=== PATIENT | female | born 1945 | race Caucasian/White ===

== ENCOUNTER 2018-04-20 10:00 | Outpatient (CLI) | payer MEDICARE, SELFPAY ==
[2018-04-20 10:43] LABS: INR 2.3 (1.0-3.5); Prothrombin Time 21.8 sec (9.3-10.8)
[2018-04-20 11:38] LABS: BUN 28 mg/dL (7-18); CREATININE 1.01 mg/dL (0.55-1.02); Calcium 8.4 mg/dL (8.5-10.1); Chloride 105 mmol/L (98-107); Cholesterol 164 mg/dL (50-200); Estimated GFR 54.03 (mL/min/1.73m2); Glucose 150 mg/dL (70-100); HDL Cholesterol 28 mg/dL (40-60); LDL CHOLESTEROL 112 mg/dL (<100); Potassium 4.1 mmol/L (3.5-5.1); Sodium 140 mmol/L (136-145); Triglyceride 155 mg/dL (30-150)
== END 2018-04-20 10:20 ==
PROVIDERS: PCP Family Medicine; Visit Provider Family Medicine
DX: I50.22 Chronic systolic (congestive) heart failure (principal); I48.91 Unspecified atrial fibrillation; Z79.01 Long term (current) use of anticoagulants
CPT/HCPCS: 36415; 80048; 80061; 83721; 85610

== ENCOUNTER → 2018-09-20 10:17 | Outpatient (BNVA) | payer MEDICARE, SELFPAY | PROVIDERS: PCP Family Medicine; Visit Provider Internal Medicine Cardiovascular Disease | DX: Z45.02 Encounter for adjustment and management of automatic implantable cardiac defibrillator (principal); I42.8 Other cardiomyopathies; I48.1 Persistent atrial fibrillation; Z79.01 Long term (current) use of anticoagulants | CPT/HCPCS: 93283; 99214 ==

== ENCOUNTER → 2019-03-14 08:56 | Outpatient (CLI) | payer MEDICARE, SELFPAY | PROVIDERS: PCP Family Medicine; Visit Provider Internal Medicine Cardiovascular Disease | DX: I42.8 Other cardiomyopathies (principal); Z45.02 Encounter for adjustment and management of automatic implantable cardiac defibrillator; I50.22 Chronic systolic (congestive) heart failure; Z98.890 Other specified postprocedural states; I48.2 Chronic atrial fibrillation | CPT/HCPCS: 93283; 99214 ==

== ENCOUNTER → 2019-03-15 12:44 | Outpatient (BNVA) | payer MEDICARE, SELFPAY | PROVIDERS: PCP Family Medicine; Referring Provider Family Medicine; Visit Provider Physical Therapy Assistant | DX: K62.5 Hemorrhage of anus and rectum (principal); Z80.0 Family history of malignant neoplasm of digestive organs; Z79.01 Long term (current) use of anticoagulants; I10 Essential (primary) hypertension | CPT/HCPCS: 99213 ==

== ENCOUNTER 2019-03-22 09:44 | Outpatient (CLI) | payer MEDICARE, SELFPAY ==
[2019-03-22 17:05] LABS: HCT 42.3 % (36.0-46.0); HGB 14.7 g/dL (12.0-15.5); Mean Corp. HGB Concentration 34.8 g/dL (32.0-36.0); Mean Corpuscular Volume 92.2 fL (80-95); Mean Platelet Volume 9.4 fL (8.0-11.0); Platelet Count 241 x1000/uL (130-400); RBC 4.59 m/cumm (4.00-5.20); RBC Distribution Width 13.1 % (11.7-14.6); White Blood Cell Count 8.65 k/cumm (4.4-10.8)
[2019-03-22 18:09] LABS: Anion Gap 9.1 mmol/L (3-11); BUN 32 mg/dL (7-18); CO2 27.9 mmol/L (21.0-32.0); CREATININE 1.39 mg/dL (0.55-1.02); Calcium 8.7 mg/dL (8.5-10.1); Calculated LDL 105 mg/dL; Chloride 104 mmol/L (98-107); Cholesterol 172 mg/dL (50-200); Estimated GFR 37.27 (mL/min/1.73m2); Glucose 93 mg/dL (70-100); HDL Cholesterol 29 mg/dL (40-60); Potassium 4.7 mmol/L (3.5-5.1); Sodium 141 mmol/L (136-145); Triglyceride 193 mg/dL (30-150)
== END 2019-03-22 10:04 ==
PROVIDERS: PCP Family Medicine; Visit Provider Family Medicine
DX: I42.8 Other cardiomyopathies (principal); I50.22 Chronic systolic (congestive) heart failure; K62.5 Hemorrhage of anus and rectum
CPT/HCPCS: 36415; 80048; 80061; 85027

== ENCOUNTER 2020-12-24 03:57 | Outpatient (CLI) | payer MEDICARE, SELFPAY ==
[2020-12-24 09:45] LABS: Abs Immature Grans 0.04 10^3/uL (0.0-0.06); Absolute Basophil Count 0.04 10^3/uL (0.0-0.2); Absolute Eosinophil Count 0.39 10^3/uL (0.0-0.7); Absolute Lymphocyte Count 2.23 10^3/uL (1.2-3.4); Absolute Monocyte Count 0.81 10^3/uL (0.1-0.8); Absolute Neutrophil Count 6.69 10^3/uL (1.2-6.7); Basophils % 0.4; Eosinophils % 3.8; HCT 43.4 % (36.0-46.0); HGB 15.3 g/dL (11.2-15.7); Immature Grans % 0.4; Lymphocytes % 21.9; MCH 31.9 pg (27.0-33.0); MCHC 35.3 % (32.0-36.0); MCV 90.4 fL (80-95); MPV 9.9 fL (8.0-11.0); Monocytes % 7.9; Neutrophils % 65.6; Nucleated RBC 0 %; Platelet Count 300 10^3/uL (130-400); RDW 13.4 % (11.7-14.6); RDW-SD 42.5 fL
[2020-12-24 09:47] LABS: Hemoglobin A1C 6.1 % (<5.7)
[2020-12-24 09:52] LABS: Anion Gap 6.1 mmol/L (3-11); BUN 18 mg/dL (7-18); CO2 30.9 mmol/L (21.0-32.0); Calcium 8.8 mg/dL (8.5-10.1); Chloride 103 mmol/L (98-107); Estimated GFR 54.35 (mL/min/1.73m2); Glucose 122 mg/dL (74-106); Potassium 4.4 mmol/L (3.5-5.1); Sodium 140 mmol/L (136-145)
[2020-12-24 09:57] LABS: Calculated LDL 107 mg/dL (<100); Cholesterol 164 mg/dL (<200); Digoxin 0.99 ng/mL (0.90-2.00); HDL Cholesterol 30 mg/dL (40-60); Triglyceride 138 mg/dL (<150)
== END 2020-12-24 03:58 | disposition home or self-care (01) ==
LOC: LBO 03:57
PROVIDERS: Internal Medicine Cardiovascular Disease; PCP Nurse Practitioner; Visit Provider Nurse Practitioner
DX: E66.9 Obesity, unspecified (principal); I50.22 Chronic systolic (congestive) heart failure; I48.91 Unspecified atrial fibrillation; R73.03 Prediabetes; I10 Essential (primary) hypertension
CPT/HCPCS: 36415; 80048; 80061; 80162; 82565; 83036; 84132; 85025

== ENCOUNTER 2021-07-08 02:29 | Outpatient (CLI) | payer MEDICARE, SELFPAY ==
--- NOTE | 2021-07-08 08:15 | DI.MAMMO_ITS ---
Exam(s) MAMMO SCREENING EXAM: MAMMO SCREENING CLINICAL HISTORY: screening,Z12.39 TECHNIQUE: Bilateral full field digital CC and MLO mammographic images were obtained with 3D tomosyn thesis and utilizing computer aided detection (CAD). COMPARISON: Available for comparison. FINDINGS: Masses/Architectural Distortion: There is an ovoid density in the medial right breast seen on the aircraft shipping checker niocaudad view. Microcalcifications: No suspicious pleomorphic-type are seen. Skin Thickening/Nipple Retraction: None. IMPRESSION: 1. Ovoid density in the medial right breast on the craniocaudad view 3 cm from the nipple. 2. This area should be further evaluated with spot compression view. Ultrasound may be indicated at that time. BI-RADS Category 0 - Assessment Incomplete: Need additional imaging evaluation Breast Density - Category B - Scattered areas of fibroglandular density Breast density category C or D implies that the patient has dense breast tissue. Dense breast tissue is very common and is not abnormal but dense breast tissue can make it harder to find cancer on a ma mmogram. Also, dense breast tissue may increase their breast cancer risk. This information about the result of the mammogram report was provided to the patient to raise their awareness. Use this report when you speak with the patient about their risks for breast cancer, which includes their family hist ory. At that time, you may recommend for more screening tests (Ultrasound or MRI) as they might be us eful based on their risk. A negative radiographic report should not delay biopsy if a dominant or clinically suspicious mass is present. Up to ten percent of cancers are not identified on mammography. A negative report may reinforce clinical impression. Adenosis and dense breasts may obscure an underlying neoplasm. False positive reports average 6 to 10%. Patient will receive a letter notifying them of these results.
== END 2021-07-08 02:49 ==
PROVIDERS: PCP Nurse Practitioner; Visit Provider Nurse Practitioner
DX: Z12.31 Encounter for screening mammogram for malignant neoplasm of breast (principal); R92.8 Other abnormal and inconclusive findings on diagnostic imaging of breast
CPT/HCPCS: 77063; 77067

== ENCOUNTER 2021-07-23 00:45 | Outpatient (CLI) | payer MEDICARE, SELFPAY ==
--- NOTE | 2021-07-23 | DI.US_ITS ---
Exam(s) MG MAMMO SCREEN CALL BACK UNI US BREAST RT LIMITED EXAM: MG MAMMO SCREEN CALL BACK UNI CLINICAL HISTORY: OVOID DENSITY IN MEDIAL RT BREAST 3 CM FROM NIPPLE. TECHNIQUE: Craniocaudal spot compression digital Mammography views of the right breast with Computer Aided Diagnosis followed by Tomosynthesis and right breast ultrasound. COMPARISON: US RIGHT BREAST ULTRASOUND from 06/24/2013 MG DIAGNOSTIC BILATERAL SPOTS DIGITAL from 06/24/2013 MG MG MAMMO SCREENING from 07/08/2021 US US BREAST RT LIMITED from 07/23/2021 FINDINGS: Mammography/Tomosynthesis: A spot compression view of the medial aspect of the right breast showed shows no persistent abnormali ty. Spot compression view of the of subareolar region shows a circumscribed nodule measuring 6 x 8 millim eters. Architectural Distortion: None seen. Microcalcifictions: No suspicious pleomorphic-type are seen. Skin Thickening/Nipple Retraction: None. Right breast US: Echotexture: Normal appearance of the glandular tissue. Shadowing: No suspicious foci. Cyst: There is a cystic area in the subareolar region measuring 9 by 5 x 10 millimeters which contain s a solid component containing vascularity. Findings may represent an intraductal papilloma. Ductal dilation: Dilated ducts are noted in the subareolar region. IMPRESSION: 1. Complex cystic lesion in the subareolar region containing solid component. Biopsy is recommended for further evaluation. This is amenable to ultrasound-guided biopsy. 2. The findings were called to Cristal robison and discussed with the patient after completion of the examination. BI-RADS Category 4 - Suspicious Abnormality: Biopsy should be considered Breast Density - Category B - Scattered areas of fibroglandular density A negative radiographic report should not delay biopsy if a dominant or clinically suspicious mass is present. Up to ten percent of cancers are not identified on mammography. A negative report may reinforce clinical impression. Adenosis and dense breasts may obscure an underlying neoplasm. False positive reports average 6 to 10%. Patient will receive a letter notifying them of these results.
--- NOTE | 2021-07-23 | DI.US_ITS ---
Exam(s) US BREAST LT LIMITED EXAM: US BREAST LT LIMITED CLINICAL HISTORY: PER RADIOLOGIST; PT C/O STRAW COLORED DISCHARGE TECHNIQUE: Ultrasound left breast performed using standard protocol. COMPARISON: [facility] MAMMO SCREENING from 07/08/2021 FINDINGS: Dilated ducts are noted in the sub subareolar region. The maximal dilatation is 2.6 millimeters. A single duct shows some debris but no evidence of a focal mass. IMPRESSION: Ductal dilatation with focal area of debris. No visible solid mass. BI-RADS Category 3 - 6 month - Probably Benign Finding: Recommend follow-up ultrasound in 6 months DATA REPOSITORY:
== END 2021-07-23 01:05 ==
PROVIDERS: PCP Nurse Practitioner; Visit Provider Nurse Practitioner
DX: Z12.31 Encounter for screening mammogram for malignant neoplasm of breast (principal); R92.8 Other abnormal and inconclusive findings on diagnostic imaging of breast; N60.01 Solitary cyst of right breast; N60.42 Mammary duct ectasia of left breast
CPT/HCPCS: 76642; 77063; 77067

== ENCOUNTER 2022-04-12 14:23 | Outpatient (CLI) | payer MEDICARE, SELFPAY ==
--- OUTSIDE RECORDS SUMMARY | 2022-04-12 14:38 | XMS_ITS | Encounter Summary ---
:1945 Author Organization [facility] Address [address] [place] [address] Care Team Providers Name Role Phone Anna Staples DISCHARGE RN Primary Care Provider Eun Nolen MD Unavailable [phone] Reason for Visit Reason Onset Date Comments Appointment Related 10/21/2021 Dr. Almanza visit Encounter Details Date Type Department Care Team Description 10/21/2021 Telephone [facility] Jens Almanza MD Appointment Related Surgical Oncology - [address] [place] [address] (Dr. 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 Not asked How many drinks containing alcohol do you have on a typical Not asked day when you are drinking? How often do you have six or more drinks on one occasion? No t asked Comment: RARE 09/24/2014 Sex Assigned at Date Recorded Not on file documented as of this encounter Functional Status Functional Status Response Date of Assessment Are you deaf or do you have serious difficulty hearing? No 11/12/2015 Are you blind or do you have serious difficulty seeing, No 11/12/2015 even when wearing glasses? Do you have serious difficulty walking or climbing No 11/12/2015 stairs? (5 years old or older) Do you have difficulty dressing or bathing? (5 years old No 11/12/2015 or older) Because of a physical, mental, or emotional condition, No 03/16/2020 does this person have difficulty doing errands alone such as visiting a doctor's office or shopping? Cognitive Status Response Date of Assessment Because of a physical, mental, or emotional condition, No 03/16/2020 does this person have serious difficulty concentrating, remembering, or making decisions? documented as of this encounter Miscellaneous Notes Telephone Encounter - Neida Nielsen - 10/21/2021 1550 EDT Called patient back and she is now rescheduled to 11/08 at 2:30. Patient is all set. documented in this encounter Plan of Treatment Upcoming Encounters Date Type Specialty Care Team Description 04/21/2022 Ancillary Procedure Cardiology 04/21/2022 Office Visit Cardiology Eun Nolen MD [address] [place], [place] [address]A [facility] [address] [phone] (Birdie rk) 07/15/2022 Office Visit Surgical Oncology Jens Almanza MD [address] [place] [address] 2 [place] [address] (Wo rk) documented as of this encounter Visit Diagnoses Not on filedocumented in this encounter Care Teams Correctional Therapy Director Relationship Specialty Start Date End Date Anna Staples NP PCP - General 08/26/21 [address] [place] [address] Eun Nolen MD Cardiovascular Disease 09/26/21 [address] [facility] [address] [place] [address] documented as of this encounter
--- OUTSIDE RECORDS SUMMARY | 2022-04-12 14:38 | XMS_ITS | Encounter Summary ---
:1945 Author Organization [facility] Address [address] [place] [address] Care Team Providers Name Role Phone Anna Staples TRAY SERVER Primary Care Provider Eun Nolen MD Unavailable Encounter Details Date Type Department Care Team Description 01/17/2022 Telephone [facility] Surgical Michaela Holt , oil spot washer - [facility] [address], [place] [id number] Social History Tobacco Use Types Packs/Day Years [...] Assigned at Date Recorded Not on file COVID-19 Exposure Response Date Recorded In the last 10 days, have you been in contact with No / Unsu re 01/06/2022 15:24 EDT someone who was confirmed or suspected to have Coronavirus/COVID-19? documented as of this encounter Functional Status [...] making decisions? documented as of this encounter Ordered Prescriptions Prescription Sig Dispensed Refills Start Date End Date tamoxifen (NOLVADEX) 20 mg Take 1 Tablet by 90 Tablet 3 04/17/2022 tablet mouth daily for 90 days. documented in this encounter Plan of Treatment Upcoming Encounters Date Type Specialty Care Team Description 04/21/2022 Ancillary Procedure Cardiology 04/21/2022 Office Visit Cardiology Eun Nolen MD [address] [place] [phone] (Wo rk) 07/15/2022 Office Visit Surgical Oncology Jens Almanza MD [address] [place] [address] 2 [place] [address] (Wo rk) documented as of this encounter Visit Diagnoses Not on filedocumented in this encounter Care Teams Supervisor Multifocal Lens Relationship Specialty Start Date End Date Anna Staples NP PCP - General 08/26/[address] [place] [phone] Eun Nolen MD Cardiovascular Disease 09/26/[address] [place] [phone] documented as of this encounter
--- OUTSIDE RECORDS SUMMARY | 2022-04-12 14:38 | XMS_ITS | Encounter Summary ---
:1945 Author Organization [facility] [place] [address] Care Team Providers Name Role Phone Silvino Charles MD Primary Care Provider Reason for Visit Reason Comments Skin Lesion Consultation (Routine) - Closed Specialty Diagnoses / Procedures Referred By Contact Refer red To Contact Dermatology Diagnoses skin tag Silvino Charles MD [facility] Dermatology [address] [place], [place] [address] [address] [place] [address] Fax: Referral ID Status Reason Start Date Expiration Date Visits V isits Requested Authorized [id number] Closed Consult, 08/17/2016 08/17/2017 1 [facility] Encounter Details Date Type Department Care Team Description 09/05/2016 Office Visit Dermatology at [facility] Viviane Stevenson i, MD Skin exam, screening for cancer; [facility] History of basal cell carcin santos; [address] Seborrheic keratosis, inflamed; [place] [phone] [facility] [address] (seborrheic keratosis); [phone] RD-DERMATOLOGY [place] angioma; [place], [place] [address] Sebaceous hyperplasia; [phone] Viral warts, un specified type; (Work) [employer] Social History Tobacco Use Types Packs/Day Years Used Date Former Smoker Sex Assigned at Date Recorded Not on file documented as of this encounter Patient Instructions Patient InstructionsRosalind Mott - 09/05/2016 2:15 PM EST Plan for Tania: Destruction of seborrheic keratoses: [phone] Financial Services: [phone] - Recommend daily face lotion spf 15-30 (Cerave AM, Marcell, Cotz) Caring for Your Skin Sun Protection Exposure to ultraviolet (UV) light--from the sun or tanning beds--is the most common modifiable riskfactor for skin cancer. In fact, most skin cancers are found in locations where sun exposure is highest (e.g., face, ears, and hands). Furthermore, UV exposure is associated with skin aging, including wrinkles, brown spots, and leathery skin. Recommendations ?? Generously apply a broad-spectrum water-resistant sunscreen with a Sun Protection Factor (SPF) of30 or more to all exposed skin. ?? Reapply sunscreen every 2 hours, even on cloudy days, and after swimming or sweating. ?? Preferred sunscreens: Sunscreens work by either forming a physical or a chemical barrier to ultraviolet light. Zinc oxide or Titanium dioxide are physical barriers to the sun. We recommend sunscreens that contain at least one physical barrier. Look for these brands: Neutrogena, Blue Lizard, Elizabeth Baby, Delaney Simpson MD, Viridiana evans spf 45 very emollient sport (blue bottle) ?? Wear protective clothing. Long-sleeved shirts, pants, a wide-brimmed hat and sunglasses are all excellent choices. Some companies produce great, breathable SPF clothing (Coolibar, LL Rosa, Monday Afternoons) ?? Seek shade. The sun's rays are strongest between 10a.m. And 4 p.m. ?? Recommend daily face lotion spf 15-30 (Cerave AM, Avnicolleo, Cotz) Skin Cancer screening The incidence of skin cancer has increased dramatically in the past 20 years. The most common skin cancer types include basal cell carcinoma and squamous cell carcinoma. These often look like new moles, and they might be tender, scaly, or prone to bleeding. The most deadly form of skin cancer is melanoma, and it can affect people of all ages and skin types. Recommendations ?? We recommend performing a skin self-examination monthly to become familiar with your moles. This will help you to detect new or changing moles earlier. ?? Remember the ABCDE's of melanoma: ?? Asymmetry - Melanoma tends to grow in an asymmetric (uneven) fashion ?? Border - The border in melanoma tends to be uneven or jagged ?? Color - Melanomas often have different colors (e.g., dark brown, black, red) ?? Diameter - Look for moles that are larger than 0.6 cm (the size of a pencil eraser) ?? Evolution - This is perhaps the most important feature. Any mole that is rapidly growing or changing should be evaluated. If you have any questions, please call [phone]. documented in this encounter Progress Notes Loulou Stevenson MD - 09/05/2016 2:15 PM EST DERMATOLOGY - CONSULT PATIENT NOTE Date of service: 09/05/2016 Tania Stahl : 1945 CC: Skin exam HPI: Tania Stahl is a 71 y.o. female seen in consultation at the request of Silvino Charles MD for evaluation of skin check - Patient is here for a full skin check - has a spot of concern on the left cheek x 1-2 months, asymptomatic - has never bled or hurt, changing in shape - skin tags/seborrheic keratoses - increasing in number, present on face. Says some do itch and whenshe scratches them they bleed. - history of condyloma and wonders if there is a relationship between that and seborrheic keratoses Last FSE: 15 years ago Sun protection: no Relevant Medical History: Preferred name: Radha Skin type: 2 Yes/No If yes (date, subtype, location, treatment) Melanoma no Dysplastic nevi no SCC no BCC yes Right cheek [phone]? [place] no Eczema/Psoriasis no Immunosuppression or Malignancy no History of blistering sunburn yes As a child/ teenager Other Procedure Screening Questions: Yes/No If Yes, details Defibrillator/Pacemaker yes both Artificial Joints no Heart Valves no Blood Thinners yes coumadin Prophylactic Antibiotics no Best way to reach with results Cell Ok to leave a detailed message Relevant FamilyHistory: Yes/No If yes, who (mom/dad/sibling/child) Melanoma no SCC no BCC yes mother Psoriasis or Eczema no Other Social History: Occupation: Retired Marital status: Medications: LORazepam, clotrimazole-betamethasone, digoxin, diphenhydrAMINE, furosemide, lisinopril, meTOPROLOL tartrate, spironolactone, trimethobenzamide, and warfarin No Known Allergies Review of Systems: - General: Feels well. - Skin: No other skin concerns. Examination: - Constitutional: Patient was alert, well-appearing and in no noticeable distress. - Skin exam: The patient was asked to disrobe to the level of their comfort. Full skin examination of the scalp, hair, head, face, neck, back, chest, abdomen, right and left upper extremities, right and left lower extremities and buttocks was normal with the exception of the findings listed below. Skin Type: 2 Notable findings/Assessment/Plan: 1. Seborrheic keratoses - stuck on brown/hearn waxy papules on the face, trunk and extremities. - Reassured of the benign nature of these lesions. No treatment needed. - Discussed fee of $150 for removal of areas that are cosmetically bothersome 2. Sebaceous hyperplasia - yellowish pink papule with telangiectasias and central umbilication located on the face - Benign, reassured. 3. 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 - Reassured of the benign nature of these lesions. No treatment needed. 4. Intertrigo - erythematous plaques with slight maceration in the inframammary fold - Keep area dry. Can use blow-dryer on low setting or dinkey operator slag front of fan/AC after bathing - Continue powder 5. Verruca - flesh colored rough papules with capillary dots located on the right heel - Reviewed diagnosis with patient and treatment options. Not bothersome, no treatment 7. Inflamed seborrheic keratosis - stuck on rough papules located on the trunk - Reassured of the benign nature of these lesions, given irritation/itching/bleeding discussed treatment with LN2 - Patient will call insurance to make sure that spots that are itchy/bleeding is covered and review copay/deductible 8. History of BCC - well healed scar on the right cheek. - NER - recommend photoprotection, handout provided RTC: 1-2 years FSE or PRN if symptoms worsen or persist. Note initiated by Madeleine Bell CMA. Rosalind Tiera has performed the documentation for this encounter in the presence of and acting as a scribe for Dr. Stevenson. I performed the above scribed service and agree with the accuracy of the documentation in this encounter. Reviewed and signed by: Loulou Stevenson MD Dermatology [facility] documented in this encounter Plan of Treatment Not on filedocumented as of this encounter Visit Diagnoses Diagnosis Skin exam, screening for cancer Screening for malignant neoplasm of the skin History of basal cell carcinoma Personal history of other malignant neop lasm of skin Seborrheic keratosis, inflamed Inflamed seborrheic keratosis SK (seborrheic keratosis) Other seborrheic keratosis [place]anca angioma Nevus, non-neoplastic Sebaceous hyperplasia Other specified disease of sebaceous gla nds Viral warts, unspecified type Intertrigo Other specified erythematous condition documented in this encounter Care Teams Repairer Resistance Welding Machines Relationship Specialty Start Date End Date Silvino Charles MD PCP - General Family Medicine 08/17/[address] [place] [address] documented as of this encounter
--- OUTSIDE RECORDS SUMMARY | 2022-04-12 14:38 | XMS_ITS | Encounter Summary ---
:1945 Author Organization [facility] Address [address] [place] [address] Care Team Providers Name Role Phone Nabeeloralia Anna L TRAILHEAD CONSTRUCTION WORKER Primary Care Provider Eun Nolen MD Unavailable [phone] Reason for Referral Consult (See Order Priority) - Specialty Report Received Specialty Diagnoses / Procedures Referred By Contact Refer red To Contact Multidisciplinary Diagnoses Chronic atrial fibrillation (HCC) Eun Nolen [facility] sinan Smith MD [address] [facility], [address] [place], [place] [address] [facility] [address] [phone] Referral ID Status Reason Start Expiration Visits Visits Date Date Requested Authorized [id number] Specialty Specialty 01/10/2022 1 1 Report Services Received Required Question Answer Are you a tobacco user? No Reason for Request: Patient cannot afford medica tions, Xarelto cost 300.00 a month. Patient has 6 pills l eft Reason for Visit Reason Onset Date Comments Medication Management 01/10/2022 Encounter Details Date Type Department Care Team Description 01/10/2022 Telephone [facility] - Eun Nolen [facility] ication Management [facility] Cardiology Clin ic MD Luis [address] [facility] [address] [place] [address] [address] [place] [address] (Wo rk) Social History Tobacco Use Types [...] this encounter Miscellaneous Notes Telephone Encounter - Alyson Bui RN - 01/13/2022 1009 EDT Spoke with [facility], they have reached out to patient. elephone Encounter - Alyson Bui RN - 01/12/2022 1358 EDT Spoke with patient, she is unsure who called her yesterday. She is upset as she would like to speak with someone from [facility]. She asks that I call the [facility] team and see if I would ask them to reach back out to patient. Call placed to [facility]-left msg asking them to call the office regarding patient. elephone Encounter - Magalys Ivan MA - 01/12/2022 1318 EDT Patient called today and left a lengthy message regarding trying to get assistance with her Xarelto medication. She said she was driving yesterday and missed a call from what she thought was the [facility] to help her with her prescription. When she called back today it ended up being the pharmacy at [facility] who told her to call us back as they couldn't help her. She is hoping we can look into this and help her with her Xarelto. elephone Encounter - Alyson Bui RN - 01/10/2022 1523 EDT Spoke with patient regarding her Xarelto. She states it is going to cost her 300.00 a month now and she can not afford this. She states she has 6 pills left. I told her about the [facility], she feels she will qualify. Referral sent for medication assistance. elephone Encounter - Magalys Ivan MA - 01/10/2022 1447 EDT Patient called in and left a msg stating her Xarelto prescription is now costing her too much and she can't afford it. She is wondering what she can do to get it at a lower cost again. She is also wondering about taking her Xarelto with Tamoxifen. documented in this encounter Plan of Treatment Upcoming Encounters Date Type Specialty Care Team Description 04/21/2022 Ancillary Procedure Cardiology 04/21/2022 Office Visit Cardiology Eun Nolen MD [address] [facility] [address] [place] [address] (Wo rk) 07/15/2022 Office Visit Surgical Oncology Jens Almanza MD [address] [place] [address], [facility] [address] [place] [address] (Wo rk) Scheduled Referrals Name Type Priority Associated Diagnoses Order S chedule AMB CONS/FOLLOW UP Outpatient Referral Urgent Chronic atrial Expected: HEALTH ASSISTANCE fibrillation (HCC) 12/31 PROGRAM (Approximate), Expires: 01/10/2023 documented as of this encounter Visit Diagnoses Diagnosis Chronic atrial fibrillation (HCC) - Prim jessica Atrial fibrillation documented in this encounter Care Teams Pulmonologist Relationship Specialty Start Date End Date Anna Staples NP PCP - General 08/26/[address] [place] [address] Eun Nolen MD Cardiovascular Disease 09/26/21 [address] [facility] [address] [place] [address] documented as of this encounter
--- OUTSIDE RECORDS SUMMARY | 2022-04-12 14:38 | XMS_ITS | Encounter Summary ---
:1945 Author Organization [facility] Address [address] [place] [address] Care Team Providers Name Role Phone Anna Staples SECURITY INTELLIGENCE ANALYST Primary Care Provider Eun Nolen MD Unavailable [phone] Encounter Details Date Type Department Care Team Description 11/08/2021 Ancillary Procedure [facility] Surgical Oncology - Main [facility] [address] [place], [place] [id number] Social History Tobacco Use Types Packs/Day Years [...] in contact with No / Unsu re 11/08/2021 13:58 EDT someone who was confirmed or suspected [...] making decisions? documented as of this encounter Plan of Treatment Upcoming Encounters Date Type Specialty Care Team Description 04/21/2022 Ancillary Procedure Cardiology 04/21/2022 Office Visit Cardiology Eun Nolen MD [address] [place], [place] [address]A [facility] [address] [phone] (Wo rk) 07/15/2022 Office Visit Surgical Oncology Jens Almanza MD [address] [place] [address], [facility] [address] [place] [address] (Wo rk) documented as of this encounter Procedures Procedure Name Priority Date/Time Associated Diagnosis Comme nts [facility] BREAST - Routine 11/08/2021 15:06 Results for this [facility] EDT procedure are in ONLY the results section. documented in this encounter Results [facility] BRE[facility] - BREAST CARE CENTER ONLY (11/08/2021 15:06 EDT) Specimen Narrative [facility] POINT OF CARE - 11/08/2021 15:06 E DT This is a non-reportable exam. Performing Organization Address City/State/ZIP Code Phon e Number [facility] POINT OF CARE documented in this encounter Visit Diagnoses Not on filedocumented in this encounter Care Teams Heavy Equipment Engine Mechanic Relationship Specialty Start Date End Date Anna Staples NP PCP - General 08/26/[address] [place] [phone] Eun Nolen MD Cardiovascular Disease 09/26/21 [address] [facility] [address] [place] [phone] documented as of this encounter
--- OUTSIDE RECORDS SUMMARY | 2022-04-12 14:38 | XMS_ITS | Encounter Summary ---
:1945 Author Organization [facility] Address [address] [place] [address] Care Team Providers Name Role Phone Anna Staples MAKE UP GIRL Primary Care Provider Eun Nolen MD Unavailable [phone] Reason for Visit Reason Onset Date Comments Returning Call 01/17/2022 Encounter Details Date Type Department Care Team Description 01/17/2022 Telephone [facility] Viv Nolen, Returning Call Cardiology Clinic [address] [place] [address] [address] [place] [address] (Wo rk) Social History Tobacco Use Types [...] this encounter Miscellaneous Notes Telephone Encounter - Charli Trujillo - 01/18/2022 1628 EDT Pt called, states that she is returning Dr. Nolen's call elephone Encounter - Talya Robb - 01/17/2022 1334 EDT Patient was returning your call, requested a call back when you have a moment. documented in this encounter Plan of Treatment Upcoming Encounters Date Type Specialty Care Team Description 04/21/2022 Ancillary Procedure Cardiology 04/21/2022 Office Visit Cardiology Eun Nolen MD [address] [place] [address] [address] [place], [place] [phone] (Wo rk) 07/15/2022 Office Visit Surgical Oncology Jens Almanza MD [address] [place] [address], [facility], [facility] 2 [place] [address] (Wo rk) documented as of this encounter Visit Diagnoses Not on filedocumented in this encounter Care Teams Motor Vehicle Licence Examiner Relationship Specialty Start Date End Date Anna Staples, MAKE UP GIRL PCP - General 08/26/[address] [place] [address] Eun Nolen MD Cardiovascular Disease 09/26/21 130 [facility] [address] [place] [address] documented as of this encounter
--- OUTSIDE RECORDS SUMMARY | 2022-04-12 14:38 | XMS_ITS | Encounter Summary ---
:1945 Author Organization [facility] Address [address] [place] [address] Care Team Providers Name Role Phone Anna Staples PEGA DEVELOPER Primary Care Provider Eun Nolen MD Unavailable [phone] Reason for Visit (Routine) - Authorization Not Required Specialty Diagnoses / Procedures Referred By Contact Refer red To Contact Diagnoses Encounter for adjustment or management of cardiac device Eun Nolen MD Procedures CARDIAC IMPLANT CHECK - IN CLINIC [address] [place] [address]- [address] [place] [address] Referral ID Status Reason Start Expiration Visits Visits Date Date Requested Authorized [id number] Authorization Not 02/06/2020 1 1 Required Encounter Details Date Type Department Care Team Description 09/27/2021 Ancillary Procedure [facility] - Encounter for [facility] Cardiology Clin ic adjustment or [address] [place] [address] device [phone] Social History Tobacco Use Types Packs/Day Years [...] Exposure Response Date Recorded In the last month, have you been in contact with No / Unsure 09/01/2021 13:39 EST someone who was confirmed or suspected to have Coronavirus / COVID-19? documented as of this encounter Functional Status [...] making decisions? documented as of this encounter Progress Notes Eun Nolen MD - 09/27/2021 1430 EDT See report in same-day clinic note. Detailed device printout in Scans. JM documented in this encounter Plan of Treatment Upcoming Encounters Date Type Specialty Care Team Description 04/21/2022 Ancillary Procedure Cardiology 04/21/2022 Office Visit Cardiology Eun Nolen MD [address] [facility] [address] [place] [address] (Birdie walls) 07/15/2022 Office Visit Surgical Oncology Jens Almanza MD [address] [place] [address], [facility] 2 [place] [address] (Birdie walls) documented as of this encounter Visit Diagnoses Diagnosis Encounter for adjustment or management o f cardiac device documented in this encounter Orders Implantable Cardiac Device Count Last Ordered Date Fir st Ordered Date CARDIAC IMPLANT CHECK - IN CLINIC 1 09/27/2021 documented in this encounter Care Teams Soldering Machine Operator Helper Relationship Specialty Start Date End Date Anna Staples, FILEMON PCP - General 08/26/[address] [facility] [facility] [address] [place] [phone] Eun Nolen MD Cardiovascular Disease 09/26/21 130 [facility] [address] [place] [address] documented as of this encounter
--- OUTSIDE RECORDS SUMMARY | 2022-04-12 14:38 | XMS_ITS | Encounter Summary ---
:1945 Author Organization [facility] Address [address] [place] [address] Care Team Providers Name Role Phone Anna Staples BRIGHT CUTTER Primary Care Provider Eun Nolen MD Unavailable [phone] Encounter Details Date Type Department Care Team Description 01/06/2022 Travel Social History Tobacco Use Types Packs/Day Years [...] Office Visit Cardiology Eun Nolen MD 130 [facility] 21 [place] [address] (Wo rk) 07/15/2022 Office Visit Surgical Oncology Jens Almanza MD [address] [place] [address], [facility] 2 [place] [address] (Wo rk) documented as of this encounter Visit Diagnoses Not on filedocumented in this encounter Care Teams Debarker Operator Relationship Specialty Start Date End Date Anna Staples, FILEMON PCP - General 08/26/[address] [place] [address] [address] [place] [phone] Eun Nolen MD Cardiovascular Disease 09/26/21 130 [facility] [address] [place] [address] documented as of this encounter
--- OUTSIDE RECORDS SUMMARY | 2022-04-12 14:38 | XMS_ITS | Encounter Summary ---
:1945 Author Organization [facility] Address [address] [place] [address] Care Team Providers Name Role Phone Anna Staples AIRPORT OPERATIONS CREW MEMBER Primary Care Provider Eun Nolen MD Unavailable [phone] Reason for Visit Reason Onset Date Comments Medications Refill 10/11/2021 Encounter Details Date Type Department Care Team Description 10/11/2021 Refill [facility] - CV Judy Hutchins R N Medications Refill Cardiology Clinic [address] [place] [address] Social History Tobacco Use Types Packs/Day Years [...] Sig Dispensed Refills Start Date End Date rivaroxaban (XARELTO) 20 mg Take 1 Tablet by 90 Tablet 3 01/13/2022 tablet tabletIndications: mouth daily with prevent thromboembolism in dinner. chronic atrial fibrillation documented in this encounter Miscellaneous Notes Telephone Encounter - Judy Hutchins RN - 10/11/2021 1633 EDT Refill request received. Has a follow up in the office. Rx sent to pharmacy per request. documented in this encounter Plan of Treatment Upcoming Encounters Date Type Specialty Care Team Description 04/21/2022 Ancillary Procedure Cardiology 04/21/2022 Office Visit Cardiology Eun Nolen MD [address] [place] [phone] (Birdie walls) 07/15/2022 Office Visit Surgical Oncology Jens Almanza MD 111 [facility] 2 [place] [address] (Birdie walls) documented as of this encounter Visit Diagnoses Not on filedocumented in this encounter Discontinued Medications Medication Sig Discontinue Reason Start Date End Date rivaroxaban (XARELTO) 20 mg Take 1 Tab by Reorder 09/10/2020 10/11/2021 tablet tabletIndications: mouth daily with prevent thromboembolism in dinner. chronic atrial fibrillation documented as of this encounter Care Teams Networks Computer Consultant Relationship Specialty Start Date End Date Anna Staples NP PCP - General 08/26/[address] [place] [address] [address] [place] [phone] Eun Nolen MD Cardiovascular Disease 09/26/[address] [place] [address] [address] documented as of this encounter
--- OUTSIDE RECORDS SUMMARY | 2022-04-12 14:38 | XMS_ITS | Encounter Summary ---
:1945 Author Organization [facility] Address [address] [place] [address] Care Team Providers Name Role Phone Anna Staples INTERNATIONAL TRAVEL CONSULTANT Primary Care Provider Eun Nolen MD Unavailable [phone] Reason for Visit Reason Onset Date Comments Medication Management 01/13/2022 Encounter Details Date Type Department Care Team Description 01/13/2022 Telephone [facility] Jens Almanza MD Medication Management Surgical Oncology - [address] [facility], [address] [place], [place] [address] [place] [address] [phone] (Wo rk) Social History Tobacco Use [...] this encounter Miscellaneous Notes Telephone Encounter - Michaela Holt RN - 01/18/2022 1400 EDT Provided patient education on tamoxifen which she will start in the near future. Patient to take 20 mg PO daily. Will schedule lab work in approximately 6 weeks from starting to assess LFTs. Patient asking that this be done at [facility]. Patient also aware we recommend avoiding grapefruit and having annualeye exams. Patient did have a total hysterectomy. Patient did receive clearance from cardiology and is aware of the risk for blood clots. She is currently on xarelto. reviwed sx of DVT and PEs to call with. Patient has verbalized understanding. Human Services Care Specialist to check back in in a few weeks. Patient provided direct number to call should she need anything in the meantime. elephone Encounter - Michaela Hlot RN - 01/17/2022 1321 EDT Patient has received clearance from her bliss press operator that is is ok to start tamoxifen. Prescription has been sent to [facility] pharmacy per Dr. Almanza. Call placed to patient to provide education, no answer,mailbox is full. Will try to call back. Telephone Encounter - Michaela Holt RN - 01/14/2022 1543 EDT Return call placed to patient. States she is still waiting to hear back from bliss press operator but is open to taking tamoxifen as discussed with Dr. Almanza. Patient to talk to her bliss press operator and touch base with selling underwriter next week. Direct line provided. Patient education on tamoxifen has been mailed to home address. Human Services Care Specialist to review verbally once prescription has been sent. elephone Encounter - Carmen Castro - 01/13/2022 1054 EDT Patient asking to have her tamoxifen, which she discussed taking with Dr. Almanza, to be sent to the [facility] Mailorder pharmacy documented in this encounter Plan of Treatment Upcoming Encounters Date Type Specialty Care Team Description 04/21/2022 Ancillary Procedure Cardiology 04/21/2022 Office Visit [facility]iology [facility] MD [address] [facility] [address] [place] [address] (Birdie walls) 07/15/2022 Office Visit Surgical Oncology Jens Almanza MD [address] [place] [address], [facility] 2 [place] [address] (Birdie walls) documented as of this encounter Visit Diagnoses Not on filedocumented in this encounter Care Teams Pension Adviser Relationship Specialty Start Date End Date Anna Staples NP PCP - General 08/26/[address] [facility] [place] [address] Eun Nolen MD Cardiovascular Disease 09/26/21 [address] [facility] [address] [place] [address] documented as of this encounter
--- OUTSIDE RECORDS SUMMARY | 2022-04-12 14:38 | XMS_ITS | Encounter Summary ---
:1945 Author Organization [facility] Address [address] [place] [address] Care Team Providers Name Role Phone Anna Staples HEALTH AND WELLNESS COORDINATOR Primary Care Provider Eun Nolen MD Unavailable [phone] Reason for Visit Reason Onset Date Comments Follow-up 11/19/2021 Encounter Details Date Type Department Care Team Description 11/19/2021 Telephone [facility] Surgical Michaela Holt RN Follow-up Oncology - Main [facility] [address] [place], [place] [phone] Social History Tobacco Use Types Packs/Day Years [...] Telephone Encounter - Michaela Holt RN - 11/19/2021 1232 EDT Post-operative follow up phone call was made to the patient. Date of Surgery: 11/18/21 Surgery: excisional biopsy right breast Surgeon: Dr. Almanza Pain: 09/09. Patient taking tylenol with relief. Encouraged patient to ice site as well. Patient is aware that pathology results take 7-10 days and will be called with these results once available. They will call with additional questions or concerns that might arise. Clinic number has been provided. documented in this encounter Plan of Treatment Upcoming Encounters Date Type Specialty Care Team Description 04/21/2022 Ancillary Procedure Cardiology 04/21/2022 Office Visit Cardiology Eun Nolen MD [address] [place] [address] [address] [place] [address] (Birdie walls) 07/15/2022 Office Visit Surgical Oncology Jens Almanza MD [address] [place] [address], [facility] 2 [place] [address] (Birdie walls) documented as of this encounter Visit Diagnoses Not on filedocumented in this encounter Care Teams Mathematical Statistician Relationship Specialty Start Date End Date Anna Staples NP PCP - General 08/26/[address] [place] [address] Eun Nolen MD Cardiovascular Disease 09/26/[address] [facility] [address] [place] [address] documented as of this encounter
--- OUTSIDE RECORDS SUMMARY | 2022-04-12 14:38 | XMS_ITS | Encounter Summary ---
:1945 Author Organization [facility] Address [address] [place] [address] Care Team Providers Name Role Phone Anna Staples [employer]ACHINE Primary Care Provider Eun Nolen MD Unavailable Reason for Visit Reason Comments Pacemaker/Device Check medtronic Encounter Details Date Type Department Care Team Description 12/29/2021 Office Visit [facility] - Eun Nolen Car diomyopathy, dilated, nonischemic (HCC-CMS) (HCC) (Primary Dx); [facility] Cardiology MD Luis Chronic systolic congestive heart failur e, NYHA class 3 (HCC-CMS) (HCC); Clinic [address] [facility] Chronic atrial fibrillation ([facility]); [address] [place] [address] [address]-A [address] Biventricular ICD (implantable cardiover ter-defibrillator) in place; [place] [address] [place] LBBB (left bundle branch blo ck) [phone] Social History Tobacco Use Types Packs/Day Years [...] on file documented as of this encounter Last Filed Vital Signs Vital Sign Reading Time Taken Comments Blood Pressure 108/74 12/29/2021 1532 EDT Pulse 86 12/29/2021 1532 EDT Temperature - - Respiratory Rate - - Oxygen Saturation 98% 12/29/2021 1532 EDT Inhaled Oxygen Concentration - - Weight 95.2 kg (209 lb 14.4 oz) 12/29/2021 1532 EDT Height 171 cm (5' 7.32) 12/29/2021 1532 EDT Body Mass Index 32.56 12/29/2021 1532 EDT documented in this encounter Functional Status Functional Status Response [...] Sig Dispensed Refills Start Date End Date metoprolol SUCCinate Take 1 Tablet by 90 Tablet 3 2 01/13/2022 (TOPROL-XL) 200 mg tablet mouth daily. documented in this encounter Progress Notes Eun Nolen MD - 12/29/2021 1600 EDT [facility] Cardiology Clinic Visit Subjective: Chief Complaint(s): Pacemaker/Device Check (medtronic) HPI: 76-year-old woman with permanent atrial fibrillation, nonischemic cardiomyopathy with chronic systolic heart failure and left bundle branch block. Had CLINICAL CARE LEADER-D implant 12/2014, AVN ablation 12/2015. Followed in our [facility] cardiology/cardiac device clinic until 2019. Echo 2016 showed significantly improved LVfunction. Returns to the office for follow up. Reports doing well overall well from a cardiac standpoint. Stable exercise capacity, still feels she could get more active. She reports two episodes with brief dizzy spells lasting about 10 sec, once sitting down with friends, once while standing. No other symptoms. Denies exertional chest pain, shortness of breath, palpitations, syncope, orthopnea, PND, fevers, chills, bleeding. Had two Moderna-Covid vaccination in August 2020, with usual, mild local reaction. Data review: Echocardiogram 12/2016: Normal LV size, moderate LVH, low normal LV function, LVEF 50-55%, no regional wall motion abnormality. Normal RV size, mildly reduced RV function. Moderately dilated LA, mildly dilated IVC, normal respirophasic changes. Recent labs, [facility], 12/24/2020: Lipids: Cholesterol 164, triglycerides 138, HDL 30, LDL 107. Hemoglobin A1c 6.1. Calcium 8.8, glucose 122, BUN 18, creatinine 1.0, estimated GFR 54.4, sodium 140, potassium 4.4, chloride 103, CO2 30.9,anion gap 6.1, WBC 10.2, hemoglobin 15.3, MCV 90.4, platelets 300. 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 Family history: Both parents with atrial fibrillation at age, maternal grandfather with CVA. Current Outpatient Medications on File Prior to Visit Medication Sig Dispense Refill ??? clotrimazole-betamethasone (LOTRISONE) cream Apply topically. As needed ??? digoxin (LANOXIN) 125 mcg tablet Take 187.5 mcg by mouth daily. ??? diphenhydrAMINE (BENADRYL) 50 mg capsule Take 1 Cap by mouth at bedtime. ??? furosemide (LASIX) 40 mg tablet Take 80 mg by mouth daily. ??? lisinopriL (PRINIVIL) 5 mg tablet 1 Tab daily. ??? LORazepam (ATIVAN) 1 mg tablet 1 tab(s) orally once a day ??? methocarbamoL (ROBAXIN) 500 mg tablet Take 500 mg by mouth 4 times daily. ??? rivaroxaban (XARELTO) 20 mg tablet tablet Take 1 Tablet by mouth daily with dinner. 90 Tablet 3 ??? spironolactone (ALDACTONE) 25 mg tablet Take 12.5 mg by mouth daily ??? trimethobenzamide (TIGAN) 300 mg capsule Take 300 mg by mouth daily as needed. No current facility-administered medications on file prior to visit. Past Medical History Chronic systolic heart failure Permanent Atrial Fibrillation, dx 2000, unsuccessful rhythm & rate control, AVN ablation 12/2015,[facility] Non-ischemic cardiomyopathy R pectoral ICD with biventricular pacing/CLINICAL CARE LEADER-D implant, UV, 12/2014 (Medtronic Viva Quad XT, no A lead, RV 6947M, LV 4598) GERD Depression Insomnia S/p hysterectomy S/p cholecystectomy Family History Both parents with atrial fibrillation at age, maternal grandfather with CVA. Social History General: Tobacco use: yes, quit. Alcohol: yes, rare. Suspicion of abuse Suspicion of abuse No, Date Assessed 05/13/2016. Domestic violence screen Do you feel safe at home? Yes, Date: 01/02/2017. Learning Barriers Assessed On: 05/13/2016, Does the patient have barriers to learning? No. 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 Allergies NKDA I have reviewed current problem list and current medications. ROS: A 10-system ROS was performed, pertinent items as mentioned in HPI, otherwise negative. ROS Objective: Examination: Vitals: BP 108/74 (BP Cuff Location: Right arm, BP Patient Position: Sitting, BP Cuff Sizes: Adult, regular) Pulse 86 Ht 171 cm (67.32) Wt 95.2 kg (209 lb 14.4 oz) SpO2 98% BMI 32.56 kg/m?? Body mass index is 32.56 kg/m??. Physical Exam General Exam: GENERAL APPEARANCE: no acute distress, pleasant, cooperative. HEENT EYES: conjunctiva clear, sclerae anicteric. NECK: supple, no JVD, no carotid bruit. CHEST: normal shape and expansion, R pectoral area ICD in situ, well healed incision.. HEART: RRR, normal S1S2, no murmurs, rub or gallop. LUNGS: clear to auscultation & percussion, good air entry bilaterally. ABDOMEN: soft, NT/ND, BS present. EXTREMITIES: no clubbing, no cyanosis, B trace edema. PERIPHERAL PULSES: carotid, radial, PT: 2+ bilaterally. SKIN: warm & dry. NEUROLOGIC EXAM: alert & oriented x3, left-handed, normal speech. Device Check: PACER INFORMATION: Medtronic Viva Quad XT CLINICAL CARE LEADER-D; CM; AF; implanted 12/18/2014 Dr. Nolen. Spontaneous Rhythm: BiV pace, 60/min. Programmed Mode: VVIR 60 - 120 bpm; non-adaptive CLINICAL CARE LEADER. Underlying Rhythm: Permanent AF with iatrogenic complete AV block without escape rhythm, PACER DEPENDENT. Paced: Vpace 99%. Ventricular: RV 0.875V @ 0.4ms, LV 0.875V @ 0.6ms.. Ventricular output: RV 2V @ 0.4ms, LV 2V @ 0.6ms., . Ventricular Impedence (Ohms): RV pacing impedance 399 ms, RV coil 48 ohms, SVC coil 67 ohms, LV pacing impedance 1121 ohms.. R-Wave (MV): 17.1mV (pvc). Longevity: 14 months. Conclusion: Normal device function, battery okay, stable pacing sensing and impedance thresholds, notachyarrhythmia detected or treated since 04/02/2021. Permanent AF with iatrogenic AV block and 100% biventricular pacing. Pacer dependent. Patient activity stable at low level. OptiVol fluid index at [facility]. Iterative adjustment of programmed parameters to test device function and optimize pacing. Assessment & Plan: 1. Cardiomyopathy, dilated, nonischemic (HCC-CMS) ([facility]) 2. Chronic systolic congestive heart failure, NYHA class 3 (HCC-CMS) ([facility]) 3. Chronic atrial fibrillation ([facility]) 4. Biventricular ICD (implantable cardioverter-defibrillator) in place 5. LBBB (left bundle branch block) 76-year-old woman with permanent atrial fibrillation, nonischemic cardiomyopathy with chronic systolic heart failure, left bundle branch block and obesity. Was clinically NYHA III, had LVEF 30% despiteoptimal medical therapy. CLINICAL CARE LEADER-D Implant 12/2014, AVN ablation 12/2015.Now continues doing well with biventricular pacing, echocardiogram 2017 with significant improvement of LVEF to the low normal range correlating with her improvement in exercise capacity. Continues doing well overall, successful weightloss, stable exercise capacity. Two brief lightheaded spells again without an arrhythmia correlate on her device memory, possibly vagally mediated or dehydration. Asked her to have this investigated immediately in case it happens again. Device check WNL, fluid index remains low. Recommended to continue current medications. Will change Metoprolol from tartrate to succinate. I spent a total of 30 minutes on the date of this encounter meeting with the patient and reviewing documentation/coordinating care as described in the above note. This was separate from any procedures performed at the time of the visit. Eun Nolen MD documented in this encounter Plan of Treatment Upcoming Encounters Date Type Specialty Care Team Description 04/21/2022 Ancillary Procedure Cardiology 04/21/2022 Office Visit Cardiology Eun Nolen MD [address] [facility] [address] [place] [address] [phone] (Wo rk) 07/15/2022 Office Visit Surgical Oncology Jens Almanza MD [address] [place] [address] [address] [place] [address] (Wo rk) documented as of this encounter Visit Diagnoses Diagnosis Cardiomyopathy, dilated, nonischemic (HC C-CMS) (HCC) - Primary Other primary cardiomyopathies Chronic systolic congestive heart failur e, NYHA class 3 (HCC-CMS) (HCC) Chronic systolic heart failure Chronic atrial fibrillation (HCC) Atrial fibrillation Biventricular ICD (implantable cardiover ter-defibrillator) in place Automatic implantable cardiac defibrilla tor in situ LBBB (left bundle branch block) Other left bundle branch block documented in this encounter Discontinued Medications Medication Sig Discontinue Reason Start Date End Date polyethylene glycol Take 4 L by mouth once Duplicate Therapy 202112/29/2021 (GOLYTELY) for 1 dose. Follow [id number] -5.86 instructions on gram suspension colonoscopy prep sheet. OK to substitute with any PEG-3350 product: CoLyte, Gavilyte, Nulytely, Trilyte, or generic PEG-3350 metoprolol TARtrate TAKE ONE TABLET BY Alternate therapy 04/12/2021 12/29/2021 (LOPRESSOR) 100 mg MOUTH TWICE A DAY tablet (NOTE: TABLET STRENGTH CHANGE) documented as of this encounter Care Teams Document Photographer Relationship Specialty Start Date End Date Anna Staples, FILEMON PCP - General 08/26/[address] [place] [address] [address] [place] [phone] Eun Nolen MD Cardiovascular Disease 09/26/[address] [place] [address] [address] [place] [phone] documented as of this encounter
--- OUTSIDE RECORDS SUMMARY | 2022-04-12 14:38 | XMS_ITS | Encounter Summary ---
:[address] [facility] Address [address] [place] [address] Care Team Providers Name Role Phone Anna Staples BAND SAW FILER Primary Care Provider Eun Nolen MD Unavailable [phone] Reason for Visit Reason Comments Procedure Encounter Details Date Type Department Care Team Description 11/18/2021 Procedure visit [facility] Jens Almanza MD Neoplasm of right breast, primary tumor staging category T4a: extension to chest wall, not including only adherence and/or invasion to pectoralis muscle (HCC-CMS) (HCC) (Primary Dx); Surgical Oncology - [address] [place] [address] al ductal hyperplasia of breast [facility] [address] [place], [place] [facility], [id number] [place] [phone] (Wo rk) Social History Tobacco Use Types [...] have Coronavirus/COVID-19? documented as of this encounter Last Filed Vital Signs Vital Sign Reading Time Taken Comments Blood Pressure 121/61 11/18/2021 1411 EDT Pulse 87 11/18/2021 1411 EDT Temperature 36.3 ??C (97.3 ??F) 11/18/2021 1257 EDT Respiratory Rate 12 11/18/2021 1257 EDT Oxygen Saturation - - Inhaled Oxygen Concentration - - Weight - - Height - - Body Mass Index - - documented in this encounter Functional Status Functional [...] making decisions? documented as of this encounter Patient Instructions Patient InstructionsKia Madrid RN - 11/18/2021 13:00 EDT Surgical Procedures BREAST SURGERY 11/18/2021 ACTIVITY: Light activity for the first 5 - 7 days after surgery. Then gradually increase your activity. We encourage you to wear a supportive bra day and night for the first 48 hours as the support to your incision will enhance your comfort. You may shower on Monday. WOUND CARE: Apply an ice pack to your incision for the first 2-3 days as needed. You can ice the area for about 10-15 minutes every hour as needed for pain relief and comfort. Your incision is closed with sutures that are absorbable. Dermabond, a surgical glue, is applied over the incision. Steristrips, surgical tape, is applied over the glue. Leave in place until they begin to peel away, usually 7-10 days. You can expect some breast discoloration after your procedure. The bruising may actually occur down away from your incision due to gravity flow. You may also have some drops of serous drainage through the nipple. PAIN OR DISCOMFORT: Generally Tylenol, Tylenol Extra Strength or Advil is adequate for pain relief after your breast biopsy. If you are taking a narcotic pain medicine, it is important that you do NOT DRIVE OR CONSUME ALCOHOL while taking this drug. Although you may feel reasonably alert, your reaction time and coordination may be impaired. Any narcotic is best tolerated taken with food. NOTIFY YOUR DOCTOR IF YOU HAVE ANY QUESTIONS OR PROBLEMS WITH: Pain unrelieved by your medication. Fever greater than 101F (38C). Your breast becomes very firm and discolored. Incision becomes red, hot, swollen. Persistent or increased bleeding/drainage. 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 Surgeon: Elias Almanza MS3 Anesthesia: Local Indications for procedure: The patient is a 76-year-old woman who had a recent abnormal finding on imaging of her right breast. There was a duct with abnormal material within it in the subareolar area in the right breast. Biopsy showed some atypical ductal hyperplasia. Patient presents for excision ofthat area. 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 Given the superficial nature of this lesion we decided to excise it without the use of electrocautery. The patient also remained on her anticoagulation. Findings on operation: We are able to identify the site of the biopsy with the ultrasound that area was marked on the skin and reconfirmed its location. We planned an incision and area of tissue to be excised which was marked out as well. Excision was performed removing the abnormality which was able to be visualized once incision was made. Operative procedure: The patient was brought to the [facility] outpatient surgical suite. Prior to startingthe procedure we confirmed the patient's name and date of and procedure to be performed. The patient was placed on the OR table in the supine position and appropriately located. We used the 15 to6 MHz linear ultrasound probe to identify the lesion in the right breast this area was marked in theskin as noted above. We prepped and draped the area in sterile fashion. We began by injecting 1% lidocaine with bicarb followed by 0.25% Marcaine with epinephrine for local anesthetic. A periareolar incision was made in the 12:00 location of the right breast. Using sharp dissection we then dissected under the skin of the nipple areolar area once this was done we are able to identify the duct that hadbloody type material within it were excised this all the way up to the level of the nipple. We then were able to excise the glandular tissue underneath this area in the region where the abnormality hadbeen seen. The entire area was able to be completely removed. A stitch was placed on the specimen tomark for pathology. The specimen was sent to pathology for permanent evaluation. At this point we carefully inspected the wound. A running 3-0 Vicryl suture was used to oversew the cut edges of the glandular tissue to obtain hemostasis. Small vessels were also clipped with hemoclips. We irrigated with saline solution. A small skin saqib in the nipple area was closed with a interrupted 3-0 Vicryl suture from the posterior direction. Once we had good hemostasis we closed the deep dermal layers with interrupted 3-0 Vicryl suture. The skin was closed with a 4-0 Monocryl in a subcuticular fashion. Dermabond was placed over the incision site and when that dried in place half-inch Steri- Strips lengthwise over the incision site. Patient was discharged home in stable condition. Sponge and instrument countswere correct. Blood loss was about 15 cc. Kia Parish RN - 11/18/2021 1300 EDT [facility] Operative Note PreProcedure Assessment Available: Yes Emla cream applied by patient prior to procedure: No Nursing History Reviewed: Yes Operative Permit Signed: Yes Prep: Betadine Solution 10% Local Anesthetic: 1% Lidocaine 20cc mixed with Sodium Bicarbonate 8.4% 3cc and Bupivacaine 0.25% with Epinephrine 1:200,000 30cc Irrigation: Normal Saline Operative Note/Findings: Correct site and laterality noted prior to surgical start time: Yes. GoldenMoment observed per [facility] policy. Preop: ADH Right Breast Postop: same Procedure: US guided Right Breast subareolar excision Surgeon: MD Archie Anesthesia: Local Nursing Diagnosis: Potential for Anxiety Related to Knowledge Deficit. Expected Outcome: Patient demonstrates decreased anxiety. Provide a quiet relaxed atmosphere, [place] to the environment/explain routines, Encourage patient toverbalize concerns and ask questions, Encourage patient and/or family to participate in decisions affecting care Nursing Diagnosis: Potential for Injury. Expected Outcome: Patient is free of signs and symptoms of perioperative injury. Skin integrity assessment verified, Patient never unattended, Lock stretcher and or table prior to patient transfer, Place electrosurgical dispersive pad on non- compromised skin surface, Prevent pooling of prep solutions, Check skin integrity when drapes/dispersive pad are removed, Maintain sponge, instrument, sharps, miscellaneous counts per policy Transferred to OR by RN via: ambulatory Safety Strap Applied: No Position for Surgery: Supine Positioning Equipment/Accessories: Pillows under head and knees Armboard: No Electrosurgical Unit: # [id number] Not used Electrosurgical Settings: Coag, . Cut, . Duration of Case: 65 minutes Estimated Blood Loss: minimal Nursing Diagnosis: Potential for infection. Expected Outcome: Patient will remain free of signs/symptoms of infection. All instruments and supplies used on sterile field meet sterility checks, Doors closed for proper air exchange, Room traffic kept at a minimum, No identified breaks in aseptic technique identified during intraoperative care Evaluation: Aseptic Technique Maintained Complications: None Disposition: Home in care of self. Drains/Packs/Foreign Materials Retained: None Specimen: Yes Condition: Stable The patient tolerated this procedure. Patient was given an ice bag. Wound is dry and intact and dressed with Dermabond and Steri-strips. Follow-up will be pathology dependent. Education Flow Sheet: Topics/Methods: Verbal and written instructions were given to the patient on incision and dressing care, activity, pain control, use of ice pack and reasons to call MD. Barriers: No barriers were identified. Who Was Instructed: Patient Outcomes: The patient verbalized understanding. documented in this encounter Plan of Treatment Upcoming Encounters Date Type Specialty Care Team Description 04/21/2022 Ancillary Procedure Cardiology 04/21/2022 Office Visit Cardiology Eun Nolen [facility] [address] [facility] [address] [place] [address] (Wo rk) 07/15/2022 Office Visit Surgical Oncology Jens Almanza MD [address] [facility], [facility], [address] [place] [address] (Wo rk) documented as of this encounter Procedures Procedure Name Priority Date/Time Associated Diagnosis Comme nts SURGICAL PATHOLOGY Routine 11/18/2021 13:43 Neoplasm of right Results for this EDT breast, primary procedure ar e in tumor staging the results category T4a: section. extension to chest wall, not including only adherence and/or invasion to pectoralis muscle (HCC-CMS) (HCC) documented in this encounter Results SURGICAL PATHOLOGY (11/18/2021 13:43 EDT) Note to Patient A healthcare provider [facility] POSLavu will be contacting you CENTER to answer any LABORATORY questions you may have SERVICES about these results, and discuss management options, if applicable. Before this can occur, your pathology results need to be compared with your breast imaging and clinical findings, a process that can take 1-3 business days. Final Diagnosis A. BREAST, RIGHT, SUBAREOLAR, EXCISIONAL BIOPSY: [facility] MEDICAL - Breast tissue with foci of atypical ductal hy perplasia. See comment. CENTER - Additional fibrocystic changes present including: LABORATORY - columnar cell hyperplasia. SERVICES - usual ductal hyperplasia. - intraductal papilloma. - columnar cell change. - apocrine metaplasia. Diagnosis Comment The excisional biopsy specim en consists of a dilated lactiferous sinuses and ducts with a range of proliferative fibrocystic changes including foci of atypical ductal hyperplasia (ADH) and compact colum [facility] MEDICAL anne cell hyperplasia. The fo ci of ADH do not meet strict criteria for a diagnosis of ductal carcinoma in situ. ADH is present close to the edge of the excision specimen. Radiologic/clinical correlation CENTER is needed to ensure excision of the radiographically detected lesion. Dr. Vernon Cerrato has also reviewed this case in consultation and agrees with the diagnosis of ADH. LABORATORY SERVICES Immunoperoxidase stains were performed on this case to further characterize the lesion and differentiate usual ductal hyperplasia from atypical ductal hyperplasia. ANTIBODY(CLONE)(BLOCK):RESULT CK 5/6 (D5/16B4, Rentz) (b lock A1): patchy positive staining in UDH, absent staining in columnar lesion and ADH Estrogen Receptor (SP1, Ther alike Scientific) (block A1): patchy staining in UDH, more diffuse staining in columnar lesion and ADH CK 5/6 (D5/16B4, Rentz) (block A2): patchy staining in UDH Estrogen Receptor (SP1, Thermo Scientific) (bloc k A2): patchy staining in UDH CK 5/6 (D5/16B4, Rentz) (block A3): absent staining in ADH Estrogen Receptor (SP1, Thermo Scientifi c) (block A3): diffuse staining in ADH NOTE: One or more of the re agents used in immunoperoxidase testing in this case may not have been cleared or approved by the U.S. Food and Drug Administration (FDA). The FDA has determined that such cl earance or approval is not n ecessary. These tests are used for clinical purposes. They should not be regarded as investigational or for research. These reagents' performance characteristics have been de termined by [facility] and/or by the referring laboratory. The positive and negative controls worked appropriately. If immunoperoxidase staining has been performed on alcoh ol fixed cytology specimens, which has not been fully validated, the assays should be interpreted with caution and correlated with clinical data. This laboratory is certified under the Clinical Laborato ry Improvement Amendments of 1988 (CLIA-88) as qualified to perform high complexity clinical laboratory testing. Attestation By the signature [facility] HEIDI kapoor below, the attending CENTER signed by physician Thierry certifies Germain Lora on that they have 1) SERVICES 11/25/2021 at [facility] personally conducted a gross and/or microscopic examination of the described specimen(s), and/or personally interpreted the results of laboratory testing of the described specimen(s), and 2) personally rendered or confirmed the above diagnosis. Clinical History ADH right breast; [facility] MEDICAL clinical diagnosis CENTER code: C50.911, C79.89 LABORATORY SERVICES Gross Description A. [facility] Received in normal saline la belled with proper patient identification (initials J, B) and right breast is a portion of fibrofatty tissue, with a suture on one aspect designating distal portion of duct CENTER s (3.1 g, 3.0 x 2.5 cm, and 1.3 cm proximal to distal). The specimen is sectioned from distal (level 1) to proximal (level 3). The cut surfaces lobulated and pale yellow. The specimen is entirely submitted as follows: LABORATORY SERVICES INK PAGAN Blue-entire outer surface BLOCK PAGAN A1- distal duct, en face A2- 1 central section A3- proximal duct, en face Time removed from patient: 13:43 hours 11/18/2021 Time in formalin: 13:51 hours 11/18/2021 Time out of formalin: 19:00 hours 11/19/2021 YAZAN LEE(ASCP) 11/19/2021 10:07 Performing Lab [facility] Scanned Images [facility] Specimen Tissue - Entire breast (body structure) Performing Organization Address City/State/ZIP Code Phon e Number [facility] [address] [place] [address] SERVICES documented in this encounter Visit Diagnoses Diagnosis Neoplasm of right breast, primary tumor staging category T4a: extension to chest wall, not including only adherence and/o r invasion to pectoralis muscle (HCC) - Primary Atypical ductal hyperplasia of breast Other specified benign mammary dysplasia s documented in this encounter Care Teams Insurance Policy Issue Clerk Relationship Specialty Start Date End Date Anna Staples NP PCP - General 08/26/[address] [place] [address] Eun Nolen MD Cardiovascular Disease 09/26/21 [address] [facility] [address] [place] [address] documented as of this encounter
--- OUTSIDE RECORDS SUMMARY | 2022-04-12 14:38 | XMS_ITS | Encounter Summary ---
:1945 Author Organization [facility] Address [address] [place] [address] Care Team Providers Name Role Phone Anna Staples HELPER ELECTRICAL Primary Care Provider Reason for Visit Reason Onset Date Comments Follow-up 09/02/2021 Encounter Details Date Type Department Care Team Description 09/02/2021 Telephone [facility] Romy Stevens Follow-up Mammography - Main [facility] [address] [place], [place] [id number] Social History Tobacco Use Types Packs/Day Years [...] this encounter Miscellaneous Notes Telephone Encounter - Tamica Stevens - 09/02/2021 1018 EST I tried to call pt day after bx to see how she was and could't because her mailbox is full-no way Mojostreete message. documented in this encounter Plan of Treatment Upcoming Encounters Date Type Specialty Care Team Description 04/21/2022 Ancillary Procedure Cardiology 04/21/2022 Office Visit Cardiology Eun Nolen MD [address] [place] [address] [address] [place] [address] (Wo rk) 07/15/2022 Office Visit Surgical Oncology Jens Almanza MD [address] [facility], [facility] [address] [place] [address] (Wo rk) documented as of this encounter Visit Diagnoses Not on filedocumented in this encounter Care Teams Spiral Winder Relationship Specialty Start Date End Date Anna Staples NP PCP - General 08/26/[address] [place] [address] documented as of this encounter
--- OUTSIDE RECORDS SUMMARY | 2022-04-12 14:38 | XMS_ITS | Encounter Summary ---
:1945 Author Organization [facility] Address [address] [place] [address] Care Team Providers Name Role Phone Anna Staples CLINICAL MENTAL HEALTH COUNSELOR Primary Care Provider Eun Nolen MD Unavailable [phone] Reason for Visit Reason Onset Date Comments Appointment Related 12/13/2021 Encounter Details Date Type Department Care Team Description 12/13/2021 Telephone [facility] Jens Almanza MD Appointment Related Surgical Oncology - [address] [facility], [address], [address] [place], [place] [address] [place] [address] [phone] (Wo rk) Social History Tobacco Use [...] this encounter Miscellaneous Notes Telephone Encounter - Liliam Retana - 12/13/2021 1448 EDT Provider out of clinic on 12/14/2021 due to in family. Need to reschedule appt. Rescheduled to01/06/2022 @ 15:[address] Almanza. Patient is aware. Mailed out appt reminder. Liliam Retana 12/13/2021 14:49 documented in this encounter Plan of Treatment Upcoming Encounters Date Type Specialty Care Team Description 04/21/2022 Ancillary Procedure Cardiology 04/21/2022 Office Visit Cardiology Eun Nolen MD [address] [place] [address] [address] [place] [address] (Birdie walls) 07/15/2022 Office Visit Surgical Oncology Jens Almanza MD [address] [place] [address], [facility], [facility] [address] [place] [address] (Birdie walls) documented as of this encounter Visit Diagnoses Not on filedocumented in this encounter Care Teams Water Sander Relationship Specialty Start Date End Date Anna Staples NP PCP - General 08/26/21 [address] [facility] [place] [address] Eun Nolen MD Cardiovascular Disease 09/26/[address] [address] documented as of this encounter
--- OUTSIDE RECORDS SUMMARY | 2022-04-12 14:38 | XMS_ITS | Encounter Summary ---
:1945 Author Organization [facility] Address [address] [place] [address] Care Team Providers Name Role Phone Anna Staples SEED EXPERT Primary Care Provider Eun Nolen MD Unavailable [phone] Encounter Details Date Type Department Care Team Description 11/08/2021 Travel Social History Tobacco Use Types Packs/Day [...] Office Visit Cardiology Eun Nolen MD 130 [facility] [address] [place] [address] (Wo rk) 07/15/2022 Office Visit Surgical Oncology Jens Almanza MD [address] [place] [address], [facility] 2 [place] [address] (Wo rk) documented as of this encounter Visit Diagnoses Not on filedocumented in this encounter Care Teams Middle [employer] Music Teacher Relationship Specialty Start Date End Date Anna Staples, FILEMON PCP - General 08/26/[address] [place] [address] [address] [place] [phone] Eun Nolen MD Cardiovascular Disease 09/26/21 [address] [facility] [address] [place] [address] documented as of this encounter
--- OUTSIDE RECORDS SUMMARY | 2022-04-12 14:38 | XMS_ITS | Encounter Summary ---
:1945 Author Organization [facility] Address [address] [place] [address] Care Team Providers Name Role Phone Anna Staples COMMUNITY OUTREACH WORKER Primary Care Provider Eun Nolen MD Unavailable [phone] Reason for Visit Reason Onset Date Comments Follow-up 11/30/2021 Encounter Details Date Type Department Care Team Description 11/30/2021 Telephone [facility] Surgical Michaela Holt RN Follow-up Oncology - Main [facility] [address] [place], [place] [id number] Social History Tobacco Use Types Packs/Day Years [...] Telephone Encounter - Michaela Holt RN - 11/30/2021 0956 EDT Call placed to patient after reviewing recent pathology with Dr. Almanza. Patient is awrae no furthersurgery is needed but Dr. Almanza would like to see her back within the next month to discuss next steps - chemoprevention. Patient is awrae and agreeable. Information on the medication commonly used has been sent via email as requested. Patient states she is healing ok. Had some exudate that has sinceresolved. Denies any redness, swelling at site. Denies fevers and drainage. States site is tender totouch and occasionally sore. Recommended she ice area and take tylenol or ibuprofen as needed. Patient to call bid writer with any worsening symptoms or concerns in the meantime. documented in this encounter Plan of Treatment Upcoming Encounters Date Type Specialty Care Team Description 04/21/2022 Ancillary Procedure Cardiology 04/21/2022 Office Visit Cardiology Eun Nolen MD [address] [facility] [address] [place] [address] (Birdie walls) 07/15/2022 Office Visit Surgical Oncology Jens Almanza MD [address] [facility], [facility], [facility] 2 [place] [address] (Wo rk) documented as of this encounter Visit Diagnoses Not on filedocumented in this encounter Care Teams Printing Machine Operator Tape Rules Relationship Specialty Start Date End Date Anna Staples, FILEMON PCP - General 08/26/21 [address] [facility] [address] [facility] [address] [facility] [address] [place] [address] Eun Nolen MD Cardiovascular Disease 09/26/[address] [place] [address] [address] [place] [address] documented as of this encounter
--- OUTSIDE RECORDS SUMMARY | 2022-04-12 14:38 | XMS_ITS | Encounter Summary ---
:1945 Author Organization [facility] Address [address] [place] [address] Care Team Providers Name Role Phone Anna Staples CARGO HANDLER Primary Care Provider Eun Nolen MD Unavailable [phone] Reason for Visit Reason Onset Date Comments Other 02/23/2022 Encounter Details Date Type Department Care Team Description 02/23/[address] [facility] Viv Nolen, Other Cardiology Clinic [address] [place] [address] [address] [place] [address] (Wo rk) Social History [...] this encounter Miscellaneous Notes Telephone Encounter - Talya Robb - 02/23/2022 0949 EDT Patient reached out requesting to talk with you about scheduling when you have a moment. documented in this encounter Plan of Treatment Upcoming Encounters Date Type Specialty Care Team Description 04/21/2022 Ancillary Procedure Cardiology 04/21/2022 Office Visit Cardiology Eun Nolen MD [address] [place] [address] (Birdie walls) 07/15/2022 Office Visit Surgical Oncology Jens Almanza MD [address] [place] [address], [facility] [address] [place] [address] (Birdie walls) documented as of this encounter Visit Diagnoses Not on filedocumented in this encounter Care Teams Polisher Apprentice Relationship Specialty Start Date End Date Anna Staples NP PCP - General 08/26/[address] [place] [address] Eun Nolen MD Cardiovascular Disease 09/26/21 [facility] [address] [place] [address] documented as of this encounter
--- OUTSIDE RECORDS SUMMARY | 2022-04-12 14:38 | XMS_ITS | Clinical Summary ---
:1945 Author Organization [facility] Address [address] [place] [address] Care Team Providers Name Role Phone Silvino Charles MD Primary Care Provider Allergies No known active allergies Medications Medication Sig Dispensed Refills Start Date End Date Status digoxin (LANOXIN) 125 Take 125 mcg by 0 Active mcg Tablet mouth. diphenhydrAMINE Take 50 mg by 0 Active (BENADRYL) 50 mg Capsule mouth Daily. furosemide (LASIX) 40 mg Take 80 mg by 0 Active Tablet mouth. lisinopril Take 5 mg by 0 Active (PRINIVIL;ZESTRIL) 5 mg mouth. Tablet LORazepam (ATIVAN) 1 mg Take 1 mg by 0 Active Tablet mouth Every 4 hours. meTOPROLOL tartrate Take 75 mg by 0 12/19/2014 Active (LOPRESSOR) 50 mg Tablet mouth. spironolactone Take 12.5 mg by 0 Active (ALDACTONE) 25 mg Tablet mouth. trimethobenzamide Take 300 mg by 0 Active (TIGAN) 300 mg Capsule mouth every 24 hours. warfarin (COUMADIN) 2.5 Take as directed 0 5 Active mg Tablet in the evening: Per Dr Yunior Charles office on 12/18/14 Coumadin Regimen: Coumadin 7.5 mg Gvy-Szodh-Aow and Coumadin 5 mg on Obu-Dkxo-Dtb-Mon clotrimazole-betamethaso Apply topically 0 Active ne (LOTRISONE) 1-0.05 % 2 times daily. Cream rivaroxaban (XARELTO) 10 Take by mouth. 0 Active mg Tablet Social History Tobacco Use Types Packs/Day Years Used Date Former Smoker Smokeless Tobacco: Never Used Sex Assigned at Date Recorded Not on file Plan of Treatment Health Maintenance Due Date Last Done Comments Covid-19 Vaccine (#1) 02/27/1950 Hepatitis C Screening 1965 Tdap adult 1966 Tetanus vaccine 1966 Colonoscopy 02/27/1992 Zoster vaccine (1 of 2) 1997 Advance Directive 2002 Bone Density Scan 02/27/2012 Pneumoccocal Vaccine: 65+ (1 - PCV) 02/27/2012 Influenza (Flu) vaccine (1 of 1 - Influenza standard 03/03/2022 series) Insurance Payer Benefit Plan / Subscriber ID Effective Dates Phone Addre ss Type Group MEDICARE MEDICARE PART A [id number] 2012-[employer] [phone] [id number] [place] [address] Care Teams County Adviser Relationship Specialty Start Date End Date Silvino Charles MD PCP - General Family Medicine 08/17/[address] [place] [address]
--- OUTSIDE RECORDS SUMMARY | 2022-04-12 14:38 | XMS_ITS | Encounter Summary ---
:1945 Author Organization [facility] Address [address] [place] [address] Care Team Providers Name Role Phone Anna Staples STATE PATROL OFFICER Primary Care Provider Eun Nolen MD Unavailable [phone] Reason for Visit Reason Onset Date Comments Appointment Related 10/14/2021 Encounter Details Date Type Department Care Team Description 10/14/2021 Telephone [facility] Jens Almanza MD Appointment Related Surgical Oncology - [address] [facility] [address], [address] [place], [place] [address] [place] [address] [phone] [address] (Wo rk) Social History Tobacco Use [...] this encounter Miscellaneous Notes Telephone Encounter - Sherri Mendosa - 10/14/2021 0744 EDT Patient cancelled their 10/15/21 visit at 1:30 with [facility] via Televox reminder call. Please call patient to reschedule their appointment. documented in this encounter Plan of Treatment Upcoming Encounters Date Type Specialty Care Team Description 04/21/2022 Ancillary Procedure Cardiology 04/21/2022 Office Visit Cardiology Eun Nolen MD [address] [place], [place] [address]A [facility] [address] [address] (Birdie walls) 07/15/2022 Office Visit Surgical Oncology Jens Almanza MD [address] [place] [address], [facility] 2 [place] [address] (Wo rk) documented as of this encounter Visit Diagnoses Not on filedocumented in this encounter Care Teams Potter Or Ceramic Artist Relationship Specialty Start Date End Date Anna Staples, FILEMON PCP - General 08/26/21 [address] [place] [address] Eun Nolen MD Cardiovascular Disease 09/26/[address] [place] [address] [address] [place] [address] documented as of this encounter
--- OUTSIDE RECORDS SUMMARY | 2022-04-12 14:38 | XMS_ITS | Encounter Summary ---
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, not including only adherence and/or invasion to pectoralis muscle (HCC) Jens Almanza MD Procedures COMPREHENSIVE METABOLIC PANEL (CMP) [address] [facility], [facility], Level [address] [place] [address] Referral ID Status Reason Start Date Expiration Date Visits V isits Requested Authorized [id number] New Request 01/19/2022 1 1 Encounter Details Date Type Department Care Team Description 01/19/2022 Orders Only [facility] Michaela Holt Neoplas m of right Surgical Oncology - RN breast, primary tumor [facility] staging category T4a: [address] [facility] [place] [address] wall, not including [phone] only adherence and/or invasion to pec toralis muscle (HCC-CMS ) (HCC) (Primary Dx) Social History Tobacco Use Types Packs/Day Years [...] documented as of this encounter Progress Notes Michaela Holt RN - 01/19/2022 1402 EDT CMP lab order has been sent to [facility]. Patient to have drawn approximately 6 weeks after starting tamoxifen. documented in this encounter Plan of Treatment Upcoming Encounters Date Type Specialty Care Team Description 04/21/2022 Ancillary Procedure Cardiology 04/21/2022 Office Visit Cardiology Eun Nolen MD [address] [place] [address] [address] [place] [address] (Wo rk) 07/15/2022 Office Visit Surgical Oncology Jens Almanza MD 111 [facility], [facility], [address] [place] [address] (Wo rk) Scheduled Orders Name Type Priority Associated Diagnoses Order S chedule COMPREHENSIVE METABOLIC Lab Routine Neoplasm of right Expected: 03/03/2022 PANEL (CMP) breast, primary tumor (Appro ximate), staging category T4a: s: 01/19/2023 extension to chest wall, not including only adherence and/or invasion to pectoralis muscle (HCC-CMS) (HCC) documented as of this encounter Visit Diagnoses Diagnosis Neoplasm of right breast, primary tumor staging category T4a: extension to chest wall, not including only adherence and/o r invasion to pectoralis muscle (HCC) - Primary documented in this encounter Care Teams Paleology Teacher Relationship Specialty Start Date End Date Anna Staples NP PCP - General 08/26/[address] [place] [address] Eun Nolen MD Cardiovascular Disease 09/26/[address] [place] [address] [address] [place] [address] documented as of this encounter
--- OUTSIDE RECORDS SUMMARY | 2022-04-12 14:38 | XMS_ITS | Encounter Summary ---
:1945 Author Organization [facility] Address [address] [place] [address] Care Team Providers Name Role Phone Anna Staples TEMPLATE FITTER Primary Care Provider Eun Nolen MD Unavailable [phone] Encounter Details Date Type Department Care Team Description 01/13/2022 [facility] Hap, Health Team Community Health Assistance Prog cordell Improvement - [address] [place], [place] [address] [place] [address] [address] [place] [address] Social History Tobacco Use Types Packs/Day Years [...] documented as of this encounter Progress Notes Caroline Quiñonez - 01/13/2022 0955 EDT HAP steam service inspector reached out and completed intake with ptSanjiv RAMIREZ to assistance with cost of Xarelto andmetroprolo. documented in this encounter Plan of Treatment Upcoming Encounters Date Type Specialty Care Team Description 04/21/2022 Ancillary Procedure Cardiology 04/21/2022 Office Visit Cardiology Eun Nolen MD [address] [place] [address] [address] (Birdie walls) 07/15/2022 Office Visit Surgical Oncology Jens Almanza MD [address] [place] [address], [facility], [facility] 2 [place] [address] (Wo rk) documented as of this encounter Visit Diagnoses Not on filedocumented in this encounter Care Teams Temple Marker Relationship Specialty Start Date End Date Anna Staples NP PCP - General 08/26/[address] [place] [address] Eun Nolen MD Cardiovascular Disease 09/26/21 130 [facility] [address] [place] [address] documented as of this encounter
--- OUTSIDE RECORDS SUMMARY | 2022-04-12 14:38 | XMS_ITS | Encounter Summary ---
:1945 Author Organization [facility] Address [address] [place] [address] Care Team Providers Name Role Phone Anna Staples SALES SUPPORT ASSISTANT Primary Care Provider Encounter Details Date Type Department Care Team Description 09/01/2021 Travel Social History Tobacco Use Types Packs/Day [...] Office Visit Cardiology Eun Nolen MD [address] [facility] [address] [place] [address] (Wo rk) 07/15/2022 Office Visit Surgical Oncology Jens Almanza MD [address] [place] [address], [facility], [facility] 2 [place] [address] (Wo rk) documented as of this encounter Visit Diagnoses Not on filedocumented in this encounter Care Teams Director Of Cath Lab Relationship Specialty Start Date End Date Anna Staples, FILEMON PCP - General 08/26/21 [address] [place] [address] documented as of this encounter
--- OUTSIDE RECORDS SUMMARY | 2022-04-12 14:38 | XMS_ITS | Encounter Summary ---
:1945 Author Organization [facility] Address [address] [place] [address] Care Team Providers Name Role Phone Anna Staples TONGUE STITCHER Primary Care Provider Eun Nolen MD Unavailable [phone] Reason for Visit Reason Onset Date Comments Appointment Related 11/30/2021 Encounter Details Date Type Department Care Team Description 11/30/2021 Telephone [facility] Jens Almnaza MD Appointment Related Surgical Oncology - 111 [facility], [address], [address] [place], [place] [address] [place] [address] [phone] [address] (Wo rk) Social History Tobacco Use [...] this encounter Miscellaneous Notes Telephone Encounter - Susan Abdalla - 11/30/2021 1043 EDT Gave pt a call per request from Michaela Holt RN: to schedule this patient for a visit with Dr. Almanza to review the results of her pathology. While on the phone with the patient we scheduled this appt for: 12/14/2021 @ 3:30pm - pt is aware Susan Abdalla 11/30/2021 10:45 documented in this encounter Plan of Treatment Upcoming Encounters Date Type Specialty Care Team Description 04/21/2022 Ancillary Procedure Cardiology 04/21/2022 Office Visit Cardiology Eun Nolen MD [address] [place] [address] [address] [place] [address] (Birdie walls) 07/15/2022 Office Visit Surgical Oncology Jens Almanza MD [address] [place] [address], [facility], [facility] 2 [place] [address] (Birdie walls) documented as of this encounter Visit Diagnoses Not on filedocumented in this encounter Care Teams Confidential Investigator Relationship Specialty Start Date End Date Anna Staples, TONGUE STITCHER PCP - General 08/26/21 [address] [place] [address] Eun Nolen MD Cardiovascular Disease 09/26/21 130 [facility] [address] [place] [address] documented as of this encounter
--- OUTSIDE RECORDS SUMMARY | 2022-04-12 14:38 | XMS_ITS | Clinical Summary ---
:1945 Author Organization [facility] Address [address] [place] [address] Care Team Providers Name Role Phone Anna Staples PERFORMANCE IMPROVEMENT ANALYST Primary Care Provider Eun Nolen MD Unavailable [phone] Allergies Active Allergy Reactions Severity Noted Date Comments Adhesive Tape-Silicones 11/18/2021 Surg ical tape redness Medications Medication Sig Dispensed Refills Start Date End Date Status spironolactone Take 12.5 mg 0 Ac tive (ALDACTONE) 25 mg tablet by mouth daily digoxin (LANOXIN) 125 mcg Take 187.5 0 Active tablet mcg by mouth daily. furosemide (LASIX) 40 mg Take 80 mg by 0 12/10/2012 Active tablet mouth daily. trimethobenzamide (TIGAN) Take 300 mg 0 Active 300 mg by mouth capsuleIndications: PRN daily as needed. LORazepam (ATIVAN) 1 mg 1 tab(s) 0 Active tablet orally once a day clotrimazole-betamethason Apply 0 Active e (LOTRISONE) cream topically. As needed diphenhydrAMINE Take 1 Cap by 0 10/14/2019 Active (BENADRYL) 50 mg capsule mouth at bedtime. lisinopriL (PRINIVIL) 5 1 Tab daily. 0 03/16/2020 Active mg tablet methocarbamoL (ROBAXIN) Take 500 mg 0 09/17/2021 Active 500 mg tablet by mouth 4 times daily. metoprolol SUCCinate Take 1 Tablet 90 Tablet 3 01/13/2022 Active (TOPROL-XL) 200 mg tablet by mouth daily. rivaroxaban (XARELTO) 20 Take 1 Tablet 90 Tablet 3 01/13/2022 Active mg tablet by mouth tabletIndications: daily with prevent thromboembolism dinner. in chronic atrial fibrillation tamoxifen (NOLVADEX) 20 Take 1 Tablet 90 Tablet 3 01/17/2022 1 Active mg tablet by mouth daily for 90 days. Active Problems Patient Care Coordination Note Formatting of this note might be differe nt from the original. 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 11/12/2015 Cardiomyopathy, dilated, nonischemic (HCC-CMS) 015 Overview: EF 25% LBBB (left bundle branch block) 12/18/2014 Overview: QRS 150ms CHF (congestive heart failure), NYHA class III (HCC-CM S) 12/18/2014 Cardiomyopathy 12/18/2014 Encounters Date Type Specialty Care Team Description 04/12/2022 Telephone Surgical Oncology Jens Almanza MD 02/23/2022 Telephone Cardiology Eun Nolen MD 01/19/2022 Orders Only Surgical Oncology Michaela Holt, RN Neopl asm of right breast, primary tumor staging category T4a: extension to ch est wall, not inclu ding only adherence and/or invasion to pectoralis musc le (HCC-CMS) (HCC) (Primary Dx) 01/17/2022 Telephone Cardiology Eun Nolen Returning C all MD Luis 01/17/2022 Telephone Surgical Oncology Michaela Holt, RN 01/14/2022 Telephone Cardiology Eun Nolen MD Management 01/13/2022 Telephone Cardiology Eun Nolen Medications Refill MD Luis 01/13/2022 Telephone Surgical Oncology Jens Almanza MD [facility] cation Management 01/13/2022 [facility] Multidisciplinary [facility], Health Team Assistance Program 01/10/2022 Telephone Cardiology Eun Nolen MD Management from Last 3 Months Surgical History Surgery Date Site/Laterality Comments HYSTERECTOMY CHOLECYSTECTOMY SKIN CANCER EXCISION approximate ly 7 years ago Medical History Medical History Date Comments CHF (congestive heart failure) (HCC-CMS) (HCC) Hypertension HLD (hyperlipidemia) Obese SOB (shortness of breath) NICM (nonischemic cardiomyopathy) (HCC-CMS) (HCC) GERD (gastroesophageal reflux disease) AF (atrial fibrillation) (HCC-CMS) (HCC) on coumadin Cancer (HCC-CMS) (HCC) skin cancer, faci al Social History Tobacco Use Types Packs/Day Years [...] Assigned at Date Recorded Not on file Last Filed Vital Signs Vital Sign Reading Time Taken Comments Blood Pressure 108/74 12/29/2021 1532 EDT Pulse 86 12/29/2021 1532 EDT Temperature 36.3 ??C (97.3 ??F) 11/18/2021 1257 EDT Respiratory Rate 12 11/18/2021 1257 EDT Oxygen Saturation 98% 12/29/2021 1532 EDT Inhaled Oxygen Concentration - - Weight 95.2 kg (209 lb 14.4 oz) 12/29/2021 1532 EDT Height 171 cm (5' 7.32) 12/29/2021 1532 EDT Body Mass Index 32.56 12/29/2021 1532 EDT Plan of Treatment Upcoming Encounters Date Type Specialty Care Team Description 04/21/2022 Ancillary Procedure Cardiology 04/21/2022 Office Visit Cardiology Eun Nolen MD 130 [facility] [address] [place] [address] (Wo rk) 07/15/2022 Office Visit Surgical Oncology Jens Almanza MD 111 [facility], [facility], [address] [place] [address] (Wo rk) Health Maintenance Due Date Last Done Comments Hepatitis C Screen 1945 COVID-19 Vaccine (#1) 1945 Fall Risk Screening 11/18/2022 11/18/2021, 03/16/2020 Implants Implanted Type Area Senior Operations Analyst Device Shelf Model / Identifier Expiration Serial / Date Lot Hydromark Breast Biopsy Site Marker Titanium Shape 4 - [id number] Clip Right: [employer] 05/24/2024 [id number] / Implanted: Qty: 1 on 09/01/2021 at [facility] Breast [employer] / [id number] Procedures Procedure Name Priority Date/Time Associated Diagnosis Comme nts ORDERS - SCANNED 01/11/2022 9:46 EDT from Last 3 Months Results ORDERS - SCANNED (01/11/2022 9:46 EDT) Specimen Narrative This result has an attachment that is no t available. from Last 3 Months Insurance Payer Benefit Plan / Subscriber ID Effective Dates Phone Addre ss Type Group MEDICARE MEDICARE A/B [id number] 2012-Present [id number] [place] [id number] Tania Stahl Personal/Family Self 1945 [address] [facility] [address] (Home) [address] [place] [address] Tania Stahl Personal/Family Self 1945 [address] [facility] [facility] [address] [address] ([address]) [address] [place] [address] Tania Stahl Personal/Family Self 1945 [address] [facility] [address] (Home) [address] [place] [address] Tania Stahl Personal/Family Self 1945 [address] [facility] [address] (Home) [address] [place] [address] Advance Directives For more information, please contact: [phone] Latest Code Status on File Code Status Date Activated Date Inactivated Comments Full Code 11/12/2015 15:20 11/13/2015 12:53 Reason for decision includes: Full code consistent with over all plan of care Who participated in the discussion? Not Discussed Full Code 11/12/2015 10:10 11/12/2015 15:20 Reason for decision includes: Full code consistent with over all plan of care Who participated in the discussion? Not Discussed Full Code 12/18/2014 16:44 12/19/2014 16:03 Reason for decision includes: Full code consistent with over all plan of care Who participated in the discussion? Not Discussed Full Code 12/18/2014 10:12 12/18/2014 16:44 Reason for decision includes: Full code consistent with over all plan of care Who participated in the discussion? Not Discussed Full Code 12/18/2014 10:04 12/18/2014 10:12 Reason for decision includes: Full code consistent with over all plan of care Who participated in the discussion? Not Discussed Care Teams Mixed Animal Veterinarian Relationship Specialty Start Date End Date Anna Staples NP PCP - General 08/26/[address] [place] [phone] Eun Nolen MD Cardiovascular Disease 09/26/[address] [place] [address] [address] [place] [address]
--- OUTSIDE RECORDS SUMMARY | 2022-04-12 14:38 | XMS_ITS | Encounter Summary ---
:1945 Author Organization [facility] Address [address] [place] [address] Care Team Providers Name Role Phone Anna Staples EXTRUSION DIE CORRECTOR Primary Care Provider Eun Nolen MD Unavailable [phone] Reason for Visit Reason Comments Follow-up Pacemaker/Device Check Encounter Details Date Type Department Care Team Description 09/27/2021 Office Visit [facility] - Eun Nolen Car diomyopathy, dilated, nonischemic (HCC-CMS) (HCC) (Primary Dx); [facility] Card[place] MD Luis Chronic systolic congestive heart failur e, NYHA class 3 (HCC-CMS) (HCC); Clinic [address] [facility] Chronic atrial fibrillation (HCC); [address] Biventricular ICD (implantable cardiover ter-defibrillator) in place; [place] [address] [place] LBBB (left bundle branch blo ck); [phone] History of cardiac radiofrequency ablati on (RFA) Social History Tobacco Use Types Packs/Day Years [...] / COVID-19? documented as of this encounter Last Filed Vital Signs Vital Sign Reading Time Taken Comments Blood Pressure 120/78 09/27/2021 1417 EDT Pulse 88 09/27/2021 1417 EDT Temperature - - Respiratory Rate - - Oxygen Saturation 96% 09/27/2021 1417 EDT Inhaled Oxygen Concentration - - Weight 93.4 kg (206 lb) 09/27/2021 1417 EDT Height 174 cm (5' 8.5) 09/27/2021 1417 EDT Body Mass Index 30.87 09/27/2021 1417 EDT documented in this encounter Functional Status [...] Eun Nolen MD - 09/27/2021 1430 EDT [facility] Cardiology Clinic Visit Subjective: Chief Complaint(s): Follow-up and Pacemaker/Device Check HPI: 76-year-old woman with permanent atrial fibrillation, nonischemic cardiomyopathy with chronic systolic heart failure and left bundle branch block. Had ACUTE CARE NURSE PRACTITIONER-D implant 12/2014, AVN ablation 12/2015. Followed in our [facility] cardiology/cardiac device clinic until 2019. Echo 2017 showed significantly improved LVfunction. Returns to the office for follow up. She continues doing well overall well from a cardiac standpoint. Stable exercise capacity, still feels she could get more active. She reports an episode that occurred on April 25 at 9:20 PM while sitting at her desk looking at her computer. She suddenly felt dizzy with a decreased level of consciousness and generalized weaknessand brief shortness of breath. This lasted for a few seconds before symptoms resolved with some residual mild nausea. No recurrence since then. She is also currently concerned about the finding of a breast nodule on a recent mammography. Needlebiopsy showed atypical ductal proliferation and she is waiting to hear about the next diagnostic/therapeutic steps. She also was started on Robaxin for muscle spasms last month. Denies exertional chest pain, shortness of breath, [...] dilated IVC, normal respirophasic changes. Recent labs, [facility], 12/24/2020: Lipids: Cholesterol 164, triglycerides 138, HDL 30, LDL 107. Hemoglobin A1c 6.1. Calcium 8.8, glucose 122, BUN 18, creatinine 1.0, estimated GFR 54.4, sodium 140, potassium 4.4, chloride 103, CO2 30.9,anion gap 6.1, WBC 10.2, hemoglobin 15.3, MCV 90.4, platelets 300. 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 ??? metoprolol TARtrate (LOPRESSOR) 100 mg tablet TAKE ONE TABLET BY MOUTH TWICE A DAY (NOTE: TABLETSTRENGTH CHANGE) 180 Tablet 3 ??? polyethylene glycol (GOLYTELY) 236-22.74-6.74 -5.86 gram suspension Take 4 L by mouth once for 1dose. Follow instructions on colonoscopy prep sheet. OK to substitute with any PEG-3350 product: CoLyte, Gavilyte, Nulytely, Trilyte, or generic PEG-3350 1 Each 0 ??? rivaroxaban (XARELTO) 20 mg tablet tablet Take 1 Tab by mouth daily with dinner. 90 Tab 3 ??? spironolactone (ALDACTONE) 25 mg tablet Take 12.5 mg by mouth daily ??? trimethobenzamide (TIGAN) 300 mg capsule Take 300 mg by mouth daily as needed. No current facility-administered medications on file prior to visit. 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 Allergies NKDA I have reviewed current problem list and current medications. ROS: A 10-system ROS was performed, pertinent items as mentioned in HPI, otherwise negative. ROS Objective: Examination: Vitals: BP 120/78 (BP Cuff Location: Left arm, BP Patient Position: Sitting, BP Cuff Sizes: Adult, regular) Pulse 88 Ht 174 cm (68.5) Wt 93.4 kg (206 lb) SpO2 96% BMI 30.87 kg/m?? Body mass index is30.87 kg/m??. Physical Exam General Exam: GENERAL APPEARANCE: [...] left-handed, normal speech. Device Check: PACER INFORMATION: Etu6.comtronic Viva Quad XT ACUTE CARE NURSE PRACTITIONER-D; CM; AF; implanted 12/18/2014 Dr. Nolen. Spontaneous Rhythm: BiV pace, 66/min. Programmed Mode: VVIR 60 - 120 bpm; non-adaptive ACUTE CARE NURSE PRACTITIONER. Underlying Rhythm: Permanent AF with iatrogenic complete AV block without escape rhythm, PACER DEPENDENT. Paced: Vpace 99.4%. Ventricular: RV 1V @ 0.4ms, LV 1.25V 0.6ms.. Ventricular output: RV 2V @ 0.4ms, LV 2->2.25V @ 0.6ms., . Ventricular Impedence (Ohms): RV pacing impedance 437 ms, RV coil 57 ohms, SVC coil 79 ohms, LV pacing impedance 1216 ohms.. R-Wave (MV): 17.1mV (pvc). Longevity: 17 months. Conclusion: Normal device function, battery okay, stable pacing sensing and impedance thresholds, notachyarrhythmia detected or treated since 04/02/2021. Permanent AF with iatrogenic AV block and 100% biventricular pacing. Pacer dependent. Patient activity stable low level. OptiVol fluid index at baseline. Iterative adjustment of programmed parameters to test device function and optimize pacing. Retested all possible LV lead pacing configurations in 2020. Only configurations with LV1 cathode yieldedmeaningful results, LV1 to LV3 was optimal. Assessment & Plan: 1. Cardiomyopathy, dilated, nonischemic (HCC-CMS) ([facility]) 2. Chronic systolic congestive heart failure, NYHA class 3 (HCC-CMS) ([facility]) 3. Chronic atrial fibrillation ([facility]) 4. Biventricular ICD (implantable cardioverter-defibrillator) in place 5. LBBB (left bundle branch block) 76-year-old woman with permanent atrial fibrillation, nonischemic cardiomyopathy with chronic systolic heart failure, left bundle branch block and obesity. Was clinically NYHA III, had LVEF 30% despiteoptimal medical therapy. ACUTE CARE NURSE PRACTITIONER-D Implant 12/2014, AVN ablation 12/2015.Now continues doing well with biventricular pacing, echocardiogram 2016 with significant improvement of LVEF to the low normal range correlating with her improvement in exercise capacity. Currently under diagnostic investigation for a R breast nodule. Continues doing well overall, successful weight loss, stable exercise capacity. A brief lightheaded spell experienced last April does not have an arrhythmia correlate on her device mem ory, possibly vagally mediated. Asked her to have this investigated immediately in case it happens again. Device check WNL, fluid index remains low. Recommended to continue current medications. I spent a total of 30 minutes [...] Office Visit Cardiology Eun Nolen MD [address] [facility] [address] [place] [address] (Wo rk) 07/15/2022 Office Visit Surgical Oncology Jens Almanza MD [address] [place] [address], [facility] [address] [place] [phone] (Wo rk) documented as of this encounter [...] branch block) Other left bundle branch block History of cardiac radiofrequency ablati on (RFA) documented in this encounter Historical Medications This list may reflect changes made after this encounter. Medication Sig Dispensed Refills Start Date End Date methocarbamoL (ROBAXIN) 500 Take 500 mg by 0 08/31 mg tablet mouth 4 times daily. added in this encounter Care Teams Shift Supervisor Rn Relationship Specialty Start Date End Date Anna Staples NP PCP - General 08/26/[address] [place] [address] [address] [place] [address] Eun Nolen MD Cardiovascular Disease 09/26/21 [address] [facility] [place] [address] documented as of this encounter
--- OUTSIDE RECORDS SUMMARY | 2022-04-12 14:38 | XMS_ITS | Encounter Summary ---
:1945 Author Organization [facility] Address [address] [place] [address] Care Team Providers Name Role Phone Anna Staples CONSULTING GROUP ANALYST Primary Care Provider Eun Nolen MD Unavailable [phone] Encounter Details Date Type Department Care Team Description 04/12/2022 Telephone [facility] Jens Almanza MD Surgical Oncology - Main [address] [facility] [address] [facility], [address] [place], [place] [id number] [place] [phone] (Wo rk) Social History Tobacco Use [...] 04/21/2022 Office Visit Cardiology Eun Nolen MD [address] [place] [address] [address] (Wo rk) 07/15/2022 Office Visit Surgical Oncology Jens Almanza MD [address] [place] [address] 2 [place] [address] (Wo rk) documented as of this encounter Visit Diagnoses Not on filedocumented in this encounter Care Teams Gas Meter Installer Relationship Specialty Start Date End Date Anna Staples NP PCP - General 08/26/21 [address] [facility] [facility] [address] [place] [phone] Eun Nolen MD Cardiovascular Disease 09/26/[address] [place] [address] [address] [place] [address] documented as of this encounter
--- OUTSIDE RECORDS SUMMARY | 2022-04-12 14:38 | XMS_ITS | Encounter Summary ---
:1945 Author Organization [facility] [place] [address] Care Team Providers Name Role Phone Silvino Charles MD Primary Care Provider Reason for Visit Reason Comments Follow-up Encounter Details Date Type Department Care Team Description 12/31/2018 [facility] Actinic ker[facility]; [facility] Seborrheic keratoses; [address] Seborrheic keratoses, inflamed; [place] [address] [facility] [phone] [address]-DERMATOLOGY [place] [id number] Social History Tobacco Use Types Packs/Day Years Used Date Former Smoker Smokeless Tobacco: Never Used Sex Assigned at Date Recorded Not on file documented as of this encounter Patient Instructions Patient InstructionsAnn Valerio - 12/31/2018 3:30 PM EDT Plan for Tania: You were treated today with Liquid Nitrogen. Liquid nitrogen is extremely cold, and freezes the surface of the skin, causing the lesion to flake off. Treatment with liquid nitrogen can be uncomfortable, but discomfort should subside after a couple of hours. The area treated will look red and irritated, and it may blister up or turn dark, then fall off. This is normal! If you have any questions, please call [phone]. documented in this encounter Progress Notes Loulou Stevenson MD - 12/31/2018 3:30 PM EDT DERMATOLOGY - ESTABLISHED PATIENT NOTE Date of service: 12/31/2018 Tania Stahl : 1945 CC: SK removal HPI: Tania Stahl is a 73 y.o. established patient. Last seen in [facility] Dermatology: 09/05/2016 Here today with the following concerns: - Lesions on the face that are irritated by her glasses. Few by the scalp that are irritated when brushing hair. - White lesion on the nose - Rough lesions on the inframammary Last FSE: 09/05/2016 Sun protection: no ?? Relevant Medical History: Preferred name: Radha Skin type: 2 ?? Yes/No If yes (date, subtype, location, treatment) Melanoma No ?? Dysplastic nevi No ?? SCC No ?? BCC Yes Right cheek [id number]? [place] No ?? Eczema/Psoriasis No ?? Immunosuppression or Malignancy No ?? History of blistering sunburn Yes As a child/ teenager Other ? Procedure Screening Questions: ?? Yes/No If Yes, details Defibrillator/Pacemaker Yes both Artificial Joints No ?? Heart Valves No ?? Blood Thinners Yes Xarelto Prophylactic Antibiotics No ?? Best way to reach with results Cell Ok to leave a detailed message ?? Relevant FamilyHistory: ?? Yes/No If yes, who (mom/dad/sibling/child) Melanoma No ?? SCC No ?? BCC Yes mother Psoriasis or Eczema No ?? Other ? Social History: Occupation: Retired Marital status: Medications: LORazepam, clotrimazole-betamethasone, digoxin, diphenhydrAMINE, furosemide, lisinopril, metoprolol tartrate, spironolactone, trimethobenzamide, and warfarin No Known Allergies Review of Systems: - General: Feels well. - Skin: No other skin concerns. Examination: - Constitutional: Patient was alert, well-appearing and in no noticeable distress. - Skin exam: Focused skin examination of the face and inframammary was normal with the exception of the findings listed below. Notable findings/Assessment/Plan: Actinic keratoses - ill defined gritty papules superior to the right eyebrow x 2 and on the right nasal bridge x 1 - Reviewed diagnosis with patient and treatment options. - Patient opted to proceed with liquid nitrogen with two freeze thaw cycles Number of lesions - 3 The patient's consent for liquid nitrogen was obtained. Risks and benefits were explained. The possible need for additional liquid nitrogen was reviewed. Risks of increased pigmentation, decreased pigmentation, blister formation, infection, pain, and recurrence were all discussed. The patient tolerated the procedure well. Wound care was reviewed. Inflamed seborrheic keratoses - stuck on rough papule with erythema located superior to left eyebrow, R jehovah's witness, L jehovah's witness, and on the left infraorbital - Reassured of the benign nature of these lesions, given irritation plan on treatment with LN2 today. Patient understands that she may develop some bruising due to anticoagulant use - Destruction with Liquid Nitrogen - two freeze thaw cycles Number of lesions - 10 (superior to left eyebrow) The patient's verbal consent for liquid nitrogen was obtained. Risks and benefits were explained. The possible need for additional liquid nitrogen was reviewed. Risks of increased pigmentation, decreased pigmentation, blister formation, scar, infection, pain, and recurrence were all discussed. The patient tolerated the procedure well. Wound care was reviewed. - Skin removal using scissors. Site: Left infraorbital x 1 Discussed procedure and expectations including risks and benefits. Verbal consent obtained. Sterile skin prep performed.. The lesion was removed by scissors technique. Hemostasis obtained with electrocautery. There were no complications; the patient tolerated the procedure well. The wound was dressed. Post-procedure expectations (including discomfort management), wound care were reviewed. Seborrheic keratoses - stuck on brown/hearn waxy papules on the inframammary area - Reassured of the benign nature of these lesions. No treatment needed unless irritated - Patient has been quoted $100 for removal of 1-10 if cosmetic only Milium- 1-2 mm white round papules located on the nose - Reassured of the benign nature of these lesions. No treatment needed, but reviewed removal options. Patient understands that treatment is considered cosmetic and will be [id number]. Patient has been quoted $100 for removal. Pt opted for no treatment at this time. RTC: April 2019 for FSE or PRN if symptoms worsen or persist. Note initiated by JUANITO Man. Ann Valerio has performed the documentation for this encounter in the presence of and acting as ascribe for Dr. Stevenson. I performed the above scribed service and agree with the accuracy of the documentation in this encounter. Reviewed and signed by: Loulou Stevenson MD Dermatology [facility] documented in this encounter Plan of Treatment Not on filedocumented as of this encounter Visit Diagnoses Diagnosis Actinic keratoses Actinic keratosis Seborrheic keratoses Seborrheic keratoses, inflamed Milium Sebaceous cyst documented in this encounter Care Teams Plater Printed Circuit Board Panels Relationship Specialty Start Date End Date Silvino Charles MD PCP - General Family Medicine 08/17/[address] [place] [address] documented as of this encounter
--- OUTSIDE RECORDS SUMMARY | 2022-04-12 14:38 | XMS_ITS | Encounter Summary ---
:1945 Author Organization [facility] Address [address] [place] [address] Care Team Providers Name Role Phone Anna Staples COOK ROOM SUPERVISOR Primary Care Provider Eun Nolen MD Unavailable [phone] Reason for Visit Reason Comments Follow-up Encounter Details Date Type Department Care Team Description 01/06/2022 Office Visit [facility] Jens Almanza MD Atypical ductal Surgical Oncology - [address] [place] [address] (Primary Dx) [address] [place] [address] [address], [place] [address] (Wo rk) Social History Tobacco Use [...] documented as of this encounter Progress Notes Jens Almanza MD - 01/06/2022 1545 EDT Tania Stahl is a 76-year-old woman seen in follow-up. Patient had a nodular density in her right breast biopsied in August 2021 showing some atypical ductal hyperplasia. Patient underwent surgicalexcision of that by myself on 11/18/2021. Patient was on anticoagulation for a number of cardiac issues. Patient has a pacemaker has a history of some atrial fibrillation chronic congestive heart failure. Patient did well from the surgery and is seen here in follow-up. On exam the patient's incisions well-healed no palpable collections are noted at the surgical site. Ultrasound demonstrates no residual fluid. Final pathology demonstrated some residual atypical ductalhyperplasia and nothing that reached the criteria of in situ carcinoma. I discussed with the patient that at this point there is no evidence of any malignancy. The finding of ADH however does imply an increased risk for developing malignancy compared to patients without that finding. That risk is roughly twice the normal risk. That could occur in either breast as well. Based on these findings the patient requires no further surgical interventions. Radiation is not indicated. We had a discussion over hormonal treatments for risk reduction. This would include tamoxifen carmina aromatase inhibitor. Patient has had a previous hysterectomy and is on anticoagulation therefore the most serious side effects of tamoxifen would be minimized by that. The aromatase inhibitors have a high incidence of joint and bone pain and can cause osteoporosis. Use of either of these will reduce but not eliminate the risk for developing breast cancer by roughly half. Overall survival however would not be any different for patients who take the medication versus those that are simply observed in close follow-up. Based on this information the patient is wanting to try 1 of these medications. Ithink with her overall medical state the tamoxifen would likely be the best choice here. Patient will check with her marker delivery in this regard as well. When she makes a final decision she will let usknow and when if it is decided to start then we can begin at that point. We will otherwise plan a follow-up check with myself in 6 months. documented in this encounter Plan of Treatment Upcoming Encounters Date Type Specialty Care Team Description 04/21/2022 Ancillary Procedure Cardiology 04/21/2022 Office Visit Cardiology Eun Nolen MD [address] [place], [place] [address]A [facility] [address] [address] (Wo rk) 07/15/2022 Office Visit Surgical Oncology Jens Almanza MD [address] [place] [address] [address] [place] [address] (Wo rk) documented as of this encounter Procedures Procedure Name Priority Date/Time Associated Diagnosis Comme nts ORDERS - SCANNED 01/11/2022 9:46 EDT documented in this encounter Visit Diagnoses Diagnosis Atypical ductal hyperplasia of breast - Primary Other specified benign mammary dysplasia s documented in this encounter Orders Admission Count Last Ordered Date First Ordered Date ORDERS - SCANNED 1 01/11/2022 documented in this encounter Care Teams Animal Pathologist Relationship Specialty Start Date End Date Anna Staples NP PCP - General 08/26/[address] [place] [phone] Eun Nolen MD Cardiovascular Disease 09/26/[address] [place], [place] [address] [address] [place] [address] documented as of this encounter
--- OUTSIDE RECORDS SUMMARY | 2022-04-12 14:38 | XMS_ITS | Encounter Summary ---
:1945 Author Organization [facility] Address [address] [place] [address] Care Team Providers Name Role Phone Anna Staples PARCEL CARRIER Primary Care Provider Eun Nolen MD Unavailable [phone] Reason for Visit Reason Onset Date Comments Medication Management 01/14/2022 Encounter Details Date Type Department Care Team Description 01/14/2022 Telephone [facility] - Eun Nolen [facility] ication Management [facility] Card[place] Clin ic MD Luis [address] [place] [address] [address] [place] [address] (Wo rk) Social History Tobacco Use Types [...] Telephone Encounter - Alyson Bui RN - 01/14/2022 1715 EDT Notified patient OK to take medications together elephone Encounter - Alyson Bui RN - 01/14/2022 1637 EDT Per no drug interactions. Attempted to call patient back, no answer and VM full Telephone Encounter - Magalys Ivan MA - 01/14/2022 1601 EDT Patient called in and left a msg needing to find out from Dr. Nolen if she can take her Xarelto and Tamoxifen together. Please call her back at [phone] documented in this encounter Plan of Treatment Upcoming Encounters Date Type Specialty Care Team Description 04/21/2022 Ancillary Procedure Cardiology 04/21/2022 Office Visit Cardiology Eun Nolen MD [address] [place] [address] [address] [place] [address] (Wo rk) 07/15/2022 Office Visit Surgical Oncology Jens Almanza MD [address] [place] [address], [address] [place] [address] (Wo rk) documented as of this encounter Visit Diagnoses Not on filedocumented in this encounter Care Teams Blade Changer Relationship Specialty Start Date End Date Anna Staples NP PCP - General 08/26/[address] [place] [address] Eun Nolen MD Cardiovascular Disease 09/26/21 [address] [facility] [address] [place] [address] documented as of this encounter
--- OUTSIDE RECORDS SUMMARY | 2022-04-12 14:38 | XMS_ITS | Encounter Summary ---
:[address] [facility] Address [address] [place] [address] Care Team Providers Name Role Phone Anna Staples PERSONAL DEVELOPMENT MENTOR Primary Care Provider Eun Nolen MD Unavailable [phone] Reason for Visit (Routine) - Authorization Not Required Specialty Diagnoses / Procedures Referred By Contact Refer red To Contact Diagnoses Encounter for adjustment or management of cardiac device Eun Nolen MD Procedures CARDIAC IMPLANT CHECK - IN CLINIC [address] [place] [address]- [address] [place] [address] Referral ID Status Reason Start Expiration Visits Visits Date Date Requested Authorized [id number] Authorization Not 02/06/2020 1 1 Required Encounter Details Date Type Department Care Team Description 12/29/2021 Ancillary Procedure [facility] - Encounter for [facility] Cardiology Clin ic adjustment or [address] [place] [address] device [phone] Social History Tobacco Use Types Packs/Day Years [...] Office Visit Cardiology Eun Nolen MD [address] [place] [address] [address] (Wo rk) 07/15/2022 Office Visit Surgical Oncology Jens Almanza MD [address] [place] [address] 2 [place] [address] (Wo rk) documented as of this encounter Visit Diagnoses Diagnosis Encounter for adjustment or management o f cardiac device documented in this encounter Orders Implantable Cardiac Device Count Last Ordered Date Fir st Ordered Date CARDIAC IMPLANT CHECK - IN CLINIC 1 12/29/2021 documented in this encounter Care Teams Medical Case Worker Relationship Specialty Start Date End Date Anna Staples NP PCP - General 08/26/[address] [place] [address] [address] [place] [address] Eun Nolen MD Cardiovascular Disease 09/26/21 [address] [facility] [address] [address] documented as of this encounter
--- OUTSIDE RECORDS SUMMARY | 2022-04-12 14:38 | XMS_ITS | Encounter Summary ---
:1945 Author Organization Address [address] [place] [address] Care Team Providers Name Role Phone Anna Staples NARROW FABR[employer] WEAVER Primary Care Provider Eun Nolen MD Unavailable [phone] Reason for Visit Reason Comments New Patient Visit Consult (Routine) - Authorization Not Required Specialty Diagnoses / Procedures Referred By Contact Refer red To Contact Surgical Oncology Diagnoses Breast lump Anna Staples, NARROW FABR[employer] WEAVER [facility] S[facility]-Oncology [address] [facility] [address] [place], [place] [id number] [place] [address] Phone: [phone] Referral ID Status Reason Start Expiration Visits Visits Date Date Requested Authorized [id number] Authorization Not 1 1 Required Encounter Details Date Type Department Care Team Description 11/08/2021 Office Visit [facility] Jens Almanza MD Atypical ductal Surgical Oncology - [address] [facility] breast [facility] [address] (Primary Dx) [address] [place] [address] [address]ilion, [place] [phone] (Wo rk) Social History Tobacco Use Types [...] Sign Reading Time Taken Comments Blood Pressure - - Pulse - - Temperature - - Respiratory Rate - - Oxygen Saturation - - Inhaled Oxygen Concentration - - Weight 94.3 kg (208 lb) 11/08/2021 1406 EDT Height 171 cm (5' 7.32) 11/08/2021 1406 EDT Body Mass Index 32.27 11/08/2021 1406 EDT documented in this encounter Functional Status [...] encounter Progress Notes Jens Almanza MD - 11/08/2021 1430 EDT Tania Stahl is a 76-year-old woman seen for recently 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 Patient had been having some discharge occasionally on her left breast she had imaging recently which showed a nodular density in the opposite side on the right. An abnormality was seen on ultrasound which was subsequently biopsied showing a proliferative lesion consistent with ADH. Patient denies any palpable lumps there denies pain discomfort or discharge from that breast. Patient's had no history of other breast problems in the past. Past medical history: Patient has history of atrial fibrillation with AV block, she has a biventricular pacemaker with defibrillator on the right side. She has had that for 6 years. She has a history of heart failure related to that, this is been better since she has had the pacemaker but she still gets coarse considerable shortness of breath. 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 She has had a ventral hernia repair. She has a history of some anxiety, depression. Medications: Xarelto 20 mg a day, spironolactone 25 mg a day, lorazepam, lisinopril 5 mg a day, digoxin 0.125 mg a day, Lasix 40 mg a day, Patient has no known drug allergies. Patient denies fevers chills night sweats. She has some fatigue. Patient gets shortness of breath with minimal activities. She is unable to climb up a flight of stairs without having to stop due to shortness of breath. She denies any chest pain or chest pressure. She has no GI issues issues thyroiddiabetes blood clotting or bleeding problems. Family history: Father had colon cancer Brother had pancreatic cancer, maternal aunt had breast cancer, another maternal aunt with breast cancer and a maternal cousin with breast cancer. On exam the patient is in no acute distress she has no scleral icterus, palpation of the neck reveals no palpable cervical or supraclavicular lymph nodes. There is no nodules in the thyroid gland, no carotid bruits or JVD were noted. Lungs are clear to auscultation, heart has a regular rate and rhythm without S3-S4 murmurs. The pacemaker defibrillator is in the right chest. No other skin changes are noted on either side. Palpation of the right breast reveals no discrete palpable abnormalities, thereis no nipple discharge, there is no palpable lymph nodes in the axilla. The left breast has no discrete palpable abnormalities, there is no nipple discharge, there is no palpable lymph nodes in the axilla. There is no abdominal masses, no hepatosplenomegaly was noted. Ultrasound of the right breast demonstrates a small nodular lesion just underneath the nipple areolar area at about the 11-12 o'clock location. Biopsy clip is seen adjacent to that. Patient has some slightly dilated ducts elsewhere in the subareolar area which are without abnormalities. No other architectural changes or solid abnormality seen elsewhere in the breast there was no abnormal lymph nodes in the internal mammary or axillary region. The left breast has some ducts which are dilated in the subareolar area without intraluminal abnormalities. There is no abnormal finding seen elsewhere in thebreast. There is no abnormal lymph nodes in the axilla or internal mammary on the left. Impression: This 76-year-old woman with multiple comorbidities cardiac related. 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 This area measures about 9 mm in maximum size on ultrasound. Is recommended to the patient that an excision of this area should be performed. Given the patient's comorbidities I think thebest way to do this would be under local anesthetic. The lesion is quite superficial and should be amenable to excision with minimal risk of bleeding. We will therefore not take the patient off of Xarelto given the risk of thromboembolic issues if she were to stop come off of that. Also because the patient has a pacemaker defibrillator which she is dependent on we will not use electrocautery during the procedure either. I think we can have a good outcome in the long run however there is a little bitof an increased risk of getting a hematoma at the site of the surgery because of these issues. Patient understands these and consents to proceed. We will look at setting up a date for this in the not too distant future. documented in this encounter Plan of Treatment Upcoming Encounters Date Type Specialty Care Team Description 04/21/2022 Ancillary Procedure Cardiology 04/21/2022 Office Visit Cardiology Eun Nolen MD 130 [facility] [address] [place] [address] (Wo rk) 07/15/2022 Office Visit Surgical Oncology Jens Almanza MD [address] [place] [address] 2 [place] [address] (Wo rk) documented as of this encounter Visit Diagnoses Diagnosis Atypical ductal hyperplasia of breast - Primary Other specified benign mammary dysplasia s documented in this encounter Care Teams Hockey Player Relationship Specialty Start Date End Date Anna Staples, FILEMON PCP - General 08/26/[address] [place] [address] Eun Nolen MD Cardiovascular Disease 09/26/[address] [place], [place] [address] [address] [place] [address] documented as of this encounter
--- OUTSIDE RECORDS SUMMARY | 2022-04-12 14:39 | XMS_ITS | Encounter Summary ---
:1945 Author Organization [facility] Address [address] [place] [address] Care Team Providers Name Role Phone Silvino Charles MD Primary Care Provider Unavailable Encounter Details Date Type Department Care Team Description 08/05/2021 Orders Only [facility] Meir Cano, Gastroenterology - [address] [address] [address], [place] [phone] (Wo rk) Social History Tobacco Use Types [...] Sig Dispensed Refills Start Date End Date polyethylene glycol Take 4 L by mouth once 1 Each 0 08/202112/29/2021 (GOLYTELY) for 1 dose. Follow 236-22.74-6.74 -5.86 instructions on gram suspension colonoscopy prep sheet. OK to substitute with any PEG-3350 product: CoLyte, Gavilyte, Nulytely, Trilyte, or generic PEG-3350 documented in this encounter Progress Notes Sherry Pack RN - 08/05/2021 1122 EST Golytely sent to preferred pharmacy for upcoming colonoscopy. documented in this encounter Plan of Treatment Upcoming Encounters Date Type Specialty Care Team Description 04/21/2022 Ancillary Procedure Cardiology 04/21/2022 Office Visit Cardiology Eun Nolen MD [address] [place] [address] [address] [place] [address] (Birdie walls) 07/15/2022 Office Visit Surgical Oncology Jens Almanza MD [address] [facility] 2 [place] [address] (Wo titi) documented as of this encounter Visit Diagnoses Not on filedocumented in this encounter Care Teams 7Th Grade Social Studies Teacher Relationship Specialty Start Date End Date Silvino Charles MD PCP - General 08/05/11 08/25/21 documented as of this encounter
--- OUTSIDE RECORDS SUMMARY | 2022-04-12 14:39 | XMS_ITS | Encounter Summary ---
:1945 Author Organization [facility] Address [address] [place] [address] Care Team Providers Name Role Phone Silvino Charles MD Primary Care Provider Unavailable Reason for Visit Reason Comments Pacemaker/Device Check Medtronic Encounter Details Date Type Department Care Team Description 04/02/2021 Office Visit [facility] - Eun Nolen diomyopathy, dilated, nonischemic (HCC-CMS) ([facility]) (Primary Dx); [facility] Cardiology MD Luis Chronic systolic congestive heart failur e, NYHA class 3 (HCC-CMS) (HCC); Clinic [address] [facility] Chronic atrial fibrillation (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 Social History Tobacco Use Types Packs/Day Years [...] Sign Reading Time Taken Comments Blood Pressure 120/62 04/02/2021 1617 EDT Pulse 84 04/02/2021 1617 EDT Temperature - - Respiratory Rate - - Oxygen Saturation 98% 04/02/2021 1617 EDT Inhaled Oxygen Concentration - - Weight 93.9 kg (207 lb) 04/02/2021 1617 EDT Height 174 cm (5' 8.5) 04/02/2021 1617 EDT Body Mass Index 31.02 04/02/2021 1617 EDT documented in this encounter Functional Status [...] encounter Progress Notes Eun Nolen MD - 04/02/2021 1615 EDT [facility] Cardiology Clinic Visit Subjective: Chief Complaint(s): Pacemaker/Device Check (Medtronic) HPI: 76-year-old woman with permanent atrial fibrillation, nonischemic cardiomyopathy with chronic systolic heart failure, left bundle branch block and obesity. Had MINE GEOLOGIST-D implant 12/2014, AVN ablation 12/2015. Followed in our [facility] cardiology/cardiac device clinic until 2019. Echo 2016 showed significantly imp roved LV function. Returns to the office for follow up. She continues doing well, nothing new. Reports stable exercise capacity, still feels she could get more active. Denies exertional chest pain, shortness of breath, [...] dilated IVC, normal respirophasic changes. Recent labs, [facility], 12/24/2020: Lipids: Cholesterol 164, triglycerides 138, HDL 30, LDL 107. Hemoglobin A1c 6.1. Calcium 8.8, glucose 122, BUN 18, creatinine 1.0, estimated GFR 54.4, sodium 140, potassium 4.4, chloride 103, CO2 30.9,anion gap 6.1, WBC 10.2, hemoglobin 15.3, MCV 90.4, platelets 300. 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 metoprolol TARtrate (LOPRESSOR) 100 mg tablet Take 1 Tab by mouth 2 times daily. 180 Tab 3 ??? 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 Allergies NKDA I have reviewed current problem list and current medications. ROS: A 10-system ROS was performed, pertinent items as mentioned in HPI, otherwise negative. ROS Objective: Examination: Vitals: BP 120/62 (BP Cuff Location: Left arm, BP Patient Position: Sitting, BP Cuff Sizes: Adult, large) Pulse 84 Ht 174 cm (68.5) Wt 93.9 kg (207 lb) SpO2 98% BMI 31.02 kg/m?? Body mass index is 31.02 kg/m??. Physical Exam General Exam: GENERAL APPEARANCE: [...] Check: PACER INFORMATION: Medtronic Viva Quad XT MINE GEOLOGIST-D; CM; AF; implanted 12/18/2014 Dr. Nolen. Spontaneous Rhythm: BiV pace, 66/min. Programmed Mode: VVIR 60 - 120 bpm; non-adaptive MINE GEOLOGIST. Underlying Rhythm: Permanent AF with iatrogenic complete AV block without escape rhythm, PACER DEPENDENT. Paced: Vpace 99.1%. Ventricular: RV 1V @ 0.4ms, LV 1.25V 0.6ms.. Ventricular output: RV 2V @ 0.4ms, LV 2.25V @ 0.6ms., . Ventricular Impedence (Ohms): RV pacing impedance 399 ms, RV coil 51 ohms, SVC coil 69 ohms, LV pacing impedance 1178ohms.. R-Wave (MV): 17.1mV (pvc). Longevity: 20 months. Conclusion: Normal device function, battery okay, stable pacing sensing and impedance thresholds, notachyarrhythmia detected or treated. Permanent AF with iatrogenic AV block and 100% biventricular pacing. Pacer dependent. Patient activity stable low level. OptiVol fluid index at baseline. Iterative adjustment of programmed parameters to test device function and optimize pacing. Retested all possible LV lead pacing configurations last time. Only configurations with LV1 cathode yielded meaningful results, LV1 to LV3 was optimal. Assessment & Plan: 1. Cardiomyopathy, dilated, nonischemic (HCC-CMS) ([facility]) 2. Chronic systolic congestive heart failure, NYHA class 3 (HCC-CMS) ([facility]) 3. Chronic atrial fibrillation ([facility]) 4. Biventricular ICD (implantable cardioverter-defibrillator) in place 5. LBBB (left bundle branch block) 6. 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 Was clinically NYHA III, had LVEF 30% despiteoptimal medical therapy. MINE GEOLOGIST-D Implant 12/2014, AVN ablation 12/2015.Now continues doing well with biventricular pacing, echocardiogram 2017 with significant improvement of LVEF to the low normal range correlating with her improvement in exercise capacity. Continues doing well, successful weight loss, stable exercise capacity. Recommended to continue current medications. Device check WNL, fluid index remains low. Rediscussed importance of more physical activity and further weight loss. Treatment 1. Chronic atrial fibrillation Continue Xarelto tablet, 20 mg, 1 tab(s), orally, once a day (in the evening), 90 days, 90, Refills 3 2. Cardiomyopathy Continue lisinopril tablet, 5 mg, 1 tab(s), orally, once a day Continue spironolactone tablet, 25 mg, 1/2 tablet, orally, once a day Continue furosemide tablet, 40 mg, 1 and 1 half tabs (1 1/2), orally, once a day Continue digoxin tablet, 125 mcg (0.125 mg), 1 1/2 tablets, orally, once a day 3. Chronic systolic congestive heart failure, NYHA class 3 (HCC-CMS) Continue Metoprolol Tartrate tablet, 50 mg, 2 tab(s), orally, 2 times a day I spent a total of 30 minutes [...] 04/21/2022 Office Visit Cardiology Eun Nolen MD [address] [place] [address] [address] [place], [place] [phone] (Wo rk) 07/15/2022 Office Visit Surgical Oncology Jens Almanza MD [address] [place] [address], [facility] 2 [place] [address] (Wo rk) documented as of [...] branch block) Other left bundle branch block Current use of skilled nursing anticoagulation Long-term (current) use of anticoagulant s documented in this encounter Care Teams Cutting Torch Operator Relationship Specialty Start Date End Date Silvino Charles MD PCP - General 08/05/11 08/25/21 documented as of this encounter
--- OUTSIDE RECORDS SUMMARY | 2022-04-12 14:39 | XMS_ITS | Encounter Summary ---
:1945 Author Organization [facility] Address [address] [place] [address] Care Team Providers Name Role Phone Lindy Charles MD Primary Care Provider Unavailable Reason for Referral (Routine) - Closed Specialty Diagnoses / Procedures Referred By Contact Richard michelle To Contact Indira Hylton NP [address] [phone] Referral ID Status Reason Start Date Expiration Date Visits V isits Requested Authorized [id number] Closed Specialty 12/19/2014 1 1 Services Required Comments Your incision/wound site should be check ed in two weeks by your primary physician. Appointment on Tuesday December 30, 2014 at [address] Lindy Charles for an incision site evaluation (Routine) - Closed Specialty Diagnoses / Procedures Referred By Contact Refer miguel angel To Contact Indira Hylton NP [address] [place] [phone] Referral ID Status Reason Start Date Expiration Date Visits V isits Requested Authorized [id number] Closed Specialty 12/19/2014 1 1 Services Required Comments Your first pacemaker check will be sched uled in three months after implant at your closest chosen clinic location. You will be reminded of this date by mail. - Subsequent pacemaker clinics will be d one either once a year or twice a year depending on your device and those appoi ntments will be scheduled at your first appointment. -The [facility] Cardiology is located at [address] [facility] in [place] - Clinics are also held in [facility]. If you live in those areas, we will make arrangements for fol low-up appointments in one of those clinics (Routine) - Closed Specialty Diagnoses / Procedures Referred By Contact Refer red To Contact Indira Hylton NP [address] [phone] Referral ID Status Reason Start Date Expiration Date Visits V isits Requested Authorized [id number] Closed Specialty 12/19/2014 1 1 Services Required Comments Depending on where you live and the kind of pacemaker you have, you may be enrolled for a remote monitor. The monitor will b e mailed to you and will allow you to have your pacemaker checked over the phone fo r some scheduled checks instead of having to come into the clinic. The monitor will a lso allow you to send information about your pacemaker over the phone in the event yo u do not feel well. If you receive a remote monitor, please bring it to your next cl inic visit so you can learn how to use it. (Routine) - Closed Specialty Diagnoses / Procedures Referred By Contact Refer red To Contact Indira Hylton NP [address] [phone] Referral ID Status Reason Start Date Expiration Date Visits V isits Requested Authorized [id number] Closed Specialty 12/19/2014 1 1 Services Required Comments - If we have not contacted you or you villasenor ve missed your scheduled appointment, you must contact us. If you have any nursing questions please don? t hesitate to call the cardiac arrhythmi a service at [phone] or [phone] extension [phone] - For scheduling of appointments and rel ated questions, please call [phone] or extension [phone] (Routine) - Closed Specialty Diagnoses / Procedures Referred By Contact Refer red To Contact Indira Hylton NP 111 [facility] , [address] [place] [address] Referral ID Status Reason Start Date Expiration Date Visits V isits Requested Authorized [id number] Closed Specialty 12/19/2014 1 1 Services Required Comments - Further information will be sent to melissa hale regarding your scheduled follow-up appointment in 3 months. - After the initial check, your device w ill be checked in clinic every 13 weeks (4 times/year). The [facility] Cardiology is located at [address] [facility] in [place]. These appointments will take approximately 20 minutes and you will be reminded of this date by mail. - Clinics are also held in [place], [place] If you live in those areas, we will make arrangements for fol low-up appointments in one of those clinics. Encounter Details Date Type Department Care Team Description 12/18/2014 - [facility] Nolen, Cardiomyo shabana ([facility] (Primary Dx); 12/19/2014 Encounter Cardiac/Telemetry Eun Smith LBBB (le ft bundle branch block); Unit Cardiomyopathy, dilated, nonischemic ( [facility]); [address] [facility] [address] [facility] Systolic heart failure ([facility], [place] [address] CHF (congestive heart failure), NYHA cla ss III ([facility]) [address] [place], [place] [phone] Social History Tobacco Use Types Packs/Day Years Used Date Former Smoker 0.1 2 Smokeless Tobacco: Never Used Comments: 2 YRS [...] Sign Reading Time Taken Comments Blood Pressure 109/66 12/19/2014 0831 EDT Pulse - - Temperature 36.7 ??C (98.1 ??F) 12/19/2014 0831 EDT Respiratory Rate 16 12/19/2014 0831 EDT Oxygen Saturation 97% 12/19/2014 0831 EDT Inhaled Oxygen Concentration - - Weight 95.3 kg (210 lb) 12/18/2014 1716 EDT Height 174 cm (5' 8.5) 12/18/2014 1716 EDT Body Mass Index 31.47 12/18/2014 1716 EDT documented in this encounter Functional Status Functional Status Response Date of Assessment Are you deaf or do you have serious difficulty hearing? No 12/18/2014 Are you blind or do you have serious difficulty seeing, No 12/18/2014 even when wearing glasses? Do you have serious difficulty walking or climbing No 12/18/2014 stairs? (5 years old or older) Do you have difficulty dressing or bathing? (5 years old No 12/18/2014 or older) Because of a physical, mental, or emotional condition, do No 12/18/2014 you have difficulty doing errands alone such as visiting a doctor's office or shopping? (15 years old or older) Cognitive Status Response Date of Assessment Because of a physical, mental, or emotional condition, do No 12/18/2014 you have serious difficulty concentrating, remembering, or making decisions? (5 years old or older) documented as of this encounter Discharge Summaries Murali Armnedariz MD - 12/18/2014 1755 EDT Discharge Summary Admission Date: 12-18-2014 Discharge Date: 12-19-2014 Chief Complaint/Reason for Admission: dyspnea with minimal exertion Principal/Final Diagnosis: Nonischemic cardiomyopathy, chronic systolic heart failure, LBBB Principal Procedure: WASH TUB MACHINE OPERATOR-D ( Bi-V ICD) - no atrial lead Date: 12/18/2014 Secondary Procedures: Not applicable Condition at Discharge: Good Assessment at Discharge: Vital signs: Patient Vitals for the past 12 hrs: BP Heart Rate Resp Temp SpO2 O2 Device 12/19/14 0831 109/66 mmHg 82 BPM 16 36.7 ??C (98.1 ??F) 97 % Room air 12/19/14 0627 - 72 BPM - - - - 12/19/14 0546 - 74 BPM - - - - 12/19/14 0402 - 71 BPM - - - - 12/19/14 0340 - 71 BPM - - - - 12/19/14 0203 - 72 BPM - - - - 12/19/14 0142 - 76 BPM - - - - Telemetry : atrial fib with approx 50% v- pacing Cor: irreg rate rhythm, S1 S2 , no murmur appreciated Lungs: bilaterally clear to auscultation Right upper chest incision site: minimal edema, no bleed or hematoma, skin edges well approximated and topical skin adhesive intact Extr: warm , no peripheral edema or cyanosis Neuro: grossly normal Mental status: awake, alert & oriented to person, place and time Hospital Course: Tania Stahl is a 69 yo women with non-ischemic cardiomyopathy - lVEF 25% ( echo 08/2014), chronic systolic heart failure, atrial fib since 2000 - failed antiarrythmic medication and has had persistent a-fib since 2005, Lbbb. Evaluated for WASH TUB MACHINE OPERATOR-D in 2012 for which she declined at that time. Since Jul 2014, she has had progressive dyspnea with minimal exertion despite maximizing heart failure medications and improved rate control. She was seen by Dr Yunior Nolen and after discussion of tretment options she was in agreement with proceeding with implant of WASH TUB MACHINE OPERATOR-D. Her [id number] score is 3 for lvef 25%, age, female and she is in persistent atrial fib and on long term anticoagulation therapy with warfarin. 12-18-2014 She had a WASH TUB MACHINE OPERATOR-D ( Bi-V ICD) placed on right side (left handed) - rate set at 70 without complication. Her metoprolol was increased to 75 mg twice a day to try to achieve predominately bi-ventricular pacing ( goal of 90% bi-v pacing). Telemetry overnight atrial fib with approx 50% ventricularpacing. PA and Lat chest xray showed appriopriate lead placement. WASH TUB MACHINE OPERATOR-D interrogation demonstrated Normal bi-v icd function with program mode VVI rate 70, rhythm a- fib and bi-v paced ; v-pacing 52% - no reprogramming. Right WASH TUB MACHINE OPERATOR-D incision site - minimal edema , no bleed or hematoma - stable. Ambulating- notes usual dyspnea with exertion and denies lightheadedness, dizziness, chest pain Only medication change was to increase metoprolol to 75 mg twice a day- continued other home medications. She had held coumadin 2 days prior to admission - adm INR 1.6 and her coumadin was resumed 12-18 on same home coumadin regimen with next INR 12-24- - incision site evaluation by pcp Dr Yunior Charles on December 30, 2014 at 11 am - anticoagulation therapy with warfarin will continue to be managed by Dr Yunior Charles - next INR 12/24/14 - Cardiology follow up with Dr Yunior Nolen in the [facility] cardiology clinic in 4-5 weeks - Device follow up in 3 months at [facility] cardiology clinic There is no immunization history on file for this patient. Diagnostic Studies: CHEST PA AND LATERAL 12/19/2014 9:42 AM Signs and Symptoms/Comments: s/p BiV ICD Comparison: 12/18/2014 Findings: There is no evidence of pneumothorax. The defibrillator lead overlies the RV apex and a pacemaker lead is present in the posterior lateral left cardiac vein. The ground lead of defibrillator is in the SVC. The cardiac silhouette is borderline enlarged, but the pulmonary vascularity is normal. The lungs are clear and there is no evidence of pleural fluid. Impression: No evidence of complication Relevant Studies at Discharge: none Last Lab Results at Discharge: BUN: Lab Results Component Value Date BUN 21 12/18/2014 Creatinine: Lab Results Component Value Date CREATININE 0.84 12/18/2014 CBC: Lab Results Component Value Date WBC 13.55* 12/18/2014 RBC 5.01 12/18/2014 HGB 15.6* 12/18/2014 HCT 44.7* 12/18/2014 MCV 89 12/18/2014 MCH 31.1 12/18/2014 MCHC 34.8 12/18/2014 PLT 317 12/18/2014 Electrolytes: Lab Results Component Value Date NA 141 12/18/2014 K 4.1 12/18/2014 CL 102 12/18/2014 CO2 28 12/18/2014 INR: Lab Results Component Value Date INR 1.6* 12/18/2014 PROTIME 18.1* 12/18/2014 No results found for: HGBA1C Meds at Discharge: Medication List CHANGE how you take these medications metoprolol 50 mg tablet Commonly known as: LOPRESSOR Take 1.5 Tabs by mouth 2 times daily Which is 75 mg mg twice a day What changed: - how much to take - additional instructions warfarin 2.5 mg tablet Commonly known as: COUMADIN Take as directed in the evening: Per Dr Yunior Charles office on 12/18/14 Coumadin Regimen: Coumadin 7.5 mg Qfr-Ywmyx-Tbk and Coumadin 5 mg on Qmy-Sxkv-Axk-Sun What changed: - how much to take - how to take this - additional instructions CONTINUE taking these medications digoxin 125 mcg tablet Commonly known as: LANOXIN Take 125 mcg by mouth daily diphenhydrAMINE 50 mg capsule Commonly known as: BENADRYL Take 50 mg by mouth at bedtime as needed furosemide 40 mg tablet Commonly known as: LASIX Take 80 mg by mouth daily lisinopril 5 mg tablet Commonly known as: PRINIVIL, ZESTRIL Take 5 mg by mouth daily LORazepam 1 mg tablet Commonly known as: ATIVAN Take 1 mg by mouth every 4 hours as needed for Anxiety * NYSTATIN TOP Apply topically * MYCOSTATIN TOP Apply topically spironolactone 25 mg tablet Commonly known as: ALDACTONE Take 12.5 mg by mouth daily trimethobenzamide 300 mg capsule Commonly known as: TIGAN - Take 300 mg by mouth daily as needed * Notice: This list has 2 medication(s) that are the same as other medications prescribed for you. Read the directions carefully, and ask your doctor or other care provider to review them with you. Medication Instructions: Warfarin ( Coumadin) Instructions per Dr Charles on 12-18-2014- take in evening - you have 2.5 mg tablets Coumadin 7.5 mg on Mon- - Mon Coumadin 5 mg on Awm-Ngiz-IbyMon Next INR on MonDecember 24, 2014 in the morning with results to Dr Yunior Charles who will contact you with further coumadin instructions and will continue to manage your coumadin therapy Discharge Summary Completed: Yes Rufina Hylton NP 12/19/2014 Attestation statement: Supervising Physician. I saw and examined Dr. Stahl on morning rounds with the cardiac EP service on December 19, 2014. I agree with the discharge summary as outlined above. Dr. Stahl will follow-up with Dr. Nolen. documented in this encounter Discharge Instructions MedicationsRufina Hylton NP - 12/19/2014 12:36 EDT Warfarin ( Coumadin) Instructions per Dr Charles on 12-18-2014- take in evening - you have 2.5 mg tablets Coumadin 7.5 mg on Mon- - Sat Coumadin 5 mg on Ona-Sxql-Vyf- Mon Next INR on MonDecember 24, 2014 in the morning with results to Dr Yunior Charles who will contact you with further coumadin instructions and will continue to manage your coumadin therapy AppointmentsRufina Hylton NP - 12/19/2014 12:32 EDT Blood test- INR on MonDecember 24, 2014 in the morning with results to Dr Lindy Charles who will contact you with further coumadin instructions and continue to manage your coumadin therapy Appointment on Tuesday December 30, 2014 at [address] Lindy Charles for an incision site evaluation Appointment in 4-[address] Eun Nolen at the cardiology clinic in [facility] - Dr Nolen office will contact you with appointment date and time. Device check in 3 months at the cardiology clinic in [facility] - you will be contacted with appointment date and time Discharge Instr - Rufina Scott NP - 12/19/2014 12:32 EDT Blood test- INR on MonDecember 24, 2014 in the morning with results to Dr Lindy Charles who will contact you with further coumadin instructions and continue to manage your coumadin therapy documented in this encounter Medications at Time of Discharge Medication Sig Dispensed Refills Start Date End Date digoxin (LANOXIN) 125 mcg Take 187.5 mcg by 0 tablet mouth daily. furosemide (LASIX) 40 mg Take 80 mg by 0 12/11/19 13 tablet mouth daily. spironolactone (ALDACTONE) Take 12.5 mg by 0 25 mg tablet mouth daily diphenhydrAMINE (BENADRYL) Take 50 mg by 0 10/14/2019 50 mg capsule mouth at bedtime as needed furosemide (LASIX) 40 mg Take 80 mg by 0 05/28/2019 tablet mouth daily lisinopril (PRINIVIL, Take 5 mg by mouth 0 05/28/2019 ZESTRIL) 5 mg tablet daily LORazepam (ATIVAN) 1 mg Take 1 mg by mouth 0 05/28/2019 tablet every 4 hours as needed for Anxiety metoprolol (LOPRESSOR) 50 Take 1.5 Tabs by 50 Tab 2 12/0105/28/2019 mg tablet mouth 2 times daily Which is 75 mg mg twice a day NYSTATIN (MYCOSTATIN TOP) Apply topically 0 05/28/2019 NYSTATIN TOP Apply topically 0 016 trimethobenzamide (TIGAN) Take 300 mg by mouth daily as needed 0 05/28/2019 300 mg capsule warfarin (COUMADIN) 2.5 mg Take as directed 1 Tab 0 05/28/2019 tabletIndications: atrial in the evening: fibrillation Per Dr Yunior Charles office on 12/18/14 Coumadin Regimen: Coumadin 7.5 mg Too-Hxzag-Ssy and Coumadin 5 mg on Dpg-Eaqj-Cda-Mon documented as of this encounter Ordered Prescriptions Prescription Sig Dispensed Refills Start Date End Date warfarin (COUMADIN) 2.5 Take as directed in 1 Tab 0 05/28/2019 mg tabletIndications: the evening: Per atrial henrietta Charles office on 12/18/14 Coumadin Regimen: Coumadin 7.5 mg Nho-Rdhuk-Djh and Coumadin 5 mg on Qwy-Ktpj-Sjk-Mon warfarin (COUMADIN) 2.5 Take as directed in 1 Tab 0 12/19/2014 mg tabletIndications: the evening: Per pcp atrial fibrillation office as of 12/18/14 Coumadin Regimen Coumadin 7.5 mg Tir-Mbpyx-Cco and Coumadin 5 mg on Fga-Zaoq-Lnz-Mon metoprolol (LOPRESSOR) 50 Take 1.5 Tabs by 50 Tab 2 12/0105/28/2019 mg tablet mouth 2 times daily Which is 75 mg mg twice a day documented in this encounter Discharge Disposition Disposition Code Departure Means Destination Home or Self Care documented in this encounter Progress Notes Evonne Quijano RN - 12/19/2014 1533 EDT CM DC NOTE: Pt has been dcd to home today without any note services. Aliyah Quijano RN, [facility] # [id number] obinEvonne RN - 12/19/2014 1111 EDT Initial Case Management/Social Work Assessment and Discharge Plan /Readmission Risk Assessment Physician working diagnosis: 66 yr old female, s/p BIV ICD IMPLANT on 12/18/14. Patient (or designee) understanding of admission: Pt voices understanding of reason for hospital stay. Patient Contact Information: Daughter: Luh Stahl [phone] MEDICAL AND COMMUNITY SERVICES: Primary Care Provider: Lindy Charles Specialists seen on a consistent basis: Dr. [place] is Case Therapist at [facility]. Skilled home care services: None noted. DME Provider: None noted. Pharmacy: CM did not address with patient today. LIVING ARRANGEMENTS AND ACCESSIBILITY ISSUES: House Are there any home access issues? Yes, One Flight of stairs to Bedroom and Bathroom. What in home social supports are available to the patient? None noted. There is a neighbor who she states is very kind to her. Support is limitted. ADVANCED DIRECTIVES, POA &/or COLST IN PLACE: No CULTURAL, METHODIST and/or LANGUAGE factors affecting health care/discharge planning:: N/A FUNCTIONAL & PSYCHOSOCIAL INFORMATION: Pt is A+O x 3. She states she is independent with ADLs but is SOB. She uses a shower stool. 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 Her house is under forclosure and she is struggling financially. Pt also reported that her car and she is without a car. MEDICAL INSURANCE IN PLACE: Yes Medicare Type: A, B DISCHARGE RISK ASSESSMENT: Lives at home with limited or no community support Total # selected above: Score of 1 - 2: This patient is at LOW RISK for re-hospitalization INITIAL TRANSITION PLAN: Transportation from hospital in place? Yes, An aquaintance of this patient named Martha Callaway will be driving her home later this afternoon. Post hospitalization Plan: Return to independent living New DME Requirements: No Initial plan discussed with: Covering CM has met with pt at bedside today, explained role of CM. Pt has no RX Coverage and CM has notified team of this. Pt is interested in applying for [place] Medicaid as a supplement to her Medicare. CM has placed a referral to Patient Financial Counselor to assist with this. CM anticipates pt to DC later today without any noted services. Evonne Quijano RN, [facility] # [id number] 12/19/2014 11:11 ELIATEAlexandria ryder RN - 12/19/2014 0928 EDT Pacemaker/ICD Interrogation Note History S/P Day one - Biv ICD Right Sided Patient seen in - Programmed mode - WI Rate - 70 Rhythm - Afib/ Biv paced No Atrial lead V pacing - % Right Ventricle Sensing -6.6 mV Capture Threshold -1.00V @ 0.4 ms Impedance - 437 Ohms HV-42 Left Ventricle Capture Threshold - 1.00 V @ 0.4 ms Impedance - 399 Ohms Evaluation Normal ICD function No reprogramming required Discharge instructions reviewed Dressing/wound - Skin glue intact, no hematoma noted ALEXANDRIA AGRAWAL RN 12/19/2014 9:54 Beeper - #[phone] Office - #[phone] documented in this encounter H&P Notes Eun Nolen MD - 12/18/2014 0941 EDT Cardiology/EP H&P Admit Date: 12/18/2014 Date of Service: 12/18/2014 PCP: Lindy Charles Code Status: Full Chief Complaint: Dyspnea on minimal exertion HPI: 69-year-old woman with non-ischemic cardiomypathy, persistently low EF 25%, AF since 2000, permanent AF since 2005, failed antiarrhythmic Rx, chronic systolic failure, wide QRS LBBB. Was evaluated for WASH TUB MACHINE OPERATOR-D in 2012, declined implant then. Now with progressive dyspnea on minimal exertion since July 2014, despite improved rate control and maximal GDMT for heart failure. She is currently unable to climb one flight of stairs without stopping. Occ. Chest pressure and milddizzy spells. Denies syncope, PND, fevers, chills, bleeding digestive issues. Sleeps on 1-2 pillows. Prior Cardiac History: Echo 08/2014: EF 25%, diffuse HK, septal dyssynchrony Cardiac cath 10/2014: Ectatic coronaries with MLI. PMH PSH Past Medical History Diagnosis Date ??? CHF (congestive heart failure) ??? Hypertension ??? HLD (hyperlipidemia) ??? Obese ??? SOB (shortness of breath) ??? NICM (nonischemic cardiomyopathy) ??? GERD (gastroesophageal reflux disease) ??? AF (atrial fibrillation) on coumadin Past Surgical History Procedure Laterality Date ??? Hysterectomy ??? Cholecystectomy Social History Family History History Substance Use Topics ??? Smoking status: Former Smoker ??? 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 Alcohol Use: Yes Comment: RARE Both parents with AF in younger age. Medications Prescriptions prior to admission Medication Sig Dispense Refill Last Dose ??? digoxin (LANOXIN) 125 mcg tablet Take 125 mcg by mouth daily 12/18/2014 0630 ??? diphenhydrAMINE (BENADRYL) 50 mg capsule Take 50 mg by mouth at bedtime as needed 12/17/2014 0100 ??? furosemide (LASIX) 40 mg tablet Take 80 mg by mouth daily 12/18/2014 0630 ??? lisinopril (PRINIVIL, ZESTRIL) 5 mg tablet Take 5 mg by mouth daily 12/18/2014 0630 ??? LORazepam (ATIVAN) 1 mg tablet Take 1 mg by mouth every 4 hours as needed for Anxiety 12/18/2014 0100 ??? metoprolol (LOPRESSOR) 50 mg tablet Take 50 mg by mouth 2 times daily 12/18/2014 0630 ??? NYSTATIN (MYCOSTATIN TOP) Apply topically Past Week ??? NYSTATIN TOP Apply topically Past Week ??? spironolactone (ALDACTONE) 25 mg tablet Take 12.5 mg by mouth daily 12/18/2014 0630 ??? trimethobenzamide (TIGAN) 300 mg capsule Take 300 mg by mouth as needed 12/18/2014?0630 ??? warfarin (COUMADIN) 1 mg tablet Take by mouth daily As directed 12/15/2014 Allergies No Known Allergies Review of Systems: A ten point review of systems was performed. Pertinent positives are listed above in HPI, all othersare negative. Objective/Physical Exam: VS: Patient Vitals for the past 8 hrs: BP Resp Temp SpO2 O2 Device 12/18/14 1013 103/58 mmHg 16 37.4 ??C (99.3 ??F) 98 % Room air Pain: Patient Vitals for the past 8 hrs: Numeric Pain Level (Scale 1-10) 12/18/14 1049 0 Weight: There is no weight on file to calculate BMI. Glucose Readings (last 8 hours): No results for input(s): GLUCOSEFINGE in the last 72 hours. Exam: General appearance: alert, cooperative, no distress Skin: Skin color, temperature, turgor normal. No rashes or lesions Head: Normocephalic, without obvious abnormality, atraumatic Eyes: conjunctivae/corneas clear Neck: supple, symmetrical, trachea midline, no carotid bruit and no JVD Lungs: clear to auscultation bilaterally Heart: IR/IR, S1, S2 normal, no murmur, click, rub or gallop Abdomen: soft, non-tender; bowel sounds normal; Neurologic: Grossly normal Mental Status: awake and alert; oriented to person, place, and time Extremities: extremities warm, atraumatic, no cyanosis or edema Pressure Ulcer Present on admission? No Data Review: Labs: I have personally reviewed CBC: Lab Results Component Value Date WBC 13.55* 12/18/2014 RBC 5.01 12/18/2014 HGB 15.6* 12/18/2014 HCT 44.7* 12/18/2014 MCV 89 12/18/2014 MCH 31.1 12/18/2014 MCHC 34.8 12/18/2014 PLT 317 12/18/2014 BMP: Lab Results Component Value Date NA 141 12/18/2014 K 4.1 12/18/2014 CL 102 12/18/2014 CO2 28 12/18/2014 BUN 21 12/18/2014 CREATININE 0.84 12/18/2014 Coagulation: Lab Results Component Value Date PROTIME 18.1* 12/18/2014 INR 1.6* 12/18/2014 Other Studies: EKG today: AF, LBBB, QRS 166ms. eGFR calculation: GFR, CALCULATED Date Value Ref Range Status 12/18/2014 >60 >60 ml/min/1.73m2 Final Assessment: 69-year-old woman with non-ischemic cardiomyopathy, persistently low EF 25%, AF since 2000, permanent AF since 2005, failed antiarrhythmic Rx, chronic systolic failure, wide QRS LBBB. Clincally NYHA III. Qualifies for WASH TUB MACHINE OPERATOR-D. Will implant RV & LV lead today, then attempt stricter pharmacological rate control for more BiV pacing. Most likely she will need AV node ablation to maximize BiV pacing and the chance of clinical improvement. Plan : (update problem list daily as appropriate) WASH TUB MACHINE OPERATOR-D implant today VTE Prophylaxis: on coumadin Discharge Plan: Home tomorrow. Eun Nolen MD 12/18/2014 11:41 documented in this encounter Procedure Notes Eun Nolen MD - 12/18/2014 1642 EDTProcedure(s): BIV ICD IMPLANTPre- Procedure Diagnose(s): Cardiomyopathy, nonischemic (HCC-CMS) (HCC); LBBB (left bundle branch block); CHF (congestive heart failure), NYHA class III (HCC-CMS) (HCC)Post-Procedure Diagnose(s): Cardiomyopathy, nonischemic (HCC-CMS) (HCC); LBBB (left bundle branch block); CHF (congestive heart failure), NYHA class III (HCC-CMS) (HCC) Electrophysiology Laboratory Preliminary Report -- Invasive Electrophysiology Procedure Date of Service/Procedure: 12/18/2014 Attending Physician: Eun Nolen MD Pre-Procedure Diagnosis/Indication: Tania Stahl is a 69 y.o. year old female Presents to [facility]iology [facility] in [place] 7 for a Biventricular ICD which is indicated for Non-ischemic dilated cardiomyopathy (NIDCM) greater than 9 months, NYHA Class II and III heart failure, and measured LVEF lesser than 35%;(Primary Prevention). Unless otherwise notedthere were no contraindications for implantation of an Implantable Cardioverter Defibrillator including; ?? Irreversible Brain Damage ?? Cardiogenic shock or symptomatic hypotension while in a stable baseline rhythm; ?? Clinical symptoms or findings that would make this patient a candidate for coronary revascularization; ?? 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 Anesthesia: A moderate level of anesthesia/conscious sedation was used., Local anesthesia was used.. Access: Right axillary vein 2 x 9.0 fr Post-Procedure Condition: The condition of the patient was Good. Complications: None. Estimated Blood Loss: Minimal. Unless otherwise noted, there wereno specimens removed, cultures obtained, or drains retained. Clinical Trial: The patient is not enrolled in a clinical trial. Summary of Procedure: 1. Successful right-sided Implantation of an ICD with biV pacing. 2. No atrial lead due to permanent AF. 3. RV lead 6947M, dual coil. 4. Quad pole CS/LV lead. (details see implant protocol) Post-ProcedureDiagnosis: cardiomyopathy, congestive heart failure and LBBB Plan: see post-procedure orders. At the completion of the procedure, the attending physician has explained the findings, therapies, any complications and treatment plan to the patient. With the patients consent, patient support persons who were present at the conclusion of the procedure have been notified of these results and treatment plans as well. Post Procedure Follow Up: Patient to follow up with me in 2 weeks Post Procedural Disposition:Bedded outpatient status is indicated. Reference: Hospitalization Criteria for Pacemaker and ICD Placement andEP/Ablation; Heart Rhythm Society; Revised December, Final report will appear on imaging tab when complete. Eun Nolen MD 12/18/2014 16:47 documented in this encounter Miscellaneous Notes Plan of Care - Rachel Alcocer RN - 12/19/2014 1113 EDT Problem: Daily Care Plan Goals Goal: Care Plan Documentation Outcome: Met This Shift 12/19/14 0831 Care Plan Focus Area of Focus Discharge Plan Goal This Shift discharge Data: Patient s/p bi-v pacer/icd placement yesterday. Right chest site is CDI, closed with dermabond. VSS, v-paced/afib with BBB on telemetry. Action: Pacer check complete, CXR complete. Telemetry discontinued. Pt to be discharged this afternoon. Response: Discharge complete, IV access removed. Reviewed discharge instructions, medications, with patient. Patient left in wheelchair with PSS. RACHEL ALCOCER RN 12/19/2014 11:11 lan of Care - Quoc Goodrich RN - 12/18/2014 2226 EDT Problem: Daily Care Plan Goals Goal: Care Plan Documentation Outcome: Met This Shift 12/18/142025 Care Plan Focus Area of Focus GI//Elimination Goal This Shift Patients nausea decreases/ resolves .BP 103/71 Heart rate 72 TTemp(Src) 35.8 ??C (96.4 ??F) (Tympanic) Resp 20 Ht 174 cm (68.5) Wt 95.255 kg (210 lb) BMI 31.46 kg/m2 SpO2 94% D: Assumed care of patient @ 1900. Patient is A&Ox 3. S/P Bi V Pacer/ ICD via right chest wall. [place] mott w/ pressure dressing in place and is CDI. Patient had c/o nausea and 2/10 incisional pain,fresh ice pack provided. A: Zofran 4 mg PRN administered. See MAR for all medications administered. Assessment documented as per flow sheet. Patients nausea and pain resolved. No complaints at this time. R: Patient sleeping thus far. Call guidry within reach and frequent rounds being made. Continue to monitor and document accordingly. Quoc Goodrich RN 12/18/2014 22:26 lan of Care - Rachel Alcocer RN - 12/18/2014 4274 EDT Problem: Daily Care Plan Goals Goal: Care Plan Documentation 12/18/14 4317 Care Plan Focus Area of Focus Circulatory Status Goal This Shift stable post-pacer Data: Patient s/p Bi-V pacer ICD placement today. Right chest incision closed with dermabond and arrived on floor with pressure dressing in place. Pt reported 3/10 discomfort at site this afternoon. Underlying AF with known wide BBB and occasional v-paced rhythm, VSS. Action: Admission completed, patient oriented to room, unit, and care plan. Patient medicated with 1Percocet, ice applied to site. HR trending up to 90- 100's, medicated with 75mg metoprolol early per MATERIAL PROCESSOR [place]. Ortho VS completed at 1800, patient passed. Response: While in bathroom, pt's HR tachy to 130's. Pt asked to return to bed, HR decreased. RACHEL ALCOCER RN 12/18/2014 18:46 documented in this encounter Plan of Treatment Upcoming Encounters Date Type Specialty Care Team Description 04/21/2022 Ancillary Procedure Cardiology 04/21/2022 Office Visit Cardiology Eun Nolen MD [address] [place] [address] [address] [place] [phone] (Birdie walls) 07/15/2022 Office Visit Surgical Oncology Jens Almanza MD [address] [place] [address] [address] [place] [phone] (Wo titi) Scheduled Referrals Name Type Priority Associated Order Schedule Diagnoses PROVIDER FOLLOW-UP Outpatient Referral Routine Or dered: INSTRUCTIONS 12/19/2014 PROVIDER FOLLOW-UP Outpatient Referral Routine Or dered: INSTRUCTIONS 12/19/2014 PROVIDER FOLLOW-UP Outpatient Referral Routine Or dered: INSTRUCTIONS 12/19/2014 PROVIDER FOLLOW-UP Outpatient Referral Routine Or dered: INSTRUCTIONS 12/19/2014 PROVIDER FOLLOW-UP Outpatient Referral Routine Or dered: INSTRUCTIONS 12/19/2014 documented as of this encounter Procedures Procedure Name Priority Date/Time Associated Comments Diagnosis INVASIVE CARDIOLOGY 07/15/2015 10:35 REPORT-SCANNED EST INVASIVE CARDIOLOGY 12/23/2014 14:22 REPORT-SCANNED EDT IMPLANT RECORD - 12/23/2014 14:22 SCANNED EDT ECG REPORT - SCANNED 12/23/2014 14:22 EDT ECG REPORT - SCANNED 12/22/2014 22:44 EDT CHEST PA AND LATERAL Routine 12/19/2014 9:42 Resu lts for this EDT procedure are i n the results section. PORTABLE CHEST 1 VIEW Routine 12/18/2014 17:10 Re sults for this EDT procedure are i n the results section. EKG 12-LEAD Routine 12/18/2014 10:06 Results for this EDT procedure are i n the results section. PROTIME STAT 12/18/2014 9:50 Results for this EDT procedure are i n the results section. COMPLETE BLOOD COUNT STAT 12/18/2014 9:50 Resu lts for this EDT procedure are i n the results section. BUN STAT 12/18/2014 9:50 Results for this EDT procedure are i n the results section. CREATININE STAT 12/18/2014 9:50 Results for this EDT procedure are i n the results section. ELECTROLYTES STAT 12/18/2014 9:50 Results for this EDT procedure are i n the results section. documented in this encounter Results CHEST PA AND LATERAL (12/19/2014 9:42 EDT) Anatomical Region Laterality Modality Other Specimen Narrative [facility] - 12/19/2014 10:04 EDT CHEST PA AND LATERAL ??12/19/2014 9:42 AM Signs and Symptoms/Comments: ?? s/p BiV ICD Comparison: 12/18/2014 Dual-energy technique with reconstructio ns in normal, soft tissue and bone windows was used. Findings: There is no evidence of pneumo thorax. The defibrillator lead overlies the RV apex and a pacemake r lead is present in the posterior lateral left cardiac vein. The ground lead of defibrillator is in the SVC. The cardiac silhouette is borderline enlarged, but the pulmonary vascularity is normal. The tuyet gs are clear and there is no evidence of pleural fluid. Impression: No evidence of complication Procedure Note Ochoa Scott MD - 12/19/2014 CHEST PA AND LATERAL 12/19/2014 9:42 AM Signs and Symptoms/Comments: s/p BiV ICD Comparison: 12/18/2014 Dual-energy technique with reconstructio ns in normal, soft tissue and bone windows was used. Findings: There is no evidence of pneumo thorax. The defibrillator lead overlies the RV apex and a pacemake r lead is present in the posterior lateral left cardiac vein. The ground lead of defibrillator is in the SVC. The cardiac silhouette is borderline enlarged, but the pulmonary vascularity is normal. The tuyet gs are clear and there is no evidence of pleural fluid. Impression: No evidence of complication Performing Organization Address City/State/ZIP Code Phon e Number [facility] PORTABLE CHEST 1 VIEW (12/18/2014 17:10 EDT) Anatomical Region Laterality Modality Other Specimen Narrative [facility] - 12/18/2014 17:19 EDT PORTABLE CHEST 1 VIEW ??12/18/2014 5:10 PM Signs and Symptoms/Comments: s/p BiV ICD Comparison: None. Findings: ??AP portable 60 degrees uprig ht view of the chest was obtained. A dual-lead implantable cardia c defibrillator is present in the right axillary region with one lead projecting in the right ventricle and the other in the coronary sinus. The cardiomediastinal silhouette is not enlarged. There is leatha e cephalad redistribution of pulmonary vascular flow. There is no laura dence of pneumothorax on this non-upright view. Portions of this document may have been prepared with speech recognition software or keyboard data en try techniques. Minor irregularities or keyboarding misprints may be present. Procedure Note Polly Govea MD - 12/18/2014 PORTABLE CHEST 1 VIEW 12/18/2014 5:10 PM Signs and Symptoms/Comments: s/p BiV ICD Comparison: None. Findings: AP portable 60 degrees upright view of the chest was obtained. A dual-lead implantable cardia c defibrillator is present in the right axillary region with one lead projecting in the right ventricle and the other in the coronary sinus. The cardiomediastinal silhouette is not enlarged. There is leatha e cephalad redistribution of pulmonary vascular flow. There is no laura dence of pneumothorax on this non-upright view. Portions of this document may have been prepared with speech recognition software or keyboard data en try techniques. Minor irregularities or keyboarding misprints may be present. Performing Organization Address City/State/ZIP Code Phon e Number [facility] EKG 12-LEAD (12/18/2014 10:06 EDT) Specimen Narrative [facility] - 12/18/2014 22:4 8 EDT ? [facility] ? Test Date: ?2014-12-18 Pat Name: ? TANIA FAVIO ? Department: ?? Per[facility] ? Room: ? [id number] Gender: ? 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 [id number] : ?1945 ? Requested By: KERWIN Sales Order Number: [id number] ? Reading : ?? LINDY PLEITEZ MD ? Measurements Intervals ?[place] ? Rate: ? 75 ? P: ? [place]: ? 0 ?QRS: ?-28 QRSD: ? 166 ?T: ?108 QT: ? 439 ? QTc: ?491 ? Interpretive Statements ATRIAL FIBRILLATION LEFT BUNDLE BRANCH BLOCK Compared to ECG 09/24/2014 09:15:34 No significant changes I reviewed the tracing and have either a greed or edited the findings in this report. Electronically Signed On 22:48:55 EDT by LINDY PLEITEZ MD. 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 Electronically Signed On 22:48:55 EDT by LINDY PLEITEZ MD. Performing Organization Address [facility] Phon e Number [facility] EKG (ABNORMAL) PROTIME (12/18/2014 9:50 EDT) Pro Time 18.1 (H) 10.1 - 13.0 [facility] Comment: secs LABORATORY SERVICES New prothrombin time range effective 12/09/14 Moderate hemolysis I.N.R. 1.6 (H) 0.9 - 1.1 [facility] Comment: Ratio LABORATORY SERVICES Moderate Intensity Coumadin INR = 2.0-3.0 Adjustments in anticoagulant therapy dose should be based upon the INR and NOT the Pro Time. Moderate hemolysis Specimen Blood specimen (specimen) - Blood Performing Organization Address [facility] Phon e Number [facility]OR[facility] [address] [place] [address] SERVICES (ABNORMAL) HEMAGRAM (12/18/2014 9:50 EDT) WBC 13.55 (H) 4.0 - 12.4 [facility] K/cm LABORATORY SERVICES RBC 5.01Comment: 37 C 3.86 - 5.04 [facility] results,possible Cold [facility] LABORATORY SERVICES agglutinins Hemoglobin 15.6 (H) 11.6 - 15.2 [facility] gm/dl LABORATORY SERVICES HCT 44.7 (H) 34.9 - 44.4 % [facility] LABORATORY SERVICES MCV 89Comment: 37 C 81 - 98 fl [facility] results,possible Cold LABORATORY SERVICES agglutinins MCH 31.1 26.7 - 33.3 pg [facility] LABORATORY SERVICES MCHC 34.8Comment: 37 C 32.1 - 35.9 [facility] results,possible Cold gm/dl LABORATORY SERVICES agglutinins RDW-CV 14.1 11.7 - 14.6 % [facility] LABORATORY SERVICES RDW-SD 42.9 37.6 - 50.3 fl [facility] LABORATORY SERVICES PLT 317 141 - 320 [facility] K/cmm LABORATORY SERVICES MPV 8.6 7.5 - 11.2 fl [facility] LABORAT[facility] SERVICES Specimen Blood specimen (specimen) - Blood Performing Organization Address [facility]/ZIP Code Phon e Number [facility] [address] [place] [address] SERVICES ELECTROLYTES (12/18/2014 9:50 EDT) Pathologist Sig nature Sodium 141 136 - 145 mEq/L [facility] LAB[facility] SERVICES Potassium 4.1 3.5 - 5.0 mEq/L [facility] LAB[facility] SERVICES Chloride 102 96 - 110 mEq/L [facility] LAB[facility]AT ORY SERVICES CO2 28 24 - 32 mEq/L [facility] LABORATO RY SERVICES Specimen Blood specimen (specimen) - Blood Performing Organization Address City/State/[facility] Code [facility] e Number [facility] [address] [place] [address] SERVICES CREATININE (12/18/2014 9:50 EDT) Pathologist Sig nature Creatinine 0.84 0.52 - 1.04 mg/dl [facility] LABOR[facility] SERVICES GFR, Calculated >60 >60 ml/min/1.73m2 [facility] LAB[facility] SERVICES Specimen Blood specimen (specimen) - Blood Performing Organization Address City/[facility]/ZIP Code [facility] e Number [facility] [address] [place] [address] SERVICES BUN (12/18/2014 9:50 EDT) Pathologist Sig nature BUN 21 10 - 26 mg/dl [facility] LABORATO RY SERVICES Specimen Blood specimen (specimen) - Blood Performing Organization Address City/[facility] LABORATORY [address] [place] [address] SERVICES documented in this encounter Visit Diagnoses Diagnosis Cardiomyopathy, dilated, nonischemic (HC C-CMS) ([facility]) - Primary Other primary cardiomyopathies Cardiomyopathy (HCC) Other primary cardiomyopathies LBBB (left bundle branch block) Other left bundle branch block Systolic heart failure (HCC-CMS) ([facility]) Unspecified systolic heart failure CHF (congestive heart failure), NYHA cla ss III ([facility]-CMS) ([facility]) Congestive heart failure, unspecified documented in this encounter Administered Medications Inactive Administered Medications - up to 3 most recent administrations Medication Order MAR Action Action Date Dose Rate Site acetaminophen (TYLENOL) tablet 650 mg Given 12/19/2014 8:39 EDT 650 mg 650 mg, oral, EVERY 4 HOURS PRN, Starting on Jackeline 12/18/14 at 1644, Until Mon12/19/14 at 1603, Pain, Routine, Postprocedure ceFAZolin (ANCEF) 2 g in sodium chloride 0.9% 50 mL Given 12/19/2014 8:39 EDT 2 g IVPB 2 g, intravenous, Administer over 30 Minutes, EVERY 8 HOURS, 3 doses, First dose on Mon12/18/14 at 1700, Last dose on Mon12/19/14 at 0800, Routine, Postprocedure Given 12/18/2014 23:39 EDT 2 g Given 12/18/2014 17:29 EDT 2 g chlorhexidine gluconate 2 % cloth 1 Each Given 12/18/2014 10:12 EDT 1 Each 1 Each, topical, PRE-OP MULTIPLE, 1 dose, Starting on Mon12/18/14 at 1004, Until Mon12/18/14 at 1012, Other, Pre-Procedure, Routine, Preprocedure digoxin (LANOXIN) tablet 125 mcg Given 12/19/2014 8:40 EDT 125 mcg 125 mcg, oral, DAILY, First dose on Mon12/19/14 at 0900, Until Discontinued, Routine furosemide (LASIX) tablet 80 mg Given 12/19/2014 8:40 EDT 80 mg 80 mg, oral, DAILY, First dose on Mon12/19/14 at 0900, Until Discontinued, Routine lisinopril (PRINIVIL, ZESTRIL) tablet 5 mg Given 12/19/2014 8:39 EDT 5 mg 5 mg, oral, DAILY, First dose on Mon12/19/14 at 0900, Until Discontinued, Routine metoprolol (LOPRESSOR) tablet 75 mg Given 12/19/2014 8:39 EDT 75 mg 75 mg, oral, 2 TIMES DAILY, First dose on Mon12/18/14 at 2100, Until Discontinued, Routine Given 12/18/2014 17:44 EDT 75 mg ondansetron (PF) (ZOFRAN) injection 4 mg Given 12/18/2014 19:35 EDT 4 mg 4 mg, intravenous, EVERY 8 HOURS PRN, 4 doses, Starting on Mon12/18/14 at 1908, Until Mon12/19/14 at 1603, Nausea, Routine oxyCODONE-acetaminophen (PERCOCET) 5-325 mg Given 12/18/2014 17:29 EDT 1 Tablet per tablet 1 Tab 1 Tablet, oral, EVERY 6 HOURS PRN, Starting on Jackeline 12/18/14 at 1644, Until Mon12/19/14 at 1603, Pain, Routine, Postprocedure sodium chloride 0.9 % (NS) infusion New Bag 12/18/2014 10:47 EDT 30 mL/hr 30 mL/hr at 30 mL/hr, 30 mL/hr, intravenous, CONTINUOUS, Starting on Jackeline 12/18/14 at 1030, Until Jackeline 12/18/14 at 1647, Routine, Preprocedure sodium chloride 0.9 % flush 3 mL Given 12/19/2014 8:40 EDT 3 mL 3 mL, intravenous, EVERY 8 HOURS, First dose on Jackeline 12/18/14 at 1715, Until Discontinued, Routine Given 12/18/2014 23:39 EDT 3 mL Given 12/18/2014 17:13 EDT 3 mL spironolactone (ALDACTONE) tablet 12.5 m g Given 12/19/2014 8:39 EDT 12.5 mg 12.5 mg, oral, DAILY, First dose on Mon12/19/14 at 0900, Until Discontinued, Routine warfarin (COUMADIN) tablet 7.5 mg Given 12/18/2014 20:38 EDT 7.5 mg 7.5 mg, oral, USER SPECIFIED (Once per day on Mon), First dose on Mon12/18/14 at 2100, Until Discontinued, Indications: atrial fibrillation, Is this a new start or continuation of therapy? Continuation, Routine documented in this encounter Discontinued Medications Medication Sig Discontinue Reason Start Date End Date warfarin (COUMADIN) 1 mg Take by mouth daily Duplicate Therapy 12/19/2014 tablet As directed metoprolol (LOPRESSOR) Take 50 mg by mouth 12/19/2014 50 mg tablet 2 times daily warfarin (COUMADIN) 2.5 Take 2.5 mg by mouth Per pcp office as of 12/15/14 coumadin regimen 7.5 mg Oci-Ocpht-Yev and 5 mg on Moe-Rbtx-Nuo-Mon12/19/2014 mg tabletIndications: atrial fibrillation warfarin (COUMADIN) 2.5 Take as directed in 12/19/2014 12/19/2014 mg tabletIndications: the evening: Per pcp atrial fibrillation office as of 12/18/14 Coumadin Regimen Coumadin 7.5 mg Gsh-Ssqkn-Omh and Coumadin 5 mg on documented as of this encounter Historical Medications This list may reflect changes made after this encounter. Medication Sig Dispensed Refills Start Date End Date warfarin (COUMADIN) 2.5 Take 2.5 mg by mouth Per pcp office as of 12/15/14 coumadin regimen 7.5 mg Xmb-Erisb-Fih and 5 mg on Mjr-Zldi-Vxd-Sun 0 12/19/2014 mg tabletIndications: atrial fibrillation added in this encounter Active and Recently Administered Medications Times are shown in EDT. Scheduled Medication Order 12/17/2014 12/18/2014 12/19/2014 ceFAZolin (ANCEF) 2 g in sodium chloride 0.9% 50 mL IVPB (CO MPLETED) 1724 (Given - Provider: Rachel Alcocer RN)2339 (Given - Provider: Emma Perry RN) 0839 (Given - Provider: Rachel Alcocer RN) 2 g, intravenous, for 30 Minutes, EVERY 8 HOURS, 3 doses, First dose on Mon12/18/14 at 1700, Last dose on Mon12/19/14 at 0800, Routine digoxin (LANOXIN) tablet 125 mcg (CANCELED) 0840 (Given - Provider: Rachel Alcocer RN) 125 mcg, oral, DAILY, First dose on Mon12/19/14 at 0900, Until Discontinued, Routine furosemide (LASIX) tablet 80 mg (CANCELED) 0840 (Given - Provider: Rachel Alcocer RN) 80 mg, oral, DAILY, First dose on Mon at 0900, Until Discontinued, Routine lisinopril (PRINIVIL, ZESTRIL) tablet 5 mg (CANCELED) 0839 (Given - Provider: Rachel Alcocer RN) 5 mg, oral, DAILY, First dose on 12/01 at 0900, Until Discontinued, Routine metoprolol (LOPRESSOR) tablet 75 mg (CANCELED) 1744 (Given - Provider: Rachel Alcocer RN - Comment: give now per S [place] MATERIAL PROCESSOR)2100 (Canceled Entry - Provider: Rachel Alcocer RN) 0839 (Given - Provider: Rachel Alcocer RN ) 75 mg, oral, 2 TIMES DAILY, First dose o n Jackeline 12/18/14 at 2100, Until Discontinued, Routine sodium chloride 0.9 % flush 3 mL (CANCELED) 1713 (Given - Provider: Rachel Alcocer RN)2339 (Given - Provider: Emma Perry RN) 0840 (Given - Provider: Rachel Alcocer RN) 3 mL, intravenous, EVERY 8 HOURS, First dose on Jackeline 12/18/14 at 1715, Until Discontinued, Routine spironolactone (ALDACTONE) tablet 12.5 mg (CANCELED) 0839 (Given - Provider: Rachel Alcocer, MARTHA) 12.5 mg, oral, DAILY, First dose on Mon12/19/14 at 0900, Until Discontinued, Routine warfarin (COUMADIN) tablet 7.5 mg (CANCELED) 2037 (Given - Provider: Quoc Goodrich, MARTHA) 7.5 mg, oral, USER SPECIFIED (Once per d ay on Mon Sat), First dose on Mon12/18/14 at 2100, Until Discontinued, Routine Continuous Medication Order 12/17/2014 12/18/2014 12/19/2014 sodium chloride 0.9 % (NS) infusion (CANCELED) 1047 (New Bag - Provider: Anju Caal, MARTHA) at 30 mL/hr, 30 mL/hr, intravenous, CONT INUOUS, Starting Jackeline 12/18/14 at 1030, Until Jackeline 12/18/14 at 1647, Routine PRN Medication Order 12/17/2014 12/18/2014 12/19/2014 acetaminophen (TYLENOL) tablet 650 mg (CANCELED) 0839 (Given - Provider: Rachel Alcocer RN) 650 mg, oral, EVERY 4 HOURS PRN, Startin g Jackeline 12/18/14 at 1644, Until Mon12/19/14 at 1603, Pain, Routine chlorhexidine gluconate 2 % cloth 1 Each (COMPLETED) 1012 (Given - Provider: Anju Caal RN) 1 Each, topical, PRE-OP MULTIPLE, 1 dose , Starting Jackeline 12/18/14 at 1004, Until Discontinued, Other, Pre-Procedure, Routine ondansetron (PF) (ZOFRAN) injection 4 mg (CANCELED) 1934 (Given - Provider: Quoc Goodrich RN) 4 mg, intravenous, EVERY 8 HOURS PRN, 4 doses, Starting Jackeline 12/18/14 at 1908, Until 12/19/14 at 1603, Nausea, Routine oxyCODONE-acetaminophen (PERCOCET) 5-325 mg per tablet 1 Tab (CANCELED) 1729 (Given - Provider: Rachel Alcocer RN) 1 Tab, oral, EVERY 6 HOURS PRN, Starting Jackeline 12/18/14 at 1644, Until Mon12/19/14 at 1603, Pain, Routine documented in this encounter Orders Medications Ordered That Might Not Have Count Last Ord ered Date First Ordered Date Been Administered diphenhydrAMINE (BENADRYL) capsule 50 mg 1 015 LORazepam (ATIVAN) tablet 1 mg 1 12/18/2014 sodium chloride 0.9 % flush 3 mL 1 12/18/2014 warfarin (COUMADIN) tablet 5 mg 1 12/18/2014 warfarin education book 1 Each 1 12/18/2014 EKG Orders Without Results Count Last Ordered Date Fir st Ordered Date EKG 12-LEAD 1 12/18/2014 Procedures Count Last Ordered Date First Ordered Date INVASIVE CARDIOLOGY REPORT-SCANNED 2 07/15/2015 12/23/2014 ECG REPORT - SCANNED 2 12/23/2014 12/22/2014 IMPLANT RECORD - SCANNED 1 12/23/2014 Diet Count Last Ordered Date First Ordered Date DISCHARGE DIET 2 12/19/2014 Nursing Count Last Ordered Date First Ordered Date ACTIVITY INSTRUCTIONS 2 12/19/2014 DRIVING INSTRUCTIONS 1 12/19/2014 WOUND CARE INSTRUCTIONS 2 12/19/2014 BEDREST 1 12/18/2014 CHANGE IV TO SALINE LOCK 2 12/18/2014 INSERT PERIPHERAL IV 1 12/18/2014 INSERT SALINE LOCK 1 12/18/2014 NURSING COMMUNICATION 1 12/18/2014 TREATMENT/INTERVENTION - MISCELLANEOUS 1 5 VTE PHARMACOLOGIC PROPHYLAXIS CURRENTLY 12/19/19 15 ORDERED OR ON ALTERNATIVE THER Admission Count Last Ordered Date First Ordered Date STATUS: OUTPATIENT MEDICAL OP BED/SERVICES 2 12/18 Transfer Count Last Ordered Date First Ordered Date NOTIFY PPS OF DISCHARGE COMPLETE 1 12/19/2014 PPS NOTIFICATION OF PATIENT ARRIVAL ON 5 UNIT Discharge Count Last Ordered Date First Ordered Date DISCHARGE PATIENT 1 12/19/2014 Legal Count Last Ordered Date First Ordered Date MISCELLANEOUS DISCHARGE INSTRUCTIONS 4 12/19/2014 documented in this encounter Care Teams Conveyor Tender Concrete Mixing Plant Relationship Specialty Start Date End Date Lindy Charles MD PCP - General 08/05/11 08/25/21 documented as of this encounter
--- OUTSIDE RECORDS SUMMARY | 2022-04-12 14:39 | XMS_ITS | Encounter Summary ---
:1945 Author Organization [facility] Address [address] [place] [address] Care Team Providers Name Role Phone Silvino Charles MD Primary Care Provider Unavailable Anna Staples NP Primary Care Provider Eun Nolen MD Unavailable [phone] Reason for Visit Reason Comments Other Encounter Details Date Type Department Care Team Description 04/10/2021 [facility] [place] MD Other Cardiology Clinic [address] [facility] 130 [facility] [address] [place] [address] [place] [address] (Wo rk) Social History Tobacco [...] Dispensed Refills Start Date End Date metoprolol TARtrate TAKE ONE TABLET BY 180 Tablet 3 04/12/20 21 12/29/2021 (LOPRESSOR) 100 mg MOUTH TWICE A DAY tablet (NOTE: TABLET STRENGTH CHANGE) documented in this encounter Plan of Treatment Upcoming Encounters Date Type Specialty Care Team Description 04/21/2022 Ancillary Procedure Cardiology 04/21/2022 Office Visit Cardiology Eun Nolen MD [address] [place] [phone] (Wo rk) 07/15/2022 Office Visit Surgical Oncology Jens Almanza MD [address] [place] [address], [facility] 2 [place] [address] (Wo rk) documented as of this encounter Visit Diagnoses Not on filedocumented in this encounter Discontinued Medications Medication Sig Discontinue Reason Start Date End Date metoprolol TARtrate Take 1 Tab by mouth 04/02/2020 1 (LOPRESSOR) 100 mg tablet 2 times daily. documented as of this encounter Care Teams Supervisory Geographer Relationship Specialty Start Date End Date Silvino Charles MD PCP - General 08/05/11 08/25/21 Anna Staples NP PCP - General 08/26/[address] [place] [address] [address] [place] [phone] Eun Nolen MD Cardiovascular Disease 09/26/21 [address] [facility] [address] [place] [address] documented as of this encounter
--- OUTSIDE RECORDS SUMMARY | 2022-04-12 14:39 | XMS_ITS | Encounter Summary ---
:1945 Author Organization [facility] Address [address] [place] [address] Care Team Providers Name Role Phone Silvino Charles MD Primary Care Provider Unavailable Encounter Details Date Type Department Care Team Description 12/26/2019 Orders Only [facility] - Eun Nolen Non ischemic [facility] Cardiology MD Luis cardiomyopathy ([facility]) Clinic 130 [facility] (Primary Dx) 130 [facility] [address] [place] [address] [place] [phone] Social History Tobacco Use Types Packs/Day [...] physical, mental, or emotional condition, do No 11/12/2015 you have difficulty doing errands alone such as visiting a doctor's office or shopping? (15 years old or older) Cognitive Status Response Date of Assessment Because of a physical, mental, or emotional condition, do No 11/12/2015 you have serious difficulty concentrating, remembering, or making decisions? (5 years old or older) documented as of this encounter Plan of Treatment Upcoming Encounters Date Type Specialty Care Team Description 04/21/2022 Ancillary Procedure Cardiology 04/21/2022 Office Visit Cardiology Eun Nolen MD [address] [place] [address] [address] [place] [address] (Wo rk) 07/15/2022 Office Visit Surgical Oncology Jens Almanza MD [address] [place] [address], [facility], [address] [place] [address] (Wo rk) documented as of this encounter Visit Diagnoses Diagnosis Nonischemic cardiomyopathy (HCC-CMS) (HC C) - Primary Other primary cardiomyopathies documented in this encounter Care Teams Cotton Dispatcher Relationship Specialty Start Date End Date Silvino Charles MD PCP - General 08/05/11 08/25/21 documented as of this encounter
--- OUTSIDE RECORDS SUMMARY | 2022-04-12 14:39 | XMS_ITS | Encounter Summary ---
:1945 Author Organization [facility] Address [address] [place] [address] Care Team Providers Name Role Phone Silvino Charles MD Primary Care Provider Unavailable Anna Staples NP Primary Care Provider Reason for Visit Reason Onset Date Comments New Patient Visit 07/21/2021 Encounter Details Date Type Department Care Team Description 07/21/2021 Telephone [facility] Smith Ne w Patient Visit Neurology - S Jenniffer ceballos MD [address] [place], [place] [id number] Social History Tobacco Use Types Packs/Day Years [...] this encounter Miscellaneous Notes Telephone Encounter - Sherry Vazquez - 07/21/2021 1416 EST Spoke to keila Marin NPV onsite with Dr. Smith on 10/04/21 at 3 PM Sent letter and assigned referral documented in this encounter Plan of Treatment Upcoming Encounters Date Type Specialty Care Team Description 04/21/2022 Ancillary Procedure Cardiology 04/21/2022 Office Visit Cardiology Eun Nolen MD [address] [place] [address] [phone] (Wo rk) 07/15/2022 Office Visit Surgical Oncology Jens Almanza MD [address] [place] [address], [facility] 2 [place] [address] (Wo rk) documented as of this encounter Visit Diagnoses Not on filedocumented in this encounter Care Teams Bricklayer Helper Relationship Specialty Start Date End Date Silvino Charles MD PCP - General 08/05/11 08/25/21 Anna Staples NP PCP - General 08/26/[address] [place] [address] documented as of this encounter
--- OUTSIDE RECORDS SUMMARY | 2022-04-12 14:39 | XMS_ITS | Encounter Summary ---
:1945 Author Organization [facility] Address [address] [place] [address] Care Team Providers Name Role Phone Anna Staples NP Primary Care Provider Reason for Referral Radiology Services (Routine/Next Available) - Authorization Not Required Specialty Diagnoses / Procedures Referred By Contact Refer red To Contact Diagnoses Breast mass Anna Staples NP [facility] Procedures US BREAST BIOPSY RIGHT [address] [place], [place] [phone] Referral ID Status Reason Start Expiration Visits Visits Date Date Requested Authorized [id number] Authorization Not 08/26/2021 1 1 Required Reason for Visit Radiology Services (Routine/Next Available) - Authorization Not Required Specialty Diagnoses / Procedures Referred By Contact Refer red To Contact Diagnoses Breast mass Anna Staples NP [facility] Procedures US BREAST BIOPSY RIGHT [address] [place], [place] [phone] Referral ID Status Reason Start Expiration Visits Visits Date Date Requested Authorized [id number] Authorization Not 08/26/2021 1 1 Required Encounter Details Date Type Department Care Team Description 09/01/2021 Hospital Encounter Medical Center Breast Breast mass; Imaging Ultrasound - Breast lump on right side at 12 o'clock position [facility] [address] [place] [address] Social History Tobacco Use Types Packs/Day Years [...] making decisions? documented as of this encounter Medications at Time of Discharge Medication Sig Dispensed Refills Start Date End Date clotrimazole-betamethason Apply topically. As 0 e (LOTRISONE) cream needed digoxin (LANOXIN) 125 mcg Take 187.5 mcg by 0 tablet mouth daily. diphenhydrAMINE Take 1 Cap by mouth 0 10/14/2019 (BENADRYL) 50 mg capsule at bedtime. furosemide (LASIX) 40 mg Take 80 mg by mouth 0 tablet daily. lisinopriL (PRINIVIL) 5 1 Tab daily. 0 03/16/2020 mg tablet LORazepam (ATIVAN) 1 mg 1 tab(s) orally 0 tablet once a day spironolactone Take 12.5 mg by 0 (ALDACTONE) 25 mg tablet mouth daily trimethobenzamide (TIGAN) Take 300 mg by 0 300 mg mouth daily as capsuleIndications: PRN needed. metoprolol TARtrate TAKE ONE TABLET BY 180 Tablet 3 04/12/20 21 12/29/2021 (LOPRESSOR) 100 mg tablet MOUTH TWICE A DAY (NOTE: TABLET STRENGTH CHANGE) polyethylene glycol Take 4 L by mouth 1 Each 0 2 12/29/2021 (GOLYTELY) 236-22.74-6.74 once for 1 dose. -5.86 gram suspension Follow instructions on colonoscopy prep sheet. OK to substitute with any PEG-3350 product: CoLyte, Gavilyte, Nulytely, Trilyte, or generic PEG-3350 rivaroxaban (XARELTO) 20 Take 1 Tab by mouth 90 Tab 3 10/11/2021 mg tablet daily with dinner. tabletIndications: prevent thromboembolism in chronic atrial fibrillation documented as of this encounter Discharge Disposition Disposition Code Departure Means Destination Home or Self Care documented in this encounter Miscellaneous Notes Result QuickNote - Tamica Stevens - 09/01/2021 1340 EST I told pt results of right breast bx done on 09-01-21 (high risk). She has already been referred to the [facility] through film review. I very luckily just reached her at: [phone], as this phone has not been working recently. I let the pt know that someone from the [facility] would be contacting her about an appointment. Sydnie [id number] signed by Tamica Stevens at 09/07/2021 10:56 EST documented in this encounter Plan of Treatment Upcoming Encounters Date Type Specialty Care Team Description 04/21/2022 Ancillary Procedure Cardiology 04/21/2022 Office Visit Cardiology Eun Nolen MD 130 [facility] [address] [place] [address] (Wo rk) 07/15/2022 Office Visit Surgical Oncology Jens Almanza MD 111 [facility], [facility], [address] [place] [phone] (Wo rk) documented as of this encounter Procedures Procedure Name Priority Date/Time Associated Diagnosis Comme nts SURGICAL PATHOLOGY Routine 09/01/2021 14:58 Breast mass Resul ts for this EST procedure are i n the results section. US BREAST BIOPSY Routine 09/01/2021 14:56 Breast mass Results for this RIGHT EST procedure are i n the results section. documented in this encounter Results SURGICAL PATHOLOGY (09/01/2021 14:58 EST) Note to Patient A healthcare provider [facility] will be contacting you CENTER to answer any questions LABORATORY you may have about SERVICES these results, and discuss management options, if applicable. Before this can occur, your pathology results need to be compared with your breast imaging and clinical findings, a process that can take 1-3 business days. Final Diagnosis A. BREAST, RIGHT, 12 O'CLOCK , 1 CM FROM NIPPLE, ULTRASOUND GUIDED CORE BIOPSY: [facility] - At least atypical ductal hyperplasia in a background of extensive proliferative fibrocystic changes. See comment. [facility] LABORATORY SERVICES Diagnosis Comment The core biopsy shows a rang e of proliferative fibrocystic changes including columnar cell hyperplasia and usual ductal hyperplasia embedded in dense sclerotic stroma. In areas the intraductal prolifera [facility] tion shows architectural aty maribell and low grade cytologic monomorphism consistent with at least atypical ductal hyperplasia. The atypical proliferation does not meet volumetric criteria for DCIS in the co CENTER re biopsy material. The pres ence or absence of ductal carcinoma in situ (DCIS) is deferred to the excision specimen when the full extent of the lesion can be fully assessed. No Experience slides from LABORATORY his case were reviewed at breast intradepartment al consultation conference. SERVICES Immunoperoxidase stains were performed on this case to differentiate the atypical intraductal proliferation from background fibrocystic changes. ANTIBODY(CLONE)(BLOCK):RESULT CK 5/6 (D5/16B4, [place]) (block A1): absent in area o f interest. Estrogen Receptor (SP1, Ther zPerfectGift) (block A1): diffuse positive staining in area of interest NOTE: One or more of the re [...] characteristics have been de termined by [facility] and/or by the referring laboratory. [...] clinical laboratory testing. Attestation By the signature below, [facility] tronically the attending physician CENTER sign ed by Thierry, certifies that they LABORATORY Germain Cid on have 1) personally SERVICES 09/06/2021 at 1647 conducted a gross and/or microscopic examination of the described specimen(s), and/or personally interpreted the results of laboratory testing of the described specimen(s), and 2) personally rendered or confirmed the above diagnosis. Clinical History Breast mass; clinical [facility] diagnosis code: N63.0 [facility] Gross Description A. [facility] Received in formalin juan antonio d with proper patient identification (initials J, B) and right breast mass 12 o'clock 1 CMFN 9 x 5 x 1 mm in formalin 1439 are 4 yellow and white fibrofatty tissue cores ( CENTER 0.6 cm to 1.5 cm in length, and each 0.1-0.2 cm in diameter). Entirely submitted in A1-A2. LABORATORY SERVICES Time removed from patient: 09/01/2021 14:39 hours Time placed in formalin: Insert today 14:39 hours Time out of formalin: 09/01/2021 24:00 hours YAZAN RO(ASCP) 09/01/2021 19:15 Performing Lab [facility] Scanned Images [facility] Specimen Tissue - Entire right breast (body struc ture) Performing Organization Address City/State/ZIP Code Phon e Number [facility] [address] [place] [address] SERVICES US BREAST BIOPSY RIGHT (09/01/2021 14:56 EST) Anatomical Region Laterality Modality Breast Right Ultrasound Specimen Addenda Addendum by Federica Hill MD on 2021 10:33 EST Addendum: The images and pathology of th e area biopsied in the right breast at 12:00 1 cm from the nipple wer e reviewed on 09/07/[address] Hill and Dr. Vitale. The biopsy was performed by Dr. Rajendra davis. The pathology shows :At least atypical d uctal hyperplasia and a background of extensive proliferative fibrocystic c hanges. The comment states that the atypical proliferation does not meet volumetric criteria for DCIS in the core biopsy material. The presence o r absence of DCIS is deferred to the excision specimen 1 the full extent of the lesion could be fully assessed.. This is felt to be high risk and concord ant. Surgical consultation for discussion of excision is recommended. The patient will be notified of the resu lts via My chart on line. Impressions [facility] - 09/01/2021 15:14 EST Successful ultrasound-guided core biopsy with documentation of mammographic sonographic correlation. Narrative [facility] - 09/01/2021 15:14 EST US BREAST BIOPSY RIGHT, MA BREAST POST BIOPSY CLIP KALYAN RIGHT ??09/01/2021 2:00 PM Signs and Symptoms/Comments: complex solid+cystic subareolar mass Comparison: Outside mammography and sonography in [facility] 2021. History: The patient was referred from an outside hospital for biopsy of the new subareolar mass seen on mammography which correlated to a complex cystic and solid mass on sonography, located at 12:00, 1 cm from the nipple measuring 0.9 x 0.5 x 1.0 cm. Procedure: Written and verbal consents were obtaine d from the patient for ultrasound guided core biopsy of a mass in the right breast at o'clock, 1 cm from the nipple. ??The risks, benefits and alternatives to this procedure were discussed with the patient. Once the patient's full name, date of bi rt, and side of biopsy were confirmed, the area of concern was rescanned, the lesion in question was targeted and the patient's skin was marked. Site verificatio n and skin marking was performed accordi ng to established site marking procedure. A safety timeout was performed. The skin of the right breast was prepped and draped in the usual sterile fashion. Using ultrasound guidance, 8.0 cc of buffered 1% lidocaine was used for local anesthesia. The skin was incised with a #1 1 blade. Five ??core biopsies were obtai stacy using a coaxial system with a 14- gauge Achieve biopsy needle inserted through a 13-gauge introducer. A HydroMark type IV coil-shaped clip was deployed in the area biopsied. Postprocedure digital mammography was pe rformed in the CC and MLO 3- D/synthesized 2-D projections; demonstrating the clip to correspond well . The patient tolerated procedure well, without immediate pos tprocedural complications. The patient w as told that our biopsy foster care worker will notify her of the results via phone in 3-5 business days. Performing Organization Address City/State/ZIP Code Phon e Number [facility] documented in this encounter Visit Diagnoses Diagnosis Breast mass Lump or mass in breast Breast lump on right side at 12 o'clock position Lump or mass in breast documented in this encounter Administered Medications Inactive Administered Medications - up to 3 most recent administrations Medication Order MAR Action Action Date Dose Rate Site lidocaine 1 % 20 mL, sodium Given 09/01/2021 14:57 EST 8 mL bicarbonate 8.4 % 2 mL 22 mL, local infiltration, Administer over 1 Hours, Once in imaging, 1 dose, Starting on Mon09/01/21 at 1356, Until Mon09/01/21 at 1557, Routine povidone-iodine (BETADINE) 10 % external Given 09/01/2021 14:57 EST 30 mL solution 30 mL 30 mL, topical, Once in imaging, 1 dose, Starting on Mon09/01/21 at 1356, Until Mon09/01/21 at 1457 documented in this encounter Care Teams Vehicle Body Sander Relationship Specialty Start Date End Date Anna Staples NP PCP - General 08/26/[address] [place] [phone] documented as of this encounter
--- OUTSIDE RECORDS SUMMARY | 2022-04-12 14:39 | XMS_ITS | Encounter Summary ---
:1945 Author Organization [facility] Address [address] [place] [address] Care Team Providers Name Role Phone Silvino Charles MD Primary Care Provider Unavailable Reason for Visit (Routine/Next Available) - Receiving Office to Obtain Authorization Specialty Diagnoses / Procedures Referred By Contact Refer red To Contact Procedures Unknown, Provider, MD [facility] BREAST OUTSIDE IMAGES Phone: Referral ID Status Reason Start Expiration Visits Visits Date Date Requested Authorized [id number] Receiving Office 08/03/2021 1 1 to Obtain Authorization Encounter Details Date Type Department Care Team Description 07/23/2021 Hospital Encounter [facility] Secondary Reads [place] Social History Tobacco Use Types Packs/Day Years [...] Sig Dispensed Refills Start Date End Date clotrimazole-betamethasone Apply topically. 0 (LOTRISONE) cream As needed digoxin (LANOXIN) 125 mcg Take 187.5 mcg by 0 tablet mouth daily. diphenhydrAMINE (BENADRYL) Take 1 Cap by 0 2019 50 mg capsule mouth at bedtime. furosemide (LASIX) 40 mg Take 80 mg by 0 12/11/19 13 tablet mouth daily. lisinopriL (PRINIVIL) 5 mg 1 Tab daily. 0 020 tablet LORazepam (ATIVAN) 1 mg 1 tab(s) orally 0 tablet once a day spironolactone (ALDACTONE) Take 12.5 mg by 0 25 mg tablet mouth daily trimethobenzamide (TIGAN) Take 300 mg by 0 300 mg capsuleIndications: mouth daily as PRN needed. metoprolol TARtrate TAKE ONE TABLET 180 Tablet 3 04/12/2021 12/29/2021 (LOPRESSOR) 100 mg tablet BY MOUTH TWICE A DAY (NOTE: TABLET STRENGTH CHANGE) rivaroxaban (XARELTO) 20 mg Take 1 Tab by 90 Tab 3 09/1010/11/2021 tablet tabletIndications: mouth daily with prevent thromboembolism in dinner. chronic atrial fibrillation documented as of this encounter Discharge Disposition Disposition Code Departure Means Destination Home or Self Care documented in this encounter Plan of Treatment Upcoming Encounters Date Type Specialty Care Team Description 04/21/2022 Ancillary Procedure Cardiology 04/21/2022 Office Visit Cardiology Eun Nolen MD [address] [place] [phone] (Wo rk) 07/15/2022 Office Visit Surgical Oncology Jens Almanza MD [address] [facility], [facility], [address] [place] [phone] (Wo rk) documented as of this encounter Procedures Procedure Name Priority Date/Time Associated Diagnosis Comme nts MA BREAST OUTSIDE Routine 08/03/2021 18:34 Result s for this IMAGES EST procedure are i n the results section. documented in this encounter Results MA BREAST OUTSIDE IMAGES (08/03/2021 18:34 EST) Specimen Narrative 08/03/2021 18:34 EST This is a non-reportable exam. documented in this encounter Visit Diagnoses Not on filedocumented in this encounter Care Teams Carpet Installation Specialist Relationship Specialty Start Date End Date Silvino Charles MD PCP - General 08/05/11 08/25/21 documented as of this encounter
--- OUTSIDE RECORDS SUMMARY | 2022-04-12 14:39 | XMS_ITS | Encounter Summary ---
:1945 Author Organization [facility] Address [address] [place] [address] Care Team Providers Name Role Phone Silvino Charles MD Primary Care Provider Unavailable Reason for Visit (Routine) - Authorization Not Required Specialty Diagnoses / Procedures Referred By Contact Refer red To Contact Diagnoses Encounter for adjustment or management of cardiac device Eun Nolen MD Procedures CARDIAC IMPLANT CHECK - IN CLINIC [address] [facility] [address] [place] [address] Referral ID Status Reason Start Expiration Visits Visits Date Date Requested Authorized [id number] Authorization Not 02/06/2020 1 1 Required Encounter Details Date Type Department Care Team Description 04/02/2021 Ancillary Procedure [facility] - En[facility] for [facility] ic adjustment or [address] [facility] [place] [address] device [phone] Social History Tobacco Use Types Packs/Day Years [...] Eun Nolen MD - 04/02/2021 1615 EDT See report in same-day clinic note. Detailed device printout in Scans. JM documented in this encounter Plan of Treatment Upcoming Encounters Date Type Specialty Care Team Description 04/21/2022 Ancillary Procedure Cardiology 04/21/2022 Office Visit Cardiology Eun Nolen MD [address] [place] [address] [address] [place] [address] (Birdie walls) 07/15/2022 Office Visit Surgical Oncology Jens Almanza MD [address] [place] [address], [address] [place] [address] (Wo titi) documented as of this encounter Visit Diagnoses Diagnosis Encounter for adjustment or management o f cardiac device documented in this encounter Orders Implantable Cardiac Device Count Last Ordered Date Fir st Ordered Date CARDIAC IMPLANT CHECK - IN CLINIC 1 04/02/2021 documented in this encounter Care Teams Forensic Computer Examiner Relationship Specialty Start Date End Date Silvino Charles MD PCP - General 08/05/11 08/25/21 documented as of this encounter
--- OUTSIDE RECORDS SUMMARY | 2022-04-12 14:39 | XMS_ITS | Encounter Summary ---
:1945 Author Organization Address [address] [place] [address] Care Team Providers Name Role Phone Anna Staples MEDICAL PRACTICE ADMINISTRATOR Primary Care Provider Reason for Visit Radiology Services (Routine/Next Available) - New Request Specialty Diagnoses / Procedures Referred By Contact Refer red To Contact Diagnoses Breast mass Anna Staples, MEDICAL PRACTICE ADMINISTRATOR [facility] Procedures MA BREAST POST BIOPSY CLIP KALYAN RIGHT MA BREAST POST BIOPSY CLIP RIGHT [address] [place], [place] [phone] Referral ID Status Reason Start Date Expiration Date Visits V isits Requested Authorized [id number] New Request 08/26/2021 1 1 Encounter Details Date Type Department Care Team Description 09/01/2021 Hospital Encounter [facility] Breast Imaging Breast mass Mammography - Main [facility] [address] [place] [address] Social History Tobacco Use Types Packs/Day Years [...] Office Visit Cardiology Eun Nolen MD [address] [facility] [address] [place] [address] (Wo rk) 07/15/2022 Office Visit Surgical Oncology Jens Almanza MD [address] [place] [address], [facility] [address] [place] [address] (Wo rk) documented as of this encounter Procedures Procedure Name Priority Date/Time Associated Diagnosis Comme nts MA BREAST POST Routine 09/01/2021 15:00 Breast mass Results f or this BIOPSY CLIP KALYAN EST procedure a re in RIGHT the results section. documented in this encounter Results MA BREAST POST BIOPSY CLIP KALYAN RIGHT (09/01/2021 15:00 EST) Anatomical Region Laterality Modality Breast Right Mammography Specimen Addenda Addendum by Federica Hill MD [...] lts via My chart on line. Impressions [facility] RADIOLOGY [facility] - 09/01/2021 15:14 EST Successful ultrasound-guided core biopsy with documentation of mammographic sonographic correlation. Narrative [facility] RAD[facility] - 09/01/2021 15:14 EST US BREAST BIOPSY RIGHT, MA BREAST POST BIOPSY CLIP KALYAN RIGHT ??09/01/2021 2:00 PM Signs and Symptoms/Comments: complex solid+cystic subareolar mass Comparison: Outside mammography and sonography in [facility] 2021. History: The patient was referred from [...] the patient's full name, date of bi rth, and side of biopsy were confirmed, the [...] patient w as told that our biopsy post acute care nurse will notify her of the results via phone in 3-5 business days. Performing Organization Address City/State/ZIP Code Phon e Number [facility] documented in this encounter Visit Diagnoses Diagnosis Breast mass Lump or mass in breast documented in this encounter Care Teams Paleologist Relationship Specialty Start Date End Date Anna Staples, FILEMON PCP - General 08/26/[address] [place] [phone] documented as of this encounter
--- OUTSIDE RECORDS SUMMARY | 2022-04-12 14:39 | XMS_ITS | Encounter Summary ---
:1945 Author Organization [facility] Address [address] [place] [address] Care Team Providers Name Role Phone Silvino Charles MD Primary Care Provider Unavailable Reason for Visit Reason Onset Date Comments Medications Refill 09/10/2020 Encounter Details Date Type Department Care Team Description 09/10/2020 Refill [facility] Randy Saavedra RN Medications Refill Cardiology Clinic [address] [place] [address] Social History Tobacco Use Types Packs/Day Years [...] this encounter Miscellaneous Notes Telephone Encounter - Randy Saavedra RN - 09/10/2020 1608 EST UTD for office visit. Rx refill sent in for patient. documented in this encounter Plan of Treatment Upcoming Encounters Date Type Specialty Care Team Description 04/21/2022 Ancillary Procedure Cardiology 04/21/2022 Office Visit Cardiology Eun Nolen MD [address] [place] [address] [phone] (Wo rk) 07/15/2022 Office Visit Surgical Oncology Jens Almanza MD [address] [place] [address], [facility] [address] [place] [address] (Wo rk) documented as of this encounter Visit Diagnoses Not on filedocumented in this encounter Discontinued Medications Medication Sig Discontinue Reason Start Date End Date rivaroxaban (XARELTO) 20 mg Take 1 Tab by 06/28/2019 09/26/2019 tablet tabletIndications: mouth daily with Permanent atrial dinner for 90 fibrillation (HCC-CMS) days. ([facility]) rivaroxaban (XARELTO) 20 mg Take 20 mg by Reorder 09/10/2020 tablet tabletIndications: mouth daily with prevent thromboembolism in dinner. chronic atrial fibrillation documented as of this encounter Care Teams Pm Head Cook Relationship Specialty Start Date End Date Silvino Charles MD PCP - General 08/05/11 08/25/21 documented as of this encounter
--- OUTSIDE RECORDS SUMMARY | 2022-04-12 14:39 | XMS_ITS | Encounter Summary ---
:1945 Author Organization [facility] Address [address] [place] [address] Care Team Providers Name Role Phone Silvino Charles MD Primary Care Provider Unavailable Reason for Referral (Routine) - Authorization Not Required Specialty Diagnoses / Procedures Referred By Contact Refer red To Contact Diagnoses Encounter for adjustment or management of cardiac device Eun Nolen MD Procedures CARDIAC IMPLANT CHECK - REMOTE MONITOR [address] [facility] [address] [place] [address] Referral ID Status Reason Start Expiration Visits Visits Date Date Requested Authorized [id number] Authorization Not 02/06/2020 1 1 Required (Routine) - Authorization Not Required Specialty Diagnoses / Procedures Referred By Contact Refer red To Contact Diagnoses Encounter for adjustment or management of cardiac device Eun Nolen MD Procedures CARDIAC IMPLANT CHECK - IN CLINIC [address] [facility] [address] [place] [phone] Referral ID Status Reason Start Expiration Visits Visits Date Date Requested Authorized [id number] Authorization Not 02/06/2020 1 1 Required Encounter Details Date Type Department Care Team Description 02/06/2020 Orders Only [facility] - Randy Saavedra Enco unter for [facility] Cardiology Clin ic RN adjustment or [address] [place] [address] device (Primary Dx) [phone] Social History Tobacco Use Types Packs/Day Years [...] Office Visit Cardiology Eun Nolen MD [address] [facility] [address] [place] [address] (Wo rk) 07/15/2022 Office Visit Surgical Oncology Jens Almanza MD [address] [place] [address], [facility], [address] [place] [phone] (Wo rk) Pending Results Name Type Priority Associated Diagnoses Date/Ti me CARDIAC IMPLANT Implantable Cardiac Routine Encounter for 03/04 19:31 CHECK - IN CLINIC Device adjustment or EDT management of cardiac device documented as of this encounter Visit Diagnoses Diagnosis Encounter for adjustment or management o f cardiac device - Primary documented in this encounter Orders Implantable Cardiac Device Count Last Ordered Date Fir st Ordered Date CARDIAC IMPLANT CHECK - IN CLINIC 5 12/29/2021 02/06/2020 CARDIAC IMPLANT CHECK - REMOTE MONITOR 1 0 documented in this encounter Care Teams Ticker Wirer Relationship Specialty Start Date End Date Silvino Charles MD PCP - General 08/05/11 08/25/21 documented as of this encounter
--- OUTSIDE RECORDS SUMMARY | 2022-04-12 14:39 | XMS_ITS | Encounter Summary ---
:1945 Author Organization [facility] Address [address] [place] [address] Care Team Providers Name Role Phone Silvino Charles MD Primary Care Provider Unavailable Reason for Visit Reason Comments Follow-up 3 months Pacemaker/Device Check (Routine) - Authorization Not Required Specialty Diagnoses / Procedures Referred By Contact Refer red To Contact Diagnoses Encounter for adjustment or management of cardiac device Eun Nolen MD Procedures CARDIAC IMPLANT CHECK - IN CLINIC [address] [place] [address] [address] [place] [address] Referral ID Status Reason Start Expiration Visits Visits Date Date Requested Authorized [id number] Authorization Not 02/06/2020 1 1 Required Encounter Details Date Type Department Care Team Description 03/16/2020 Ancillary Procedure [facility] [address] [place] [address] Social History Tobacco Use Types Packs/Day [...] Concentration - - Weight - - Height 174 cm (5' 8.5) 03/16/2020 1524 EDT Body Mass Index - - documented in [...] Office Visit Cardiology Eun Nolen MD [address] [place] [address] [address] [place] [phone] (Wo titi) 07/15/2022 Office Visit Surgical Oncology Jens Almanza MD [address] [facility], [facility], [facility] [address] [place] [phone] (Wo titi) Pending Results Name Type Priority Associated Diagnoses Date/Ti me CARDIAC IMPLANT Implantable Cardiac Routine Encounter for 03/04 19:31 CHECK - IN CLINIC Device adjustment or EDT management of cardiac device documented as of this encounter Visit Diagnoses Not on filedocumented in this encounter Care Teams Manager Of Creative Services Relationship Specialty Start Date End Date Silvino Charles MD PCP - General 08/05/11 08/25/21 documented as of this encounter
--- OUTSIDE RECORDS SUMMARY | 2022-04-12 14:39 | XMS_ITS | Encounter Summary ---
:1945 Author Organization Address [address] [place] [address] Care Team Providers Name Role Phone Silvino Charles MD Primary Care Provider Unavailable Reason for Visit (Routine) - Authorization Not Required Specialty Diagnoses / Procedures Referred By Contact Refer red To Contact Diagnoses Encounter for adjustment or management of cardiac device Eun Nolen MD Procedures CARDIAC IMPLANT CHECK - IN CLINIC [address] [facility] [address] [place] [address] Referral ID Status Reason Start Expiration Visits Visits Date Date Requested Authorized [id number] Authorization Not 02/06/2020 1 1 Required Encounter Details Date Type Department Care Team Description 12/25/2020 Ancillary Procedure [facility] - Encounter for [facility] Cardiology Clin ic adjustment or [address] [facility] [place] [address] device [phone] Social History Tobacco Use Types Packs/Day Years [...] Office Visit Cardiology Eun Nolen MD [address] [facility] [address] [place] [address] (Wo rk) 07/15/2022 Office Visit Surgical Oncology Jens Almanza MD [address] [facility], [facility], [address] [place] [address] (Wo rk) documented as of this encounter Visit Diagnoses Diagnosis Encounter for adjustment or management o f cardiac device documented in this encounter Orders Implantable Cardiac Device Count Last Ordered Date Fir st Ordered Date CARDIAC IMPLANT CHECK - IN CLINIC 1 12/25/2020 documented in this encounter Care Teams Siding Installer Relationship Specialty Start Date End Date Silvino Charles MD PCP - General 08/05/11 08/25/21 documented as of this encounter
--- OUTSIDE RECORDS SUMMARY | 2022-04-12 14:39 | XMS_ITS | Encounter Summary ---
:1945 Author Organization [facility] Address [address] [place] [address] Care Team Providers Name Role Phone Silvino Charles MD Primary Care Provider Unavailable Encounter Details Date Type Department Care Team Description 11/12/2015 - [facility], Chronic a trial fibrillation ([facility]) (Primary Dx); 11/13/2015 Encounter Cardiac/Telemetry Eun Smith, Cardiomy opathy ([facility]); Unit LBBB (left bundle branch block); [address] Biventricular ICD (implantable cardiover ter-defibrillator) in place; [place], [place] [address] Cardiomyopathy, dilated, nonischemic ( S-HCC) [address] [place], [place] [phone] Social History Tobacco Use Types Packs/Day [...] Sign Reading Time Taken Comments Blood Pressure 120/65 11/13/2015 0842 EDT Pulse 80 11/13/2015 0848 EDT Temperature 36.2 ??C (97.2 ??F) 11/13/2015 0842 EDT Respiratory Rate 16 11/13/2015 0842 EDT Oxygen Saturation 92% 11/13/2015 0842 EDT Inhaled Oxygen Concentration - - Weight 106.1 kg (234 lb) 11/12/2015 1015 EDT Height 174 cm (5' 8.5) 11/12/2015 1015 EDT Body Mass Index 35.06 11/12/2015 1015 EDT documented in this encounter Functional Status [...] documented as of this encounter Discharge Summaries Pamela Dumont NP - 11/12/2015 1436 EDT Cardiology Discharge Summary Primary Care Provider: Silvino Charles Attending Physician: Eun Nolen MD Admit Date: 11/12/2015 Discharge Date: 11/13/15 Disposition: Home or self care Problems and Procedures Admitting Diagnosis: CARDIAC ABLATION (NOT COMPOSITE EXAM) Final Hospital Diagnosis: NICM Additional Problems Managed in the Hospital Active Hospital Problems Diagnosis Date Noted ??? Chronic atrial fibrillation 11/12/2015 ??? Biventricular ICD (implantable cardioverter-defibrillator) in place 11/12/2015 ??? LBBB (left bundle branch block) 12/18/2014 QRS 150ms ??? Cardiomyopathy 12/18/2014 Resolved Hospital Problems Diagnosis Date Noted Date Resolved No resolved problems to display. Principal Procedure: AV node ablation Date: 11/12/2015 Secondary Procedures: Not applicable Hospital Course Ms. Stahl is a 70 y/o female with PMH of HTN, HLD, NICM with EF 25%, s/p BIV/ICD in December of 2014 (no A lead) Chronic Afib since 2005. Her [id number] score is 4 and she is on life long Coumadin. She July of this year she has noticed a worsening of her NYHA symptoms and is now class III. She notes worsening LEARY with chest pressure and dizzy spells despite improved rate control. She has failed anti arrythymic therapy in the past. Interrogation of the device shows she is pacing only 50-70% of the time. Two weeks ago she had an inappropriate shock from the device for Afib with RVR. The plan now isfor AV node ablation to maximize the BIV pacing and see if that improves her symptoms. On 11/12/15 she underwent AV node ablation. She tolerated the procedure well with no complications. The patient wasanxious and concerned she may bleed after the procedure and where she lives alone she was kept overnight for monitoring.The following morning she felt well. The right groin puncture site is CDI, no blee ding, no swelling. She is oob and ambulating without pain or difficulty. Overnight telemetry shows 100% BIV pacing at 90. She denies chest pain or discomfort. Of note she drove her self to the hospitalyeer and insists that she will drive her self home today. This was discussed with Dr. Nolen ye and since she will be 24 hours out from any sedating medication. he has cleared her to [facility]. Today she states she feels fine with no lingering sedating effects. She will continue her medications as she has been taking them and will follow up with Beverley Jean Baptiste in two weeks for a check of her groin puncture and with Dr. Nolen in 6-8 weeks. She has been instructedto resume her normal coumadin dosing and to have her INR checked next week with Dr. Charles. Allergies and Immunizations No Known Allergies There is no immunization history on file for this patient. Transition of Care Plans Condition at Discharge Good Assessment at Discharge Vital signs: Patient Vitals for the past 12 hrs: BP Pulse Heart Rate Resp Temp SpO2 O2 Device 11/13/15 0848 - 80 - - - - - 11/13/15 0842 120/65 mmHg - 81 BPM - 36.2 ??C (97.2 ??F) 92 % - 11/13/15 0500 - - 81 BPM - - - - 11/13/15 0400 - - 80 BPM - - - - 11/13/15 0300 - - 80 BPM - - - - 11/13/15 0200 - - 80 BPM - - - - 11/13/15 0105 113/79 mmHg - 83 BPM 18 36.3 ??C (97.3 ??F) 94 % None 11/13/15 0100 - - 81 BPM - - - - 11/13/15 0000 - - 83 BPM - - - - 11/12/15 2300 - - 81 BPM - - - - Discharge Medications: CHANGE how you take these medications Sig MYCOSTATIN TOP What changed: Another medication with the same name was removed. Continue taking this medication, and follow the directions you see here. topical CONTINUE taking these medications Sig digoxin 125 mcg tablet Commonly known as: LANOXIN 125 mcg, oral, DAILY diphenhydrAMINE 50 mg capsule Commonly known as: BENADRYL 50 mg, oral, AT BEDTIME PRN furosemide 40 mg tablet Commonly known as: LASIX 80 mg, oral, DAILY lisinopril 5 mg tablet Commonly known as: PRINIVIL, ZESTRIL 5 mg, oral, DAILY LORazepam 1 mg tablet Commonly known as: ATIVAN 1 mg, oral, EVERY 4 HOURS PRN metoprolol 50 mg tablet Commonly known as: LOPRESSOR 75 mg, oral, 2 TIMES DAILY, Which is 75 mg mg twice a day spironolactone 25 mg tablet Commonly known as: ALDACTONE 12.5 mg, oral, DAILY trimethobenzamide 300 mg capsule Commonly known as: TIGAN 300 mg, oral, DAILY PRN warfarin 2.5 mg tablet Commonly known as: COUMADIN Take as directed in the evening: Per Dr Yunior Charles office on 12/18/14 Coumadin Regimen: Coumadin 7.5 zvCfd-Eyoob-Ooj and Coumadin 5 mg on Eav-Fmbl-Hbs-Sun Coumadin Management Coumadin management will be coordinated by Dr. Charles. Their office has been called and notified by Renzo Dumont. Lab Results Component Value Date INR 1.8* 11/12/2015 INR 1.6* 12/18/2014 INR 2.2* 09/24/2014 Recent Warfarin Admin warfarin (COUMADIN) tablet 7.5 mg (mg) 7.5 mg Given 11/12/15 2130 Non-Cardiac Studies at Time of Discharge none Results Pending at Discharge Test results still pending from this admission None Last Lab Results at Discharge BUN: Lab Results Component Value Date BUN 24 11/12/2015 Creatinine: Lab Results Component Value Date CREATININE 0.82 11/12/2015 CBC: Lab Results Component Value Date WBC 11.96 11/12/2015 RBC 5.05* 11/12/2015 HGB 15.9* 11/12/2015 HCT 44.9* 11/12/2015 MCV 89 11/12/2015 MCH 31.5 11/12/2015 MCHC 35.4 11/12/2015 PLT 299 11/12/2015 Electrolytes: Lab Results Component Value Date NA 141 11/12/2015 K 4.2 11/12/2015 CL 102 11/12/2015 CO2 26 11/12/2015 HGB: Lab Results Component Value Date HGB 15.9* 11/12/2015 INR: Lab Results Component Value Date INR 1.8* 11/12/2015 INR 1.6* 12/18/2014 INR 2.2* 09/24/2014 PROTIME 20.3* 11/12/2015 PROTIME 18.1* 12/18/2014 PROTIME 24.3* 09/24/2014 No results found for: HGBA1C Discharge Follow Up Appointments Scheduled with [facility] Appointments Outside of [facility] We Will Schedule Studies We Will Schedule Appointments We Recommend but have not been Scheduled Pamela Dumont NP 11/12/2015 14:36 Associated attestation - Mert Sutton MD PhD - 11/16/2015 0931 EDT Attending Attestation: I have seen and evaluated the patient. I have discussed the case and am in full agreement with the nurse practitioner's note above. Mert Sutton MD PhD Pt seen 5-13documented in this encounter Discharge Instructions Discharge Instr - Other Pamela Stern NP - 11/12/2015 14:50 EDT Discharge Instructions for AV Node Ablation Patients 1. Wound Care: ?? You may remove the Band-Aids/Dressings from the sites the next morning ?? You may shower the following day. ?? No tub bathing for five days. This includes hot tubs and pools. 2. Call your physician or nurse if: ?? You develop drainage, redness, or swelling at any of the sites ?? You develop a fever ?? You develop increased tenderness and/or increased bruising over sites which doesn't resolve in 2 days ?? You develop a persistent and/or productive cough ?? Your symptoms reoccur 3. Activity: ?? You can resume your normal activities in one week, unless you have been instructed otherwise ?? No vigorous activity for 1 week after your ablation. This includes running, squatting and heavy lifting (>10 lbs). ?? If you are traveling by car or airplane in the next week, you will need to stand and move around every 2 hours to promote circulation ?? You may resume driving after 24 hours. ?? You may return to work after 3 days if your work demands are not physical. 4. Medications: ?? Resume prior medications unless otherwise instructed 5. Appointments: See Beverley Jean Baptiste NP at the [facility] on November 23 at 2:30 for a post procedure check. The office will call you next week to schedule an appointment to follow up with Dr. Nolen. Please have your INR checked early next week, Continue your Coumadin dosing as you have been takingit prior to this admission. No changes have been made to your medications. If you have any questions or concerns, please don't hesitate to call the Cardiac Arrhythmia Service at [facility] at x [phone] (or dial direct-[phone]) and leave a message for Franci Poon RN and she will return your call as soon as possible. documented in this encounter Medications at Time [...] NYSTATIN (MYCOSTATIN TOP) Apply topically 0 05/28/2019 trimethobenzamide (TIGAN) Take 300 mg by mouth daily as needed 0 05/28/2019 300 mg capsule warfarin (COUMADIN) 2.5 mg Take as directed 1 Tab 0 05/28/2019 tabletIndications: atrial in the evening: fibrillation Per Dr Yunior Charles office on 12/18/14 Coumadin Regimen: Coumadin 7.5 mg Qpm-Tqvjc-Azo and Coumadin 5 mg on Lqz-Pzhc-Ejx-Sun documented as of this encounter Discharge Disposition Disposition Code Departure Means Destination Home or Self Care documented in this encounter Progress Notes Ana Cristina Niño RN - 11/16/2015 0801 EDT CM DISCHARGE NOTE: Pt discharged prior to being met by CM. Chart reviewed; no d/c needs identified. Ana Cristina Niño RN #[id number] Carmen Mendiola RN - 11/12/2015 1056 EDT Tania Stahl arrived to CVU via independent ambulation. Patient alert and oriented x3. Bed in lowest position with call guidry within reach. Unit orientation and explanation of IV and procedure completed with patient. Patient demonstrates willingness and understanding of pre-procedure education. Dr Manuel made aware of patient's transportation issues. 1130 Patient voided in bathroom. Ambulated there and back without difficulty. IV intact with NS at KVO rate. documented in this encounter H&P Notes Eun Nolen MD - 11/12/2015 1222 EDT Cardiology EP H&P Admit Date: 11/12/2015 Date of Service: 11/12/2015 PCP: Silvino Charles Code Status: Full Code Chief Complaint: LEARY HPI: 69-year-old woman with non-ischemic cardiomypathy, persistently low EF 25%, AF since 2000, permanent AF since 2005, failed antiarrhythmic Rx, chronic systolic failure, wide QRS LBBB. 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 Still with progressive dyspnea on minimal exertion since July 2014, despite improved rate controland maximal GDMT for heart failure. She is still unable to climb one flight of stairs without stopping. Occ. Chest pressure and mild dizzy spells. ?? Denies syncope, PND, fevers, chills, bleeding digestive issues. Sleeps on 1-2 pillows.? Prior Cardiac History: Echo 08/2014: EF 25%, diffuse HK, septal dyssynchrony Cardiac cath 10/2014: Ectatic coronaries with MLI. Prior Cardiac History: BIV-ICD implant 2014. PMH PSH Past Medical History Diagnosis Date ??? CHF (congestive heart failure) ??? Hypertension ??? HLD (hyperlipidemia) ??? Obese ??? SOB (shortness of breath) ??? NICM (nonischemic cardiomyopathy) ??? GERD (gastroesophageal reflux disease) ??? AF (atrial fibrillation) on coumadin ??? Cancer skin cancer, facial Past Surgical History Procedure Laterality Date ??? Hysterectomy ??? Cholecystectomy ??? Skin cancer excision approximately 7 years ago Social History Family History History Substance Use Topics ??? Smoking status: Former Smoker -- 0.10 packs/day for 2 years Quit date: 07/03/1971 ??? 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 Alcohol Use: Yes Comment: RARE History reviewed. No pertinent family history. Medications Prescriptions prior to admission Medication Sig Dispense Refill Last Dose ??? digoxin (LANOXIN) 125 mcg tablet Take 125 mcg by mouth daily 11/12/2015 ??? diphenhydrAMINE (BENADRYL) 50 mg capsule Take 50 mg by mouth at bedtime as needed 11/11/2015 ??? furosemide (LASIX) 40 mg tablet Take 80 mg by mouth daily 11/12/2015 ??? lisinopril (PRINIVIL, ZESTRIL) 5 mg tablet Take 5 mg by mouth daily 11/12/2015 ??? LORazepam (ATIVAN) 1 mg tablet Take 1 mg by mouth every 4 hours as needed for Anxiety 11/11/2015 ??? metoprolol (LOPRESSOR) 50 mg tablet Take 1.5 Tabs by mouth 2 times daily Which is 75 mg mg twicea day 50 Tab 2 11/12/2015 ??? NYSTATIN (MYCOSTATIN TOP) Apply topically 11/11/2015 ??? NYSTATIN TOP Apply topically 11/11/2015 ??? spironolactone (ALDACTONE) 25 mg tablet Take 12.5 mg by mouth daily 11/12/2015 ??? trimethobenzamide (TIGAN) 300 mg capsule Take 300 mg by mouth daily as needed More than a month ??? warfarin (COUMADIN) 2.5 mg tablet Take as directed in the evening: Per Dr Yunior Charles office on 12/18/14 Coumadin Regimen: Coumadin 7.5 mg Ved-Uughs-Arg and Coumadin 5 mg on Frm-Xfkf-Xyy-Sun 1 Tab 0 11/11/2015 Allergies No Known Allergies Review of Systems: A ten point review of systems was performed. Pertinent positives are listed above in HPI, all othersare negative. Objective/Physical Exam: VS: Patient Vitals for the past 8 hrs: BP Resp Temp SpO2 O2 Device 11/12/15 1015 (!) 125/100 mmHg 17 36.3 ??C (97.3 ??F) 97 % None Pain: Patient Vitals for the past 8 hrs: Numeric Pain Level (Scale 1-10) 11/12/15 1015 0 Weight: Weight : (!) 106.142 kg (234 lb) Body mass index is 35.06 kg/(m^2). Glucose Readings (last 8 hours): No results for input(s): GLUCOSEFINGE in the last 72 hours. Exam: General appearance: alert, cooperative, no distress Skin: Skin color, temperature, turgor normal. Mild tinea cruris. Head: Normocephalic, without obvious abnormality, atraumatic Eyes: conjunctivae/corneas clear. PERRL, EOM's intact. Fundi benign Throat/Mouth: lips, mucosa, and tongue normal; teeth and gums normal Neck: supple, symmetrical, trachea midline, no carotid bruit and no JVD Lungs: clear to auscultation bilaterally Heart: regular rate and rhythm, S1, S2 normal, no murmur, click, rub or gallop Abdomen: soft, non-tender; bowel sounds normal; no masses, no organomegaly Neurologic: Grossly normal Extremities: extremities warm, atraumatic, no cyanosis or edema Pulses: 2+ and symmetric Pressure Ulcer Present on admission? No Data Review: Labs: I have personally reviewed CBC: Lab Results Component Value Date WBC 11.96 11/12/2015 RBC 5.05* 11/12/2015 HGB 15.9* 11/12/2015 HCT 44.9* 11/12/2015 MCV 89 11/12/2015 MCH 31.5 11/12/2015 MCHC 35.4 11/12/2015 PLT 299 11/12/2015 BMP: Lab Results Component Value Date NA 141 11/12/2015 K 4.2 11/12/2015 CL 102 11/12/2015 CO2 26 11/12/2015 BUN 24 11/12/2015 CREATININE 0.82 11/12/2015 Coagulation: Lab Results Component Value Date PROTIME 20.3* 11/12/2015 INR 1.8* 11/12/2015 Other Studies: N/A eGFR calculation: GFR, CALCULATED Date Value Ref Range Status 11/12/2015 74 >60 ml/min/1.73m2 Final Comment: eGFR calculated using CKD-EPI equation for non Americans. Multiply eGFR by 1.16 for Americans. Assessment: 69-year-old woman with non-ischemic cardiomyopathy, persistently low EF 25%, AF since 2000, permanent AF since 2005, failed antiarrhythmic Rx, chronic systolic failure, wide QRS LBBB. Clincally NYHA III. 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 Now ready for AV node ablation to maximize BiV pacing and increase the chance of clinical improvement. Plan : (update problem list daily as appropriate) Patient Active Hospital Problem List: Chronic atrial fibrillation (11/12/2015) Plan: AV node ablation today. VTE Prophylaxis: Pharmacologic Prophylaxis: Warfarin 5mg mg Daily Discharge Plan: Home or self care today or tomorrow. Eun Nolen MD 11/12/2015 12:22 documented in this encounter Miscellaneous Notes Plan of Care - Erika Yen RN - 11/13/2015 1054 EDT Problem: Daily Care Plan Goals Goal: Care Plan Documentation Outcome: Met This Shift 11/13/15 0842 Care Plan Focus Area of Focus Discharge Plan Goal This Shift discharge home today Nursing Discharge Note D: Patient noted with discharge orders to: home. A: Reviewed discharge instructions and prescriptions with Patient IV d/c'd. Belongings collected and sent home with patient. R: Patient verbalized understanding of discharge instructions and denied further questions. Erika Yen RN 11/13/2015 10:54 lan of Care - Marybel Stephen RN - 11/13/2015 0537 EDT Problem: Daily Care Plan Goals Goal: Care Plan Documentation Outcome: Ongoing 11/13/15 0105 Care Plan Focus Area of Focus Circulatory Status Goal This Shift VSS BP 113/79 mmHg Pulse 80 Temp(Src) 36.3 ??C (97.3 ??F) (Tympanic) Resp 18 Ht 174 cm (68.5) Wt 106.142 kg (234 lb) BMI 35.06 kg/m2 SpO2 94% D: Assumed care of pt at 1930. Pt denies CP/SOB/discomfort. S/p AF ablation, R groin site CDI. A&Ox3. Ambulates independently. A-paced on tele. A: VSS. CSMTs wnl. Passed orthos at 1900. R: Pt resting comfortably in bed duration of shift. Plan for d/c home today. Marybel Stephen RN 11/13/2015 5:37 lan of Care - Lourdes Bond RN - 11/12/2015 1631 EDT Problem: Daily Care Plan Goals Goal: Care Plan Documentation Outcome: Ongoing 11/12/15 1630 Care Plan Focus Area of Focus Circulatory Status Goal This Shift monitor post ablation D pt arrived to m5 post ablation aaox3, denies pain A placed on tele, paced, right groin with tegaderm cdi,pt on bedrest till 19:30 R will continue to monitor documented in this encounter Plan of Treatment Upcoming Encounters Date Type Specialty Care Team Description 04/21/2022 Ancillary Procedure Cardiology 04/21/2022 Office Visit Cardiology Eun Nolen MD [address] [place] [address] [address] [place], [place] [address] (Wo rk) 07/15/2022 Office Visit Surgical Oncology Jens Almanza MD [address] [facility], [facility], [facility] [address] [place] [address] (Wo rk) documented as of this encounter Procedures Procedure Name Priority Date/Time Associated Comments Diagnosis ECG REPORT - SCANNED 11/17/2015 14:11 EDT ECG REPORT - SCANNED 11/17/2015 14:11 EDT INVASIVE CARDIOLOGY 11/17/2015 14:11 REPORT-SCANNED EDT ECG REPORT - SCANNED 11/16/2015 11:01 EDT ECG REPORT - SCANNED 11/16/2015 10:59 EDT EKG 12-LEAD Routine 11/12/2015 15:45 Results for this EDT procedure are i n the results section. EKG 12-LEAD Routine 11/12/2015 10:56 Results for this EDT procedure are i n the results section. PROTIME STAT 11/12/2015 10:50 Results for this EDT procedure are i n the results section. COMPLETE BLOOD COUNT STAT 11/12/2015 10:50 Res ults for this EDT procedure are i n the results section. BUN STAT 11/12/2015 10:50 Results for this EDT procedure are i n the results section. CREATININE STAT 11/12/2015 10:50 Results for this EDT procedure are i n the results section. ELECTROLYTES STAT 11/12/2015 10:50 Results for this EDT procedure are i n the results section. documented in this encounter Results EKG 12-LEAD (11/12/2015 15:45 EDT) Specimen Narrative [facility] EKG - 11/13/2015 12:4 4 EDT ? [facility] ? Test Date: ?2015-11-12 Pat Name: ? TANIA STAHL ? Department: ?? [facility] 5 ? Room: ? ME524 Gender: ? F ?Wheel Tuner: ?? [id number] : ?1945 ? Requested By: KERWIN Sales Order Number: [id number] ? Adrián LORENZO: ?? TELMA BACA MD ? Measurements Intervals ?Harvel ? Rate: ? 80 ? P: ? CO: ? 0 ?QRS: ?215 QRSD: ? 155 ?T: ?74 QT: ? 464 ? QTc: ?535 ? Interpretive Statements ELECTRONIC VENTRICULAR PACEMAKER Compared to ECG 11/12/2015 10:56:53 No significant changes I reviewed the tracing and have either a greed or edited the findings in this report. Electronically Signed On 12:44:36 EDT by TELMA BACA MD. Procedure Note Telma Baca MD - 11/13/[address] [facility] Test Date: 2015-11-12 Pat Name: TANIA STAHL Department: M CCLURE 5 Room: [facility] Gender: F Wheel Tuner: [id number] : 1945 Requested By: KERWIN Sales Order Number: [id number] Adrián MD: Yunior BACA MD Measurements Intervals Harvel Rate: 80 P: CO: 0 QRS: 215 QRSD: 155 T: 74 QT: 464 QTc: 535 Interpretive Statements ELECTRONIC VENTRICULAR PACEMAKER Compared to ECG 11/12/2015 10:56:53 No significant changes I reviewed the tracing and have either a greed or edited the findings in this report. Electronically Signed On 12:44:36 EDT by TELMA BACA MD. Performing Organization Address City/State/ZIP Code Phon e Number [facility] EKG EKG 12-LEAD (11/12/2015 10:56 EDT) Specimen Narrative [facility] EKG - 11/13/2015 9:23 EDT ? [facility] ? Test Date: ?2015-11-12 Pat Name: ? TANIA STAHL ? Department: ?? CVU ? Room: ? CVU21 Gender: ? F ?Wheel Tuner: ?? [id number] : ?1945 ? Requested By: KERWIN Sales Order Number: [id number] ? Adrián LORENZO: ?? TELMA BACA MD ? Measurements Intervals ?Harvel ? Rate: ? 79 ? P: ? CO: ? 0 ?QRS: ?223 QRSD: ? 158 ?T: ?70 QT: ? 455 ? QTc: ?523 ? Interpretive Statements ELECTRONIC VENTRICULAR PACEMAKER PVCs Compared to ECG 12/18/2014 10:06:20 No significant changes I reviewed the tracing and have either a greed or edited the findings in this report. Electronically Signed On 09:23:36 EDT by TELMA BACA MD. Procedure Note Telma Baca MD - 11/13/[address] [facility] r Test Date: 2015-11-12 Pat Name: TANAI STAHL Department: [facility] Room: [facility] Gender: F Wheel Tuner: [id number] : 1945 Requested By: KERWIN Sales Order Number: [id number] Reading MD: Yunior BACA MD Measurements Intervals Harvel Rate: 79 P: CO: 0 QRS: 223 QRSD: 158 T: 70 QT: 455 QTc: 523 Interpretive Statements ELECTRONIC VENTRICULAR PACEMAKER PVCs Compared to ECG 12/18/2014 10:06:20 No significant changes I reviewed the tracing and have either a greed or edited the findings in this report. Electronically Signed On 09:23:36 EDT by TELMA BACA MD. Performing Organization Address City/State/ZIP Code Phon e Number [facility] EKG (ABNORMAL) PROTIME (11/12/2015 10:50 EDT) Pro Time 20.3 (H) 10.1 - 13.0 [facility] secs LABORATORY SERVICES I.N.R. 1.8 (H) 0.9 - 1.1 [facility] Comment: Ratio LABORATORY SERVICES Moderate Intensity Coumadin INR = 2.0-3.0 Adjustments in anticoagulant therapy dose should be based upon the INR and NOT the Pro Time. Specimen Blood specimen (specimen) - Blood Performing Organization Address City/[facility] Code Phon e Number [facility] [address] [place] [address] SERVICES (ABNORMAL) HEMAGRAM (11/12/2015 10:50 EDT) Pathologist Sig nature WBC 11.96 4.0 - 12.4 K/cmm [facility] RBC 5.05 (H) 3.86 - 5.04 M/cmm [facility] Hemoglobin 15.9 (H) 11.6 - 15.2 gm/dl [facility] HCT 44.9 (H) 34.9 - 44.4 % [facility] MCV 89 81 - 98 fl [facility] MCH 31.5 26.7 - 33.3 pg [facility] MCHC 35.4 32.1 - 35.9 gm/dl [facility] RDW-CV 13.0 11.7 - 14.6 % [facility] RDW-SD 42.0 37.6 - 50.3 fl [facility] PLT 299 141 - 377 K/cmm [facility] MPV 9.9 9.5 - 12.7 fl [facility] SERVICES Specimen Blood specimen (specimen) - Blood Performing Organization Address City/[facility]/ZIP Code Phon e Number [facility] [address] [place] [address] SERVICES ELECTROLYTES (11/12/2015 10:50 EDT) Pathologist Sig nature Sodium 141 136 - 145 mEq/L [facility] Potassium 4.2 3.5 - 5.0 mEq/L [facility] Chloride 102 96 - 110 mEq/L [facility] CO2 26 24 - 32 mEq/L [facility] Specimen Blood specimen (specimen) - Blood Performing Organization Address City/State/ZIP Code Phon e Number [facility] [address] [place] [address] SERVICES CREATININE (11/12/2015 10:50 EDT) Creatinine 0.82 0.52 - 1.04 [facility] mg/dl LABORATORY SERVICES GFR, Calculated 74 >60 [facility] Comment: ml/min/1.73m2 LABORATORY eGFR calculated using CKD-EPI equation for SERVICES non Americans. Multiply eGFR by 1.16 for Americans. Specimen Blood specimen (specimen) - Blood Performing Organization Address City/State/ZIP Code Phon e Number [facility] [address] [place] [address] SERVICES BUN (11/12/2015 10:50 EDT) Pathologist Sig nature BUN 24 10 - 26 mg/dl [facility] Specimen Blood specimen (specimen) - Blood Performing Organization Address City/State/ZIP Code Phon e Number [facility] [address] [place] [address] SERVICES documented in this encounter Visit Diagnoses Diagnosis Chronic atrial fibrillation (HCC) - Prim jessica Atrial fibrillation Cardiomyopathy (HCC) Other primary cardiomyopathies LBBB (left bundle branch block) Other left bundle branch block Biventricular ICD (implantable cardiover ter-defibrillator) in place Automatic implantable cardiac defibrilla tor in situ Cardiomyopathy, dilated, nonischemic (HC C-CMS) (HCC) Other primary cardiomyopathies documented in this encounter Administered Medications Inactive Administered Medications - up to 3 most recent administrations Medication Order MAR Action Action Date Dose Rate Site acetaminophen (TYLENOL) tablet 650 Given 11/12/2015 16:48 EDT 65 0 mg mg 650 mg, oral, EVERY 4 HOURS PRN, Starting on Jackeline 11/12/15 at 1520, Until Mon11/13/15 at 1253, Pain, Routine, Postprocedure digoxin (LANOXIN) tablet 125 mcg Given 11/13/2015 8:48 EDT 125 mcg 125 mcg, oral, DAILY, First dose on Mon11/13/15 at 0900, Until Discontinued, Routine, Postprocedure diphenhydrAMINE (BENADRYL) capsule 50 mg Given 11/12/2015 21:30 EDT 50 mg 50 mg, oral, AT BEDTIME PRN, Starting on Jackeline 11/12/15 at 1520, Until Mon11/13/15 at 1253, Sleep, Routine, Postprocedure fentaNYL citrate (PF) 50 mcg/mL injectio n Given 11/12/2015 14:17 EDT 25 mcg intravenous, PRN, Starting on Jackeline 11/12/15 at 1250, Until Mon11/12/15 at 1417, Routine Given 11/12/2015 13:32 EDT 25 mcg Given 11/12/2015 13:10 EDT 25 mcg furosemide (LASIX) tablet 80 mg Given 11/13/2015 8:48 EDT 80 mg 80 mg, oral, DAILY, First dose on Mon11/13/15 at 0900, Until Discontinued, Routine, Postprocedure lisinopril (PRINIVIL, ZESTRIL) tablet 5 mg Given 11/13/2015 8:49 EDT 5 mg 5 mg, oral, DAILY, First dose on Mon11/13/15 at 0900, Until Discontinued, Routine, Postprocedure LORazepam (ATIVAN) tablet 1 mg Given 11/12/2015 21:30 EDT 1 mg 1 mg, oral, EVERY 4 HOURS PRN, Starting on Jackeline 11/12/15 at 1520, Until Mon11/13/15 at 1253, Anxiety, Routine, Postprocedure metoprolol (LOPRESSOR) tablet 75 mg Given 11/13/2015 8:48 EDT 75 mg 75 mg, oral, 2 TIMES DAILY, First dose on Mon11/12/15 at 2100, Until Discontinued, Routine, Postprocedure Given 11/12/2015 21:30 EDT 75 mg midazolam (PF) (VERSED) 1 mg/mL injectio n Given 11/12/2015 14:17 EDT 1 mg intravenous, PRN, Starting on Jackeline 11/12/15 at 1250, Until Mon11/12/15 at 1417, Routine Given 11/12/2015 13:32 EDT 1 mg Given 11/12/2015 13:10 EDT 1 mg sodium chloride 0.9 % (NS) infusion New Bag 11/12/2015 10:52 EDT 30 mL/hr 30 mL/hr at 30 mL/hr, 30 mL/hr, intravenous, CONTINUOUS, Starting on Mon11/12/15 at 1030, Until Mon11/12/15 at 1520, Routine, Preprocedure spironolactone (ALDACTONE) tablet 12.5 m g Given 11/13/2015 8:48 EDT 12.5 mg 12.5 mg, oral, DAILY, First dose on Mon11/13/15 at 0900, Until Discontinued, Routine, Postprocedure warfarin (COUMADIN) tablet 7.5 mg Given 11/12/2015 21:30 EDT 7.5 mg 7.5 mg, oral, USER SPECIFIED (Once per day on Mon), First dose on Mon11/12/15 at 2100, Until Discontinued, Indications: atrial fibrillation, Is this a new start or continuation of therapy? Continuation, Routine documented in this encounter Discontinued Medications Medication Sig Discontinue Reason Start Date End Date NYSTATIN TOP Apply topically 11/13/2015 documented as of this encounter Active and Recently Administered Medications Times are shown in EDT. Scheduled Medication Order 11/11/2015 11/12/2015 11/13/2015 digoxin (LANOXIN) tablet 125 mcg (CANCELED) 0848 (Given - Provider: Erika Yen RN) 125 mcg, oral, DAILY, First dose on Mon11/13/15 at 0900, Until Discontinued, Routine furosemide (LASIX) tablet 80 mg (CANCELED) 0848 (Given - Provider: Erika Yen, MARTHA) 80 mg, oral, DAILY, First dose on Mon at 0900, Until Discontinued, Routine lisinopril (PRINIVIL, ZESTRIL) tablet 5 mg (CANCELED) 0849 (Given - Provider: Erika Yen, MARTHA) 5 mg, oral, DAILY, First dose on 10/31 at 0900, Until Discontinued, Routine metoprolol (LOPRESSOR) tablet 75 mg (CANCELED) 0 (Given - Provider: Marybel Stephen RN) 0848 (Given - Provider: Erika Yen RN) 75 mg, oral, 2 TIMES DAILY, First dose o n Mon11/12/15 at 2100, Until Discontinued, Routine spironolactone (ALDACTONE) tablet 12.5 mg (CANCELED) 0848 (Given - Provider: Erika Yen, RN) 12.5 mg, oral, DAILY, First dose on Mon11/13/15 at 0900, Until Discontinued, Routine warfarin (COUMADIN) tablet 7.5 mg (CANCELED) 2129 (Given - Provider: Marybel Stephen, MARTHA) 7.5 mg, oral, USER SPECIFIED (Once per d ay on Mon Jackeline Sat), First dose on Jackeline 11/12/15 at 2100, Until Discontinued, Routine Continuous Medication Order 11/11/2015 11/12/2015 11/13/2015 sodium chloride 0.9 % (NS) infusion (CANCELED) 1052 (New Bag - Provider: Carmen Rosenbaum, MARTHA) at 30 mL/hr, 30 mL/hr, intravenous, CONT INUOUS, Starting Jackeline 11/12/15 at 1030, Until Mon11/12/15 at 1520, Routine PRN Medication Order 11/11/2015 11/12/2015 11/13/2015 acetaminophen (TYLENOL) tablet 650 mg (CANCELED) 164 (Given - Provider: Lourdes Bond, MARTHA) 650 mg, oral, EVERY 4 HOURS PRN, Startin g Jackeline 11/12/15 at 1520, Until Mon11/13/15 at 1253, Pain, Routine diphenhydrAMINE (BENADRYL) capsule 50 mg (CANCELED) 2129 (Given - Provider: Marybel Stephen, MARTHA) 50 mg, oral, AT BEDTIME PRN, Starting Th u 11/12/15 at 1520, Until Mon11/13/15 at 1253, Sleep, Routine fentaNYL citrate (PF) 50 mcg/mL injection (COMPLETED) 1250 (Given - Provider: Rufina Patino, MARTHA)1310 (Given - Provider: Yury Lr, MARTHA)1332 (Given - Provider: Yury Lr, MARTHA)1417 (Given - Provider: Rufina Patino, MARTHA) intravenous, PRN, Starting Jackeline 11/12/15 at 1250, Until Discontinu ed, Routine LORazepam (ATIVAN) tablet 1 mg (CANCELED) 2129 (Given - Provider: Marybel Stephen, MARTAH) 1 mg, oral, EVERY 4 HOURS PRN, Starting Jackeline 11/12/15 at 1520, Until 11/13/15 at 1253, Anxiety, Routine midazolam (PF) (VERSED) 1 mg/mL injection (COMPLETED) 1250 (Given - Provider: Rufina Patino, RN)1310 (Given - Provider: Yury Lr, RN)1332 (Given - Provider: Yury Lr, RN)1417 (Given - Provider: Rufina Patino, RN) intravenous, PRN, Starting Jackeline 11/12/15 at 1250, Until Discontinu ed, Routine documented in this encounter Orders Medications Ordered That Might Not Have Count Last Ord ered Date First Ordered Date Been Administered blood thinner patient education booklet 1 1 2015 Each chlorhexidine gluconate 2 % cloth 1 Each 1 016 fentaNYL citrate (PF) 50 mcg/mL injection 1 2015 lidocaine 10 mg/mL (1 %) injection 1 11/12/2015 midazolam (PF) (VERSED) 1 mg/mL injection 1 2015 sodium chloride 0.9 % flush 3 mL 1 11/12/2015 warfarin (COUMADIN) tablet 5 mg 2 11/12/2015 Procedures Count Last Ordered Date First Ordered Date ECG REPORT - SCANNED 4 11/17/2015 11/16/2015 INVASIVE CARDIOLOGY REPORT-SCANNED 1 11/17/2015 Nursing Count Last Ordered Date First Ordered Date PATIENT NOT A CANDIDATE FOR MECHANICAL VTE 1 11/11 PROPHYLAXIS VTE PHARMACOLOGIC PROPHYLAXIS CURRENTLY 1 11/12/19 16 ORDERED OR ON ALTERNATIVE THER Admission Count Last Ordered Date First Ordered Date STATUS: OUTPATIENT MEDICAL OP BED/SERVICES 1 11/11 Transfer Count Last Ordered Date First Ordered Date NOTIFY PPS OF DISCHARGE COMPLETE 1 11/13/2015 NOTIFY PPS OF ROOM CHANGE COMPLETE 11/13/2015 PPS NOTIFICATION OF PATIENT ARRIVAL ON 6 UNIT Discharge Count Last Ordered Date First Ordered Date DISCHARGE PATIENT 1 11/13/2015 documented in this encounter Care Teams Pulmonary Specialist Relationship Specialty Start Date End Date Silvino Charles MD PCP - General 08/05/11 08/25/21 documented as of this encounter
--- OUTSIDE RECORDS SUMMARY | 2022-04-12 14:39 | XMS_ITS | Encounter Summary ---
:1945 Author Organization [facility] Address [address] [place] [address] Care Team Providers Name Role Phone Silvino Charles MD Primary Care Provider Unavailable Reason for Visit Reason Comments Cardiomyopathy Pacemaker/Device Check Follow-up Encounter Details Date Type Department Care Team Description 10/14/2019 Telemedicine [facility] - Eun Nolen diomyopathy, dilated, nonischemic (HCC-CMS) (Primary Dx); [facility] Cardiology MD Luis Biventricular ICD (implantable cardiover ter-defibrillator) in place; Clinic [address] [facility] Chronic atrial fibrillation; [address] [facility] [address] LBBB (left bundle branch block) [place] [address] [place], [place] [phone] Social History Tobacco Use Types Packs/Day [...] Taken Comments Blood Pressure - - Pulse 62 10/14/2019 1600 EDT Temperature - - Respiratory Rate 16 10/14/2019 1600 EDT Oxygen Saturation - - Inhaled Oxygen [...] or older) documented as of this encounter Progress Notes Charli Trujillo - 10/14/[address] Nolen, Ronnell appt is ok Magalys Herman - 10/14/2019 1600 EDT I called pt to verify she has cell service at her home, she stated she does. I told her I was going to put in an order few a new carelink remote monitor. She relayed understanding. Order placed for a new Medtronic Carelink box Charli Walker - 10/14/2019 1600 EDT Magalys, Can you help with this ,per Dr. Nolen: Please also ask aMgalys to see if she could be set up with a newer CareLink. Also can you put in in clinic device check as this pt does not have an order for this. Thanks Charli Walker - 10/14/2019 1600 EDT appt sched for 02/10/20; [address] Nolen you do not have any availability for mid to late December so sched with pt for January. Pt asked that I check to make sure that this is appropriate, if she needs to be seen sooner please advise on appt date and time. Eun Ramirez MD - 10/14/2019 1600 EDT [facility] Cardiology Telemedicine Visit Verbal consent: The concept of ???Telemedicine?? has been described to the patient.? Patient has been informed of the anticipated benefits and possible risks.? Patient understands the information provided regarding telemedicine, has had the opportunity to ask questions about this information, and all questions have been answered to patient???s satisfaction. Patient consents for the use of telemedicine in his/her medical care and authorizes the transmission of any relevant medical information to providers and theirstaff involved in patient???s medical or mental health care. This visit was conducted via telephone. Subjective: Chief Complaint(s): Cardiomyopathy; Pacemaker/Device Check; and Follow-up HPI: 74-year-old woman with permanent atrial fibrillation, nonischemic cardiomyopathy with chronic systolic heart failure, left bundle branch block and obesity. Had WOUND/OSTOMY NURSE-D implant 12/2014, AVN ablation 12/2015. Usually followed in our [facility] cardiology/cardiac device clinic. Echo 2016 showed significantly improved LV function. Today at the phone, she reports doing well, has good and stable exercise capacity. Rare orthostatic dizziness. Denies chest pain, shortness of breath at rest, palpitations, syncope, orthopnea, PND, fevers, chills, bleeding. Has more joint pain recently, small joints. Gained 5 lbs, less activity, more eating. Data review: Echocardiogram 12/2016: Normal LV size, moderate LVH, low normal LV function, LVEF 50-55%, no regional wall motion abnormality. Normal RV size, mildly reduced RV function. Moderately dilated LA, mildly dilated IVC, normal respirophasic changes. 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 Family history: Both parents with atrial fibrillation at age, maternal grandfather with CVA. Current Outpatient Medications on File Prior to Visit Medication Sig Dispense Refill ??? clotrimazole-betamethasone (LOTRISONE) cream Apply topically. ??? digoxin (LANOXIN) 125 mcg tablet Take 187.5 mcg by mouth daily. ??? diphenhydrAMINE (BENADRYL) 50 mg capsule Take 1 Cap by mouth at bedtime. ??? furosemide (LASIX) 40 mg tablet Take 80 mg by mouth daily. ??? lisinopril (PRINIVIL) 5 mg tablet ??? LORazepam (ATIVAN) 1 mg tablet 1 tab(s) orally once a day ??? metoprolol (LOPRESSOR) 50 mg tablet 2 tab(s) orally 2 times a day ??? rivaroxaban (XARELTO) 20 mg tablet tablet Take 20 mg by mouth daily with dinner. ??? spironolactone (ALDACTONE) 25 mg tablet Take 12.5 mg by mouth daily ??? trimethobenzamide (TIGAN) 300 mg capsule Take 300 mg by mouth daily as needed. No current facility-administered medications on file prior to visit. 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 Allergies NKDA I have reviewed current problem list and current medications. ROS: A 10-system ROS was performed, pertinent items as mentioned in HPI, otherwise negative. ROS Objective: Examination: Vitals: Pulse 62 Resp 16 There is no height or weight on file to calculate BMI. Physical Exam (patient-reported). Stable 1-2+ ankle edema. Assessment & Plan: Assessments 1. Chronic atrial fibrillation - I48.2 (Primary) 2. Cardiomyopathy - I42.9 3. Left bundle branch block - I44.7 4. Biventricular implantable cardioverter-defibrillator in situ - Z95.810 5. Chronic anticoagulation 74-year-old woman with permanent atrial fibrillation, nonischemic cardiomyopathy with chronic systolic heart failure, left bundle branch block and obesity. Was clinically NYHA III, had LVEF 30% despiteoptimal medical therapy. WOUND/OSTOMY NURSE-D Implant 12/2014, AVN ablation 12/2015.Now continues doing well with biventricular pacing, echocardiogram 2016 with significant improvement of LVEF to the low normal range correlating with her improvement in exercise capacity. Doing well, stable exercise capacity. Recommended to continue current medications. Device check not possible remotely, will plan to check in 3 months. Explained CareLink mechanism in detail, will recheck if she can be set up for remote checks. Totaltime: 25 minutes. Treatment 1. Chronic atrial fibrillation Continue Xarelto [...] systolic congestive heart failure, NYHA class 3 ([facility]) Continue Metoprolol Tartrate tablet, 50 mg, 2 tab(s), orally, 2 times a day Patient initiated phone contact with the office Yes, Is an established patient (parent, guardian) Yes, E/M provided within previous 7 days for same Assessment No, Anticipate E/M service within 24hrs ornext available urgent appointment No, Time spent in medical discussion 25min. Eun Nolen MD documented in this encounter Plan of Treatment Upcoming Encounters Date Type Specialty Care Team Description 04/21/2022 Ancillary Procedure Cardiology 04/21/2022 Office Visit Cardiology Eun Nolen MD [address] [facility] [address] [place] [address] (Wo rk) 07/15/2022 Office Visit Surgical Oncology Jens Almanza MD [address] [facility], [facility], [address] [place] [phone] (Wo rk) documented as of this encounter Visit Diagnoses Diagnosis Cardiomyopathy, dilated, nonischemic (HC C-CMS) (HCC) - Primary Other primary cardiomyopathies Biventricular ICD (implantable cardiover ter-defibrillator) in place Automatic implantable cardiac defibrilla tor in situ Chronic atrial fibrillation (HCC) Atrial fibrillation LBBB (left bundle branch block) Other left bundle branch block documented in this encounter Discontinued Medications Medication Sig Discontinue Reason Start Date End Date diphenhydrAMINE (BENADRYL) Take 50 mg by Order modification 10/14/2019 50 mg capsule mouth at bedtime as needed documented as of this encounter Historical Medications This list may reflect changes made after this encounter. Medication Sig Dispensed Refills Start Date End Date diphenhydrAMINE (BENADRYL) Take 1 Cap by 0 2019 50 mg capsule mouth at bedtime. rivaroxaban (XARELTO) 20 mg Take 20 mg by 0 09/10/2020 tablet tabletIndications: mouth daily with prevent thromboembolism in dinner. chronic atrial fibrillation added in this encounter Care Teams Disaster Response Director Relationship Specialty Start Date End Date Silvino Charles MD PCP - General 08/05/11 08/25/21 documented as of this encounter
--- OUTSIDE RECORDS SUMMARY | 2022-04-12 14:39 | XMS_ITS | Encounter Summary ---
:1945 Author Organization [facility] Address [address] [place] [address] Care Team Providers Name Role Phone Silvino Charles MD Primary Care Provider Unavailable Encounter Details Date Type Department Care Team Description 11/03/2015 Pre-Procedure SVC [facility] Nolen, Chronic atrial fibrillation ([facility]- HCC) (Primary Dx); Orders Encounter CARDIOLOGY Eun Smith, Cardiomyopathy ([facility]-HCC); [address] Ira[address] Waterman MD LBBB (left bundle branch block); [place], [place] [address] Biventricular ICD (implantable cardiover ter-defibrillator) in place [id number] [facility] [place] [address] Social History Tobacco Use Types Packs/Day [...] Office Visit Cardiology Eun Nolen MD [address] [facility] [address] [phone] (Wo rk) 07/15/2022 Office Visit Surgical Oncology Jens Almanza MD [address] [place] [address], [facility], [facility] [address] [place] [address] (Wo rk) documented as of this encounter Visit Diagnoses Diagnosis Chronic atrial fibrillation (HCC) - Prim jessica Atrial fibrillation Cardiomyopathy (HCC) Other primary cardiomyopathies LBBB (left bundle branch block) Other left bundle branch block Biventricular ICD (implantable cardiover ter-defibrillator) in place Automatic implantable cardiac defibrilla tor in situ documented in this encounter Care Teams Shovel Oiler Relationship Specialty Start Date End Date Silvino Charles MD PCP - General 08/05/11 08/25/21 documented as of this encounter
--- OUTSIDE RECORDS SUMMARY | 2022-04-12 14:39 | XMS_ITS | Encounter Summary ---
:1945 Author Organization [facility] Address [address] [place] [address] Care Team Providers Name Role Phone Silvino Charles MD Primary Care Provider Unavailable Reason for Visit Reason Comments Pacemaker/Device Check Medtronic Encounter Details Date Type Department Care Team Description 09/14/2020 Office Visit [facility] - Eun Nolen congestive heart failure, unspecified heart failure type (HCC-CMS) (Primary Dx); [facility] Cardiology MD Luis Cardiomyopathy, dilated, nonischemic (HC C-CMS); Clinic [address] [facility] Chronic systolic congestive heart failur e, NYHA class 3 ([facility]-CMS); [address] [place] [address] [address] Chronic atrial fibrillation ([facility]-CMS); [place] [address] [place] Biventricular ICD (implantab le cardioverter-defibrillator) in place; [phone] LBBB (left bundle branch block) Social History Tobacco Use Types Packs/Day Years [...] Sign Reading Time Taken Comments Blood Pressure 120/72 09/14/2020 1606 EDT Pulse 73 09/14/2020 1606 EDT Temperature - - Respiratory Rate - - Oxygen Saturation 97% 09/14/2020 1606 EDT Inhaled Oxygen Concentration - - Weight 98 kg (216 lb) 09/14/2020 1606 EDT Height 174 cm (5' 8.5) 09/14/2020 1606 EDT Body Mass Index 32.36 09/14/2020 1606 EDT documented in this encounter Functional Status [...] encounter Progress Notes Eun Nolen MD - 09/14/2020 1615 EDT [facility] Cardiology Clinic Visit Subjective: Chief Complaint(s): Pacemaker/Device Check (Medtronic) HPI: 75-year-old woman with permanent atrial fibrillation, nonischemic cardiomyopathy with chronic systolic heart failure, left bundle branch block and obesity. Had BEHAVIORAL SERVICES TECH-D implant 12/2014, AVN ablation 12/2015. Followed in our [facility] cardiology/cardiac device clinic until 2019. Echo 2017 showed significantly imp roved LV function. Today in the office she reports doing well overall, with good and stable exercise capacity. Rare orthostatic dizziness. She reports a single episode with epigastric, substernal pain, which occurred yesterday and lasted about 20min. Subsided spontaneously, felt different that heartburn, no associated symptoms. Denies exertional chest pain, shortness of breath, palpitations, syncope, orthopnea, PND, fevers, chills, bleeding. Lost some weight. Had her first Moderna-Covid vaccine, with usual, mild localreaction. Data review: Echocardiogram 12/2016: Normal LV size, moderate LVH, low normal LV function, LVEF 50-55%, no regional wall motion abnormality. Normal RV size, mildly reduced RV function. Moderately dilated LA, mildly dilated IVC, normal respirophasic changes. 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 Allergies NKDA I have reviewed current problem list and current medications. ROS: A 10-system ROS was performed, pertinent items as mentioned in HPI, otherwise negative. ROS Objective: Examination: Vitals: BP 120/72 (BP Cuff Location: Left arm, BP Patient Position: Sitting, BP Cuff Sizes: Adult, large) Pulse 73 Ht 174 cm (68.5) Wt 98 kg (216 lb) SpO2 97% BMI 32.36 kg/m?? Body mass index is 32.36 kg/m??. Physical Exam General Exam: GENERAL APPEARANCE: [...] BS present. EXTREMITIES: no clubbing, no cyanosis, B1+ edema. PERIPHERAL PULSES: carotid, radial, PT: 2+ bilaterally. SKIN: warm & dry. NEUROLOGIC EXAM: alert & oriented x3, left-handed, normal speech, gait normal. Device Check: PACER INFORMATION: Medtronic Viva Quad XT BEHAVIORAL SERVICES TECH-D; CM; AF; implanted 12/18/2014 Dr. Nolen. Spontaneous Rhythm: BiV pace, 60/min. Programmed Mode: VVIR 60 - 120 bpm; non-adaptive BEHAVIORAL SERVICES TECH. Underlying Rhythm: Permanent AF with iatrogenic complete AV block without escape rhythm, PACER DEPENDENT. Paced: Vpace 99.2%. Ventricular: RV 0.75V @ 0.4ms, LV 1.25V 0.6ms.. Ventricular output: RV 2V @ 0.4ms, LV programmed 2V @ 0.6ms., . Ventricular Impedence (Ohms): RV pacing [id number], RV coil 56ohms, SVC coil 76ohms, LV pacing impedance 1273 ohms.. R-Wave (MV): 17.1mV. Longevity: 2.1 yrs. Conclusion: Normal device function, battery okay, stable pacing sensing and impedance thresholds, notachyarrhythmia detected or treated. Permanent AF with iatrogenic AV block and 100% biventricular pacing. Pacer dependent. Patient activity significantly decreased at the beginning of the pandemic, nowstable low level. OptiVol fluid index was above threshold over the summer, now at baseline. Iterative adjustment of programmed parameters to test device function. Demonstrated alert sounds, well audible by patient. Assessment & Plan: 1. Chronic congestive heart failure, unspecified heart failure type (HCC-CMS) BASIC METABOLIC PANEL (BMP) COMPLETE BLOOD COUNT AND DIFFERENTIAL 2. Cardiomyopathy, dilated, nonischemic (HCC-CMS) 3. Chronic systolic congestive heart failure, NYHA class 3 (HCC-CMS) 4. Chronic atrial fibrillation (HCC-CMS) 5. Biventricular ICD (implantable cardioverter-defibrillator) in place 6. LBBB (left bundle branch block) 75-year-old woman with permanent atrial fibrillation, nonischemic cardiomyopathy with chronic systolic heart failure, left bundle branch block and obesity. Was clinically NYHA III, had LVEF 30% despiteoptimal medical therapy. BEHAVIORAL SERVICES TECH-D Implant 12/2014, AVN ablation 12/2015.Now continues doing well with biventricular pacing, echocardiogram 2017 with significant improvement of LVEF to the low normal range correlating with her improvement in exercise capacity. Doing well, stable exercise capacity. Her chestdiscomfort appears not cardiac, advised her to let us know if sxs recur, especially with exertion. IN the meantime we will recheck labs. Recommended to continue current medications. Device check WNL, fluid index low again. Detailed discussion of recent Medtronic advisory regarding mildly elevated riskof more rapid battery depletion. For added safety we will update and reactivate her [facility]. She will notify us immediately in case she hears the alert sound. We will then exchange the device immmediately. Also rediscussed importance of more physical activity and further [...] time of the visit. Eun Nolen MD Charli Walker - 09/14/2020 1615 EDT appt sched for 12/25/20; 1615 documented in this encounter Plan of Treatment Upcoming Encounters Date Type Specialty Care Team Description 04/21/2022 Ancillary Procedure Cardiology 04/21/2022 Office Visit Cardiology Eun Nolen MD [address] [place] [address] [address] [place] [address] (Birdie walls) 07/15/2022 Office Visit Surgical Oncology Jens Almanza MD [address] [facility], [facility] [address] [place] [address] (Birdie walls) documented as of this encounter Visit Diagnoses Diagnosis Chronic congestive heart failure, unspec ified heart failure type (HCC-CMS) (HCC) - Primary Cardiomyopathy, dilated, nonischemic (HC C-CMS) (HCC) Other primary cardiomyopathies Chronic systolic congestive heart failur e, NYHA class 3 ([facility]) (HCC) Chronic systolic heart failure Chronic atrial fibrillation (HCC) Atrial fibrillation Biventricular ICD (implantable cardiover ter-defibrillator) in place Automatic implantable cardiac defibrilla tor in situ LBBB (left bundle branch block) Other left bundle branch block documented in this encounter Care Teams Senior Bioinformatics Scientist Relationship Specialty Start Date End Date Silvino Charles MD PCP - General 08/05/11 08/25/21 documented as of this encounter
--- OUTSIDE RECORDS SUMMARY | 2022-04-12 14:39 | XMS_ITS | Encounter Summary ---
:1945 Author Organization [facility] Address [address] [place] [address] Care Team Providers Name Role Phone Silvino Charles MD Primary Care Provider Unavailable Reason for Visit Reason Comments Follow-up 3 months Pacemaker/Device Check Encounter Details Date Type Department Care Team Description 03/16/2020 Office Visit [facility] - Eun Nolen Car diomyopathy, dilated, nonischemic (HCC-CMS) (Primary Dx); [facility] Cardiology MD Luis Chronic systolic congestive heart failur e, NYHA class 3 (HCC-CMS); Clinic [address] Chronic atrial fibrillation; [address] Biventricular ICD (implantable cardiover ter-defibrillator) in place; [place] [address] [place] LBBB (left bundle branch blo ck) [phone] Social History Tobacco Use Types Packs/Day [...] Sign Reading Time Taken Comments Blood Pressure 130/70 03/16/2020 1528 EDT Pulse 79 03/16/2020 1528 EDT Temperature - - Respiratory Rate - - Oxygen Saturation 98% 03/16/2020 1528 EDT Inhaled Oxygen Concentration - - Weight 102.7 kg (226 lb 8 oz) 03/16/2020 1528 EDT Height 174 cm (5' 8.5) 03/16/2020 1528 EDT Body Mass Index 33.94 03/16/2020 1528 EDT documented in this encounter Functional Status [...] encounter Progress Notes Eun Nolen MD - 03/16/2020 1530 EDT [facility] Cardiology Clinic Visit Subjective: Chief Complaint(s): Follow-up (3 months) and Pacemaker/Device Check HPI: 75-year-old woman with permanent atrial fibrillation, nonischemic cardiomyopathy with chronic systolic heart failure, left bundle branch block and obesity. Had COMMERCIAL SUBCONTRACTOR-D implant 12/2014, AVN ablation 12/2015. Followed in our [facility] cardiology/cardiac device clinic until 2019. Echo 2017 showed significantly imp roved LV function. Today in the office she reports doing well, with good and stable exercise capacity. Rare orthostaticdizziness. Denies chest pain, shortness of breath at rest, palpitations, syncope, orthopnea, PND, fevers, chills, bleeding. Has more joint pain recently, small joints. Gained more weight, less activitydue to the pandemic, more eating. Needs a new PCP, ideally in the [place] area. Data review: Echocardiogram 12/2016: Normal LV size, moderate LVH, low normal LV function, LVEF 50-55%, no regional wall motion abnormality. Normal RV size, mildly reduced RV function. Moderately dilated LA, mildly dilated IVC, normal respirophasic changes. 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 Allergies NKDA I have reviewed current problem list and current medications. ROS: A 10-system ROS was performed, pertinent items as mentioned in HPI, otherwise negative. ROS Objective: Examination: Vitals: BP 130/70 Pulse 79 Ht 174 cm (68.5) Wt (!) 102.7 kg (226 lb 8 oz) SpO2 98% BMI 33.94 kg/m?? Body mass index is 33.94 kg/m??. Physical Exam General Exam: GENERAL APPEARANCE: [...] Check: PACER INFORMATION: Medtronic Viva Quad XT COMMERCIAL SUBCONTRACTOR-D; CM; AF; implanted 12/18/2014 Dr. Nolen. Spontaneous Rhythm: BiV pace, 60/min. Programmed Mode: VVIR 60 - 120 bpm; non-adaptive COMMERCIAL SUBCONTRACTOR. Underlying Rhythm: Permanent AF with iatrogenic complete AV block without escape rhythm, PACER DEPENDENT. Paced: Vpace 99.1%. Ventricular: RV 0.75V @ 0.4ms, LV 1V 0.6ms.. Ventricular output: RV 2V @ 0.4ms, LV programmed 2V @ 0.6ms., . Ventricular Impedence (Ohms): RV pacing impedance 399ms, RV coil 47ohms, SVC coil 59ohms, LV pacing impedance 1216 ohms.. R-Wave (MV): >20mV. Longevity: 2.3 yrs. Conclusion: Normal device function, battery okay, stable pacing sensing and impedance thresholds, notachyarrhythmia detected or treated. Permanent AF with iatrogenic AV block and 100% biventricular pacing. Pacer dependent. Patient activity significantly decreased since the beginning of the pandemic. OptiVol fluid index was above threshold over the summer, now back at baseline. Iterative adjustment of programmed parameters to test device function. Assessment & Plan: 1. Cardiomyopathy, dilated, nonischemic (HCC-CMS) 2. Chronic systolic congestive heart failure, NYHA class 3 (HCC-CMS) 3. Chronic atrial fibrillation 4. Biventricular ICD (implantable cardioverter-defibrillator) in place 5. LBBB (left bundle branch block) 75-year-old woman with permanent atrial fibrillation, nonischemic cardiomyopathy with chronic systolic heart failure, left bundle branch block and obesity. Was clinically NYHA III, had LVEF 30% despiteoptimal medical therapy. COMMERCIAL SUBCONTRACTOR-D Implant 12/2014, AVN ablation 12/2015.Now continues doing well with biventricular pacing, echocardiogram 2016 with significant improvement of LVEF to the low normal range correlating with her improvement in exercise capacity. Doing well, stable exercise capacity. Recommended to continue current medications. Device check WNL, fluid index low again. Discussed importance of more physical activity and weight loss. Total [id number] time: 25 minutes, more than 50% in patient education counseling regarding above issues. Treatment 1. Chronic atrial fibrillation Continue Xarelto [...] 2 tab(s), orally, 2 times a day Eun Nolen MD documented in this encounter Plan of Treatment Upcoming Encounters Date Type Specialty Care Team Description 04/21/2022 Ancillary Procedure Cardiology 04/21/2022 Office Visit Cardiology Eun Nolen MD [address] [facility] [address] [place], [place] [phone] (Wo rk) 07/15/2022 Office Visit Surgical Oncology Jens Almanza MD [address] [facility], [facility], [address] [place] [address] (Wo rk) documented as of [...] Sig Discontinue Reason Start Date End Date lisinopril (PRINIVIL) 5 mg tablet Order modification 1 08/27/2018 03/16/2020 documented as of this encounter Historical Medications This list may reflect changes made after this encounter. Medication Sig Dispensed Refills Start Date End Date lisinopriL (PRINIVIL) 5 mg tablet 1 Tab daily. 0 03/16/2020 added in this encounter Care Teams Customer Service Sales Consultant Relationship Specialty Start Date End Date Silvino Charles MD PCP - General 08/05/11 08/25/21 documented as of this encounter
--- OUTSIDE RECORDS SUMMARY | 2022-04-12 14:39 | XMS_ITS | Encounter Summary ---
:1945 Author Organization [facility] Address [address] [place] [address] Care Team Providers Name Role Phone Silvino Charles MD Primary Care Provider Unavailable Reason for Visit Reason Comments Other Encounter Details Date Type Department Care Team Description 05/27/2019 Refill [facility] Eun Jorgensen MD Other Cardiology Clinic [address] [place] [address] [place] [address] (Wo rk) Social History Tobacco [...] or older) documented as of this encounter Ordered Prescriptions Prescription Sig Dispensed Refills Start Date End Date XARELTO 20 mg tablet Take 1 tablet by 90 Tab 2 9 06/28/2019 tablet mouth every evening documented in this encounter Plan of Treatment Upcoming Encounters Date Type Specialty Care Team Description 04/21/2022 Ancillary Procedure Cardiology 04/21/2022 Office Visit Cardiology Eun Nolen MD [address] [phone] (Wo rk) 07/15/2022 Office Visit Surgical Oncology Jens Almanza MD [address] [facility], [facility], [facility] [address] [place] [address] (Wo rk) documented as of this encounter Visit Diagnoses Not on filedocumented in this encounter Discontinued Medications Medication Sig Discontinue Reason Start Date End Date metoprolol (LOPRESSOR) 50 Take 1.5 Tabs by 12/19/2014 05/28/2019 mg tablet mouth 2 times daily Which is 75 mg mg twice a day furosemide (LASIX) 40 mg Take 80 mg by tablet mouth daily trimethobenzamide (TIGAN) Take 300 mg by mouth daily as needed 05/28/2019 300 mg capsule LORazepam (ATIVAN) 1 mg Take 1 mg by mouth 05/28/2019 tablet every 4 hours as needed for Anxiety lisinopril (PRINIVIL, Take 5 mg by mouth 05/28/2019 ZESTRIL) 5 mg tablet daily NYSTATIN (MYCOSTATIN TOP) Apply topically 05/28/2019 warfarin (COUMADIN) 2.5 mg Take as directed 12/19/2014 05/28/2019 tabletIndications: atrial in the evening: fibrillation Per Dr Yunior Charles office on 12/18/14 Coumadin Regimen: Coumadin 7.5 mg Nod-Seysi-Ota and Coumadin 5 mg on Xkv-Rlhu-[id number] diphenhydrAMINE (BENADRYL) 1 tab(s) orally hs 05/28/2019 50 mg capsule prn digoxin (LANOXIN) 125 mcg 1 1/2 tablets 1 07/28/2018 (0.125 mg) tablet orally once a day documented as of this encounter Historical Medications This list may reflect changes made after this encounter. Medication Sig Dispensed Refills Start Date End Date LORazepam (ATIVAN) 1 mg 1 tab(s) orally 0 tablet once a day trimethobenzamide (TIGAN) Take 300 mg by 0 300 mg capsuleIndications: mouth daily as PRN needed. furosemide (LASIX) 40 mg Take 80 mg by 0 12/11/19 13 tablet mouth daily. diphenhydrAMINE (BENADRYL) 1 tab(s) orally 0 05/28/2019 50 mg capsule hs prn rivaroxaban (XARELTO) 20 mg Take 20 mg by 0 05/0206/28/2019 tablet tablet mouth daily with dinner. digoxin (LANOXIN) 125 mcg 1 1/2 tablets 0 05/28/2019 (0.125 mg) tablet orally once a day metoprolol (LOPRESSOR) 50 mg 2 tab(s) orally 2 0 04/02/2020 tablet times a day added in this encounter Care Teams Printed Circuit Boards Router Relationship Specialty Start Date End Date Silvino Charles MD PCP - General 08/05/11 08/25/21 documented as of this encounter
--- OUTSIDE RECORDS SUMMARY | 2022-04-12 14:39 | XMS_ITS | Encounter Summary ---
:1945 Author Organization [facility] Address [address] [place] [address] Care Team Providers Name Role Phone Silvino Charles MD Primary Care Provider Unavailable Reason for Visit Reason Comments Follow-up Pacemaker/Device Check Cardiology (Routine) - Specialty Report Received Specialty Diagnoses / Procedures Referred By Contact Refer red To Contact Diagnoses Encounter for adjustment and management of other part of cardiac pacemaker Eun Nolen MD Procedures CARDIAC IMPLANT CHECK - IN CLINIC [address] [place] [address] Referral ID Status Reason Start Date Expiration Date Visits V isits Requested Authorized [id number] Specialty 04/21/2019 1 1 Report Received Encounter Details Date Type Department Care Team Description 06/28/2019 Ancillary [facility] Nolen, Permanent atrial fibrillation (Primary Dx); Procedure - [facility] Cardiology Maxine Montgomery for adjustment and management of other part of cardiac pacemaker; Clinic Cardiomyopathy, dilated, nonischemic (HC C-CMS); [address] Chronic systolic congestive heart failur e, NYHA class 3 (HCC-CMS); [place] [address] [address] Biventricular ICD (implantable cardiover ter-defibrillator) in place; [phone] [place] LBBB (left bund le branch block); [phone] Chronic anticoagulation Social History Tobacco Use Types Packs/Day [...] Sign Reading Time Taken Comments Blood Pressure 112/78 06/28/2019 1350 EST Pulse 86 06/28/2019 1350 EST Temperature - - Respiratory Rate - - Oxygen Saturation 96% 06/28/2019 1350 EST Inhaled Oxygen Concentration - - Weight 98.9 kg (218 lb) 06/28/2019 1350 EST Height 174 cm (5' 8.5) 06/28/2019 1350 EST Body Mass Index 32.66 06/28/2019 1350 EST documented in this encounter Functional Status Functional [...] Start Date End Date rivaroxaban (XARELTO) 20 Take 1 Tab by mouth 90 Tab 3 09/26/2019 mg tablet daily with dinner tabletIndications: for 90 days. Permanent atrial fibrillation (HCC-CMS) (HCC) documented in this encounter Progress Notes Eun Nolen MD - 06/28/2019 1430 EST [facility] Cardiology Subjective: Chief Complaint(s): Follow-up and Pacemaker/Device Check HPI: 74-year-old woman with permanent atrial fibrillation, nonischemic cardiomyopathy with chronic systolic heart failure, left bundle branch block and obesity. Had INSURANCE SALES EXECUTIVE-D implant 12/2014, AVN ablation 12/2015. Usually followed in our [facility] cardiology/cardiac device clinic. Echo 2017 showed significantly improved LV function. Returns to the office for routine follow-up. Continues doing well, with good and stable exercise capacity. Rare orthostatic dizziness. Denies chest pain, shortness of breath at rest, palpitations, syncope, orthopnea, PND, fevers, chills, bleeding. Data review: Echocardiogram 12/2016: Normal LV size, moderate LVH, low normal LV function, LVEF 50-55%, no regional wall motion abnormality. Normal RV size, mildly reduced RV function. Moderately dilated LA, mildly dilated IVC, normal respirophasic changes. 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 furosemide (LASIX) 40 mg tablet Take 80 mg by mouth daily. ??? lisinopril (PRINIVIL) 5 mg tablet ??? LORazepam (ATIVAN) 1 mg tablet 1 tab(s) orally once a day ??? metoprolol (LOPRESSOR) 50 mg tablet 2 tab(s) orally 2 times a day ??? spironolactone (ALDACTONE) 25 mg tablet Take 12.5 mg by mouth daily ??? trimethobenzamide (TIGAN) 300 mg capsule No current facility-administered medications on file prior to visit. 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 Allergies NKDA I have reviewed current problem list and current medications. ROS: A 10-system ROS was performed, pertinent items as mentioned in HPI, otherwise negative. ROS Objective: Examination: Vitals: BP 112/78 (BP Cuff Location: Right arm, BP Patient Position: Sitting, BP Cuff Sizes: Adult, large) Pulse 86 Ht 174 cm (68.5) Wt 98.9 kg (218 lb) SpO2 96% BMI 32.66 kg/m?? Body mass index is 32.66 kg/m??. Physical Exam General Exam: GENERAL APPEARANCE: [...] BS present. EXTREMITIES: no clubbing, no cyanosis, no edema. PERIPHERAL PULSES: carotid, radial, PT: 2+ bilaterally. SKIN: warm & dry. NEUROLOGIC EXAM: alert & oriented x3, left-handed, normal speech, gait normal. Device Check: PACER INFORMATION: Medtronic Viva Quad XT INSURANCE SALES EXECUTIVE-D; CM; AF; implanted 12/18/2014 Dr. Nolen. Spontaneous Rhythm: BiV pace, 60/min. Programmed Mode: VVIR 60 - 120 bpm; non-adaptive INSURANCE SALES EXECUTIVE. Underlying Rhythm: Permanent AF with iatrogenic complete AV block without escape rhythm, PACER DEPENDENT. Paced: Vpace 99.6%. Ventricular: RV 0.75V @ 0.4ms, LV 1V 0.6ms.. Ventricular Capture: RV 2V @ 0.4ms, LV reprogrammed 2V @ 0.6ms., . Ventricular Impedence (Ohms): RV pacing impedance 456ms, RV coil 54ohms, SVC coil 72ohmsLV pacing impedance 1102 ohms.. R-Wave (MV): 20mV. Longevity: 2.8yrs. Conclusion: Normal device function, battery okay, stable pacing sensing and impedance thresholds, notachyarrhythmia detected or treated. Permanent AF with iatrogenic AV block and 100% biventricular pacing. Pacer dependent. Reprogrammed LV lead output.. Reprogrammed: see above.. Assessment & Plan: Assessments 1. Chronic atrial fibrillation - I48.2 (Primary) 2. Cardiomyopathy - I42.9 3. Left bundle branch block - I44.7 4. Biventricular implantable cardioverter-defibrillator in situ - Z95.810 5. Chronic anticoagulation 73-year-old woman with permanent atrial fibrillation, nonischemic cardiomyopathy with chronic systolic heart failure, left bundle branch block and obesity. Was clinically NYHA III, had LVEF 30% despiteoptimal medical therapy. INSURANCE SALES EXECUTIVE-D Implant 12/2014, AVN ablation 12/2015.Now continues doing well with biventricular pacing, echocardiogram 2017 with significant improvement of LVEF to the low normal range correlating with her improvement in exercise capacity. Doing well, stable, improved exercise capacity,more active. Recommended to continue current medications. Device check with normal function, no tachyarrhythmia detected, OptiVol fluid index below threshold, reprogrammed LV lead output. Total face-to- face time: 25 minutes, >50% spent counseling on above issues. Treatment 1. Chronic atrial fibrillation [...] 2 tab(s), orally, 2 times a day documented in this encounter Plan of Treatment Upcoming Encounters Date Type Specialty Care Team Description 04/21/2022 Ancillary Procedure Cardiology 04/21/2022 Office Visit Cardiology Eun Nolen MD [address] [facility] [address] [place] [address] (Wo rk) 07/15/2022 Office Visit Surgical Oncology Jens Almanza MD [address] [facility], [facility] [address] [place] [address] (Wo rk) documented as of this encounter Visit Diagnoses Diagnosis Permanent atrial fibrillation (HCC-CMS) ([facility]) - Primary Atrial fibrillation Encounter for adjustment and management of other part of cardiac pacemaker Cardiomyopathy, dilated, nonischemic (HC C-CMS) ([facility]) Other primary cardiomyopathies Chronic systolic congestive heart failur e, NYHA class 3 (HCC-CMS) ([facility]) Chronic systolic heart failure Biventricular ICD (implantable cardiover ter-defibrillator) in place Automatic implantable cardiac defibrilla tor in situ LBBB (left bundle branch block) Other left bundle branch block Chronic anticoagulation Long-term (current) use of anticoagulant s documented in this encounter Discontinued Medications Medication Sig Discontinue Reason Start Date End Date XARELTO 20 mg tablet Take 1 tablet by 05/28/2019 tablet mouth every evening rivaroxaban (XARELTO) 20 Take 20 mg by mouth 8 06/28/2019 mg tablet tablet daily with dinner. rivaroxaban (XARELTO) 10 Take 20 mg by mouth Duplicate order 06/28/2019 mg tablet tablet daily with dinner. rivaroxaban (XARELTO) 20 Take 20 mg by mouth 8 06/28/2019 mg tablet tablet daily with dinner. rivaroxaban (XARELTO) 20 Take 20 mg by mouth Reorder 06/28/2019 mg tablet tablet daily with dinner. documented as of this encounter Historical Medications This list may reflect changes made after this encounter. Medication Sig Dispensed Refills Start Date End Date clotrimazole-betamethason Apply topically. As 0 e (LOTRISONE) cream needed rivaroxaban (XARELTO) 20 Take 20 mg by mouth 0 06/28/2019 mg tablet tablet daily with dinner. rivaroxaban (XARELTO) 10 Take 20 mg by mouth 0 06/28/2019 mg tablet tablet daily with dinner. lisinopril (PRINIVIL) 5 0 06/26/2019 0 03/16/2020 mg tablet added in this encounter Orders Implantable Cardiac Device Count Last Ordered Date Fir st Ordered Date CARDIAC IMPLANT CHECK - IN CLINIC 1 06/28/2019 documented in this encounter Care Teams Youth Agent Relationship Specialty Start Date End Date Silvino Charles MD PCP - General 08/05/11 08/25/21 documented as of this encounter
--- OUTSIDE RECORDS SUMMARY | 2022-04-12 14:39 | XMS_ITS | Encounter Summary ---
:1945 Author Organization [facility] Address [address] [place] [address] Care Team Providers Name Role Phone Silvino Charles MD Primary Care Provider Unavailable Encounter Details Date Type Department Care Team Description 11/02/2015 Orders Only [facility] Franci Poon, Chronic atrial Cardiology - Annmarie THOMAS fibrillation ([facility]) [address] (Primary Dx) [place] [address] Social History Tobacco Use Types Packs/Day Years [...] Office Visit Cardiology Eun Nolen MD [address] [facility] [address] [place] [address] (Wo rk) 07/15/2022 Office Visit Surgical Oncology Jens Almanza MD [address] [facility], [facility] [address] [place] [address] (Wo rk) documented as of this encounter Procedures Procedure Name Priority Date/Time Associated Diagnosis Comme nts CARDIAC ABLATION 11/12/2015 11:00 Results for this PROCEDURE EDT procedure are i n the results section. documented in this encounter Results CARDIAC ABLATION PROCEDURE (11/12/2015 11:00 EDT) Specimen Narrative [facility] - 11/12/2015 22:08 EDT *Cardiology* [address] [place] [address] Electrophysiology Study with Ablation Patient: Tania Stahl ?Study Date: ? 11/12/2015 ? Accession #: ?[id number] : ? 1945 Referring: Silvino Charles Attending: Eun Nolen Fellow: Assisting: Copies: ATTESTATION: Dr. Eun Nolen was present and supe rvising for the entire procedure. SUMMARY OF PROCEDURE: - Baseline rhythm atrial fibrillation wi th intermittent biventricular pacing. - Successful AV node ablation. - At the conclusion of the procedure the patient was in atrial fibrillation with ??iatrogenic complete AV block and vent ricular pacing with rare PVC.. - There were no complications. HISTORY AND INDICATIONS: ??69-year-old w darien with non-ischemic cardiomyopathy, persistently low EF 25%, AF since 2000, permanent AF since 2005, failed antiarrhythmic Rx, chronic systolic fail ure, wide QRS LBBB. 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 Progressive dyspnea on minimal exertion since July 2014, karoline pite improved rate control and maximal GDMT for heart failure. Cardiac cath 10/02 showed ectatic coronaries with MLI. Had BIV-ICD implant 12/2014, but maximal V pacing at 60-70% due to AF with intrinsic AV conduction despite maximall y tolerated pharmacological blockade with metoprolol and digoxin.. PROCEDURE: - AV node ablation ?? ANESTHESIA: Conscious sedation and local anesthesia. PROCEDURE: The risks, benefits, and alternatives to the procedure were explained and informed consent was obtained. The patient name, date of , surgica l site, and procedure were verified prior to the procedure. The patient was brought to electrophysiology laboratory in the fasting state. The groin was prep ped and draped in the usual sterile manner. ??Local anesthestic was administ ered to the access site. The right femoral vein was entered under fluorosco pic guidance with the modified Seldinger technique. Sheath and catheter detail(s) in table below.All catheters were placed under fluoroscopic guidance. The attending physician was physically present for the entire Electrophysiology Study and/or Ablation procedure. VASCULAR ACCESS AND CATHETER PROPERTIES: + +------+---------+------- + + Entry site ? Sheath Locations Candace ter ? Access type + +------+---------+------- + + R femoral vein 8Fr ?? Ablation 8 mm t ip [employer] Catal[employer] DS: 7 Fr New access ? deflectable ablation catheter ? (1mm-6mm-2mm spacing) ? + +------+---------+------- + + EP STUDY: A comprehensive electrophysiology study was not performed. ABLATION PROCEDURE: An ablation catheter was inserted and th e AVN was mapped. Radiofrequency ablation was delivered. The temperature was limited to 60degreesC. The power was limited to 50W. Complete AV calixto block developed after 13sec of RF application. Ablation was continued for a total of 15 0seconds after the onset of complete AV calixto block. The patient was observed fo r 30minutes. There was no recurrence of the AVN conduction. The patient did have a junctional/ventricular escape rhythm at 30-35/min. Hemostasis. All sheaths and catheters we re removed from the body. Compression was applied to the puncture sites. Hemos tasis was successfully obtained.Groin sites were intact with no hematoma. STUDY COMPLETION - Fluoroscopy time: 5min. - Patient in-room time: 01:05 PM. - Patient out-of-room time: 02:45 PM. - Intake: 500ml - Output: 0ml - Estimated blood loss: 30ml. Clinical Trial: ??The patient is not enr olled in a clinical trial. PLAN: ??See post procedure orders. Bed r est for 4hours. Continue anticoagulation. POST PROCEDURAL DISPOSITION: Bedded outpatient status is indicated du e to increased bleeding risk related to warfarin anticoagulation. Indication for [facility]p anticoagulation . Reference: Hospitalization Criteria for Pacemaker and ICD Placement and EP/Ablation; Heart Rhythm Society; Genevieve ed December, Electronically signed by Eun Nolen 11/12/2015 22:07 Procedure Note Eun Nolen MD - 11/12/2015 *Cardiology* [address] [place] [address] Electrophysiology Study with Ablation Patient: Tania Stahl Study Date: 11/12/2015 : 1945 Referring: Sivlino Charles Attending: Eun Nolen Fellow: Assisting: Copies: ATTESTATION: Dr. Eun Nolen was present and supe rvritesh for the entire procedure. SUMMARY OF PROCEDURE: - Baseline rhythm atrial fibrillation wi th intermittent biventricular pacing. - Successful AV node ablation. - At the conclusion of the procedure the patient was in atrial fibrillation with iatrogenic complete AV block and ventri cular pacing with rare PVC.. - There were no complications. HISTORY AND INDICATIONS: 69-year-old wom an with non-ischemic cardiomyopathy, persistently low EF 25%, AF since 2000, permanent AF since 2005, failed antiarrhythmic Rx, chronic systolic fail ure, wide QRS LBBB. 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 Progressive dyspnea on minimal exertion since July 2014, karoline pite improved rate control and maximal GDMT for heart failure. Cardiac cath 10/02 showed ectatic coronaries with MLI. Had BIV-ICD implant 12/2014, but maximal V pacing at 60-70% due to AF with intrinsic AV conduction despite maximall y tolerated pharmacological blockade with metoprolol and digoxin.. PROCEDURE: - AV node ablation ANESTHESIA: Conscious sedation and local anesthesia. PROCEDURE: The risks, benefits, and alternatives to the procedure were explained and informed consent was obtained. The patient name, date of , [facility] site, and procedure were verified prior to the procedure. The patient was brought to electrophysiology laboratory in the fasting state. The groin was prep ped and draped in the usual sterile manner. Local anesthestic was administer ed to the access site. The right femoral vein was entered under fluorosco pic guidance with the modified Seldinger technique. Sheath and catheter detail(s) in table below.All catheters were placed under fluoroscopic guidance. The attending physician was physically present for the entire Electrophysiology Study and/or Ablation procedure. VASCULAR ACCESS AND CATHETER PROPERTIES: + +------+---------+------- + + Entry site Sheath Locations Catheter Access type + +------+---------+------- + + R femoral vein 8Fr Ablation 8 mm tip [employer] DS: 7 Fr New access deflectable ablation catheter (1mm-6mm-2mm spacing) + +------+---------+------- + + EP STUDY: A comprehensive electrophysiology study was not performed. ABLATION PROCEDURE: An ablation catheter was inserted and th e AVN was mapped. Radiofrequency ablation was delivered. The temperature was limited to 60degreesC. The power was limited to 50W. Complete AV calixto block developed after 13sec of RF application. Ablation was continued for a total of 15 0seconds after the onset of complete AV calixto block. The patient was observed fo r 30minutes. There was no recurrence of the AVN conduction. The patient did have a junctional/ventricular escape rhythm at 30-35/min. Hemostasis. All sheaths and catheters we re removed from the body. Compression was applied to the puncture sites. Hemos tasis was successfully obtained.Groin sites were intact with no hematoma. STUDY COMPLETION - Fluoroscopy time: 5min. - Patient in-room time: 01:05 PM. - Patient out-of-room time: 02:45 PM. - Intake: 500ml - Output: 0ml - Estimated blood loss: 30ml. Clinical Trial: The patient is not enrol led in a clinical trial. PLAN: See post procedure orders. Bed res t for 4hours. Continue anticoagulation. POST PROCEDURAL DISPOSITION: Bedded outpatient status is indicated du e to increased bleeding risk related to warfarin anticoagulation. Indication for termite control service representative anticoagulation . Reference: Hospitalization Criteria for Pacemaker and ICD Placement and EP/Ablation; Heart Rhythm Society; Genevieve ed December, Electronically signed by Eun Nolen 11/12/2015 22:07 Performing Organization Address City/State/ZIP Code Phon e Number [facility] documented in this encounter Visit Diagnoses Diagnosis Chronic atrial fibrillation (HCC) - Prim jessica Atrial fibrillation documented in this encounter Care Teams Automation Manager Relationship Specialty Start Date End Date Silvino Charles MD PCP - General 08/05/11 08/25/21 documented as of this encounter
--- OUTSIDE RECORDS SUMMARY | 2022-04-12 14:39 | XMS_ITS | Encounter Summary ---
:1945 Author Organization [facility] Address [address] [place] [address] Care Team Providers Name Role Phone Silvino Charles MD Primary Care Provider Unavailable Reason for Visit Reason Onset Date Comments Other 02/08/2021 Encounter Details Date Type Department Care Team Description 02/08/2021 Telephone [facility] Alyson Bui RN Other Cardiology Clinic [address] [facility] [address] [facility] [address] [place] [address] [place] [address] [phone] (Wo rk) Social History Tobacco Use Types [...] Telephone Encounter - Alyson Bui RN - 02/08/2021 1654 EDT Patient called the office requesting to speak with . She was notified he was in with a patient. I tried to get information from her regarding why she needed to speak with him. She was not willing to give me more info. She states I am calling to see if the schedule is out and finalized Please call patient to discuss documented in this encounter Plan of Treatment Upcoming Encounters Date Type Specialty Care Team Description 04/21/2022 Ancillary Procedure Cardiology 04/21/2022 Office Visit Cardiology Eun Nolen MD [address] [place] [address] [address] [place] [address] (Birdie walls) 07/15/2022 Office Visit Surgical Oncology Jens Almanza MD [address] [place] [address], [address] [place] [address] (Wo titi) documented as of this encounter Visit Diagnoses Not on filedocumented in this encounter Care Teams Supply Officer Relationship Specialty Start Date End Date Silvino Charles MD PCP - General 08/05/11 08/25/21 documented as of this encounter
--- OUTSIDE RECORDS SUMMARY | 2022-04-12 14:39 | XMS_ITS | Encounter Summary ---
:1945 Author Organization [facility] Address [address] [place] [address] Care Team Providers Name Role Phone Silvino Charles MD Primary Care Provider Unavailable Reason for Visit (Routine) - Authorization Not Required Specialty Diagnoses / Procedures Referred By Contact Refer red To Contact Diagnoses Encounter for adjustment or management of cardiac device Eun Nolen MD Procedures CARDIAC IMPLANT CHECK - IN CLINIC [address] [facility] [place] [address] Referral ID Status Reason Start Expiration Visits Visits Date Date Requested Authorized [id number] Authorization Not 02/06/2020 1 1 Required Encounter Details Date Type Department Care Team Description 09/14/2020 Ancillary Procedure [facility] [place] [address] [place] [address] Social History Tobacco Use Types Packs/Day [...] Progress Notes Eun Nolen MD - 09/14/2020 1600 EDT See report in same-day clinic note. Detailed device printout in Scans. JM documented in this encounter Plan of Treatment Upcoming Encounters Date Type Specialty Care Team Description 04/21/2022 Ancillary Procedure Cardiology 04/21/2022 Office Visit Cardiology Eun Nolen MD [address] [place] [address] [address] [place], [place] [address] (Birdie walls) 07/15/2022 Office Visit Surgical Oncology Jens Almanza MD [address] [facility], [facility], [facility] 2 [place] [address] (Wo titi) documented as of this encounter Visit Diagnoses Not on filedocumented in this encounter Orders Implantable Cardiac Device Count Last Ordered Date Fir st Ordered Date CARDIAC IMPLANT CHECK - IN CLINIC 1 02/06/2020 documented in this encounter Care Teams Hydrochloric Manufacturing Supervisor Relationship Specialty Start Date End Date Silvino Charles MD PCP - General 08/05/11 08/25/21 documented as of this encounter
--- OUTSIDE RECORDS SUMMARY | 2022-04-12 14:39 | XMS_ITS | Encounter Summary ---
:1945 Author Organization [facility] Address [address] [place] [address] Care Team Providers Name Role Phone Silvino Charles MD Primary Care Provider Unavailable Encounter Details Date Type Department Care Team Description 09/24/2014 Hospital Encounter [facility] [place] Cuco Mckinnon Cardiovascular Unit MD Dasia 111 [facility] [address] [phone] [facility] [address] [place] [address] (Wo rk) Social History Tobacco Use Types Packs/Day Years Used Date Former Smoker Smokeless Tobacco: Never Used Comments: 2 YRS [...] Sign Reading Time Taken Comments Blood Pressure 98/52 09/24/2014 1500 EDT Pulse - - Temperature 36.4 ??C (97.5 ??F) 09/24/2014 1326 EDT Respiratory Rate 16 09/24/2014 1500 EDT Oxygen Saturation 96% 09/24/2014 1500 EDT Inhaled Oxygen Concentration - - Weight 99.8 kg (220 lb) 09/24/2014 0905 EDT Height 172.7 cm (5' 8) 09/24/2014904 EDT Body Mass Index 33.45 09/24/2014904 EDT documented in this encounter Discharge Instructions Rosemary Noonan RN - 09/24/2014 Diagnostic Cardiovascular Catheterization Discharge Instructions Department of Cardiology Tania Solo Stahl, your Procedure was performed by Dr Mckinnon . Phone # [phone] You have had a Cardiovascular Catheterization performed through a small incision in the artery in your right radial. Your artery was closed using the following method: tr band Care of your Incision: For your right wrist incision, keep the area clean & dry. Leave the sterile dressing in place for 24 hours. After this you may shower but no tub baths, swimming, or hot tubs for 5 days. You may remove your dressing the next day in the shower & wash area gently. (It is best to soak the dressing off with water in the shower. ) Apply a sterile bandage such as a Band Aid to the site after your shower daily until the site heals. DO NOT apply powder or lotion or antibiotic ointment to this area. Activity: Unless your physician instructs you otherwise, continue to drink a lot of fluids for the next 24 hours to flush the dye out of your system. Avoid Driving x 24 hours. For LEG incisions, avoid climbing multiple flights of stairs and other activity that involves a lot of leg bending for 48-72 hours, particularly for the first 24 hours. If you had an ARM approach, Keep your arm comfortably straight for the first 24 hours and AVOID Bending or Lifting with your ARM for 48-72 hours. No Heavy lifting (>10 pounds) for one week. Normal Observations: Soreness or tenderness at the site that may last one week. Bruising that could last 2 weeks. Formation of a small lump (dime to quarter size) which may last up to 6 weeks. Call your Physician immediately if you experience any of the following: Fever (temp >101), swelling, redness or signs of infection (including yellow discharge). Persistent and increasing pain at the site of the wound, in your extremity or your back. Numbness or tingling at a point below the wound Skin Rash If you have not been able to Urinate within 24 hours of the procedure. *If you note any signs of bleeding, such as bulging under the skin (size of a golf ball or larger)put Direct Pressure on the area and Call your Doctor immediately.If bleeding persists after 10 minutes with pressure held call 911. *Please make a follow-up appointment with your Primary Care Physician 2 weeks after your Cardiac Catheterization was performed. documented in this encounter Medications at Time [...] needed for Anxiety metoprolol (LOPRESSOR) 50 Take 50 mg by 0 12/19/2014 mg tablet mouth 2 times daily NYSTATIN (MYCOSTATIN TOP) Apply topically 0 05/28/2019 NYSTATIN TOP Apply topically 0 016 trimethobenzamide (TIGAN) Take 300 mg by mouth daily as needed 0 05/28/2019 300 mg capsule warfarin (COUMADIN) 1 mg Take by mouth 0 12/19/2014 tablet daily As directed documented as of this encounter Discharge Disposition Disposition Code Departure Means Destination Home or Self Care documented in this encounter Progress Notes Rosemary Meyer, RN - 09/24/2014 1641 EDT 1500 5 ml released from tr band, no bleeding or hematoma noted, good csmt and radial pulse 1515 5ml released from tr band no bleeding or hematoma noted, good csmt and radial pulse 1530 5ml released from tr band no bleeding or hematoma noted good csmt and radial pulse 1600 Pt up oob, vss no sign of dizziness or lightheadedness, Pt dressed independently, IV dc'd dry sterile dressing applied x2. TR band removed dry sterile dressing applied 1615 Discharge instructions gone over with pt, pt verbalized understanding copy given 1630 Pt discharge home in stable condition via wheel chair Rosemary webster RN - 09/24/2014 1434 EDT 1318 Pt arrived to cvu 4 s/p left heart cath alert and oriented x3, denies pain. IV infusing with nosign of infiltration. Left radial site clean dry and intact with no sign of hematoma.Good csmt and radial pulse TR band with 13cc of air. Food and drink given.Pt consumed 4 glasses of cranberry juice Bed in low position, side rails up and call guidry within reach. Pt requested no visitors since she justwanted to sleep. 1415 Pt sleeping vss, left radial with tr band intact no bleeding or hematoma noted Merlyn Whitaker RN - 09/24/2014 1003 EDT Tania Stahl arrived to CVU ambulatory. Patient alert and oriented x3. Bed in lowest position with call guidry within reach. Unit orientation and explanation of IV and procedure completed with patient. Patient demonstrates willingness and understanding of pre-procedure education. Damon Mercer MD - 09/23/2014 1332 EDT Pre-[facility] Assessment 69 yo female with PMHx permanent afib (on Warfarin and Digoxin), cardiomyopathy, LBBB (plan for NAIL GALVANIZER-D in the near future), obesity, seen by Dr Nolen at [facility] 09/19/14where she complained of recurrent episodes of mild, diffuse chest pressure (not necessarily related to exercise) and a progressive decline in her exercise capacity to now demonstrating class III CHF symptoms. She also noted periodic episodes (over the last several months) of brief, pre-syncopal eventswhere she gets dizzy for several seconds, occurring approximately once a week. She admits to 1-2 pillow orthopnea. Echo obtained and revealed a drop in EF from 30% two years ago, to 25% now despite optimal medical therapy. Dr Nolen is sending the pt to [facility] for C to assess for ischemia as an underlying cause of her decline in EF since a normal nuclear stress test in 2007. Imaging: TTE (09/18/14): 1. LVEF 25% with severe generalized hypokinesis and marked septal dyssynchrony 2. Both atria are dilated 3. RV is normal 4. Aortic valve is normal 5. Mild MR, TR 6. PA pressures appear normal Contrast allergy: No Creatinine: 1.2 (GFR = 45) 09/10/14; will order JEANNETTE protocol Anti-anginal agents: BB Anti-platelet agents: none *Pt plans to hold Warfarin tonight; will defer ASA and Plavix in the setting of elevated INR. Can decide tomorrow whether or not to load with anti-platelet agents after her INR is known. Damon [place] MD Division Field Inspector Pager [phone] arkneal-Estefani Del Rosario RN - 09/23/2014 1230 EDT Precardiac Cath Nursing Checklist Recent Labs: No results found for this basename: BUN, CREATININE, HGB, CALCGFR Hgt: Height: 172.7 cm (68) Wgt: Weight : 102.059 kg (225 lb) Allergies: No Known Allergies Local Pharmacy No Pharmacies Listed Cardiac History: Stress Test? No Reason for Cath: SOB Anginal equivalent:: Cardiac Procedures: no Stent Type/Size: Cardiac surgery: no Medical/Surgical History : Patient has a past medical history of CHF (congestive heart failure); Hypertension; HLD (hyperlipidemia); Obese; SOB (shortness of breath); NICM (nonischemic cardiomyopathy); GERD (gastroesophageal reflux disease); and AF (atrial fibrillation) (on coumadin). Patient has no past surgical history on file. Chronic Risk Factors: HTN, HLD, Previous Heart Fx and Obese Smoking and Alcohol intake: reports that she has never smoked. She does not have any smokeless tobacco history on file. She reports that she does not drink alcohol. History of complications from sedation: No Patient Instructions: Patient Instructed by: Patient instructed by Advanced Testing Nurse NPO Instructions: Patient/family instructed to have no solid food after midnight and to stop drinking clear liquids 3 hours prior to registration time. Diabetic Pre procedure Instructions: N/A Shower Instructions: Patient/family instructed to shower the night before or the day of the procedure. Registration location: Patient/family instructed to register on the 3rd floor [facility]. Transportation Issues: No Patient/family instructed that they will need a designated route salesman and driver if they are discharged on the day of the procedure. Medications: Medication list: Patient/family instructed to bring medication list with them on the day of the procedure. Anticoagulants/Antiplatelets: Instructed to hold Coumadin, Pt will hold coumadin tonight. Anti-Anginal meds: B-Blockers Estefani Ta RN documented in this encounter H&P Notes Damon [place] MD - 09/24/2014 1123 EDT Division Field Inspector H&P PCP: Silvino Charles Log Clerk: Date of Service: 09/24/2014 Chief Complaint: Cardiomyopathy HPI 69 yo female with PMHx permanent afib (on Warfarin and Digoxin), cardiomyopathy, LBBB (plan for NAIL GALVANIZER-D in the near future), obesity, seen by Dr Nolen at [facility] 09/19/14where she complained of recurrent episodes of mild, diffuse chest pressure (not necessarily related to exercise) and a progressive decline in her exercise capacity to now demonstrating class III CHF symptoms. She also noted periodic episodes (over the last several months) of brief, pre-syncopal eventswhere she gets dizzy for several seconds, occurring approximately once a week. She admits to 1-2 pillow orthopnea. Echo obtained and revealed a drop in EF from 30% two years ago, to 25% now despite optimal medical therapy. Dr Nolen is sending the pt to [facility] for [facility] to assess for ischemia as an underlying cause of her decline in EF since a normal nuclear stress test in 2007. Past Medical History: Past Medical History Diagnosis Date ??? CHF (congestive heart failure) ??? Hypertension ??? HLD (hyperlipidemia) ??? Obese ??? SOB (shortness of breath) ??? NICM (nonischemic cardiomyopathy) ??? GERD (gastroesophageal reflux disease) ??? AF (atrial fibrillation) on coumadin Past Surgical History: Past Surgical History Procedure Laterality Date ??? Hysterectomy ??? Cholecystectomy Social History: History Social History ??? Marital Status: Spouse Name: N/A Number of Children: N/A ??? Years of Education: N/A Occupational History ??? Not on file. Social History Main Topics ??? Smoking status: Former Smoker ??? 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 Alcohol Use: Yes Comment: RARE ??? Drug Use: No ??? Sexual Activity: Not on file Other Topics Concern ??? Not on file Social History Narrative Family History: History reviewed. No pertinent family history. Home Medications: Digoxin 125 mcg daily Furosemide 80 mg daily Lisinopril 5 mg daily Metoprolol 50 mg BID Spironolactone 12.5 mg daily Warfarin 1 mg daily Benadryl 50 mg qhs PRN Lorazepam 1 mg q4 hrs PRN Trimethobenzamide 300 mg PRN Allergies: No Known Allergies Review of Systems Pertinent positives: The remainder of the 10 point review of systems is negative. Physical Exam Blood pressure 103/89, temperature 36.7 ??C (98.1 ??F), temperature source Temporal, resp. rate 16, height 172.7 cm (68), weight 99.791 kg (220 lb), SpO2 98 %. Gen: NAD, appears comfortable HEENT: Normocephalic, PERRL, moist mucosal membranes Neck: Supple, no lymphadenopathy, no JVD CV: RRR, normal S1 and S2, no MRGs, no carotid bruits Pulm: CTAB, no wheezes, rales, or crackles Abd: Soft, ntnd, normal bowel sounds Ext: No LE edema Neuro: A&Ox3, CN II-XII intact, no focal deficits Skin: Skin normal color, texture and turgor. No lesions. * abnormal Param's test right arm Labs CBC: Recent Labs 09/24/14 0926 WBC 11.55 RBC 5.12* HGB 15.8* HCT 45.3* MCV 88 MCH 30.9 MCHC 34.9 PLT 307 BMP: Recent Labs 09/24/14 0926 NA 139 K 3.9 CL 104 CO2 25 BUN 19 CREATININE 1.03 Coags: Recent Labs 09/24/14 0926 PROTIME 24.3* INR 2.2* ECG: afib, LBBB TTE (09/18/14): 1. LVEF 25% with severe generalized hypokinesis and marked septal dyssynchrony 2. Both atria are dilated 3. RV is normal 4. Aortic valve is normal 5. Mild MR, TR 6. PA pressures appear normal Assessment and Plan: Plan to proceed with left heart catheterization to evaluate coronary anatomy and hemodynamics Pt underwent Informed Consent No noted contra-indications to LHC IV Contrast Allergy: No Cr (GFR): 1.03 ASA Class: 2 CCS Classification: 3 Anti-Anginal Medications: BB Anti-Platelet Medications: none This procedure has been fully reviewed with the patient (including risk-benefit analysis and possible complications) and written informed consent has been obtained. Damon [place] MD Division Field Inspector Pager [phone] Associated attestation - Cuco Mckinnon Jr., MD - 09/24/2014 1201 EDT Attestation: I saw and evaluated the patient on 09/24/2014. I agree with the findings and plan of care as documented in the resident's/fellow's note. Cuco Mckinnon Jr., MD 09/24/2014 12:00 documented in this encounter Procedure Notes Cuco Mckinnon Jr., MD - 09/24/2014 1301 EDT Cardiovascular Catheterization Laboratory Preliminary Report -- Catheterization Date of Service/Procedure: 09/24/2014 Dear Jordon, I had the pleasure performing cardiac catheterization in Tania Stahl today. She is a 69-year-old female with a new diagnosis of cardiomyopathy, with a prior history of atrial fibrillation. Coronary angiography today demonstrated no flow-limiting coronary disease. She has diffusely ectaticcoronary vessels, with qualitatively slow flow down each vessel. Her right coronary artery is dominant. Left ventricular end-diastolic pressure is low at 8 mmHg. There was no gradient across the aortic valve. She has no indications for revascularization. Further treatment will be focused on goal-directed medical therapy, as well as the consideration of a defibrillator and/or biventricular pacemaker. I will have her follow-up with him in the next 2 weeks. Patient for allowing me to participate in the care of Tania Stahl. Please feel free to contact me anytime if you have any questions or concerns. Sincerely, Cuco Mckinnon Jr. MD hand heel seat fitter [facility] Pager # [phone] Attending Physician: Cuco Mckinnon Jr., MD Fellow: Damon [place] MD Pre-Procedure Diagnosis/Indication: Tania Stahl is a 69 y.o. year old female with Congestive heart failure. Prior Stress Testing? No Cardiac Medications: On two or more anti anginal medications at the time of catheterization? No Anesthesia: A moderate level of anesthesia/conscious sedation was used in addition to local anesthesia. Access:Left radial artery Procedure: She was brought to [facility] Cardiac Catheterization Laboratory for the procedure: Diagnostic coronary/graft angiography and Left heart cath. Closure: TR Band Post-Procedure Condition: The condition of the patient was Fair. Complications: None. IV Contrast Total: 70 mL Estimated Blood Loss: Minimal. Unless otherwise noted,there were no specimens removed, cultures obtained, or drains retained. Research Study: Patient is not enrolled in a research study. Diagnostic Cardiac Study Results Left main: Free of angiographically significant disease. Left anterior descending: Ectatic. Qualitatively slow flow. Leftcircumflex: Ectatic. Right coronary artery: Dominant. Ectatic. Hemodynamic Results LVEDP 8 There was no gradient across the aortic valve. Post-Procedure Diagnostic Conclusion: Medical therapy is indicated. Plan: See post-procedure orders. Continue prior medications. At the completion of the procedure, the attending physician has explained the findings, therapies, any complications and treatment plan to the patient. With the patients consent, all family members andpatient support persons who were present at the conclusion of the procedure have been notified of these results and treatment plans as well. Post Procedure Follow Up: Patient to follow up with Dr. Nolen in 2 weeks Cuco Mckinnon Jr., MD PagerNumber: [phone] 09/24/2014 13:01 documented in this encounter Plan of Treatment Upcoming Encounters Date Type Specialty Care Team Description 04/21/2022 Ancillary Procedure Cardiology 04/21/2022 Office Visit Cardiology Eun Nolen MD [address] [facility] [place], [place] [id number] (Wo rk) 07/15/2022 Office Visit Surgical Oncology Jens Almanza MD [address] [facility] [address] [place] [address] (Wo rk) documented as of this encounter Procedures Procedure Name Priority Date/Time Associated Comments Diagnosis INVASIVE CARDIOLOGY 07/15/2015 11:43 REPORT-SCANNED EST ECG REPORT - SCANNED 09/26/2014 15:34 EDT INVASIVE CARDIOLOGY 09/26/2014 14:22 REPORT-SCANNED EDT ECG REPORT - SCANNED 09/26/2014 14:22 EDT PROTIME STAT 09/24/2014 9:26 Results for this EDT procedure are i n the results section. COMPLETE BLOOD COUNT STAT 09/24/2014 9:26 Resu lts for this EDT procedure are i n the results section. BUN STAT 09/24/2014 9:26 Results for this EDT procedure are i n the results section. CREATININE STAT 09/24/2014 9:26 Results for this EDT procedure are i n the results section. ELECTROLYTES STAT 09/24/2014 9:26 Results for this EDT procedure are i n the results section. EKG 12-LEAD Routine 09/24/2014 9:15 Results for this EDT procedure are i n the results section. documented in this encounter Results (ABNORMAL) PROTIME (09/24/2014 9:26 EDT) Pro Time 24.3 (H) 9.5 - 12.3 [facility] secs LABORATORY SERVICES I.N.R. 2.2 (H) 0.9 - 1.1 [facility] Comment: Ratio LABORATORY SERVICES Moderate Intensity Coumadin INR = 2.0-3.0 Adjustments in anticoagulant therapy dose should be based upon the INR and NOT the Pro Time. Specimen Blood specimen (specimen) - Blood Performing Organization Address City/State/ZIP Code Phon e Number [facility] LABORATORY [address] [place] [address] SERVICES (ABNORMAL) HEMAGRAM (09/24/2014 9:26 EDT) Pathologist Sig nature WBC 11.55 4.0 - 12.4 K/cmm [facility] LAB[facility] SERVICES RBC 5.12 (H) 3.86 - 5.04 M/cmm [facility] SERVICES Hemoglobin 15.8 (H) 11.6 - 15.2 gm/dl [facility] SERVICES HCT 45.3 (H) 34.9 - 44.4 % [facility] LAB[facility] SERVICES MCV 88 81 - 98 fl [facility] LAB[facility] SERVICES MCH 30.9 26.7 - 33.3 pg [facility] LABORAT[facility] SERVICES MCHC 34.9 32.1 - 35.9 gm/dl [facility] LABORAT[facility] SERVICES RDW-CV 14.0 11.7 - 14.6 % [facility] LABORATORY SERVICES RDW-SD 44.2 37.6 - 50.3 fl [facility] LABORATORY SERVICES PLT 307 141 - 320 K/cmm [facility] LABORATORY SERVICES MPV 8.4 7.5 - 11.2 fl [facility] LABORATORY SERVICES Specimen Blood specimen (specimen) - Blood Performing Organization Address City/State/ZIP Code Phon e Number [facility] [address] [place] [address] SERVICES ELECTROLYTES (09/24/2014 9:26 EDT) Pathologist Sig nature Sodium 139 136 - 145 mEq/L [facility] LABORA TORY SERVICES Potassium 3.9 3.5 - 5.0 mEq/L [facility] LABORA TORY SERVICES Chloride 104 96 - 110 mEq/L [facility] LABORAT ORY SERVICES CO2 25 24 - 32 mEq/L [facility] LABORATO RY SERVICES Specimen Blood specimen (specimen) - Blood Performing Organization Address City/State/ZIP Code Phon e Number [facility] [address] [place] [address] SERVICES (ABNORMAL) CREATININE (09/24/2014 9:26 EDT) Pathologist Sig nature Creatinine 1.03 0.52 - 1.04 mg/dl [facility] LABORAT[facility] SERVICES GFR, Calculated 53 (L) >60 ml/min/1.73m2 [facility] LABORATORY SERVICES Specimen Blood specimen (specimen) - Blood Performing Organization Address City/State/ZIP Code Phon e Number [facility] [address] [place] [address] SERVICES BUN (09/24/2014 9:26 EDT) Pathologist Sig nature BUN 19 10 - 26 mg/dl [facility] LABORATO RY SERVICES Specimen Blood specimen (specimen) - Blood Performing Organization Address City/State/ZIP Code Phon e Number [facility] [address] [place] [address] SERVICES EKG 12-LEAD (09/24/2014 9:15 EDT) Specimen Narrative [facility] EKG - 09/25/2014 10:4 2 EDT ? [facility] ? Test Date: ?2014-09-24 Pat Name: ? TANIA STAHL ? Department: ?? CVU ? Room: ? CVU08 Gender: ? F ?Radioisotope Technologist: ?? [id number] : ?1945 ? Requested By: PATRICIA PAULINO Order Number: [id number] ? Adrián LORENZO: ?? ALEX MIDDLETON MD ? Measurements Intervals ?[place] ? Rate: ? 86 ? P: ? RI: ? 0 ?QRS: ?-44 QRSD: ? 168 ?T: ?75 QT: ? 446 ? QTc: ?534 ? Interpretive Statements ATRIAL FIBRILLATION MARKED LEFT AXIS DEVIATION LEFT BUNDLE BRANCH BLOCK Abnormal ECG. No previous ECG available for comparison I reviewed the tracing and have either a greed or edited the findings in this report. Electronically Signed On 5 10:42:24 EDT by ALEX MIDDLETON MD. Procedure Note Alex Middleton MD - 09/25/2014 [facility] Test Date: 2014-09-24 Pat Name: TANIA TSAHL Department: Annemarie [facility]YRO Room: [facility] Gender: F Radioisotope Technologist: [id number] : 1945 Requested By: PATRICIA PAULINO Order Number: [id number] Reading MD: Jeffy MIDDLETON MD Measurements Intervals [place] Rate: 86 P: RI: 0 QRS: -44 QRSD: 168 T: 75 QT: 446 QTc: 534 Interpretive Statements ATRIAL FIBRILLATION MARKED LEFT AXIS DEVIATION LEFT BUNDLE BRANCH BLOCK Abnormal ECG. No previous ECG available for comparison I reviewed the tracing and have either a greed or edited the findings in this report. Electronically Signed On 10:42:24 EDT by ALEX MIDDLETON MD. Performing Organization Address City/State/ZIP Code Phon e Number [facility] EKG documented in this encounter Visit Diagnoses Not on filedocumented in this encounter Administered Medications Inactive Administered Medications - up to 3 most recent administrations Medication Order MAR Action Action Date Dose Rate Site sodium bicarbonate 8.4 % New Bag 09/24/2014 10:02 EDT 3 mL/kg/hr 3 06.3 mL/hr 150 mEq in dextrose 5% (D5W) 1,000 mL infusion 3 mL/kg/hr ? 102.1 kg (306.3 mL/hr), intravenous, CONTINUOUS, Starting on Mon09/24/14 at 0900, Until Mon09/24/14 at 0959, Routine, Preprocedure sodium bicarbonate 8.4 % Rate Change 09/24/2014 11:07 EDT 1 mL/kg/ hr 102.1 mL/hr 150 mEq in dextrose 5% (D5W) 1,000 mL infusion 1 mL/kg/hr ? 102.1 kg (102.1 mL/hr), intravenous, CONTINUOUS, Starting on Mon09/24/14 at 1000, Until Mon09/24/14 at 1856, Routine, Preprocedure Rate Change 09/24/2014 11:06 EDT 1 mL/kg/hr 102.1 mL/hr New Bag 09/24/2014 11:05 EDT 1 mL/kg/hr 102.1 mL/hr sodium chloride 0.9 % (NS) infusion New Bag 09/24/2014 10:02 EDT 30 mL/hr 30 mL/hr at 30 mL/hr, 30 mL/hr, intravenous, CONTINUOUS, Starting on Mon09/24/14 at 0900, Until Mon09/24/14 at 1856, Routine, Preprocedure documented in this encounter Historical Medications This list may reflect changes made after this encounter. Medication Sig Dispensed Refills Start Date End Date digoxin (LANOXIN) 125 mcg Take 187.5 mcg by 0 tablet mouth daily. spironolactone (ALDACTONE) Take 12.5 mg by 0 25 mg tablet mouth daily trimethobenzamide (TIGAN) Take 300 mg by mouth daily as needed 0 05/28/2019 300 mg capsule diphenhydrAMINE (BENADRYL) Take 50 mg by 0 10/14/2019 50 mg capsule mouth at bedtime as needed furosemide (LASIX) 40 mg Take 80 mg by 0 05/28/2019 tablet mouth daily LORazepam (ATIVAN) 1 mg Take 1 mg by mouth 0 05/28/2019 tablet every 4 hours as needed for Anxiety lisinopril (PRINIVIL, Take 5 mg by mouth 0 05/28/2019 ZESTRIL) 5 mg tablet daily metoprolol (LOPRESSOR) 50 Take 50 mg by 0 12/19/2014 mg tablet mouth 2 times daily NYSTATIN (MYCOSTATIN TOP) Apply topically 0 05/28/2019 NYSTATIN TOP Apply topically 0 016 warfarin (COUMADIN) 1 mg Take by mouth 0 12/19/2014 tablet daily As directed added in this encounter Active and Recently Administered Medications Times are shown in EDT. Continuous Medication Order 09/22/2014 09/23/2014 09/24/2014 sodium bicarbonate 8.4 % 150 mEq in dext kian 5% (D5W) 1,000 mL infusion () 1002 (New Bag - Prov ider: Merlyn Whitaker RN) 3 mL/kg/hr ? 102.1 kg (306.3 mL/hr), intravenous, CONTINUOUS, Starting Mon09/24/14 at 0900, Until Mon09/24/14 at 0959, Routine sodium bicarbonate 8.4 % 150 mEq in dext kian 5% (D5W) 1,000 mL infusion (CANCELED) 1105 (New Bag - Prov ider: Merlyn Whitaker RN)1106 (Rate Change - Provider: Merlyn Whitaker RN)1107 (Rate Change - Provider: Merlyn Whitaker RN) 1 mL/kg/hr ? 102.1 kg (102.1 mL/hr), intravenous, CONTINUOUS, Starting Mon09/24/14 at 1000, Until Mon09/24/14 at 1856, Routine sodium chloride 0.9 % (NS) infusion (CANCELED) 1002 (New Bag - Provider: Merlyn M [place] Grant, RN) at 30 mL/hr, 30 mL/hr, intravenous, CONT INUOUS, Starting Mon09/24/14 at 0900, Until Mon09/24/14 at 1856, Routine documented in this encounter Orders Medications Ordered That Might Not Have Count Last Ord ered Date First Ordered Date Been Administered acetaminophen (TYLENOL) tablet 650 mg 1 09/24/2014 Procedures Count Last Ordered Date First Ordered Date INVASIVE CARDIOLOGY REPORT-SCANNED 2 07/15/2015 09/26/2014 ECG REPORT - SCANNED 2 09/26/2014 Nursing Count Last Ordered Date First Ordered Date CARDIAC MONITORING 1 09/24/2014 DISCONTINUE SALINE LOCK/IV/PICC 1 09/24/2014 INSERT PERIPHERAL IV 1 09/24/2014 NOTIFY PHYSICIAN (SPECIFY) 2 09/24/2014 PATIENT AT LOW RISK FOR VTE: RISK OF 1 09/24/2014 MECHANICAL PROPHYLAXIS OUTWEIGHS PATIENT AT LOW RISK FOR VTE: RISK OF 09/24/2014 PHARMACOLOGIC PROPHYLAXIS OUTWEIG Transfer Count Last Ordered Date First Ordered Date NOTIFY PPS OF DISCHARGE COMPLETE 1 09/24/2014 Discharge Count Last Ordered Date First Ordered Date DISCHARGE PATIENT 1 09/24/2014 documented in this encounter Care Teams Computer Methods Analyst Relationship Specialty Start Date End Date Silvino Charles MD PCP - General 08/05/11 08/25/21 documented as of this encounter
--- OUTSIDE RECORDS SUMMARY | 2022-04-12 14:39 | XMS_ITS | Encounter Summary ---
:1945 Author Organization [facility] Address [address] [place] [address] Care Team Providers Name Role Phone Silvino Charles MD Primary Care Provider Unavailable Reason for Visit Reason Onset Date Comments New Patient Visit 08/19/2021 Encounter Details Date Type Department Care Team Description 08/19/2021 Telephone [facility] Matty Aguirre RN New Patient Visit Oncology - Main [facility] [address] [place], [place] [id number] Social History Tobacco Use Types Packs/Day Years [...] this encounter Miscellaneous Notes Telephone Encounter - Gia Peña RN - 08/19/2021 0954 EST Information given to Breast Radiology to follow up on obtaining Mammout Order to review Cat 4 BreastImaging at [facility] Called and spoke with the patient- informed her Radiology is reviewing her imaging and will contact her with recommendations. She informed me she does have a defibrillator and pacemaker- told her I would update Breast Radiology. She was given the contact information to our Steam Shovel Oiler Neida. No further questions or concerns. documented in this encounter Plan of Treatment Upcoming Encounters Date Type Specialty Care Team Description 04/21/2022 Ancillary Procedure Cardiology 04/21/2022 Office Visit Cardiology Eun Nolen MD [address] [place] [address] [address] [place] [phone] (Wo titi) 07/15/2022 Office Visit Surgical Oncology Jens Almanza MD [address] [facility], [facility], [facility] [address] [place] [phone] (Wo titi) documented as of this encounter Visit Diagnoses Not on filedocumented in this encounter Care Teams Parts Fabricator Relationship Specialty Start Date End Date Silvino Charles MD PCP - General 08/05/11 08/25/21 documented as of this encounter
--- OUTSIDE RECORDS SUMMARY | 2022-04-12 14:39 | XMS_ITS | Encounter Summary ---
:1945 Author Organization [facility] Address [address] [place] [address] Care Team Providers Name Role Phone Silvino Charles MD Primary Care Provider Unavailable Reason for Referral Radiology Services (Routine/Next Available) - New Request Specialty Diagnoses / Procedures Referred By Contact Refer red To Contact Diagnoses Mass of breast, right Imperio, Anna L, MAP DRAFTER Procedures MA BREAST CONSULT OUTSIDE IMAGES [address] [place], [place] [phone] Referral ID Status Reason Start Date Expiration Date Visits V isits Requested Authorized [id number] New Request 08/20/2021 1 1 Reason for Visit Radiology Services (Routine/Next Available) - New Request Specialty Diagnoses / Procedures Referred By Contact Refer red To Contact Diagnoses Mass of breast, right Imperio, 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 L, MAP DRAFTER Procedures MA BREAST CONSULT OUTSIDE IMAGES [address] [place], [place] [phone] Referral ID Status Reason Start Date Expiration Date Visits V isits Requested Authorized [id number] New Request 08/20/2021 1 1 Encounter Details Date Type Department Care Team Description 08/20/2021 Hospital Encounter [facility] Breast Mass of breast, right Imaging Mammography - Main [facility] [address] [place], [place] [address] Social History Tobacco Use Types Packs/Day Years [...] 04/21/2022 Office Visit Cardiology Eun Nolen MD [address] [place] [address] [address] [place] [phone] (Wo rk) 07/15/2022 Office Visit Surgical Oncology Jens Almanza MD [address] [facility], [facility] 2 [place] [address] (Wo rk) documented as of this encounter Procedures Procedure Name Priority Date/Time Associated Diagnosis Comme nts MA BREAST CONSULT Routine 08/20/2021 8:54 EST Mass of breast, Results for this OUTSIDE IMAGES right procedure are in the results section. documented in this encounter Results (ABNORMAL) MA BREAST CONSULT OUTSIDE IMAGES (08/20/2021 8:54 EST) Anatomical Region Laterality Modality Breast Mammography Specimen Narrative [facility] - 08/20/2021 14:40 EST MA BREAST CONSULT OUTSIDE IMAGES ??08/20/2021 8:55 AM Signs and Symptoms/Comments: Right breast mass subareolar region, bio psy recommended Technique: This report represents second read inter pretation of bilateral 3-D/2-D synthesized CC and MLO screening mammography views performed at [facility] on January 05, 2022, diagnostic right breast mammogram including 3-D/2-D synthesized spot compression CC views of the right breast performed on July 23, 2021, and targeted diagnostic right breast ultrasound performed on July 24, 2021 at [facility]. Comparison: Mammograms dated June 05, 2013, Decem 2012, and ultrasound dated June 24, 2013 reviewed for comparison purposes. Findings: BILATERAL SCREENING MAMMOGRAM, [facility], JULY 08, 2021: Tissue Density: There are scattered area s of fibroglandular density. RIGHT BREAST MAMMOGRAM: There is a questioned area of asymmetry in the slightly medial right breast at anterior third depth. There is a subareolar focal asymmetry in the slightly outer, slightly upper right breast. No suspicio us grouped microcalcifications or unexpl ained architectural distortion. LEFT BREAST MAMMOGRAM: No suspicious mass, unexplained architec tural distortion, or suspicious grouped microcalcifications. DIAGNOSTIC RIGHT BREAST MAMMOGRAM, [facility], JULY 23, 2021: Tissue Density: There are scattered area s of fibroglandular density. RIGHT BREAST MAMMOGRAM: The previously questioned asymmetry in t he slightly medial breast effaces on the spot compression view. The previously described subareolar foca l asymmetry persists on the CC spot compression view. No additional mammographic views are performed. DIAGNOSTIC RIGHT BREAST ULTRASOUND, [facility], JULY 23, 2021: Selected static grayscale and color Dopp ler, and grayscale cinematic sweeps are provided of the right breast. On images labeled right retroareolar t here is a 0.9 x 0.5 x 1 cm complex solid and cystic mass which corresponds to the subareolar mammographic focal asymmetry. There is a vascularity are seen within the solid component of this mass. On leatha e of the provided views, this mass appears to possibly be contiguous with an adjacent duct. Multiple prominent ducts are seen in the subareolar breast, several of which contain echogenic material, possibly debris. IMPRESSION RIGHT BREAST: BI-RADS 4: Suspicious IMPRESSION LEFT BREAST: BI-RADS 2: Benign. RECOMMENDATIONS: 1. ??A complex solid and cystic mass is seen in the subareolar right breast. This is suspicious, and therefore ultrasound-guided core biopsy with clip placement is recommended. 2. ??No specific mammographic evidence o f malignancy in the left breast. Annual screening mammography is recommended, next due in July 2022. OVERALL BI-RADS ASSESSMENT: BI-RADS 4: Suspicious A member of the radiology department narinder espinoza contact the patient with the results of this consultation and, if the patient is willing to come to our institution, will facilitate the scheduling of any needed additional imaging and/or biopsy. Performing Organization Address City/State/ZIP Code Phon e Number [facility] documented in this encounter Visit Diagnoses Diagnosis Mass of breast, right Lump or mass in breast documented in this encounter Care Teams Internal Control Analyst Relationship Specialty Start Date End Date Silvino Charles MD PCP - General 08/05/11 08/25/21 documented as of this encounter
--- OUTSIDE RECORDS SUMMARY | 2022-04-12 14:39 | XMS_ITS | Encounter Summary ---
:1945 Author Organization [facility] Address [address] [place] [address] Care Team Providers Name Role Phone Silvino Charles MD Primary Care Provider Unavailable Reason for Visit (Routine/Next Available) - Receiving Office to Obtain Authorization Specialty Diagnoses / Procedures Referred By Contact Refer red To Contact Procedures Unknown, Provider, OUTSIDE IMAGES BREAST Phone: Referral ID Status Reason Start Expiration Visits Visits Date Date Requested Authorized [id number] Receiving Office 08/03/2021 1 1 to Obtain Authorization Encounter Details Date Type Department Care Team Description 07/23/2021 Hospital Encounter [facility] Secondary Reads [place] Social History Tobacco Use [...] 04/21/2022 Office Visit Cardiology Eun Nolen MD [address] [place] [phone] (Wo rk) 07/15/2022 Office Visit Surgical Oncology Jens Almanza MD [address] [place] [address] [facility], [facility], [address] [place] [phone] (Wo rk) documented as of this encounter Procedures Procedure Name Priority Date/Time Associated Diagnosis Comme nts US OUTSIDE IMAGES Routine 08/03/2021 18:32 Result s for this BREAST EST procedure are i n the results section. documented in this encounter Results US OUTSIDE IMAGES BREAST (08/03/2021 18:32 EST) Specimen Narrative 08/03/2021 18:32 EST This is a non-reportable exam. documented in this encounter Visit Diagnoses Not on filedocumented in this encounter Care Teams Tooling Inspector Relationship Specialty Start Date End Date Silvino Charles MD PCP - General 08/05/11 08/25/21 documented as of this encounter
--- OUTSIDE RECORDS SUMMARY | 2022-04-12 14:39 | XMS_ITS | Encounter Summary ---
:1945 Author Organization [facility] Address [address] [place] [address] Care Team Providers Name Role Phone Silvino Charles MD Primary Care Provider Unavailable Reason for Visit Reason Onset Date Comments Medications Refill 04/02/2020 Encounter Details Date Type Department Care Team Description 04/02/2020 Refill [facility] Alyson Bui RN Medications Refill Cardiology Clinic [address] [facility] [address] [place] [address] [place] [address] [phone] (Wo rk) Social History Tobacco Use Types [...] Refills Start Date End Date metoprolol TARtrate Take 1 Tab by mouth 180 Tab 3 020 04/12/2021 (LOPRESSOR) 100 mg tablet 2 times daily. documented in this encounter Miscellaneous Notes Telephone Encounter - Alyson Bui RN - 04/02/2020 0947 EDT Patient called requesting RF of her Metoprolol tartrate 100 mg twice daily. She had recent F/U in the office with 03/16/20. Escript sent to pharmacy. documented in this encounter Plan of Treatment Upcoming Encounters Date Type Specialty Care Team Description 04/21/2022 Ancillary Procedure Cardiology 04/21/2022 Office Visit Cardiology Eun Nolen MD [address] [place] [address] [address] [place], [place] [phone] (Wo rk) 07/15/2022 Office Visit Surgical Oncology Jnes Almanza MD [address] [place] [address], [address] [place] [address] (Wo rk) documented as of this encounter Visit Diagnoses Not on filedocumented in this encounter Discontinued Medications Medication Sig Discontinue Reason Start Date End Date metoprolol (LOPRESSOR) 2 tab(s) orally 2 Reorder 04/02/2020 50 mg tablet times a day documented as of this encounter Care Teams Appian Developer Relationship Specialty Start Date End Date Silvino Charles MD PCP - General 08/05/11 08/25/21 documented as of this encounter
--- OUTSIDE RECORDS SUMMARY | 2022-04-12 14:39 | XMS_ITS | Encounter Summary ---
:[address] [facility] Address [address] [place] [address] Care Team Providers Name Role Phone Silvino Charles MD Primary Care Provider Unavailable Reason for Visit (Routine/Next Available) - Receiving Office to Obtain Authorization Specialty Diagnoses / Procedures Referred By Contact Refer red To Contact Procedures Unknown, Provider, MD [facility] BREAST OUTSIDE IMAGES Phone: Referral ID Status Reason Start Expiration Visits Visits Date Date Requested Authorized [id number] Receiving Office 08/03/2021 1 1 to Obtain Authorization Encounter Details Date Type Department Care Team Description 07/08/2021 Hospital Encounter [facility] Secondary Reads [place] Social History Tobacco Use [...] Office Visit Cardiology Eun Nolen MD [address] [place] [phone] (Wo rk) 07/15/2022 Office Visit Surgical Oncology Jens Almanza MD [address] [facility], [facility], [address] [place] [phone] (Wo rk) documented as of this encounter Procedures Procedure Name Priority Date/Time Associated Diagnosis Comme nts MA BREAST OUTSIDE Routine 08/03/2021 18:39 Result s for this IMAGES EST procedure are i n the results section. documented in this encounter Results MA BREAST OUTSIDE IMAGES (08/03/2021 18:39 EST) Specimen Narrative 08/03/2021 18:39 EST This is a non-reportable exam. documented in this encounter Visit Diagnoses Not on filedocumented in this encounter Care Teams Vacuum Forming Machine Operator Relationship Specialty Start Date End Date Silvino Charles MD PCP - General 08/05/11 08/25/21 documented as of this encounter
--- OUTSIDE RECORDS SUMMARY | 2022-04-12 14:39 | XMS_ITS | Encounter Summary ---
:1945 Author Organization [facility] Address [address] [place] [address] Care Team Providers Name Role Phone Silvino Charles MD Primary Care Provider Unavailable Reason for Visit Reason Onset Date Comments Follow-up 08/25/2021 Encounter Details Date Type Department Care Team Description 08/25/2021 Telephone [facility] Breast Imaging Romy Stevens Follow-up Mammography - Main [facility] [address] [place], [place] [phone] Social History Tobacco Use Types Packs/Day Years [...] Notes Telephone Encounter - Tamica Stevens - 08/25/2021 1502 EST I called patient again to see if she was now ready to schedule her right breast biopsy (I had calledlast week to schedule, but she had to talk to her ride). I tried to call again today, but I could not leave a message as her mailbox is full. She does have my name and number so hopefully she calls me back. [email or web address] [id number] signed by Tamica Stevens at 08/25/2021 15:04 EST documented in this encounter Plan of Treatment Upcoming Encounters Date Type Specialty Care Team Description 04/21/2022 Ancillary Procedure Cardiology 04/21/2022 Office Visit Cardiology Eun Nolen MD [address] [place] [address] [address] [place], [place] [phone] (Wo rk) 07/15/2022 Office Visit Surgical Oncology Jens Almanza MD [address] [place] [address], [facility] [address] [place] [address] (Wo rk) documented as of this encounter Visit Diagnoses Not on filedocumented in this encounter Care Teams Bulk Folder Relationship Specialty Start Date End Date Silvino Charles MD PCP - General 08/05/11 08/25/21 documented as of this encounter
--- OUTSIDE RECORDS SUMMARY | 2022-04-12 14:39 | XMS_ITS | Encounter Summary ---
:1945 Author Organization [facility] Address [address] [place] [address] Care Team Providers Name Role Phone Silvino Charles MD Primary Care Provider Unavailable Encounter Details Date Type Department Care Team Description 12/08/2014 Pre-Procedure SVC [facility] Tamanna, Cardiomyopathy (CMS-HCC) (Primary Dx); Orders Encounter CARDIOLOGY Eun Smith, LBBB (left bundle branch blo ck) [address] [place] [address] [address] [place] [address] Social History Tobacco Use Types [...] on file documented as of this encounter Plan of Treatment Upcoming Encounters Date Type Specialty Care Team Description 04/21/2022 Ancillary Procedure Cardiology 04/21/2022 Office Visit Cardiology Eun Nolen MD [address] [facility] [address] [place] [address] (Wo rk) 07/15/2022 Office Visit Surgical Oncology Jens Almanza MD [address] [facility], [facility], [address] [place] [phone] (Wo rk) documented as of this encounter Procedures Procedure Name Priority Date/Time Associated Comments Diagnosis IMPLANTABLE CARDIAC Routine 12/18/2014 15:10 Resu lts for this DEFIBRILLATOR EDT procedure are in PROCEDURE the results section. documented in this encounter Results IMPLANTABLE CARDIAC DEFIBRILLATOR PROCEDURE (12/18/2014 15:10 EDT) Specimen Narrative [facility] - 12/25/2014 16:34 EDT *Cardiology* [address] [place] [address] Implantable Cardioverter Defibrillator S ystem Implantation Patient: Tania Stahl ?Study Date: ? 12/18/2014 ? Accession #: ?[id number] : ? 1945 Referring: Silvino Charles Attending: Eun Nolen Fellow: Assisting: Herb Fishman RN Copies: ATTESTATION: I, Dr. Eun Nolen have reviewed and agree with the findings of this report. SUMMARY OF PROCEDURE: - There were no complications. - Successful Biventricular Implantable c ardioverter defibrillator implant. 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 INDICATION FOR SALES SUPPORT ADVISOR: Medical ly refractory NYHA Class III CHF, with dilated or ischemic cardiomyopathy, EF 2 5% and QRS duration > 120ms. HISTORY AND INDICATIONS: ??69-year-old w omen with non-ischemic cardiomyopathy, EF 25% >9 months despite GDMT, permanent AF since 2005, LBBB with wide QRS (166ms) and worsening LEARY. Chronic systolic hear t failure NYHA III. PROCEDURE: - Implant of a biventricular ICD ?? ANESTHESIA: Conscious sedation and local anesthesia for pain control. PROCEDURE: The risks, benefits, and alternatives to the procedure and sedation were explained and informed consent was obtai stacy. The patient name, date of , surgica l site, and procedure were verified prior to the procedure. The patient was brought to the OR in the fasting state. The chest was prepped and draped in the usual sterile manner. ??Local anesthestic was administered to the left deltopector al groove. Right axillary vein access. With the patient in Trendelenburg positi on and under fluoroscopic and venogram guidance the vessel was entered once all owing for placement of a soft-tipped J-wire(s) to the level of the inferior v romeo cava. A second guidewire was placed in similar technique after incision and formation of the device pocket. The attending physician was present for the entire procedure. An incision was made medial and perpendi cular to the right deltopectoral groove. Using blunt dissection and electrocauter y to achieve hemostasis, a device pocket was constructed. Lead implantation. The wire was tunneled into the incision area. Using a 9F safety sheath, a lead w as advanced to the right ventricle under fluoroscopic guidance and actively fixed to the right ventricular apical septum. Using a 2nd 9F safety sheath, a K1 Speed c Attain Select [id number] was advanced via a 9F Attain Command MPR outer sheath in a telescoping fashion. A 0.035 guide wire was advanced into the coronary sinu s. The catheters were advanced into the mid CS over the wire. The guidewire was replaced by a 5F inflatable Arrow ballon catheter and venograms were performed. A suitable mid-posterior LV branch was demonstrated. A Whisper wire was advance d down the branch. A pacing lead was then advanced into this branch to a amaya l position on the mid/basal posteriolateral wall. Excellent paramete rs were measured and lack of diaphragmatic stimulation was confirmed. The sheaths were slit and peeled away maintaining good lead stability. The juan d(s) were tested before and after suturing the lead sleeve(s) to the pre-p ectoralis fascia. Lead details in table below. Wound closure. The pocket was copiously irrigated with bacitracin solution. The leads were attached to the device, the a trial lead port was plugged and the system was placed in the pocket. The wou nd was closed in three layers. The deepest layer was continuous vertical ma ttress using 2-0 Monocryl. The mid layer was continuous horizontal mattress using 3-0 Monocryl. The superficial layer was continuous horizontal mattress using 4-0 Monocryl. The skin was coated with topical skin adhesive, then covered with a pressure dressing, ?? IMPLANTED HARDWARE: Implanted device: Krave-N - [employer] Quad XT SALES SUPPORT ADVISOR-D DF4 - Serial number: [id number]. LEAD PARAMETERS + + +---- + Lead # ? 1 ? 2 ? + + +---- + Chamber ? RV ? LV ? + + +---- + Date implanted ?? 18-Dec-2014 ? 1 08-Dec-2014 ? + + +---- + Model information Medtronic [id number] Akasht [place]oya 4598 + + +---- + Serial number ? [id number] ? [id number] ? + + +---- + Location ? Apical RV septum LV lateral wall ? + + +---- + Capture ? 0.7V@ 0.5ms, 1mA 1.1V@ 0.5ms, 1.7mA ? + + +---- + Impedance ? 588Ohms ? 708Ohms ? + + +---- + Sensing ? 9.5mV ? 4.9mV ? + + +---- + Status ? Active ? Active ? + + +---- + ?? PACING SETTINGS + +------+ Mode ? VVIR ?? + +------+ Lower rate 70bpm + +------+ Upper rate 130bpm + +------+ Mode switch Off ?? + +------+ ?? CHAMBER SETTINGS + + +------- --------+ ? RV ? LV ? + + +------- --------+ Pacing polarity ?? Bipolar ? LVti p to RVcoil + + +------- --------+ Amplitude ? 3.5V ? 4V ? + + +------- --------+ Pulse width ? 0.4ms ? 0 .4ms ? + + +------- --------+ Sensing polarity ?? Bipolar ? + + +------- --------+ Sensitivity ? 0.3mV ? + + +------- --------+ Pacing thresholds Satisfactory Satisfa ctory ?? + + +------- --------+ Sensing thresholds Satisfactory ? + + +------- --------+ ?? ARRYTHMIA DETECTION AND SETTINGS + + ------+ + Zone ? VF ? VT ? + + ------+ + Cycle length CL: 320ms ? CL: 400ms + + ------+ + Heart rate ?? HR: 188bpm ? HR: 150bpm + + ------+ + Status ? ENABLED ? MONITOR ?? + + ------+ + Therapy ? ATP during charge then S hocks x6 N/A ? + + ------+ + ?? STUDY COMPLETION Administered medications: ?? Cefazolin ( Ancef, Kefzol) , prior to the procedure for infection prophylaxis. - Fluoroscopy time: 6.6min. - Isovue Contrast: 80ml. - Patient in-room time: 11:48 AM. - Patient out-of-room time: 03:30 PM. - Intake: 600ml - Output: 0ml - Estimated blood loss: 30ml. Clinical Trial: ??The patient is not enr olled in a clinical trial. PLAN: ??See post procedure orders. Bed r est for 2hours. Continue anticoagulation. At the completion of the procedure, find ings, results, any complications, and treatment plan were communicated to the patient and reinforced after recovery from anesthesia. With the patient's cons ent, the attending physician communicated findings, results, any comp lications, and treatment plan to family members and patient support persons who were present at the conclusion of the procedure. POST PROCEDURAL DISPOSITION: Outpatient status is indicated. Bedded o utpatient status is indicated. Indication for chcf anticoagulation . Reference: Hospitalization Criteria for Pacemaker and ICD Placement and EP/Ablation; Heart Rhythm Society; Genevieve ed December, Electronically signed by Eun Nolen 12/25/2014 16:33 Procedure Note Eun Nolen MD - 12/25/2014 *Cardiology* [address] [place] [address] Implantable Cardioverter Defibrillator S ystem Implantation Patient: Tania Stahl Study Date: 12/18/2014 : 1945 Referring: Silvino Charles Attending: Eun Nolen Fellow: Assisting: Herb Fishman RN Copies: ATTESTATION: I, Dr. Eun Nolen have reviewed and agree with the findings of this report. SUMMARY OF PROCEDURE: - There were no complications. - Successful Biventricular Implantable c ardioverter defibrillator implant. 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 INDICATION FOR SALES SUPPORT ADVISOR: Medical ly refractory NYHA Class III CHF, with dilated or ischemic cardiomyopathy, EF 2 5% and QRS duration > 120ms. HISTORY AND INDICATIONS: 69-year-old wom en with non-ischemic cardiomyopathy, EF 25% >9 months despite GDMT, permanent AF since 2005, LBBB with wide QRS (166ms) and worsening LEARY. Chronic systolic hear t failure NYHA III. PROCEDURE: - Implant of a biventricular ICD ANESTHESIA: Conscious sedation and local anesthesia for pain control. PROCEDURE: The risks, benefits, and alternatives to the procedure and sedation were explained and informed consent was obtai stacy. The patient name, date of , surgica l site, and procedure were verified prior to the procedure. The patient was brought to the OR in the fasting state. The chest was prepped and draped in the usual sterile manner. Local anesthestic was administered to the left deltopector al groove. Right axillary vein access. With the patient in Trendelenburg positi on and under fluoroscopic and venogram guidance the vessel was entered once all owing for placement of a soft-tipped J-wire(s) to the level of the inferior v romeo cava. A second guidewire was placed in similar technique after incision and formation of the device pocket. The attending physician was present for the entire procedure. An incision was made medial and perpendi cular to the right deltopectoral groove. Using blunt dissection and electrocauter y to achieve hemostasis, a device pocket was constructed. Lead implantation. The wire was tunneled into the incision area. Using a 9F safety sheath, a lead w as advanced to the right ventricle under fluoroscopic guidance and actively fixed to the right ventricular apical septum. Using a 2nd 9F safety sheath, a K1 Speed c Attain Select II [id number] was advanced via a 9F Attain Command MPR outer sheath in a telescoping fashion. A 0.035 guide wire was advanced into the coronary sinu s. The catheters were advanced into the mid CS over the wire. The guidewire was replaced by a 5F inflatable Arrow ballon catheter and venograms were performed. A suitable mid-posterior LV branch was demonstrated. A Whisper wire was advance d down the branch. A pacing lead was then advanced into this branch to a amaya l position on the mid/basal posteriolateral wall. Excellent paramete rs were measured and lack of diaphragmatic stimulation was confirmed. The sheaths were slit and peeled away maintaining good lead stability. The juan d(s) were tested before and after suturing the lead sleeve(s) to the pre-p ectoralis fascia. Lead details in table below. Wound closure. The pocket was copiously irrigated with bacitracin solution. The leads were attached to the device, the a trial lead port was plugged and the system was placed in the pocket. The wou nd was closed in three layers. The deepest layer was continuous vertical ma ttress using 2-0 Monocryl. The mid layer was continuous horizontal mattress using 3-0 Monocryl. The superficial layer was continuous horizontal mattress using 4-0 Monocryl. The skin was coated with topical skin adhesive, then covered with a pressure dressing, IMPLANTED HARDWARE: Implanted device: Krave-N - [employer] Quad XT SALES SUPPORT ADVISOR-D DF4 - Serial number: [id number]. LEAD PARAMETERS + + +---- + Lead # 1 2 + + +---- + Chamber RV LV + + +---- + Date implanted 18-Dec-2014 5 + + +---- + Model information Medtronic [id number] Medt ritoflori Roc Performa 4598 + + +---- + Serial number [id number] + + +---- + Location Apical RV septum LV lateral w all + + +---- + Capture 0.7V@ 0.5ms, 1mA 1.1V@ 0.5ms, 1.7mA + + +---- + Impedance 588Ohms 708Ohms + + +---- + Sensing 9.5mV 4.9mV + + +---- + Status Active Active + + +---- + PACING SETTINGS + +------+ Mode VVIR + +------+ Lower rate 70bpm + +------+ Upper rate 130bpm + +------+ Mode switch Off + +------+ CHAMBER SETTINGS + + +------- --------+ RV LV + + +------- --------+ Pacing polarity Bipolar LVtip to RVco il + + +------- --------+ Amplitude 3.5V 4V + + +------- --------+ Pulse width 0.4ms 0.4ms + + +------- --------+ Sensing polarity Bipolar + + +------- --------+ Sensitivity 0.3mV + + +------- --------+ Pacing thresholds Satisfactory Satisfa ctory + + +------- --------+ Sensing thresholds Satisfactory + + +------- --------+ ARRYTHMIA DETECTION AND SETTINGS + + ------+ + Zone VF VT + + ------+ + Cycle length CL: 320ms CL: 400ms + + ------+ + Heart rate HR: 188bpm HR: 150bpm + + ------+ + Status ENABLED MONITOR + + ------+ + Therapy ATP during charge then Shocks x6 N/A + + ------+ + STUDY COMPLETION Administered medications: Cefazolin (Anc ef, Kefzol) , prior to the procedure for infection prophylaxis. - Fluoroscopy time: 6.6min. - Isovue Contrast: 80ml. - Patient in-room time: 11:48 AM. - Patient out-of-room time: 03:30 PM. - Intake: 600ml - Output: 0ml - Estimated blood loss: 30ml. Clinical Trial: The patient is not enrol led in a clinical trial. PLAN: See post procedure orders. Bed res t for 2hours. Continue anticoagulation. At the completion of the procedure, find ings, results, any complications, and treatment plan were communicated to the patient and reinforced after recovery from anesthesia. With the patient's cons ent, the attending physician communicated findings, results, any comp lications, and treatment plan to family members and patient support persons who were present at the conclusion of the procedure. POST PROCEDURAL DISPOSITION: Outpatient status is indicated. Bedded o utpatient status is indicated. Indication for chcf anticoagulation . Reference: Hospitalization Criteria for Pacemaker and ICD Placement and EP/Ablation; Heart Rhythm Society; Genevieve ed December, Electronically signed by Eun Nolen 12/25/2014 16:33 Performing Organization Address City/State/ZIP Code Phon e Number [facility] documented in this encounter Visit Diagnoses Diagnosis Cardiomyopathy (HCC) - Primary Other primary cardiomyopathies LBBB (left bundle branch block) Other left bundle branch block documented in this encounter Orders Medications Ordered That Might Not Have Count Last Ord ered Date First Ordered Date Been Administered chlorhexidine gluconate 2 % cloth 1 Each 1 015 documented in this encounter 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
--- OUTSIDE RECORDS SUMMARY | 2022-04-12 14:40 | XMS_ITS | Encounter Summary ---
:1945 Author Organization [facility] Address [address] [place] [address] Care Team Providers Name Role Phone Silvino Charles MD Primary Care Provider Unavailable Encounter Details Date Type Department Care Team Description 09/23/2014 Results Only Imaging [facility] Stacey Nolen MD [phone] [place] [address] [phone] (Wo rk) Social History Tobacco Use Types Packs/Day Years Used Date Never Smoker Alcohol Use Standard Drinks/Week Comments No 0 (1 standard drink = 0.6 oz pure alcoho l) Sex Assigned at Date Recorded Not on file documented as of this encounter Plan of Treatment Upcoming Encounters Date Type Specialty Care Team Description 04/21/2022 Ancillary Procedure Cardiology 04/21/2022 Office Visit Cardiology [facility] [address] [facility] [address] [place] [address] (Wo rk) 07/15/2022 Office Visit Surgical Oncology Jens Almanza MD [address] [facility] [place] [address] (Wo rk) documented as of this encounter Procedures Procedure Name Priority Date/Time Associated Diagnosis Comme nts LEFT HEART CATH 09/24/2014 12:38 EDT Resu lts for this procedure are i n the results section. documented in this encounter Results LEFT HEART CATH (09/24/2014 12:38 EDT) Specimen Narrative [facility] - 09/29/2014 10:31 EDT Cardiology [address] [place] [id number] Catheterization Laboratory Study Patient: Tania Stahl ?Study Date: ? 09/24/2014 ? Accession #: ?[id number] : ? 1945 Referring Physician: Unknown, Doctor Diagnostic Attending: ??Cuco Mckinnon Diagnostic Fellow: Damon Johnson ?? ATTESTATION: Dr. Cuco Mckinnon was present and superv ising for the entire procedure, I Dr. Damon Johnson was the initial author of this report. I, Dr. Cuco Mckinnon have reviewed and agree with the finding s of this report. PROCEDURE PLAN: A diagnostic study was performed without intervention. RESEARCH STUDY: Patient is not enrolled in any research studies. IMPRESSIONS: Mild coronary artery disease. SUMMARY: 1. HPI and indications: Exertional dyspn ea. Stable angina. LV failure. 2. End diastolic pressure in the left ve ntricle is normal. Pressure measurements ?? across the aortic valve show no evid ence of stenosis. 3. Left main: Normal. 4. LAD: Ectatic. Minor luminal irregular ities. 5. Left circumflex: Ectatic. Minor lumin al irregularities. 6. Right coronary: Ectatic. Minor lumina l irregularities. RECOMMENDATIONS: Patient management should include risk f actor modification, an exercise program, weight reduction, and low calorie diet. HISTORY: Exertional dyspnea. ??Stable angina. ??L V failure. ??Functional status: ?? NYHA class III (symptoms with minimal exercis e); CCS class III (marked limitation of ordinary activity); prior history of con gestive heart failure. ??Risk factors: Hypertension. Obese. Dyslipidemia. ??Med ications: ??Beta blockers. Anti-anginal therapy. ??Allergies: ??No known allergi es. LABS, PRIOR TESTS, PROCEDURES AND SURGER Y: Serum creatinine (current admission) of 1 mg/dl. ??Prothrombin time (PT) of 24.3 sec. ??Hematocrit of 45.3 %. ??Platelet count of 307 th/ul. ??Serum potassium (K) of 3.9 mEq/l. ??Blood urea nitrogen of 1 9 mg/dl. ??Hemoglobin (pre-procedure) of 15.8 g/dl. ??International normalized ra melissa (INR) of 2.2. STUDY DATA: Study status: ??Cardiac cath: elective. ??Location: ??Catheterization laboratory. Sex: female. Patient is 69yr old. Weight : 99.7kg. Procedures performed: ?Left radia l artery access. ?Right coronary angiography. ?Left coronary angiogra phy. PROCEDURE: 1. Initial setup. The patient was ashleigh t to the laboratory in the fasting ?? state. A baseline ECG was recorded. Surface ECG leads, automatic cuff blood ?? pressure measurements, and pulse oxi metric signals were monitored. 2. Skin preparation. The planned punctur e sites were prepped with chlorhexidine ?? and draped in the usual sterile serna er. 3. Left radial artery access. A 5 FR/11c m Transradial Vascular Kit sheath was ?? advanced into the vessel. 4. Selective right coronary angiography. A 5F FR4 catheter was advanced into the ?? right coronary vessel ostium under f luoroscopic guidance. Contrast was ?? injected by hand. Images were obtain ed in multiple projections. 5. Selective left coronary angiography. A 5F FL 3.5 catheter was advanced into ?? the left coronary vessel ostium unde r fluoroscopic guidance. Contrast was ?? injected by hand. Images were obtain ed in multiple projections. 6. Left radial artery hemostasis. Mechan ical compression was applied. STUDY COMPLETION: The estimated blood loss was 10ml. All c atheters inserted during the procedure were removed. The patient tolerated the procedure well and was discharged from the lab. There were no complications. ?? Administered medications: ?? Sodium bicarbonate. ??Fentanyl, for a total dos e of 100mcg. ??Midazolam, for a total dose of 2mg. ??Nitroglycerin, for a total dos e of 250mcg, into the coronary artery. Fluoroscopy time: ??6min. ??Fluoroscopy dose: ??45.1cGy. CORONARY ARTERIES: The coronary circulation is right domina nt. Left main: ??Normal. LAD: ??Ectatic. Minor luminal irregulari ties. Left circumflex: ??Ectatic. Minor lumina l irregularities. Right coronary: ??Ectatic. Minor luminal irregularities. HEMODYNAMICS: End diastolic pressure in the left ventr icle is normal. Pressure measurements across the aortic valve show no evidence of stenosis. + + + Stage description ? Baseline ?? + + + LV pressure s/ed ? 96/8 ? + + + Arterial pressure s/d (m) 99/62 (77) + + + * Electronically signed by Cuco Mckinnon Jr., MD 2014-09-29 10:31 Procedure Note Cuoc Mckinnon Jr., MD - 09/29/[address] [place] [phone] Catheterization Laboratory Study Patient: Tania Stahl Study Date: 0 09/24/2014 : 1945 Referring Physician: Unknown, Doctor Diagnostic Attending: Cuco Mckinnon Diagnostic Fellow: Damon Johnson ATTESTATION: Dr. Cuco Mckinnon was present and superv ising for the entire procedure, I Dr. Damon Johnson was the initial author of this report. I, Dr. Cuco Mckinnon have reviewed and agree with the finding s of this report. PROCEDURE PLAN: A diagnostic study was performed without intervention. RESEARCH STUDY: Patient is not enrolled in any research studies. IMPRESSIONS: Mild coronary artery disease. SUMMARY: 1. HPI and indications: Exertional dyspn ea. Stable angina. LV failure. 2. End diastolic pressure in the left ve ntricle is normal. Pressure measurements across the aortic valve show no evidenc e of stenosis. 3. Left main: Normal. 4. LAD: Ectatic. Minor luminal irregular ities. 5. Left circumflex: Ectatic. Minor lumin al irregularities. 6. Right coronary: Ectatic. Minor lumina l irregularities. RECOMMENDATIONS: Patient management should include risk f actor modification, an exercise program, weight reduction, and low calorie diet. HISTORY: Exertional dyspnea. Stable angina. LV fa ilure. Functional status: NYHA class III (symptoms with minimal exercis e); CCS class III (marked limitation of ordinary activity); prior history of con gestive heart failure. Risk factors: Hypertension. Obese. Dyslipidemia. Medic ations: Beta blockers. Anti-anginal therapy. Allergies: No known allergies. LABS, PRIOR TESTS, PROCEDURES AND SURGER Y: Serum creatinine (current admission) of 1 mg/dl. Prothrombin time (PT) of 24.3 sec. Hematocrit of 45.3 %. Platelet coun t of 307 th/ul. Serum potassium (K) of 3.9 mEq/l. Blood urea nitrogen of 19 mg/dl. Hemoglobin (pre-procedure) of 15.8 g/dl. International normalized rati o (INR) of 2.2. STUDY DATA: Study status: Cardiac cath: elective. Lo cation: Catheterization laboratory. Sex: female. Patient is 69yr old. Weight : 99.7kg. Procedures performed: Left radial artery access. Right coronary angiography. Left coronary angiography. PROCEDURE: 1. Initial setup. The patient was ashleigh t to the laboratory in the fasting state. A baseline ECG was recorded. Ashleigh face ECG leads, automatic cuff blood pressure measurements, and pulse oximet mariajose signals were monitored. 2. Skin preparation. The planned punctur e sites were prepped with chlorhexidine and draped in the usual sterile manner. 3. Left radial artery access. A 5 FR/11c m Transradial Vascular Kit sheath was advanced into the vessel. 4. Selective right coronary angiography. A 5F FR4 catheter was advanced into the right coronary vessel ostium under fluo roscopic guidance. Contrast was injected by hand. Images were obtained in multiple projections. 5. Selective left coronary angiography. A 5F FL 3.5 catheter was advanced into the left coronary vessel ostium under f luoroscopic guidance. Contrast was injected by hand. Images were obtained in multiple projections. 6. Left radial artery hemostasis. Mechan ical compression was applied. STUDY COMPLETION: The estimated blood loss was 10ml. All c atheters inserted during the procedure were removed. The patient tolerated the procedure well and was discharged from the lab. There were no complications. Ad ministered medications: Sodium bicarbonate. Fentanyl, for a total dose of 100mcg. Midazolam, for a total dose of 2mg. Nitroglycerin, for a total dose of 250mcg, into the coronary artery. Fluoroscopy time: 6min. Fluoroscopy dose : 45.1cGy. CORONARY ARTERIES: The coronary circulation is right domina nt. Left main: Normal. LAD: Ectatic. Minor luminal irregulariti es. Left circumflex: Ectatic. Minor luminal irregularities. Right coronary: Ectatic. Minor luminal i rregularities. HEMODYNAMICS: End diastolic pressure in the left ventr icle is normal. Pressure measurements across the aortic valve show no evidence of stenosis. + + + Stage description Baseline + + + LV pressure s/ed 96/8 + + + Arterial pressure s/d (m) 99/62 (77) + + + * Electronically signed by Cuco Mckinnon Jr., MD 2014-09-29 10:31 Performing Organization Address City/State/ZIP Code Phon e Number [facility] documented in this encounter Visit Diagnoses Not on filedocumented in this encounter Care Teams Maintenance Technician Relationship Specialty Start Date End Date Silvino Charles MD PCP - General 08/05/11 08/25/21 documented as of this encounter
--- OUTSIDE RECORDS SUMMARY | 2022-04-12 14:40 | XMS_ITS | Encounter Summary ---
:1945 Author Organization [facility] Address [address] [place] [address] Care Team Providers Name Role Phone Unknown, Provider Primary Care Provider Encounter Details Date Type Department Care Team Description 08/03/2011 Results Only [facility] Jay Schaefer DO [phone] [place] [address] [place] [address] (Wo rk) Social History Tobacco Use Types Packs/Day Years Used Date Never Assessed Sex Assigned at Date Recorded Not on file documented as of this encounter Plan of Treatment Upcoming Encounters Date Type Specialty Care Team Description 04/21/2022 Ancillary Procedure Cardiology 04/21/2022 Office Visit Cardiology Eun Nolen MD [address] [place] [address] [address] [place] [phone] (Wo rk) 07/15/2022 Office Visit Surgical Oncology Jens Almanza MD [address] [facility], [facility] [address] [place] [address] (Wo rk) documented as of this encounter Procedures Procedure Name Priority Date/Time Associated Diagnosis Comme nts SURGICAL PATHOLOGY Routine 08/03/2011 0:00 EST Re sults for this procedure are i n the results section. documented in this encounter Results SURGICAL PATHOLOGY (08/03/2011 0:00 EST) Pathologist [facility] Pathology Report: SURGICAL PATHOLOGY REPORT [facility] Reports generated via electronic interface contain katina ginal data; LAB however they are lacking the format of the original re port. Caution should be taken when reading/interpreting unfo rmatted reports. Name: ? ISAIAH STAHL ? Accession #: ? [id number] ? : ? 1945 (Age: 66) ??F ? Collect Date: ? 08/03/2011 ? Location: ? [facility] ? Receive Date: ? 012 ? Provider: JAY SCHAEFER DO Copy to: LINDY SANDOVAL MD ? Final Pathologic Diagnosis: ? Gallbladder, cholecystectomy: 1. 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 2. ?Acute, subacute, and chronic cholecys titis. 3. ? Cholelithiasis. 4. ? One reactive lymph node. Comment: ? Journeyman Pipe Welder sections of this case have been reviewed at intradepartmental consultation conference. ?? Document reviewed and electronically signed by: THEODORE PALACIO MD Report ??Date: 08/08/2011 14:40 By the signature above, the attending physician certif ies that he/she has personally conducted a gross and/or microscopic examin ation of the described specimens and rendered or confirmed the above diagnosi s. Specimen(s) Received: ? Gallbladder Clinical History: ? Cholecystitis Gross Description: ? Received in formalin labelled Lukas Stahlrice and gallbladder is a partially opened product of a cholecystectomy me asuring 10.5 cm in length and averaging 4.0 cm in diameter . ??The serosa is fuchs-pink, glistening and edematous. The mucosa is fuchs-red, slightly thickened with promin ent ridges within the region of the cystic duct. ??The underly ing wall averages 0.2 cm in thickness. The lumen contains a minimal amount of green mucoid bile with four yellow-black, multifaceted choleliths lulu uring 2.7 x 2.3 x 1.2 cm in greatest dimension. ??The cystic duct measures 0.5 cm in length, 0.3 cm in diameter, and is not grossly patent. ??There is a prominent 1.3 cm in greatest dime nsion cystic duct node present. ??The specimen is serially sectioned an d strategic partnership representative sections are submitted as follows: BLOCK PAGAN A1 ?Inked cysti c duct margin en face and two sections of gallbladder A2 ?Journeyman Pipe Welder gallbladder from neck region, including strategic partnership representative cystic duct node A3 ?Remaining cystic duct node (Renzo Arciniega)/[facility] End of Report Specimen Performing Organization Address City/State/ZIP Code Phon e Number [facility] [address] [place] [address] [facility] [address] [place] [address] documented in this encounter Visit Diagnoses Not on filedocumented in this encounter Care Teams Lime Mixer Tender Relationship Specialty Start Date End Date Unknown, Provider, PCP - General 08/04/11 08/04/11 documented as of this encounter
[2022-04-12 15:48] LABS: ALT 25 U/L (14-59); AST 17 U/L (15-37); Albumin 3.9 g/dL (3.4-5.0); Alkaline Phosphatase 117 U/L (46-116); Anion Gap 5.9 mmol/L (3-11); BUN 19 mg/dL (7-18); Bilirubin, Total 0.8 mg/dL (0.2-1.0); CO2 31.1 mmol/L (21.0-32.0); Calcium 9.3 mg/dL (8.5-10.1); Chloride 102 mmol/L (98-107); Estimated GFR 58.75 (mL/min/1.73m2); Glucose 141 mg/dL (74-106); Sodium 139 mmol/L (136-145); Total Protein 8.3 g/dL (6.4-8.2)
== END 2022-04-12 14:24 | disposition home or self-care (01) ==
LOC: LBO 14:36
PROVIDERS: PCP Nurse Practitioner; Visit Provider Nurse Practitioner Family
DX: I50.22 Chronic systolic (congestive) heart failure (principal)
CPT/HCPCS: 36415; 80053

== ENCOUNTER 2022-08-02 20:55 | Outpatient (REF) | payer MEDICARE, SELFPAY ==
[2022-08-02 21:16] LABS: ALT 41 U/L (14-59); AST 30 U/L (15-37); Albumin 3.6 g/dL (3.4-5.0); Alkaline Phosphatase 85 U/L (46-116); Anion Gap 6.3 mmol/L (3-11); BUN 16 mg/dL (7-18); Bilirubin, Total 1.3 mg/dL (0.2-1.0); CO2 28.7 mmol/L (21.0-32.0); Calcium 8.7 mg/dL (8.5-10.1); Chloride 105 mmol/L (98-107); Estimated GFR 58.75 (mL/min/1.73m2); Glucose 138 mg/dL (74-106); Potassium 4.1 mmol/L (3.5-5.1); Sodium 140 mmol/L (136-145); Total Protein 7.3 g/dL (6.4-8.2)
[2022-08-02 21:34] LABS: Abs Immature Grans 0.03 10^3/uL (0.0-0.06); Absolute Basophil Count 0.03 10^3/uL (0.0-0.2); Absolute Eosinophil Count 0.07 10^3/uL (0.0-0.7); Absolute Lymphocyte Count 1.33 10^3/uL (1.2-3.4); Absolute Monocyte Count 0.92 10^3/uL (0.1-0.8); Absolute Neutrophil Count 7.49 10^3/uL (1.2-6.7); Basophils % 0.3; Eosinophils % 0.7; HCT 43.1 % (36.0-46.0); Immature Grans % 0.3; Lymphocytes % 13.5; MCH 30.6 pg (27.0-33.0); MCHC 34.8 % (32.0-36.0); MCV 88 fL (80-95); MPV 11.4 fL (8.0-11.0); Monocytes % 9.3; Neutrophils % 75.9; Platelet Count 223 10^3/uL (130-400); RDW 12.9 % (11.7-14.6); RDW-SD 40.5 fL; WBC 9.87 10^3/uL (4.4-10.8)
== END 2022-08-02 20:56 | disposition home or self-care (01) ==
LOC: LBN 20:55
PROVIDERS: PCP Nurse Practitioner Family; Visit Provider Nurse Practitioner Family
DX: R53.83 Other fatigue (principal); M79.18 Myalgia, other site
CPT/HCPCS: 80053; 85025

== ENCOUNTER → 2023-02-24 00:17 | Outpatient (CLI) | payer MEDICARE, SELFPAY ==
--- NOTE | 2023-02-24 | DI.RAD_ITS ---
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 Two images were obtained. PA and lateral views were obtained. COMPARISON: CR PORTABLE CHEST ONE VIEW from 10/18/2015 FINDINGS: MEDIASTINUM: Normal. HEART: Normal. Cardiac pacing wires are stable. PULMONARY VASCULATURE: Normal. LUNGS: Clear. PLEURAL SPACE: No pleural effusion or pneumothorax. BONE:Within normal limits for the patient's age. OTHER FINDINGS:Normal. IMPRESSION: No acute pulmonary findings. DATA REPOSITORY: RADIATION DOSE DELIVERED:
== END ==
PROVIDERS: PCP Nurse Practitioner Family; Visit Provider Internal Medicine Cardiovascular Disease
DX: I42.0 Dilated cardiomyopathy (principal)
CPT/HCPCS: 36415; 80048; 85027; 71046; 80162

== ENCOUNTER 2023-02-24 01:35 | Outpatient (CLI) | payer MEDICARE, SELFPAY ==
[2023-02-24 09:54] LABS: Anion Gap 6.3 mmol/L (3-11); BUN 17 mg/dL (7-18); CO2 30.7 mmol/L (21.0-32.0); Calcium 8.4 mg/dL (8.5-10.1); Chloride 102 mmol/L (98-107); Estimated GFR 58.75 (mL/min/1.73m2); Glucose 171 mg/dL (74-106); Sodium 139 mmol/L (136-145)
[2023-02-24 10:12] LABS: HCT 40.5 % (36.0-46.0); HGB 14.2 g/dL (11.2-15.7); MCHC 35.1 % (32.0-36.0); MCV 91 fL (80-95); MPV 9.7 fL (8.0-11.0); Platelet Count 258 10^3/uL (130-400); RBC 4.44 10^6/uL (3.93-5.22); RDW 13.2 % (11.7-14.6); RDW-SD 43.3 fL; WBC 9.05 10^3/uL (4.4-10.8)
[2023-02-24 10:34] LABS: Digoxin 0.97 ng/mL (0.90-2.00)
== END 2023-02-24 01:36 | disposition home or self-care (01) ==
LOC: LBO 01:36
PROVIDERS: PCP Nurse Practitioner Family; Visit Provider Internal Medicine Cardiovascular Disease
DX: I42.0 Dilated cardiomyopathy (principal)
CPT/HCPCS: 36415; 80048; 85027; 80162

== ENCOUNTER 2023-04-04 19:27 | Emergency (ER) | payer MEDICARE, SELFPAY ==
[2023-04-04] VITALS (21 sets, daily range): BP systolic 136–163; BP diastolic 40–64; PULSE 59–71; RESP 13–26; TEMP 36.8; O2SAT 90–93
--- NOTE | 2023-04-04 20:00 | DI.RAD_ITS ---
Exam(s) XR CHEST 2V PA LATERAL EXAM: XR CHEST 2V PA LATERAL CLINICAL HISTORY: cough, shortness of breath. TECHNIQUE: 2D digital imaging was performed. COMPARISON: CR XR CHEST 2V PA LATERAL from 02/24/2023 FINDINGS: 2 views: Bipolar right subclavian pacemaker again noted. Heart size is normal. The mediastinum is not widened. Lungs are clear. No infiltrates nor pleural effusions. IMPRESSION: No acute pulmonary findings. DATA REPOSITORY: RADIATION DOSE DELIVERED:
--- NOTE | 2023-04-04 20:00 | RT.EKG_ITS ---
APPROVED REPORT Exam: Resting ECG Reason for Exam: weakness Patient Location: E HR:61 bpm ECG Measurements Heart Rate 61 AXIS MO 159 P 0 QRSd 149 QRS 165 QT 474 T 89 QTc 478 Conclusion atrial fibrillation poor baseline limits interpretation
--- NOTE | 2023-04-04 20:30 | RT.EKG_ITS ---
APPROVED REPORT Exam: Resting ECG Reason for Exam: short of breath Patient Location: E HR:63 bpm ECG Measurements Heart Rate 63 AXIS TX [id number] P [id number] QRSd 151 QRS 170 QT 504 T 97 QTc 517 Conclusion ventricular-paced rhythm No ST segment or T wave abnormalities to suggest occlusive IL
[2023-04-04] MEDS: Albuterol/Ipratropium 3 ML UPD VIAL UPD (20:35)
[2023-04-04] MEDS: predniSONE 20 MG TAB 40 MG PO (20:35)
[2023-04-04 20:57] LABS: Abs Immature Grans 0.11 10^3/uL (0.0-0.06); Absolute Basophil Count 0.04 10^3/uL (0.0-0.2); Absolute Lymphocyte Count 1.07 10^3/uL (1.2-3.4); Absolute Monocyte Count 1.01 10^3/uL (0.1-0.8); Basophils % 0.3; Eosinophils % 1.4; HGB 13.9 g/dL (11.2-15.7); Immature Grans % 0.8; Lymphocytes % 7.4; MCH 31.9 pg (27.0-33.0); MCV 92 fL (80-95); MPV 10.4 fL (8.0-11.0); Neutrophils % 83.1; Platelet Count 225 10^3/uL (130-400); RBC 4.36 10^6/uL (3.93-5.22); RDW 13.2 % (11.7-14.6); RDW-SD 43.1 fL; WBC 14.43 10^3/uL (4.4-10.8)
[2023-04-04 21:00] LABS: ALT 18 U/L (14-59); AST 17 U/L (15-37); Albumin 3.6 g/dL (3.4-5.0); Alkaline Phosphatase 112 U/L (46-116); Anion Gap 8.1 mmol/L (3-11); BUN 19 mg/dL (7-18); Bilirubin, Total 0.7 mg/dL (0.2-1.0); CO2 26.9 mmol/L (21.0-32.0); Calcium 9.3 mg/dL (8.5-10.1); Chloride 101 mmol/L (98-107); Estimated GFR 58.39 (mL/min/1.73m2); Glucose 175 mg/dL (74-106); Sodium 136 mmol/L (136-145); Total Protein 7.8 g/dL (6.4-8.2); Troponin I < 50 ng/L (<or=60)
[2023-04-04 21:01] LABS: Absolute Neutrophil Count 11.99 10^3/uL (1.2-6.7)
[2023-04-04 21:02] LABS: MCHC 34.8 % (32.0-36.0)
[2023-04-04 21:12] LABS: COVID-19 PCR Negative (Negative); Influenza A PCR Negative (Negative); Influenza B PCR Negative (Negative); RSV PCR Negative (Negative)
[2023-04-04 21:15] LABS: Source NASOPHARYNX
[2023-04-04] MEDS: Acetaminophen 500 MG TAB 1000 MG PO (21:42)
[2023-04-04] MEDS: Doxycycline Hyclate 100 MG CAP PO (21:42)
[2023-04-04] MEDS: Albuterol HFA 8 GM 60 PUFF INH IH (21:45)
--- NOTE | 2023-04-04 22:15 | DI.VRAD_ITS ---
PROCEDURE INFORMATION: Exam: XR Chest Exam date and time: 04/04/2023 9:25 PM Age: 78 years old Clinical indication: Cough and shortness of breath; Prior surgery; Surgery date: <1 month; Surgery type: Icd, just updated per PT; Patient HX: Cough, SOB, TECHNIQUE: Imaging protocol: Radiologic exam of the chest. Views: 2 views. COMPARISON: CR XR CHEST 2V PA LATERAL 02/24/2023 9:09 AM FINDINGS: Tubes, catheters and devices: Biventricular cardiac pacemaker without gross hardware complication or change. Lungs: Symmetrical pulmonary expansion. Pulmonary vasculature grossly normal. Question mild central peribronchial thickening suspicious for mild changes of bronchitis/bronchiolitis, versus mild bronchial edema and perihilar interstitial edema. No consolidative infiltrates. Pleural spaces: No pleural effusion. No pneumothorax. Heart/Mediastinum: Heart size normal. No tracheal/mediastinal shift. Bones/joints: No acute osseous abnormalities are identified. Moderate thoracic spondylosis. IMPRESSION: Question changes of bronchitis versus mild bronchial/interstitial edema. No consolidative pulmonary infiltrates. Dictated and Authenticated by: Silvino Steiner MD. Ordering:CAROL Montemayor MD
--- NOTE | 2023-04-06 10:43 | ED.GENADUL_ITS ---
Discharge Plan Disposition Patient Disposition: Home Discharge Details Clinical Impression: Bronchitis Primary Care Provider: Yun Avery ED Provider: Albina Gilbert Home Meds and New Rx's Prescriptions: New prednisone 20 mg tablet 40 mg PO ONCE Qty: 10 0RF doxycycline hyclate 100 mg capsule 100 mg PO BID 14 Days Qty: 28 0RF prednisone 20 mg tablet 40 mg PO DAILY 5 Days Qty: 10 0RF Rx Instructions: Take 2 tablets once daily x 5 days Continued tamoxifen 20 mg tablet PO DAILY digoxin 125 mcg (0.125 mg) tablet 0.125 mg PO DAILY nystatin-triamcinolone 15 GM cream 1 galilea Topical PRN PRNQty: 3 diphenhydramine HCl 25 MG tablet 1 - 2 tab PO HS PRNQty: 30 clotrimazole-betamethasone 15 GM cream 0 Topical BID PRNQty: 30 Rx Instructions: Apply to inguinal area Xarelto 20 mg tablet 20 mg PO DAILY Patient Comments: 07/11/18 started on 05/02/[address] 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 methocarbamol 500 mg tablet 500 mg PO QID Qty: 90 1RF furosemide 40 mg tablet 80 mg PO DAILY Qty: 180 3RF lisinopril 5 mg tablet 5 mg PO DAILY Qty: 90 3RF spironolactone 25 mg tablet See Rx Instructions .ROUTE .COMPLEX Qty: 45 1RF Dose Instruction: TAKE ONE-HALF TABLET BY MOUTH EVERY DAY Rx Instructions: TAKE ONE-HALF TABLET BY MOUTH EVERY DAY ondansetron HCl 4 mg tablet 4 mg PO Q8H PRN (Reason: nausea and vomiting) Qty: 60 1RF lorazepam 1 mg tablet 1 mg PO HS PRN (Reason: anxiety) Qty: 30 0RF metoprolol succinate 200 mg tablet extended release 24 hr 200 mg PO DAILY Rx Instructions: 03/02/2023 per [facility] Discharge Instructions Instructions: Acute Bronchitis (ED) Additional Instructions: Increase fluids Use your inhaler 2 puffs every 4-6 hours as needed for cough, wheeze, shortness of breath Take the prednisone as prescribed, you received a dose this evening Take the antibiotic as prescribed Yogurt daily while on the antibiotic return earlier while on antibiotic Referrals: Yun Avery NP [Primary Care Provider] - Discharge Data Discharge Date/Time-TO BE ENTERED AT DEPARTURE: 04/04/23 21:50 Medical Decision Making 78-year-old female presenting with cough, shortness of breath, sore throat, COVID-negative Vitals are stable, no respiratory distress Chest x-ray does not show evidence of acute abnormality per radiology interpretation my review Lungs clear to auscultation, patient does not report significant relief with albuterol nebulizer treatment, will give albuterol as needed at home as needed Single dose of Decadron We will place patient on doxycycline secondary to age and comorbidities We will treat for suspected bronchitis Patient does tell me she does not feel improved however she looks improved and she is able to ambulate without any noted respiratory distress There is no clinical indication for admission at this time Diagnostic labs do not show significant acute abnormality Recheck with primary care physician in 24 to 48 hours recommended very mild leukocytosis, 14,000 without evidence of bacterial etiology of patient's complaints BNP slightly elevated but no clinical evidence consistent with volume overload, ordered initially secondary to age, and reported shortness of breath HPI General Date/Time Provider Initiated Documentation: 04/04/23 20:01 . HPI Narrative: This 78-year-old female presents with sore throat, cough, and shortness of breath for the past 3 days. She states she went to a recently and is wondering if she caught a cold. Presents predominantly secondary to uncontrolled coughing or shortness of breath or coughing. Denies any chest pain, reports myalgias. Denies fever or chills, denies any additional co mplaints at this time. Related Data Home Medications Medication Instructions Recorded Confirmed nystatin-triamcinolone 100,000 1 galilea topical PRN PRN ##3 10/09/12 03/13/23 unit/g-0.1 % topical cream diphenhydramine HCl 25 mg tablet 1 - 2 tab PO HS PRN #30 tab-caps 02/21/13 03/13/23 clotrimazole-betamethasone 1 0 topical BID PRN #30 grams 11/10/15 03/13/23 %-0.05 % topical cream rivaroxaban 20 mg tablet (Xarelto) 20 mg PO DAILY 07/11/18 03/13/23 methocarbamol 500 mg tablet 500 mg PO QID #90 tabs 12/22/21 03/13/23 furosemide 40 mg tablet 80 mg PO DAILY #180 tabs 05/13/22 03/13/23 tamoxifen 20 mg tablet mg PO DAILY 07/11/22 03/13/23 lisinopril 5 mg tablet 5 mg PO DAILY #90 tabs 07/28/22 03/13/23 spironolactone 25 mg tablet See Rx Instructions .Route 10/20/22 03/13/23 .COMPLEX #45 tabs ondansetron HCl 4 mg tablet 4 mg PO Q8H PRN nausea and 12/13/22 03/13/23 vomiting #60 tabs digoxin 125 mcg (0.125 mg) tablet 0.125 mg PO DAILY 01/17/23 03/13/23 lorazepam 1 mg tablet 1 mg PO HS PRN anxiety #30 tabs 02/16/23 03/13/23 metoprolol succinate 200 mg 200 mg PO DAILY 03/02/23 03/13/23 tablet,extended release 24 hr doxycycline hyclate 100 mg capsule 100 mg PO BID 14 days #28 caps 04/04/23 prednisone 20 mg tablet 40 mg PO ONCE #10 tabs 04/04/23 prednisone 20 mg tablet 40 mg PO DAILY 5 days #10 tabs 04/05/23 Previous Rx's Medication Instructions Recorded methocarbamol 500 mg tablet 500 mg PO QID #90 tabs 12/22/21 furosemide 40 mg tablet 80 mg PO DAILY #180 tabs 05/13/22 lisinopril 5 mg tablet 5 mg PO DAILY #90 tabs 07/28/22 spironolactone 25 mg tablet See Rx Instructions .Route 10/20/22 .COMPLEX #45 tabs ondansetron HCl 4 mg tablet 4 mg PO Q8H PRN nausea and 12/13/22 vomiting #60 tabs lorazepam 1 mg tablet 1 mg PO HS PRN anxiety #30 tabs 02/16/23 doxycycline hyclate 100 mg capsule 100 mg PO BID 14 days #28 caps 04/04/23 prednisone 20 mg tablet 40 mg PO ONCE #10 tabs 04/04/23 prednisone 20 mg tablet 40 mg PO DAILY 5 days #10 tabs 04/05/23 Allergies Allergy/AdvReac Type Severity Reaction Status Date / Time No Known Allergies Allergy Unverified 03/13/23 10:57 General Stated Complaint: SOB ELIANE: 3 PFSH All Active Problems (Updated 04/04/23 @ 21:41 by YAZAN Levy) Atrial fibrillation (Chronic 10/13/12) Rapid a fib. Under anticoagulated.Shortness of [id number]. On Digoxin-progressively worse over the last year. Echo 2010 EF 35-40%, 2+ MR. 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 Nolen- [facility] 2 x year Anxiety (Chronic) Non-ischemic cardiomyopathy (Chronic) Prediabetes (Acute) Numbness and tingling of both feet (Acute) Breast mass in female (Acute) 07/24: right breast, sub areolar - referred to [facility] bx /- AT LEAST atypical ductal hyperplasia- see report Low back pain (Acute) Muscle spasm of back (Acute) Nail dystrophy (Acute) Exostosis (Acute) Fatigue (Acute) Myalgia (Acute) Medication monitoring encounter (Acute) ICD (implantable cardioverter-defibrillator) in place (Acute) 12/01/22 Per [facility]. -hb CHF (congestive heart failure) (Chronic) 12/01/22 Per [facility]. -hb Idiopathic neuropathy (Acute) *Dx qualifies pt for at-risk foot care services with Podiatry. Onychomycosis (Acute) Bronchitis (Acute) Medical History Anxiety Depression Depressive disorder 2020- has not needed meds x 4 years; used to take History of surgery Hysterectomy for DUB. Cholecystectomy. Colonoscopy, 1 5 years. She is uncertain if she had a polyp in the past or not. Incisional hernia of anterior abdominal wall without obstruction or gangrene Skin cancer of face per [facility] 2015 Surgical History Abdominal hysterectomy Cholecystectomy Hx of atrioventricular node ablation (09/22/17) Implantation of automatic cardioverter/defibrillator, total system (AICD) 12/18/14- [facility]; SERIAL NUMBER [id number]. [employer] DF4 Myomectomy (~1986) Family History Mother , 85 Anxiety A-fib Depression Heart disease Afib COPD (chronic obstructive pulmonary disease) Father , 71 A-fib Colon cancer Brother , 61 Substance abuse CANNABIS A-fib MS (multiple sclerosis) Pancreatic cancer Maternal Aunt Breast cancer Ductal Maternal Grandfather , 80 Stroke Depression Maternal Aunt Breast cancer Maternal Cousin Breast cancer Paternal Grandfather , 40 ESRD (end stage renal disease) Maternal Grandmother , 85 A-fib Heart disease Macular degeneration Paternal Grandmother No problems noted. Daughter No problems noted. Maternal Cousin Breast cancer Social History Smoking/Tobacco Use Status: Former Tobacco Use tobacco type: cigarettes Quit Date: 07/03/76 Tobacco: How many years used: 2 Second Hand Exposure: Yes Smoking risk assessment performed?: Yes Alcohol Intake: current Alcohol Intake frequency: holidays/special occasions only Alcohol type: hard liquor Drug use: Never Substance use type: does not use Caregiver/Support person: No Communication Needs: None Do you need help understanding health information?: Never Pets and animals: Yes Pets and animals: cat(s) Current gender identity: female What is your relationship status?: How often do you talk on the phone with friends or family?: twice per week Panel score (0-1 are the most socially isolated patients): 0 Ofelia/Mormonism: None Special ofelia needs: No Seatbelt use: always Helmet use: Yes Helmet use: always 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 Do you feel safe at home: Yes Course Vital Signs Vital signs: Vital Signs Temperature 36.8 C 04/04/23 19:33 Pulse 65 04/04/23 19:33 Respiratory Rate 18 04/04/23 19:33 Blood Pressure 163/61 H 04/04/23 19:33 Pulse Oximetry 93 04/04/23 19:33 Temperature 36.8 C 04/04/23 19:33 Temperature Source Temporal Artery Scan 04/04/23 19:33 Pulse 60 04/04/23 21:17 Pulse 60 04/04/23 21:40 Respiratory Rate 13 04/04/23 21:40 Respiratory Effort Short of Breath 04/04/23 20:02 Respiratory Depth Normal 04/04/23 20:02 Blood Pressure 157/47 H 04/04/23 21:17 Blood Pressure Mean 85 04/04/23 21:17 Pulse Oximetry 92 04/04/23 21:40 Oxygen Delivery Method Room Air 04/04/23 19:33 Oxygen Flow Rate 0 04/04/23 19:33 Pain Level 3 04/04/23 19:33 Lab/Test Results Lab/Test Results: Laboratory Tests Range/Units 04/04/23 04/04/23 04/04/23 20:20 20:20 20:20 WBC (4.4-10.8) 10^3/uL 14.43 H RBC (3.93-5.22) 10^6/uL 4.36 Hgb (11.2-15.7) g/dL 13.9 Hct (36.0-46.0) % 40.0 MCV (80-95) fL 92 MCH (27.0-33.0) pg 31.9 MCHC (32.0-36.0) % 34.8 RDW (11.7-14.6) % 13.2 Plt Count (130-400) 10^3/uL 225 MPV (8.0-11.0) fL 10.4 Immature Gran % 0.8 Neutrophils % 83.1 Lymphocytes % 7.4 Monocytes % 7.0 Eosinophils % 1.4 Basophils % 0.3 Nucleated RBC % (0.0-0.3) % 0.0 Absolute Neutrophils (1.2-6.7) 10^3/uL 11.99 H Absolute Lymphocytes (1.2-3.4) 10^3/uL 1.07 L Absolute Monocytes (0.1-0.8) 10^3/uL 1.01 H Absolute Eosinophils (0.0-0.7) 10^3/uL 0.20 Absolute Basophils (0.0-0.2) 10^3/uL 0.04 Sodium (136-145) mmol/L 136 Potassium (3.5-5.1) mmol/L 4.0 Chloride (98-107) mmol/L 101 Carbon Dioxide (21.0-32.0) mmol/L 26.9 Anion Gap (3-11) mmol/L 8.1 BUN (7-18) mg/dL 19 H Creatinine (0.55-1.02) mg/dL 1.0 Est GFR (CKD-EPI 2020) (mL/min/1.73m2) 58.39 Glucose (74-106) mg/dL 175 H Calcium (8.5-10.1) mg/dL 9.3 Total Bilirubin (0.2-1.0) mg/dL 0.7 AST (15-37) U/L 17 ALT (14-59) U/L 18 Alkaline Phosphatase (46-116) U/L 112 Troponin I (<or=60) ng/L < 50 Total Protein (6.4-8.2) g/dL 7.8 Albumin (3.4-5.0) g/dL 3.6 COVID-19 Source NASOPHARYNX SARS-CoV-2 (PCR) (Negative) Negative Influenza Type A (PCR) (Negative) Negative Influenza Type B (PCR) (Negative) Negative RSV (PCR) (Negative) Negative Range/Units 04/04/23 23:09 WBC (4.4-10.8) 10^3/uL RBC (3.93-5.22) 10^6/uL Hgb (11.2-15.7) g/dL Hct (36.0-46.0) % MCV (80-95) fL MCH (27.0-33.0) pg MCHC (32.0-36.0) % RDW (11.7-14.6) % Plt Count (130-400) 10^3/uL MPV (8.0-11.0) fL Immature Gran % Neutrophils % Lymphocytes % Monocytes % Eosinophils % Basophils % Nucleated RBC % (0.0-0.3) % Absolute Neutrophils (1.2-6.7) 10^3/uL Absolute Lymphocytes (1.2-3.4) 10^3/uL Absolute Monocytes (0.1-0.8) 10^3/uL Absolute Eosinophils (0.0-0.7) 10^3/uL Absolute Basophils (0.0-0.2) 10^3/uL Sodium (136-145) mmol/L Potassium (3.5-5.1) mmol/L Chloride (98-107) mmol/L Carbon Dioxide (21.0-32.0) mmol/L Anion Gap (3-11) mmol/L BUN (7-18) mg/dL Creatinine (0.55-1.02) mg/dL Est GFR (CKD-EPI 2020) (mL/min/1.73m2) Glucose (74-106) mg/dL Calcium (8.5-10.1) mg/dL Total Bilirubin (0.2-1.0) mg/dL AST (15-37) U/L ALT (14-59) U/L Alkaline Phosphatase (46-116) U/L Troponin I (<or=60) ng/L Cancelled Total Protein (6.4-8.2) g/dL Albumin (3.4-5.0) g/dL COVID-19 Source SARS-CoV-2 (PCR) (Negative) Influenza Type A (PCR) (Negative) Influenza Type B (PCR) (Negative) RSV (PCR) (Negative)
== END 2023-04-04 21:50 | disposition home or self-care (01) ==
PROVIDERS: Emergency Provider Physician Assistant; PCP Nurse Practitioner Family
DX: Z95.0 Presence of cardiac pacemaker; R53.1 Weakness; I48.91 Unspecified atrial fibrillation; Z79.01 Long term (current) use of anticoagulants; J40 Bronchitis, not specified as acute or chronic; I50.20 Unspecified systolic (congestive) heart failure
CPT/HCPCS: 36415; 80053; 87637; 93005; 94640; 99285; 71046; 84484; 85025; 93010; 99284; J7512; J7620

== ENCOUNTER 2023-10-27 01:28 | Outpatient (CLI) | payer MEDICARE, SELFPAY ==
[2023-10-27] MEDS: Inhaler, Assist Device 1 EACH MC (16:31)
[2023-10-27] MEDS: Levalbuterol HFA 15 GM INH 4 PUFF IH (16:31)
--- NOTE | 2023-10-30 13:50 | W.PFT ---
Date of service: 10/27/23 Time of Service: 13:04 Pulmonary Function Test Result Indications: Wheezing Interpretation Spirometry: There is no airflow limitation. There is a significant bronchodilator response. Lung Volumes: Normal lung volumes Diffusion Capacity: Normal diffusion Airway Pressure: Normal airways resistance Impression Normal pulmonary function testing with a significant bronchodilator response. Clinical Correlation therefore is recommended.
== END 2023-10-27 01:29 | disposition home or self-care (01) ==
LOC: RT 01:28
PROVIDERS: PCP Nurse Practitioner Family; Visit Provider Nurse Practitioner Family
DX: R06.2 Wheezing (principal)
CPT/HCPCS: 94060; 94726; 94729

== ENCOUNTER 2024-02-02 14:48 | Emergency (ER) | payer MEDICARE, SELFPAY ==
[2024-02-02] VITALS (68 sets, daily range): BP systolic 119–186; BP diastolic 54–126; PULSE 59–79; RESP 13–33; TEMP 36.4–37.9; O2SAT 92–95
--- NOTE | 2024-02-02 14:45 | RT.EKG_ITS ---
APPROVED REPORT Exam: Resting ECG Reason for Exam: SOB Patient Location: E HR:62 bpm ECG Measurements Heart Rate 62 AXIS WI [id number] P [id number] QRSd 163 QRS 142 QT 569 T 89 QTc 577 Conclusion Afib/flut and V-paced complexes...other complexes, A-rate>[address] segment or T wave abnormalities to suggest occlusive ID
--- NOTE | 2024-02-02 15:15 | DI.RAD_ITS ---
Exam(s) XR CHEST 2V PA LATERAL EXAM: XR CHEST 2V PA LATERAL CLINICAL HISTORY: SOB with exertion, malaise TECHNIQUE: 2D digital imaging was performed of the chest. Two images were obtained. PA and lateral views were obtained. COMPARISON: CR,XR XR CHEST 2V PA LATERAL from 04/04/2023 FINDINGS: MEDIASTINUM: Normal. HEART: Cardiomegaly. Cardiac pacing wires are stable in position. PULMONARY VASCULATURE: Normal. LUNGS: No focal consolidating infiltrates. PLEURAL SPACE: No pleural effusion or pneumothorax. BONE:Within normal limits for the patient's age. OTHER FINDINGS:Normal. IMPRESSION: No acute pulmonary findings. DATA REPOSITORY: RADIATION DOSE DELIVERED:
--- NOTE | 2024-02-02 15:17 | ED.GENADUL_ITS ---
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 [facility] furosemide 40 mg tablet 80 mg PO DAILY Qty: 180 3RF metoprolol succinate 200 mg tablet extended release 24 hr 200 mg PO DAILY Rx Instructions: 03/02/2023 [facility] lisinopril 5 mg tablet 5 mg PO DAILY Qty: 90 3RF lorazepam 1 mg tablet 1 mg PO HS PRN (Reason: anxiety) Qty: 30 1RF spironolactone 25 mg tablet See Rx Instructions .ROUTE .COMPLEX Qty: 45 1RF Dose Instruction: TAKE ONE-HALF TABLET BY MOUTH EVERY DAY Rx Instructions: TAKE ONE-HALF TABLET BY MOUTH EVERY DAY Discharge Instructions Instructions: Upper Respiratory Infection ED Additional Instructions: Your chest x ray did not show any pneumonia. Tylenol over the counter for discomfort; follow the directions on the bottle. You can use the inhaler up to every 4 hours as needed. Call your primary care doctor on Monday to schedule an appointment for Monday or Monday to followup on your visit here. Mention your magnesium level and your QT interval at that visit. Return to the emergency department for new or worsening symptoms including chest pain, difficulty breathing, or if you have any other concerns. Referrals: Yun Avery NP [Primary Care Provider] - Discharge Data Discharge Date/Time-TO BE ENTERED AT DEPARTURE: 02/02/24 22:24 HPI General Mode of arrival: ambulatory . Date/Time Provider Initiated Documentation: 02/02/24 14:50 . Limitations to Documentation: no limitations . Information obtained by: patient and old records reviewed . HPI Narrative: 78yo F with hx afib, CHF, pacer/AICD in place, presenting for one week of cough, fatigue, and shortness of breath with exertion. Seen at and advsied to present to the ED for further workup (unable to get labs or XR at ). Feels generally unwell, body aches, sinus congestion, sore throat, rhinoreha No fevers, rash, or chills. Short of breath when coughing or ambulating. She is otherwise in her usual state of health with no chest pain, neck pain, syncope, presyncope, wosrening LE edema, or other concerns. Related Data Home Medications ?Medication ?Instructions ?Recorded ?Confirmed diphenhydramine HCl 25 mg tablet 1 - 2 tab PO HS PRN #30 tab-caps 02/21/13 02/02/24 rivaroxaban 20 mg tablet (Xarelto) 20 mg PO DAILY 07/11/18 02/02/24 furosemide 40 mg tablet 80 mg (2 x 40 mg) PO DAILY #180 05/13/22 02/02/24 tabs tamoxifen 20 mg tablet 20 mg PO DAILY 07/11/22 02/02/24 metoprolol succinate 200 mg 200 mg PO DAILY 03/02/23 02/02/24 tablet,extended release 24 hr ondansetron HCl 4 mg tablet 4 mg PO Q8H PRN nausea and 09/08/23 02/02/24 vomiting #60 tabs lisinopril 5 mg tablet 5 mg PO DAILY #90 tabs 09/28/23 02/02/24 digoxin 125 mcg (0.125 mg) tablet 0.125 mg PO DAILY #90 tabs 10/09/23 02/02/24 lorazepam 1 mg tablet 1 mg PO HS PRN anxiety #30 tabs 11/30/23 02/02/24 spironolactone 25 mg tablet See Rx Instructions .Route 12/25/23 02/02/24 .COMPLEX #45 tabs docusate sodium 100 mg capsule 100 mg PO BID PRN 01/22/24 02/02/24 (Colace) Previous Rx's ?Medication ?Instructions ?Recorded furosemide 40 mg tablet 80 mg (2 x 40 mg) PO DAILY #180 05/13/22 tabs ondansetron HCl 4 mg tablet 4 mg PO Q8H PRN nausea and 09/08/23 vomiting #60 tabs lisinopril 5 mg tablet 5 mg PO DAILY #90 tabs 09/28/23 digoxin 125 mcg (0.125 mg) tablet 0.125 mg PO DAILY #90 tabs 10/09/23 lorazepam 1 mg tablet 1 mg PO HS PRN anxiety #30 tabs 11/30/23 spironolactone 25 mg tablet See Rx Instructions .Route 12/25/23 .COMPLEX #45 tabs Allergies Allergy/AdvReac Type Severity Reaction Status Date / Time No Known Allergies Allergy Unverified 02/02/24 16:10 General Stated Complaint: SOB ELIANE: 3 Review of Systems Narrative: see HPI Exam Narrative Exam Narrative: General: Alert, nont-toxic, well nourished, in no acute distress. Head: Normocephalic, atraumatic Neck: Trachea midline, ?Neck supple. ENT: ?Slightly dry MM.? No oropharygeal lesions or exudate. Cardiac: ?RRR Resp: No respiratory distress. CTAB. Speaking in full sentences. No dyspnea at rest Abd: ?Soft, non-distended, nontender : ?No suprapubic tenderness. Extremities: ?No deformities.? Trace peripheral edema BLE, symmetric Neurologic: GCS 15. ? Moves all extremities freely against gravity Course Vital Signs Vital signs: Vital Signs Pulse 66 02/02/24 14:52 Respiratory Rate 20 02/02/24 14:52 Blood Pressure 144/60 H 02/02/24 14:52 Pulse Oximetry 94 02/02/24 14:52 Pulse 66 02/02/24 14:52 Respiratory Rate 20 02/02/24 14:52 Blood Pressure 144/60 H 02/02/24 14:52 Pulse Oximetry 94 02/02/24 14:52 Medical Decision Making 78yo F with hx afib, CHF, pacer/AICD in place, presenting for one week of cough, fatigue, and shortness of breath with exertion. Seen at and advised to present to the ED for further workup (unable to get labs or XR at ). One week of URI symptoms, malaise, body aches; no fevers. Slightly hypertensive on arrival, vital signs otherwise reassuring, afebrile On exam she does appear to be feeling poorly but does not appear toxic. No respiratory distress distress, she is speaking in full sentences while at rest and lungs are CTAB. Not overtly septic. Not concerned for meningitis. Sightly dry mucous membranes and no signs of volume overload on exam; will give cautious hydration with 500cc NS given her known CHF and current respiratory symptoms. Tylenol and toradol for symptoms. -EKG on arrival with no occlusive ischemic changes. -CXR independently reviewed, no focal pneumonia or pulmonary edema on my view, agree with radiology read below. -Labs reviewed as below, CBC with mild leukocytosis at 12 and no anemia, CMP with slight hypocalcemia (replaced), slight hypomagnesium (replaced), BNP mildly elevated at 902 consistent with CHF (does not appear to be acute exacerbation causing her current dyspnea), troponin negative x 2 (would not further pursue ACS). UA not infected. -On [facility] record review did have normal PFTs recently however with some bronchodilator response; given this will give albuterol inhaler here. -Trialed ambulation with no lightheadeness, O2 sat >94 throughout. Repeat EKGs remains reassuring, paced, does have prolonged QT however this not new and pt has AICD in place. On reassessment she remains non-toxic appearing with reassuring vital signs. No indication for hospital admission. Advised symptomatic treatment at home, immediate return to the ED for worsening symptoms including chest pain or difficulty breathing. Discharged home to followup with PCP; discharge instructions and return precautions were reviewed with patient who verbalized understanding. All questions were answered and she is in full agreement with the plan. Medical Records Medical records reviewed: Yes I reviewed the patient's medical records. Imaging Data Radiologic Study: Imaging: X-Ray Radiologist's impression: IMPRESSION: No acute pulmonary findings. Lab Data Lab results reviewed: Yes I reviewed the patient's lab results. Labs: Laboratory Tests Range/Units 02/02/24 02/02/24 02/02/24 15:31 16:04 18:19 WBC (4.4-10.8) 10^3/uL 12.04 H RBC (3.93-5.22) 10^6/uL 4.09 Hgb (11.2-15.7) g/dL 13.3 Hct (36.0-46.0) % 37.5 MCV (80-95) fL 92 MCH (27.0-33.0) pg 32.5 MCHC (32.0-36.0) % 35.5 RDW (11.7-14.6) % 12.7 Plt Count (130-400) 10^3/uL 212 MPV (8.0-11.0) fL 9.6 Immature Gran % % 0.5 Neutrophils % % 79.7 Lymphocytes % % 10.0 Monocytes % % 8.6 Eosinophils % % 1.0 Basophils % % 0.2 Nucleated RBC % (0.0-0.3) % 0.0 Absolute Neutrophils (1.2-6.7) 10^3/uL 9.60 H Absolute Lymphocytes (1.2-3.4) 10^3/uL 1.20 Absolute Monocytes (0.1-0.8) 10^3/uL 1.04 H Absolute Eosinophils (0.0-0.7) 10^3/uL 0.12 Absolute Basophils (0.0-0.2) 10^3/uL 0.02 Sodium (136-145) mmol/L 139 Potassium (3.5-5.1) mmol/L 3.9 Chloride (98-107) mmol/L 104 Carbon Dioxide (21.0-32.0) mmol/L 27.0 Anion Gap (3-11) mmol/L 8.0 BUN (7-18) mg/dL 11 Creatinine (0.55-1.02) mg/dL 1.0 Est GFR (CKD-EPI 2020) (mL/min/1.73m2) 58.39 Glucose (74-106) mg/dL 207 H Calcium (8.5-10.1) mg/dL 8.4 L Magnesium (1.8-2.4) mg/dL 1.6 L Total Bilirubin (0.2-1.0) mg/dL 0.80 AST (15-37) U/L 14 L ALT (14-59) U/L 17 Alkaline Phosphatase (46-116) U/L 97 Troponin I (< or =60) ng/L < 50 NT-Pro-B Natriuret Pep (<300) pg/mL 902 H Total Protein (6.4-8.2) g/dL 7.3 Albumin (3.4-5.0) g/dL 3.2 L Urine Color (Yellow) Yellow Urine Clarity (Clear) Clear Urine pH (5-8) 6.0 Ur Specific [place] (1.005-1.025) >= 1.030 H Urine Protein (Neg-Trace) mg/dL Trace Urine Ketones (Negative) mg/dL Trace H Urine Blood (Negative) Negative Urine Nitrite (Negative) Negative Urine Bilirubin (Negative) Small H Urine Urobilinogen (Up to 0.2) mg/dL 1.0 H Ur Leukocyte Esterase (Negative) Negative Urine Glucose (Negative) mg/dL 250 H COVID-19 Source Nasopharynx SARS-CoV-2 (PCR) (Negative) Negative Influenza Type A (PCR) (Negative) Negative Influenza Type B (PCR) (Negative) Negative RSV (PCR) (Negative) Negative Range/Units 02/02/24 19:10 WBC (4.4-10.8) 10^3/uL RBC (3.93-5.22) 10^6/uL Hgb (11.2-15.7) g/dL Hct (36.0-46.0) % MCV (80-95) fL MCH (27.0-33.0) pg MCHC (32.0-36.0) % RDW (11.7-14.6) % Plt Count (130-400) 10^3/uL MPV (8.0-11.0) fL Immature Gran % % Neutrophils % % Lymphocytes % % Monocytes % % Eosinophils % % Basophils % % Nucleated RBC % (0.0-0.3) % Absolute Neutrophils (1.2-6.7) 10^3/uL Absolute Lymphocytes (1.2-3.4) 10^3/uL Absolute Monocytes (0.1-0.8) 10^3/uL Absolute Eosinophils (0.0-0.7) 10^3/uL Absolute Basophils (0.0-0.2) 10^3/uL Sodium (136-145) mmol/L Potassium (3.5-5.1) mmol/L Chloride (98-107) mmol/L Carbon Dioxide (21.0-32.0) mmol/L Anion Gap (3-11) mmol/L BUN (7-18) mg/dL Creatinine (0.55-1.02) mg/dL Est GFR (CKD-EPI 2020) (mL/min/1.73m2) Glucose (74-106) mg/dL Calcium (8.5-10.1) mg/dL Magnesium (1.8-2.4) mg/dL Total Bilirubin (0.2-1.0) mg/dL AST (15-37) U/L ALT (14-59) U/L Alkaline Phosphatase (46-116) U/L Troponin I (< or =60) ng/L < 50 NT-Pro-B Natriuret Pep (<300) pg/mL Total Protein (6.4-8.2) g/dL Albumin (3.4-5.0) g/dL Urine Color (Yellow) Urine Clarity (Clear) Urine pH (5-8) Ur Specific [place] (1.005-1.025) Urine Protein (Neg-Trace) mg/dL Urine Ketones (Negative) mg/dL Urine Blood (Negative) Urine Nitrite (Negative) Urine Bilirubin (Negative) Urine Urobilinogen (Up to 0.2) mg/dL Ur Leukocyte Esterase (Negative) Urine Glucose (Negative) mg/dL COVID-19 Source SARS-CoV-2 (PCR) (Negative) Influenza Type A (PCR) (Negative) Influenza Type B (PCR) (Negative) RSV (PCR) (Negative) Quality:SDOH Health Related Social Needs: No Data to Display PFSH All Active Problems (Updated 02/02/24 @ 21:39 by Leighann Stock MD) Viral URI (Acute) Macular degeneration (Acute) Atrial fibrillation (Chronic 10/13/12) Rapid a fib. Under anticoagulated.Shortness of [id number]. On Digoxin-progressively worse over the last year. Echo 2010 EF 35-40%, 2+ MR. 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 Nolen- [facility] 2 x year Anxiety (Chronic) Non-ischemic cardiomyopathy (Chronic) Prediabetes (Acute) Numbness and tingling of both feet (Acute) Breast mass in female (Acute) 07/24: right breast, sub areolar - referred to [facility] bx 3/2- AT LEAST atypical ductal hyperplasia- see report Low back pain (Acute) Muscle spasm of back (Acute) Nail dystrophy (Acute) Exostosis (Acute) Fatigue (Acute) Myalgia (Acute) Medication monitoring encounter (Acute) ICD (implantable cardioverter-defibrillator) in place (Acute) 12/01/22 Per [facility]. -hb CHF (congestive heart failure) (Chronic) 12/01/22 Per [facility]. -hb Idiopathic neuropathy (Acute) *Dx qualifies pt for at-risk foot care services with Podiatry. Onychomycosis (Acute) Medical History Skin cancer of face per [facility] 2016 Incisional hernia of anterior abdominal wall without obstruction or gangrene Depressive disorder 2020- has not needed meds x 4 years; used to take Depression Anxiety History of surgery Hysterectomy for DUB. Cholecystectomy. Colonoscopy, 1 5 years. She is uncertain if she had a polyp in the past or not. Surgical History Hx of atrioventricular node ablation (09/22/17) Myomectomy (~1986) Implantation of automatic cardioverter/defibrillator, total system (AICD) 12/18/14- [facility]; SERIAL NUMBER [id number]. [employer] QUAD XT SHORT ORDER FRY COOK-D DF4 Abdominal hysterectomy Cholecystectomy Family History Mother , 85 Anxiety A-fib Depression Heart disease Afib COPD (chronic obstructive pulmonary disease) Father , 71 A-fib Colon cancer Brother , 61 Substance abuse CANNABIS A-fib MS (multiple sclerosis) Pancreatic cancer Maternal Aunt Breast cancer Ductal Maternal Grandfather , 80 Stroke Depression Maternal Aunt Breast cancer Maternal Cousin Breast cancer Paternal Grandfather , 40 ESRD (end stage renal disease) Maternal Grandmother , 85 A-fib Heart disease Macular degeneration Paternal Grandmother No problems noted. Daughter No problems noted. Maternal Cousin Breast cancer Social History Smoking/Tobacco Use Status: Former Tobacco Use tobacco type: cigarettes Quit Date: 07/03/76 Tobacco: How many years used: 2 Second Hand Exposure: Yes Smoking risk assessment performed?: Yes Alcohol Intake: current Alcohol Intake frequency: holidays/special occasions only Alcohol type: hard liquor Drug use: Never Substance use type: does not use Caregiver/Support person: No Communication Needs: None Do you need help understanding health information?: Never Pets and animals: Yes Pets and animals: cat(s) Current gender identity: female What is your relationship status?: refused to answer How often do you talk on the phone with friends or family?: decline to answer Panel score (0-1 are the most socially isolated patients): 0 Ofelia/Presybeterian: None Special ofelia needs: No Seatbelt use: always Helmet use: Yes Helmet use: always Drive intox or ride w/intox hazardous materials tanker driver: No In current or past relationships, have you been: made to feel afraid Do you feel safe at home: Yes Do you feel safe in your relationship?: Yes Victim of physical abuse: No Victim of emotional abuse: Yes Victim of sexual abuse: No Would you like helpful sources: No
[2024-02-02] MEDS: Normal Saline 500 ML IV (16:09)
[2024-02-02 16:11] LABS: Abs Immature Grans 0.06 10^3/uL (0.0-0.06); Absolute Eosinophil Count 0.12 10^3/uL (0.0-0.7); Absolute Monocyte Count 1.04 10^3/uL (0.1-0.8); Basophils % 0.2 %; HCT 37.5 % (36.0-46.0); HGB 13.3 g/dL (11.2-15.7); Immature Grans % 0.5 %; MCH 32.5 pg (27.0-33.0); MCHC 35.5 % (32.0-36.0); MCV 92 fL (80-95); MPV 9.6 fL (8.0-11.0); Monocytes % 8.6 %; Neutrophils % 79.7 %; Platelet Count 212 10^3/uL (130-400); RBC 4.09 10^6/uL (3.93-5.22); RDW 12.7 % (11.7-14.6); RDW-SD 41.4 fL; WBC 12.04 10^3/uL (4.4-10.8)
[2024-02-02 16:12] LABS: COVID-19 PCR Negative (Negative); Influenza A PCR Negative (Negative); Influenza B PCR Negative (Negative); RSV PCR Negative (Negative); Source Nasopharynx
[2024-02-02 16:12] LABS: Absolute Basophil Count 0.02 10^3/uL (0.0-0.2)
[2024-02-02 16:38] LABS: ALT 17 U/L (14-59); AST 14 U/L (15-37); Albumin 3.2 g/dL (3.4-5.0); Alkaline Phosphatase 97 U/L (46-116); BUN 11 mg/dL (7-18); Calcium 8.4 mg/dL (8.5-10.1); Chloride 104 mmol/L (98-107); Estimated GFR 58.39 (mL/min/1.73m2); Glucose 207 mg/dL (74-106); NT-proBNP 902 pg/mL (<300); Potassium 3.9 mmol/L (3.5-5.1); Sodium 139 mmol/L (136-145); Total Protein 7.3 g/dL (6.4-8.2); Troponin I < 50 ng/L (< or =60)
[2024-02-02 16:46] LABS: Magnesium 1.6 mg/dL (1.8-2.4)
[2024-02-02] MEDS: MAGNESIUM SULFATE 2 GM/50 ML BAG IVINF (17:28)
[2024-02-02] MEDS: Calcium Carbonate 1.5 GM TAB 3 GM PO (17:28)
[2024-02-02 18:26] LABS: Bilirubin Small (Negative); Blood Negative (Negative); Clarity Clear (Clear); Glucose 250 mg/dL (Negative); Ketones Trace mg/dL (Negative); Leukocyte Esterase Negative (Negative); Nitrite Negative (Negative); Specific Gravity >= 1.030 (1.005-1.025)
--- NOTE | 2024-02-02 18:45 | RT.EKG_ITS ---
APPROVED REPORT Exam: Resting ECG Reason for Exam: weakness Patient Location: E HR:60 bpm ECG Measurements Heart Rate 60 AXIS IA [id number] P 0 QRSd 137 QRS 138 QT 669 T 75 QTc 669 Conclusion AV block, complete (third degree)...V-rate< 60, AV dissociation IVCD, consider RBBB...QRSd>120mS, terminal axis(90,270) Lateral infarct, old...Q>40mS, flat T, V5 V6 I aVL Prolonged QT interval...QTc >500mS
[2024-02-02 19:41] LABS: Troponin I < 50 ng/L (< or =60)
--- NOTE | 2024-02-02 20:15 | RT.EKG_ITS ---
APPROVED REPORT Exam: Resting ECG Reason for Exam: QT Patient Location: E HR:61 bpm ECG Measurements Heart Rate 61 AXIS NE 157 P 0 QRSd 139 QRS 146 QT 583 T 95 QTc 589 Conclusion Ventricular-paced rhythm
[2024-02-02] MEDS: Acetaminophen 500 MG TAB 1000 MG PO (20:35)
[2024-02-02] MEDS: Ketorolac 15 MG/ML VIAL IVP (20:56)
[2024-02-02] MEDS: Albuterol HFA 8 GM 60 PUFF INH IH (20:56)
[2024-02-02] MEDS: Inhaler, Assist Device 1 EACH MC (20:57)
== END 2024-02-02 22:24 | disposition home or self-care (01) ==
PROVIDERS: Emergency Provider Student in an Organized Health Care Education/Training Program; PCP Nurse Practitioner Family
DX: J06.9 Acute upper respiratory infection, unspecified (principal); B97.89 Other viral agents as the cause of diseases classified elsewhere; I11.0 Hypertensive heart disease with heart failure; I50.22 Chronic systolic (congestive) heart failure; I48.91 Unspecified atrial fibrillation; Z95.810 Presence of automatic (implantable) cardiac defibrillator; Z79.01 Long term (current) use of anticoagulants; Z87.891 Personal history of nicotine dependence
CPT/HCPCS: 36415; 80053; 87637; 93005; 96361; 96365; 96366; 96375; 99284; 71046; 81003; 83735; 83880; 84484; 85025; 93010; J1885; J3475

== ENCOUNTER 2024-02-19 15:15 | Outpatient (CLI) | payer MEDICARE, SELFPAY ==
[2024-02-19 10:11] LABS: Anion Gap 8.5 mmol/L (3-11); BUN 29 mg/dL (7-18); CO2 27.5 mmol/L (21.0-32.0); Chloride 101 mmol/L (98-107); Digoxin 0.21 ng/mL (0.90-2.00); Estimated GFR 58.39 (mL/min/1.73m2); Glucose 173 mg/dL (74-106); Magnesium 1.6 mg/dL (1.8-2.4); Sodium 137 mmol/L (136-145)
[2024-02-19 10:33] LABS: NT-proBNP 296 pg/mL (<300)
== END 2024-02-19 15:16 | disposition home or self-care (01) ==
LOC: LBO 02-28 15:16
PROVIDERS: PCP Nurse Practitioner Family; Visit Provider Nurse Practitioner Family
DX: R53.83 Other fatigue (principal); I50.22 Chronic systolic (congestive) heart failure; I42.8 Other cardiomyopathies; I50.9 Heart failure, unspecified; I48.91 Unspecified atrial fibrillation; Z51.81 Encounter for therapeutic drug level monitoring
CPT/HCPCS: 36415; 80048; 80162; 83735; 83880

== ENCOUNTER 2024-03-20 12:35 | Outpatient (CLI) | payer MEDICARE, SELFPAY ==
--- NOTE | 2024-03-20 10:30 | DI.RAD_ITS ---
Exam(s) XR CHEST 2V PA LATERAL EXAM: XR CHEST 2V PA LATERAL CLINICAL HISTORY: evaluate FOR PNEUMONIA, COVID, U07.1. TECHNIQUE: 2D digital imaging was performed. COMPARISON: CR XR CHEST 2V PA LATERAL from 02/02/2024 FINDINGS: 2 views: Heart size is minimally prominent, unchanged. Bipolar right subclavian pacemaker again noted. The m ediastinum is not widened. Lungs are clear. No infiltrates nor pleural effusions. No evidence of pulmonary edema. IMPRESSION: No acute pulmonary findings.Pacemaker again noted. No CHF. DATA REPOSITORY: RADIATION DOSE DELIVERED:
== END 2024-03-20 12:55 ==
LOC: DI 12:35
PROVIDERS: PCP Nurse Practitioner Family; Visit Provider Nurse Practitioner Family
DX: U07.1 COVID-19 (principal)
CPT/HCPCS: 71046

== ENCOUNTER 2025-05-15 16:07 | Inpatient (IN) | payer MEDICARE, SELFPAY ==
[2025-05-15] VITALS (42 sets, daily range): BP systolic 100–155; BP diastolic 43–76; PULSE 57–96; RESP 14–27; TEMP 36.2–37; O2SAT 92–95
--- NOTE | 2025-05-15 16:35 | ED.GENADUL_ITS ---
Discharge Plan Disposition Patient Disposition: Admit to [facility] Condition: Stable Discharge Details Clinical Impression: Bilateral pulmonary embolism Primary Care Provider: Yun Avery ED Provider: Luis M Cormier Home Meds and New Rx's Prescriptions: No Action ondansetron HCl 4 mg tablet 4 mg PO Q8H PRN (Reason: nausea and vomiting) Qty: 60 1RF docusate sodium [Colace] 100 mg capsule 100 mg PO BID PRN Xarelto 20 mg tablet 20 mg PO DAILY Qty: 112 3RF tamoxifen 20 mg tablet 20 mg PO DAILY albuterol sulfate 90 mcg/actuation HFA aerosol inhaler 2 inh inhalation Q6H PRN (Reason: shortness of breath or wheezing) Qty: 18 4RF clotrimazole-betamethasone 1-0.05 % cream 1 applic Topical BID PRN (Reason: rash) Qty: 30 3RF Rx Instructions: Apply to inguinal area diphenhydramine HCl 25 MG tablet 1 - 2 tab PO HS PRNQty: 30 metoprolol succinate 200 mg tablet extended release 24 hr 200 mg PO DAILY Rx Instructions: 03/02/[address] [facility] lisinopril 5 mg tablet 5 mg PO DAILY Qty: 90 3RF spironolactone 25 mg tablet See Rx Instructions .ROUTE .COMPLEX Qty: 45 1RF Dose Instruction: TAKE ONE-HALF TABLET BY MOUTH EVERY DAY Rx Instructions: TAKE ONE-HALF TABLET BY MOUTH EVERY DAY furosemide 40 mg tablet 80 mg PO DAILY Qty: 180 3RF digoxin 125 mcg (0.125 mg) tablet 0.125 mg PO DAILY Qty: 90 1RF lorazepam 1 mg tablet 1 mg PO HS PRN (Reason: anxiety) Qty: 30 1RF HPI General Date/Time Provider Initiated Documentation: 05/15/25 16:09 . HPI Narrative: 80-year-old female presents with sore throat and extreme weakness as well as shortness of breath and possible right lower extremity swelling chronically. She states her sore throat has been swollen for 3 hours on the right side and she has been just generally weak denies fever, nausea, vomiting, denies chest pain. She states that she is normally on Xarelto but has been out of this medication for 2 weeks due to the pharmacy in [place] she obtains it from not able to fill it currently. She rates her pain as mild her weakness as severe, nothing is made either particularly worse or better. Related Data Home Medications Medication Instructions Recorded Confirmed diphenhydramine HCl 25 mg tablet 1 - 2 tab PO HS PRN # 30 tab-caps 02/21/13 05/15/25 tamoxifen 20 mg tablet 20 mg PO DAILY 07/11/2205/03 metoprolol succinate 200 mg 200 mg PO DAILY 03/02/2307/15/24 tablet,extended release 24 hr ondansetron HCl 4 mg tablet 4 mg PO Q8H PRN nausea and 09/08/23 05/15/25 vomiting #60 tabs lisinopril 5 mg tablet 5 mg PO DAILY #90 tabs 09/2705/15/25 spironolactone 25 mg tablet See Rx Instructions .Route 12/25/23 05/15/25 .COMPLEX #45 tabs docusate sodium 100 mg capsule 100 mg PO BID PRN 01/2105/15/25 (Colace) albuterol sulfate 90 mcg/actuation 2 inh inhalation Q6 H PRN shortness 02/06/24 05/15/25 aerosol inhaler of breath or wheezing #18 gr ams clotrimazole-betamethasone 1 1 applic topical BID PRN rash #30 02/13/24 05/15/25 %-0.05 % topical cream grams furosemide 40 mg tablet 80 mg (2 x 40 mg) PO DAILY # 180 02/19/24 05/15/25 tabs digoxin 125 mcg (0.125 mg) tablet 0.125 mg PO DAILY #9 0 tabs 03/04/25 05/15/25 rivaroxaban 20 mg tablet (Xarelto) 20 mg PO DAILY #112 tabs 04/24/25 05/15/25 lorazepam 1 mg tablet 1 mg PO HS PRN anxiety #30 t abs 05/07/25 05/15/25 Previous Rx's Medication Instructions Recorded ondansetron HCl 4 mg tablet 4 mg PO Q8H PRN nausea and 09/08/23 vomiting #60 tabs lisinopril 5 mg tablet 5 mg PO DAILY #90 tabs 09/27 spironolactone 25 mg tablet See Rx Instructions .Route 12/25/23 .COMPLEX #45 tabs albuterol sulfate 90 mcg/actuation 2 inh inhalation Q6 H PRN shortness 02/06/24 aerosol inhaler of breath or wheezing #18 gr ams clotrimazole-betamethasone 1 1 applic topical BID PRN rash #30 02/13/24 %-0.05 % topical cream grams furosemide 40 mg tablet 80 mg (2 x 40 mg) PO DAILY # 180 02/19/24 tabs digoxin 125 mcg (0.125 mg) tablet 0.125 mg PO DAILY #9 0 tabs 03/04/25 rivaroxaban 20 mg tablet (Xarelto) 20 mg PO DAILY #112 tabs 04/24/25 lorazepam 1 mg tablet 1 mg PO HS PRN anxiety #30 t abs 05/07/25 Allergies Allergy/AdvReac Type Severity Reaction Status Date / Time No Known Allergies Allergy Verified 05/15/25 16:20 General Stated Complaint: SOB/SuddenOnset ELIANE: 2 Review of Systems All systems reviewed & are unremarkable except as noted in HPI and below Exam Narrative Exam Narrative: GENERAL APPEARANCE: Well-nourished, toxic, awake and alert, atraumatic, moderate acute distress. SKIN: Warm, pale, dry, intact, without rashes/lesions/ulcerations. HEAD: Normocephalic, atraumatic, normal hair distribution for gender/age. EYES: Normal conjunctiva, no exudates on lids/lashes. ENT: Nares patent, no circumoral cyanosis, no facial swelling, dry oral mucosa, R sided tonsillar erythema and swelling without exudate NECK: Supple, trachea midline, painless cervical ROM. LUNGS/CHEST: Lungs CTA bilaterally-no rhonchi or wheezes, question diminished right base, labored respirations, normal A/P diameter, symmetrical expansion, no chest wall deformity, has implanted right chest AICD HEART (CV/PV): Irregular rate well-controlled at 60, no clear murmur to auscultation difficult due to body habitus, 1+ right lower extremity peripheral edema, no JVD. ABDOMEN: Soft, non-distended, no guarding, no tenderness MSK: Normal ROM, no swelling/deformity to bilateral UEs or LEs, moving all extremities without weakness, no cyanosis, spine midline without tenderness, normal curvature. NEURO: Mental Status AAOx4 - alert to person, place, time, events No facial droop, no forehead involvement. Motor: No focal weakness - strength 5/5 in bilateral UEs and LEs, proximal and distal, symmetric. Sensory: sensation intact to light touch globally. Gait NT PSYCH: euthymic, cooperative, pleasant, appropriate speech Course Vital Signs Vital signs: Vital Signs Temperature 36.2 C L 05/15/25 16:13 Pulse 60 05/15/25 16:13 Respiratory Rate 16 05/15/25 16:13 Blood Pressure 110/69 05/15/25 16:13 Pulse Oximetry 92 05/15/25 16:13 Temperature 36.2 C L 05/15/25 16:13 Pulse 60 05/15/25 16:13 Respiratory Rate 16 05/15/25 16:13 Blood Pressure 110/69 05/15/25 16:13 Blood Pressure Position Sitting 05/15/25 16:13 Pulse Oximetry 92 05/15/25 16:13 Oxygen Delivery Method Room Air 05/15/25 16:13 Oxygen Flow Rate 0 05/15/25 16:13 Pain Level 1 05/15/25 16:13 Comment takes benadryl at night. did not take any for current symptoms. 05/15/25 16:13 Medical Decision Making This dictation utilizes [id number] dictation software and may contain unedited grammatical errors. 80-year-old female presents with sore throat and extreme weakness as well as shortness of breath and possible right lower extremity swelling chronically. She states her sore throat has been swollen for 3 hours on the right side and she has been just generally weak denies fever, nausea, vomiting, denies chest pain. She states that she is normally on Xarelto but has been out of this medication for 2 weeks due to the pharmacy in [place] she obtains it from not able to fill it currently. She rates her pain as mild her weakness as severe, nothing is made either particularly worse or better.. Patients' medical history: Atrial fibrillation, obesity, left bundle branch Carone, congestive heart failure, has implanted AICD biventricular, prediabetes, idiopathic neuropathy, history of skin cancer of face. Family and social history: Lives at home with , no EtOH or tobacco use, eats a normal diet. Pertinent exam findings / vital signs include benign abdomen, right lower extremity is swollen with Homans positive and medial thigh tenderness, no adventitious lung sounds, cardiac exam benign, no JVD, neuro intact, has right sided posterior oropharyngeal swelling without any tonsillar tenderness, uvula midline. Differential / pathologies of concern include viral syndrome, congestive heart failure, PE, DVT. Diagnostic studies of: - CBC, CMP, lactate, magnesium, BNP, troponin, rapid strep, EKG, CTA chest PE study. - CBC shows no leukocytosis, no anemia - Lactate within normal limits - CMP is unremarkable - Magnesium within normal limits - Troponin negative with reliable onset - BNP is 962 in the setting of chronic CHF - Rapid strep negative - CTA of the chest shows a large right lower lobe pulmonary emboli that are nearly occlusive as well as smaller right upper and middle branches and left low er branches - EKG shows a ventricular paced rhythm at 60 bpm with no signs of ischemia, does have a prolonged QTc Interventions of: - Started IV heparin for pulmonary embolism protocol, consulted with hospitalist Dr. Clayton at 1955 who accepts for admission. ED Course/Assessment/Plan: 80-year-old female presents with profound weakness and some mild shortness of breath ongoing for a week or more, endorses swollen pharynx for the past 3 hours but has no tonsillar lymphadenopathy, has right leg swelling with Homans positive, is usually on Xarelto but has not been able to fill her prescription for 2 weeks and has a pacemaker and atrial fibrillation, she is found to have multiple bilateral PEs and was placed on heparin, her PESI score is moderate. Accepted for hospital admission. Disposition of Bilateral Pulmonary Embolism. Patient verbalized understanding of the plan and return to ED criteria and engaged in shared decision making. Medical Records Medical records reviewed: Yes I reviewed the patient's medical records. Imaging Data Radiologic Study: Attestation: I personally reviewed and interpreted this imaging study as follows: Imaging: CT Scan Radiologist's impression: EXAM: CT CHEST PE CTA CLINICAL HISTORY: SOB, a fib. TECHNIQUE: Imaging Protocol: Axial CT angiography was performed with multi- slice acquisition and multi-planar reconstructions as well as axial, coronal and sagittal MIP reconstructions. Computer aided detection (CAD) was utilized. CONTRAST MATERIAL: Intravenous: Omnipaque 350 Contrast volume:100 ml COMPARISON: CR XR CHEST 2V PA LATERAL from 03/20/2024 FINDINGS: Pulmonary Arteries: There are large filling defects in the right lower lobe bronchi extending to the level of the right main bronchus. Smaller emboli are noted in right upper lobe and right middle lobe branches. There is also significant significant thrombus within the left lower lobe branches. Mediastinum and Jocelyne: No dominant adenopathy or fluid collection. Pulmonary parenchyma: Mildly limited by respiratory motion and expiratory changes. No evidence of focal infiltrate or pulmonary infarct. No consolidation or dominant measurable mass. Pleura: Tiny left pleural effusion. No pneumothorax. Heart: The heart is moderately dilated. There is no evidence of right heart strain. The pacemaker is noted. Mild coronary artery calcifications are seen. Aorta: Thoracic aorta non-dilated. No dissection. Upper abdomen: No acute findings. Bones: Unremarkable for age. Soft tissues: Unremarkable. IMPRESSION: Large emboli within the right lower lobe branches, nearly occlusive. Significant emboli are noted in the left lower lobe branch vessels. Smaller emboli are seen in the right upper and middle lobe branches. Findings called to ER provider. Lab Data Lab results reviewed: Yes I reviewed the patient's lab results. Labs: 05/15/25 17:05 Pharynx Group A Streptococcus Culture - Pending Laboratory Tests Range/Units 05/15/25 17:12 WBC (4.4-10.8) 10^3/uL 10.03 RBC (3.93-5.22) 10^6/uL 4.42 Hgb (11.2-15.7) g/dL 13.2 Hct (36.0-46.0) % 38.2 MCV (80-95) fL 86 MCH (27.0-33.0) pg 29.9 MCHC (32.0-36.0) % 34.6 RDW (11.7-14.6) % 12.6 Plt Count (130-400) 10^3/uL MPV (8.0-11.0) fL Immature Gran % % 0.4 Neutrophils % % 73.6 Lymphocytes % % 14.1 Monocytes % % 8.9 Eosinophils % % 2.7 Basophils % % 0.3 Nucleated RBC % (0.0-0.3) % 0.0 Absolute Neutrophils (1.2-6.7) 10^3/uL 7.39 H Absolute Lymphocytes (1.2-3.4) 10^3/uL 1.41 Absolute Monocytes (0.1-0.8) 10^3/uL 0.89 H Absolute Eosinophils (0.0-0.7) 10^3/uL 0.27 Absolute Basophils (0.0-0.2) 10^3/uL 0.03 RBC Morphology Normal VBG Lactate (<or=2.0) mmol/L 1.2 Sodium (136-145) mmol/L 138 Potassium (3.5-5.1) mmol/L 4.0 Chloride (98-107) mmol/L 103 Carbon Dioxide (20.0-31.0) mmol/L 24.3 Anion Gap (3-11) mmol/L 10.7 BUN (9-23) mg/dL 17 Creatinine (0.55-1.02) mg/dL 0.9 Est GFR (CKD-EPI 2020) (mL/min/1.73m2) 58.27 Glucose (74-106) mg/dL 190 H Calcium (8.3-10.6) mg/dL 8.5 Magnesium (1.6-2.6) mg/dL 1.7 Total Bilirubin (0.2-1.2) mg/dL 0.80 AST (<34) U/L 21 ALT (10-49) U/L 16 Alkaline Phosphatase (46-116) U/L 79 Troponin I (<35) ng/L 4 NT-Pro-B Natriuret Pep (<300) pg/mL 960 H Total Protein (5.7-8.2) g/dL 7.3 Albumin (3.4-5.0) g/dL 3.9 Quality:SDOH Health Related Social Needs: Health related social needs house/econ circumstance da arlen activities PFSH All Active Problems (Updated 05/15/25 @ 20:10 by Randy Clayton) Pulmonary emboli (Chronic) Balance problem (Acute) Macular degeneration (Acute) Atrial fibrillation (Chronic 10/13/12) Rapid a fib. Under anticoagulated.Shortness of [id number]. On Digoxin-progressively worse over the last year. Echo 2010 EF 35-40%, 2+ MR. 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 Nolen- [facility] 2 x year Anxiety (Chronic) Non-ischemic cardiomyopathy (Chronic) Prediabetes (Acute) Numbness and tingling of both feet (Acute) Breast mass in female (Acute) 07/24: right breast, sub areolar - referred to [facility] bx 3/- AT LEAST atypical ductal hyperplasia- see report Low back pain (Acute) Muscle spasm of back (Acute) Nail dystrophy (Acute) Exostosis (Acute) Fatigue (Acute) Myalgia (Acute) Medication monitoring encounter (Acute) ICD (implantable cardioverter-defibrillator) in place (Acute) 12/01/22 Per [facility]. -hb CHF (congestive heart failure) (Chronic) 12/01/22 Per [facility]. -hb Idiopathic neuropathy (Acute) *Dx qualifies pt for at-risk foot care services with Podiatry. Onychomycosis (Acute) Medical History Skin cancer of face per [facility] 2015 Incisional hernia of anterior abdominal wall without obstruction or gangrene Depressive disorder 2020- has not needed meds x 4 years; used to take Depression Anxiety History of surgery Hysterectomy for DUB. Cholecystectomy. Colonoscopy, 1 5 years. She is uncertain if she had a polyp in the past or not. Surgical History Hx of atrioventricular node ablation (09/22/17) Myomectomy (~1986) Implantation of automatic cardioverter/defibrillator, total system (AICD) 12/18/14- [facility]; SERIAL NUMBER [id number]. [employer]-D DF4 Abdominal hysterectomy Cholecystectomy Family History Mother , 85 Anxiety A-fib Depression Heart disease Afib COPD (chronic obstructive pulmonary disease) Father , 71 A-fib Colon cancer Brother , 61 Substance abuse CANNABIS A-fib MS (multiple sclerosis) Pancreatic cancer Maternal Aunt Breast cancer Ductal Maternal Grandfather , 80 Stroke Depression Maternal Aunt Breast cancer Maternal Cousin Breast cancer Paternal Grandfather , 40 ESRD (end stage renal disease) Maternal Grandmother , 85 A-fib Heart disease Macular degeneration Paternal Grandmother No problems noted. Daughter No problems noted. Maternal Cousin Breast cancer Social History (Updated 04/28/25 @ 11:17 by Terrie Rico) Smoking/Tobacco Use Status: Former Tobacco Use tobacco type: cigarettes Quit Date: 07/03/76 Tobacco: How many years used: 2 Second Hand Exposure: Yes Smoking risk assessment performed?: Yes Alcohol Intake: current Alcohol Intake frequency: holidays/special occasions only Alcohol type: hard liquor Drug use: Never Substance use type: does not use Adopted: No Caregiver/Support person: Yes Household members: significant other Housing: apartment Number of Children: 1 Communication Needs: Hard of Hearing Education Level: other Details: MD Do you need help understanding health information?: Rarely current occupation: retired Pets and animals: Yes Pets and animals: cat(s) Sexually active: Yes Do you think of yourself as: straight/heterosexual Current gender identity: female What is your relationship status?: living with partner How often do you talk on the phone with friends or family?: three or more times per week How often do you get together with friends or relatives?: three or more times per week Do you belong to any clubs or organized social groups?: no Panel score (0-1 are the most socially isolated patients): 2 What type of physical activity do you participate in: walking Duration: < 15 minutes/day Frequency: 3-4 times per week Ofelia/Baptism: None Special ofelia needs: No Agree to transfusion: Yes Seatbelt use: always Helmet use: Yes Helmet use: always Drive intox or ride w/intox commercial front load driver: No Working smoke detector in home: Yes Carbon monox detector in home: Yes Firearms in home: No Do you feel safe at home: Yes Do you feel safe in your relationship?: Yes Victim of physical abuse: No Victim of emotional abuse: Yes Victim of sexual abuse: No Would you like helpful sources: No
--- NOTE | 2025-05-15 16:45 | DI.CT_ITS ---
Exam(s) CT CHEST PE CTA EXAM: CT CHEST PE CTA CLINICAL HISTORY: SOB, a fib. TECHNIQUE: Imaging Protocol: Axial CT angiography was performed with multi- slice acquisition and multi-planar reconstructions as well as axial, coronal and sagittal MIP reconstructions. Computer aided detection (CAD) was utilized. CONTRAST MATERIAL: Intravenous: Omnipaque 350 Contrast volume:100 ml COMPARISON: CR XR CHEST 2V PA LATERAL from 03/20/2024 FINDINGS: Pulmonary Arteries: There are large filling defects in the right lower lobe bronchi extending to the level of the right main bronchus. Smaller emboli are noted in right upper lobe and right middle lobe branches. There is also significant significant thrombus within the left lower lobe branches. Mediastinum and Jocelyne: No dominant adenopathy or fluid collection. Pulmonary parenchyma: Mildly limited by respiratory motion and expiratory changes. No evidence of focal infiltrate or pulmonary infarct. No consolidation or dominant measurable mass. Pleura: Tiny left pleural effusion. No pneumothorax. Heart: The heart is moderately dilated. There is no evidence of right heart strain. The pacemaker is noted. Mild coronary artery calcifications are seen. Aorta: Thoracic aorta non-dilated. No dissection. Upper abdomen: No acute findings. Bones: Unremarkable for age. Soft tissues: Unremarkable. IMPRESSION: Large emboli within the right lower lobe branches, nearly occlusive. Significant emboli are noted in the left lower lobe branch vessels. Smaller emboli are seen in the right upper and middle lobe branches. Findings called to ER provider. RADIATION DOSE DELIVERED: Total DLP DATA REPOSITORY: All CT scans at this facility are submitted to the National Radiology Data Registry (NRDR) Dose Index Registry (DIR) with the [employer] (ACR). RADIATION OPTIMIZATION: All CT scans at this facility use at least one of these dose optimization techniques: automated exposure control; mA and/or kV adjustment per patient size (includes targeted exams where dose is matched to clinical indication); or iterative reconstruction.
--- NOTE | 2025-05-15 16:45 | RT.EKG_ITS ---
APPROVED REPORT Exam: Resting ECG Reason for Exam: SOB Patient Location: E HR:60 bpm ECG Measurements Heart Rate 60 AXIS MT 184 P 0 QRSd 147 QRS 155 QT 673 T 64 QTc 673 Conclusion Ventricular-paced rhythm Biventricular paced rhythm...non-simultaneous bi-vent pacing
[2025-05-15 17:37] LABS: Magnesium 1.7 mg/dL (1.6-2.6)
[2025-05-15 17:39] LABS: Troponin I 4 ng/L (<35)
[2025-05-15 17:40] LABS: ALT 16 U/L (10-49); AST 21 U/L (<34); Albumin 3.9 g/dL (3.4-5.0); Alkaline Phosphatase 79 U/L (46-116); Anion Gap 10.7 mmol/L (3-11); BUN 17 mg/dL (9-23); Bilirubin, Total 0.80 mg/dL (0.2-1.2); CO2 24.3 mmol/L (20.0-31.0); Calcium 8.5 mg/dL (8.3-10.6); Chloride 103 mmol/L (98-107); Glucose 190 mg/dL (74-106); Potassium 4.0 mmol/L (3.5-5.1); Sodium 138 mmol/L (136-145); Total Protein 7.3 g/dL (5.7-8.2)
[2025-05-15 17:55] LABS: Abs Immature Grans 0.04 10^3/uL (0.0-0.06); HCT 38.2 % (36.0-46.0); HGB 13.2 g/dL (11.2-15.7); Immature Grans % 0.4 %; MCH 29.9 pg (27.0-33.0); MCHC 34.6 % (32.0-36.0); MCV 86 fL (80-95); RBC 4.42 10^6/uL (3.93-5.22); RDW 12.6 % (11.7-14.6); RDW-SD 38.6 fL; WBC 10.03 10^3/uL (4.4-10.8)
[2025-05-15] MEDS: Omnipaque 350 MG/ML 100 ML BTL IJ (18:00)
[2025-05-15] MEDS: Normal Saline Flush 10 ML SYR IVP (18:00)
[2025-05-15] MEDS: Normal Saline - Diluent 50 ML VIAL IJ (18:00)
[2025-05-15 18:10] LABS: RBC Morphology Normal
[2025-05-15] MEDS: Heparin in 0.45% NaCl 25,000 UNIT/250 ML BAG 9.5 UNIT IVINF (19:09)
[2025-05-15 19:20] LABS: Troponin I 5 ng/L (<35)
[2025-05-15 19:40] LABS: PTT Activated 23.7 sec (20.6-30.2)
--- NOTE | 2025-05-15 20:08 | W.PM.HP.N ---
Date of service: 05/15/25 Time of Service: 20:09 Assessment and Plan Assessment and plan (1) Pulmonary embolism, bilateral: Start date: 05/15/25 Status: Acute Assessment and plan: This is a 80-year-old lady with acute onset of sore throat symptoms but more progressive symptoms over weeks prior to presentation with some dyspnea on exertion but no hypoxemia. She does have a paced rhythm with ischemic cardiomyopathy by history but her last echocardiogram was in 2017. She was found to have bilateral PEs and with recent leg swelling we need to look for sores in her legs. She has been off Xarelto for 3 weeks which she takes as prevention for embolic phenomena with atrial fibrillation. As stated she does have a paced rhythm presently. She is on a heparin infusion and this can be converted to oral therapy back to Xarelto at PE treatment doses initially. This will need to be cleared by her insurance and we need to make sure she can have this medicine at discharge. Update echocardiogram and venous Doppler studies of both lower extremities. Case management may help related with her insurance issues. Compliance needs to be better. She is a full code. (2) CHF (congestive heart failure): Status: Chronic Assessment and plan: Elevated BNP but not severely so compared to previous measurements. Update echocardiogram and continue outpatient dosing of diuretics. Trend labs. (3) Non-ischemic cardiomyopathy: Status: Chronic Assessment and plan: Continue digoxin along with beta-nabila and OH inhibitor with continued diuresis using furosemide and spironolactone. (4) ICD (implantable cardioverter-defibrillator) in place: Status: Chronic Assessment and plan: Cardiac monitoring while hospitalized. Watch for tachyarrhythmia. History of Present Illness History of Present Illness Chief Complaint: Sudden onset sore throat with progressive weakness and dyspnea. Narrative: This is a 80-year-old female patient who has a history of atrial fibrillation with paced rhythm having a diverticular ICD in place obvious subcutaneously over her right chest. She presents with a sore throat more on the right with a sudden onset just prior to presentation but has complaints of chronic progressive weakness over the last weeks off Xarelto because of inability to pay for her prescription. She is working on her insurance. She also has noted some shortness of breath with exertion and intermittent leg swelling mostly on the right. She is a somewhat vague historian that she changes the chronicity of her symptoms with reading review by myself. She has been having swelling for weeks and some of the other symptoms have been for 1 to 2 years. Overall she is functioning but is frustrated with her medical care coverage by her insurance. She is somewhat controlling her intake of her medications on her home time and she does take all of her meds at night except for Lasix in the morning. She will be continued. She does have a history of a nonischemic cardiomyopathy. In the ED CT imaging did reveal bilateral pulmonary emboli with no obvious right ventricular strain with BNP elevated near 1000 but consistent with previous measurements in her history of ischemic cardiomyopathy, and negative troponins. EKG did not show ischemic changes with paced rhythm and low volume. The patient was initiated on IV heparin and will be admitted with trending labs, follow-up echocardiogram and venous Doppler of the lower extremity with recent edema. She is off Xarelto will need to be restarted on this medication with acute PE treatment dosing initially. The patient is a full code. Review of Systems Narrative: 13 point review of system otherwise unrevealing or stable. Patient is a poor historian. PFSH All Active Problems (Updated 05/15/25 @ 20:17 by Randy Clayton) Pulmonary embolism, bilateral (Acute) Pulmonary emboli (Chronic) Balance problem (Acute) Macular degeneration (Acute) Atrial fibrillation (Chronic 10/13/12) Rapid a fib. Under anticoagulated.Shortness of [id number]. On Digoxin-progressively worse over the last year. Echo 2010 EF 35-40%, 2+ MR. 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 Nolen- [facility] 2 x year Anxiety (Chronic) Non-ischemic cardiomyopathy (Chronic) Prediabetes (Acute) Numbness and tingling of both feet (Acute) Breast mass in female (Acute) 07/24: right breast, sub areolar - referred to [facility] bx 3/- AT LEAST atypical ductal hyperplasia- see report Low back pain (Acute) Muscle spasm of back (Acute) Nail dystrophy (Acute) Exostosis (Acute) Fatigue (Acute) Myalgia (Acute) Medication monitoring encounter (Acute) ICD (implantable cardioverter-defibrillator) in place (Chronic) 12/01/22 Per [facility]. -hb CHF (congestive heart failure) (Chronic) 12/01/22 Per [facility]. -hb Idiopathic neuropathy (Acute) *Dx qualifies pt for at-risk foot care services with Podiatry. Onychomycosis (Acute) Medical History Skin cancer of face per [facility] 2015 Incisional hernia of anterior abdominal wall without obstruction or gangrene Depressive disorder 2020- has not needed meds x 4 years; used to take Depression Anxiety History of surgery Hysterectomy for DUB. Cholecystectomy. Colonoscopy, 1 5 years. She is uncertain if she had a polyp in the past or not. Surgical History Hx of atrioventricular node ablation (09/22/17) Myomectomy (~1986) Implantation of automatic cardioverter/defibrillator, total system (AICD) 12/18/14- [facility]; SERIAL NUMBER [id number]. [employer]-D DF4 Abdominal hysterectomy Cholecystectomy Family History Mother , 85 Anxiety A-fib Depression Heart disease Afib COPD (chronic obstructive pulmonary disease) Father , 71 A-fib Colon cancer Brother , 61 Substance abuse CANNABIS A-fib MS (multiple sclerosis) Pancreatic cancer Maternal Aunt Breast cancer Ductal Maternal Grandfather , 80 Stroke Depression Maternal Aunt Breast cancer Maternal Cousin Breast cancer Paternal Grandfather , 40 ESRD (end stage renal disease) Maternal Grandmother , 85 A-fib Heart disease Macular degeneration Paternal Grandmother No problems noted. Daughter No problems noted. Maternal Cousin Breast cancer Social History Smoking/Tobacco Use Status: Former Tobacco Use tobacco type: cigarettes Quit Date: 07/03/76 Tobacco: How many years used: 2 Second Hand Exposure: Yes Smoking risk assessment performed?: Yes Alcohol Intake: current Alcohol Intake frequency: holidays/special occasions only Alcohol type: hard liquor Drug use: Never Substance use type: does not use Adopted: No Caregiver/Support person: Yes Household members: significant other Housing: apartment Number of Children: 1 Communication Needs: Hard of Hearing Education Level: other Details: MD Do you need help understanding health information?: Rarely current occupation: retired Pets and animals: Yes Pets and animals: cat(s) Sexually active: Yes Do you think of yourself as: straight/heterosexual Current gender identity: female What is your relationship status?: living with partner How often do you talk on the phone with friends or family?: three or more times per week How often do you get together with friends or relatives?: three or more times per week Do you belong to any clubs or organized social groups?: no Panel score (0-1 are the most socially isolated patients): 2 What type of physical activity do you participate in: walking Duration: < 15 minutes/day Frequency: 3-4 times per week Ofelia/Christianity: None Special ofelia needs: No Agree to transfusion: Yes Seatbelt use: always Helmet use: Yes Helmet use: always Drive intox or ride w/intox petrol tanker driver: No Working smoke detector in home: Yes Carbon monox detector in home: Yes Firearms in home: No Do you feel safe at home: Yes Do you feel safe in your relationship?: Yes Victim of physical abuse: No Victim of emotional abuse: Yes Victim of sexual abuse: No Would you like helpful sources: No Meds Allergies and Home Medications Allergies Allergy/AdvReac Type Severity Reaction Status Date / Time No Known Allergies Allergy Verified 05/15/25 16:20 Home Medications Medication Instructions Recorded Confirmed Type diphenhydramine HCl 25 mg tablet 1 - 2 tab PO HS PRN #30 tab-caps 02/21/13 05/15/25 History tamoxifen 20 mg tablet 20 mg PO DAILY 07/11/22 05/15/25 History metoprolol succinate 200 mg 200 mg PO DAILY 03/02/23 05/15/25 History tablet,extended release 24 hr ondansetron HCl 4 mg tablet 4 mg PO Q8H PRN nausea and 09/08/23 05/15/25 Rx vomiting #60 tabs lisinopril 5 mg tablet 5 mg PO DAILY #90 tabs 09/28/23 05/15/25 Rx spironolactone 25 mg tablet See Rx Instructions .Route 12/25/23 05/15/25 Rx .COMPLEX #45 tabs docusate sodium 100 mg capsule 100 mg PO BID PRN 01/22/24 05/15/25 History (Colace) albuterol sulfate 90 mcg/actuation 2 inh inhalation Q6H PRN shortness 02/06/24 05/15/25 Rx aerosol inhaler of breath or wheezing #18 grams clotrimazole-betamethasone 1 1 applic topical BID PRN rash #30 02/13/24 05/15/25 Rx %-0.05 % topical cream grams furosemide 40 mg tablet 80 mg (2 x 40 mg) PO DAILY #180 02/19/24 05/15/25 Rx tabs digoxin 125 mcg (0.125 mg) tablet 0.125 mg PO DAILY #90 tabs 03/04/25 05/15/25 Rx rivaroxaban 20 mg tablet (Xarelto) 20 mg PO DAILY #112 tabs 04/24/25 05/15/25 Rx lorazepam 1 mg tablet 1 mg PO HS PRN anxiety #30 tabs 05/07/25 05/15/25 Rx Exam Narrative Exam Narrative: General: Patient appears appropriate for age, alert and oriented x 3 and in moderate distress with her acute symptoms. Patient has pressured speech and appears slightly agitated. She does easily calm down with conversation. HEENT: Normocephalic, eyes with pupils equal and reactive to light symmetrically, extraocular movement intact and sclera anicteric. Oropharynx with moist mucosa and fair dentition. Neck: Supple without JVD. Back: Kyphotic without CVA tenderness. Lungs: Fair aeration with no focalizing rales or rhonchi. No expiratory wheeze. Breast: Exam deferred. Heart: Regular rhythm with bradycardic rate. Palpable subcutaneous ICD over right upper chest. Abdomen: Obese contour, soft and nontender to palpation with no palpable hepatosplenomegaly. Bowel sounds positive all quadrants. Genitalia/rectal: Exam deferred. Extremities: Slight nonpitting edema right more than left lower extremity with positive Homans' sign on the right. No cyanosis or clubbing. Fair cap refill. Skin: Normal color, warm and dry. Neuro: Cranial nerves II through XII gross intact, no focal motor deficits or tremor. Psych: Slightly anxious affect easily agitated, depressed mood. No abnormal thought processes. Remote and recent memory intact. Patient does have variable timelines on her symptoms when questioned by different interviewer's. Results Imaging Imaging Studies: EXAM: CT CHEST PE CTA Date exam: 05/15/2025 CLINICAL HISTORY: SOB, a fib. TECHNIQUE: Imaging Protocol: Axial CT angiography was performed with multi-slice acquisition and multi-planar reconstructions as well as axial, coronal and sagittal MIP reconstructions. Computer aided detection (CAD) was utilized. CONTRAST MATERIAL: Intravenous: Omnipaque 350 Contrast volume:100 ml COMPARISON: CR XR CHEST 2V PA LATERAL from 03/20/2024 FINDINGS: Pulmonary Arteries: There are large filling defects in the right lower lobe bronchi extending to the level of the right main bronchus. Smaller emboli are noted in right upper lobe and right middle lobe branches. There is also significant significant thrombus within the left lower lobe branches. Mediastinum and Jocelyne: No dominant adenopathy or fluid collection. Pulmonary parenchyma: Mildly limited by respiratory motion and expiratory changes. No evidence of focal infiltrate or pulmonary infarct. No consolidation or dominant measurable mass. Pleura: Tiny left pleural effusion. No pneumothorax. Heart: The heart is moderately dilated. There is no evidence of right heart strain. The pacemaker is noted. Mild coronary artery calcifications are seen. Aorta: Thoracic aorta non-dilated. No dissection. Upper abdomen: No acute findings. Bones: Unremarkable for age. Soft tissues: Unremarkable. IMPRESSION: Large emboli within the right lower lobe branches, nearly occlusive. Significant emboli are noted in the left lower lobe branch vessels. Smaller emboli are seen in the right upper and middle lobe branches. Date of study: 12/08/2016 Transthoracic Echocardiography M-mode, complete 2D, complete spectral Doppler, and color Doppler *STUDY CONCLUSIONS* Summary: 1. Left ventricle: The cavity size was normal. Wall thickness was increased in a pattern of moderate LVH. Systolic function was at the lower limits of normal. The estimated ejection fraction was 50-55%. Wall motion was normal; there were no regional wall motion abnormalities. 2. Right ventricle: The cavity size was normal. Device wire noted in right ventricle. Systolic function was mildly reduced. 3. Left atrium: The atrium was moderately dilated. 4. Inferior vena cava: The vessel was patent and mildly dilated. The respirophasic diameter changes were in the normal range (greater than or equal to 50%). Labs 05/15/25 17:12 05/15/25 17:12 Labs: Laboratory Results - last 24 hr 05/15/25 05/15/25 17:12 18:51 WBC 10.03 RBC 4.42 Hgb 13.2 Hct 38.2 MCV 86 MCH 29.9 MCHC 34.6 RDW 12.6 Plt Count MPV Immature Gran % 0.4 Neutrophils % 73.6 Lymphocytes % 14.1 Monocytes % 8.9 Eosinophils % 2.7 Basophils % 0.3 Nucleated RBC % 0.0 Absolute Neutrophils 7.39 H Absolute Lymphocytes 1.41 Absolute Monocytes 0.89 H Absolute Eosinophils 0.27 Absolute Basophils 0.03 RBC Morphology Normal APTT 23.7 VBG Lactate 1.2 Sodium 138 Potassium 4.0 Chloride 103 Carbon Dioxide 24.3 Anion Gap 10.7 BUN 17 Creatinine 0.9 Est GFR (CKD-EPI 2020) 58.27 Glucose 190 H Calcium 8.5 Magnesium 1.7 Total Bilirubin 0.80 AST 21 ALT 16 Alkaline Phosphatase 79 Troponin I 4 5 NT-Pro-B Natriuret Pep 960 H Total Protein 7.3 Albumin 3.9 Last Vital Signs Temp 36.2 C L 05/15/25 16:13 Pulse 60 05/15/25 17:50 Resp 17 05/15/25 17:50 BP 100/45 L 05/15/25 17:02 Pulse Ox 93 05/15/25 17:50 Time Spent Time spent with Patient: >75 minutes Time was spent: preparing to see the patient(eg.review tests), obtaining and/or reviewing separately otained hiistory, ordering medications,tests, procedures, indepentently interpreting results, counseling the patient and care coordination
[2025-05-15 20:35] LABS: COVID-19 PCR Negative (Negative); RSV PCR Negative (Negative)
--- NOTE | 2025-05-15 21:23 | W.PC.ACHO ---
Registration Status: ADM IN Primary Language: Preferred Language: Icelandic ED Information & Data Chief Complaint SOB/SuddenOnset 05/15/25 16:36 Triage Note swollen pharynx x 3 hours. 05/15/25 16:13 unsure of cause. extreme weakness per . Medical / Surgical History (Last Reviewed 05/15/25 @ 20:09 by Randy Clayton) Skin cancer of face Incisional hernia of anterior abdominal wall without obstruction or gangrene Depressive disorder Depression Anxiety History of surgery (Last Reviewed 05/15/25 @ 20:09 by Randy Clayton) Hx of atrioventricular node ablation (09/22/17) Myomectomy (~1986) Implantation of automatic cardioverter/defibrillator, total system (AICD) Abdominal hysterectomy Cholecystectomy Most Recent Vital Signs Temperature 36.2 C L 05/15/25 16:13 Pulse 60 05/15/25 20:12 Pulse 60 05/15/25 20:12 Respiratory Rate 17 05/15/25 20:12 Respiratory Effort Normal 05/15/25 16:30 Respiratory Depth Normal 05/15/25 16:30 Respiratory Pattern Normal 05/15/25 16:30 Blood Pressure 141/73 H 05/15/25 20:12 Blood Pressure Mean 94 05/15/25 20:12 Blood Pressure Position Sitting 05/15/25 16:13 Pulse Oximetry 93 05/15/25 20:12 Oxygen Delivery Method Room Air 05/15/25 16:13 Oxygen Flow Rate 0 05/15/25 16:13 Pain Level 1 05/15/25 16:13 Comment takes benadryl at night. did not take any for current symptoms. 05/15/25 16:13 Allergies No Known Allergies Allergy (Verified 05/15/25 16:20) Active Medications Generic Name Dose Route Start Last Admin Trade Name Freq PRN Reason Stop Dose Admin Heparin Sodium/Sodium Chloride 25,000 unit in 250 mls @ 0 mls/hr 05/15/25 18:45 05/15/25 19:09 IVINF 9.5 mls/hr INFUSION KESHA 9.5 mls/hr Protocol Administration Per Protocol Sodium Chloride 0 ml 05/15/25 17:59 05/15/25 18:00 Normal Saline Flush 10 Ml Syr IVP 10 ml PRN PRN Administration IV IV Catheter Type [Right Wrist] Saline Lock IV Catheter Gauge [Right Wrist 18 ] Diet Orders Category Date Time Status Diabetes Consistent CHO/Heart Healthy [DIET] Nutrition 05/16/25 Breakfast Ordered Diagnostics 05/15/25 05/15/25 05/15/25 Range/Units 21:20 19:48 18:51 WBC (4.4-10.8) 10^3/uL RBC (3.93-5.22) 10^6/uL Hgb (11.2-15.7) g/dL Hct (36.0-46.0) % MCV (80-95) fL MCH (27.0-33.0) pg MCHC (32.0-36.0) % RDW (11.7-14.6) % Plt Count (130-400) 10^3/uL MPV (8.0-11.0) fL Immature Gran % % Neutrophils % % Lymphocytes % % Monocytes % % Eosinophils % % Basophils % % Nucleated RBC % (0.0-0.3) % Absolute Neutrophils (1.2-6.7) 10^3/uL Absolute Lymphocytes (1.2-3.4) 10^3/uL Absolute Monocytes (0.1-0.8) 10^3/uL Absolute Eosinophils (0.0-0.7) 10^3/uL Absolute Basophils (0.0-0.2) 10^3/uL RBC Morphology APTT (20.6-30.2) sec VBG Lactate (<or=2.0) mmol/L Sodium (136-145) mmol/L Potassium (3.5-5.1) mmol/L Chloride (98-107) mmol/L Carbon Dioxide (20.0-31.0) mmol/L Anion Gap (3-11) mmol/L BUN (9-23) mg/dL Creatinine (0.55-1.02) mg/dL Est GFR (CKD-EPI 2020) (mL/min/1.73m2) Glucose (74-106) mg/dL Calcium (8.3-10.6) mg/dL Magnesium (1.6-2.6) mg/dL Total Bilirubin (0.2-1.2) mg/dL AST (<34) U/L ALT (10-49) U/L Alkaline Phosphatase (46-116) U/L Troponin I 5 (<35) ng/L NT-Pro-B Natriuret Pep (<300) pg/mL Total Protein (5.7-8.2) g/dL Albumin (3.4-5.0) g/dL TSH Pending COVID-19 Source Nasopharynx SARS-CoV-2 (PCR) Negative (Negative) Influenza Type A (PCR) Negative (Negative) Influenza Type B (PCR) Negative (Negative) RSV (PCR) Negative (Negative) 05/15/25 Range/Units 17:12 WBC 10.03 (4.4-10.8) 10^3/uL RBC 4.42 (3.93-5.22) 10^6/uL Hgb 13.2 (11.2-15.7) g/dL Hct 38.2 (36.0-46.0) % MCV 86 (80-95) fL MCH 29.9 (27.0-33.0) pg MCHC 34.6 (32.0-36.0) % RDW 12.6 (11.7-14.6) % Plt Count (130-400) 10^3/uL MPV (8.0-11.0) fL Immature Gran % 0.4 % Neutrophils % 73.6 % Lymphocytes % 14.1 % Monocytes % 8.9 % Eosinophils % 2.7 % Basophils % 0.3 % Nucleated RBC % 0.0 (0.0-0.3) % Absolute Neutrophils 7.39 H (1.2-6.7) 10^3/uL Absolute Lymphocytes 1.41 (1.2-3.4) 10^3/uL Absolute Monocytes 0.89 H (0.1-0.8) 10^3/uL Absolute Eosinophils 0.27 (0.0-0.7) 10^3/uL Absolute Basophils 0.03 (0.0-0.2) 10^3/uL RBC Morphology Normal APTT 23.7 (20.6-30.2) sec VBG Lactate 1.2 (<or=2.0) mmol/L Sodium 138 (136-145) mmol/L Potassium 4.0 (3.5-5.1) mmol/L Chloride 103 (98-107) mmol/L Carbon Dioxide 24.3 (20.0-31.0) mmol/L Anion Gap 10.7 (3-11) mmol/L BUN 17 (9-23) mg/dL Creatinine 0.9 (0.55-1.02) mg/dL Est GFR (CKD-EPI 2020) 58.27 (mL/min/1.73m2) Glucose 190 H (74-106) mg/dL Calcium 8.5 (8.3-10.6) mg/dL Magnesium 1.7 (1.6-2.6) mg/dL Total Bilirubin 0.80 (0.2-1.2) mg/dL AST 21 (<34) U/L ALT 16 (10-49) U/L Alkaline Phosphatase 79 (46-116) U/L Troponin I 4 (<35) ng/L NT-Pro-B Natriuret Pep 960 H (<300) pg/mL Total Protein 7.3 (5.7-8.2) g/dL Albumin 3.9 (3.4-5.0) g/dL TSH COVID-19 Source SARS-CoV-2 (PCR) (Negative) Influenza Type A (PCR) (Negative) Influenza Type B (PCR) (Negative) RSV (PCR) (Negative) 05/15/25 17:05 Group A Streptococcus Culture - Pending Pharynx [id number] Documentation POC Strep Test-OG(Rapid) Start: 05/15/25 16:48 Freq: .Rapid Strep Test Status: Active Protocol: Activity Type Activity Date Activity User E-sign Co-sign Detail Recorded Client Recorded Date Recorded By Document 05/15/25 17:14 CB [id number] 05/15/25 17:14 CB Intake and Output - 24 Hour Total 05/15/25 16:07 thru 05/15/25 16:13 Weight 102.058 kg Falls Risk Assessment History of Falls No History 05/15/25 16:30 Contributing Factors Confusion 05/15/25 16:30 Ambulatory Aids Independent 05/15/25 16:30 Tubes/Lines With any additional score 05/15/25 16:30 Gait Evaluation No gait disturbance 05/15/25 16:30 Cognition No cognitive impairment 05/15/25 16:30 Fall Total Score 23 05/15/25 16:30 Level of Risk Standard/Low Risk 05/15/25 16:30 Problems (Last Reviewed 05/15/25 @ 20:09 by Randy Clayton) Pulmonary embolism, bilateral (Acute) Non-ischemic cardiomyopathy (Chronic) ICD (implantable cardioverter-defibrillator) in place (Chronic) CHF (congestive heart failure) (Chronic) Attestation Statement: By documenting the first initial, last name, and credentials of the reporting nurse below, both parties acknowledge that all relevant information regarding the patient handoff has been communicated, and that all questions have been addressed to ensure continuity and safety of care. Additional Patient Information/Comments: here w/ multiple bilateral PE, on heparin drip, 9.5ml/hr, given 4.2ml bolus, 18G RFA ultrasound guided IV, A&O x4, independent, non compliant w/ medication, sometimes takes lasix, has edema all over, has not taken xerelto in 2 weeks, unable to get it from [facility]. has pace maker, Report Received From: Lindsey in ER at 2645
[2025-05-15] MEDS: Insulin Aspart 300 UNITS/3 ML PEN SC (22:16)
[2025-05-15] MEDS: Melatonin 3 MG TAB 9 MG PO (22:50)
[2025-05-15] MEDS: LORazepam 1 MG TAB PO (22:50)
[2025-05-15] MEDS: diphenhydrAMINE 25 MG CAP PO (22:50)
[2025-05-15] MEDS: Digoxin 0.125 MG TAB PO (23:27)
[2025-05-15] MEDS: Metoprolol CR 100 MG TABCR 200 MG PO (23:27)
[2025-05-15] MEDS: Spironolactone 25 MG TAB 12.5 MG PO (23:28)
[2025-05-15] MEDS: Lisinopril 5 MG TAB PO (23:28)
[2025-05-16] VITALS (8 sets, daily range): BP systolic 96–133; BP diastolic 38–98; PULSE 60–84; RESP 16; TEMP 36.2–36.8; O2SAT 92–96
[2025-05-16 00:49] LABS: PTT Activated 28.3 sec (20.6-30.2)
[2025-05-16 02:39] LABS: TSH (W/Ref FT4) 1.65 uIU/mL (0.55-4.78)
--- NOTE | 2025-05-16 08:00 | DI.US_ITS ---
Exam(s) US EXTREMITY VENOUS BI EXAM: US EXTREMITY VENOUS BI CLINICAL HISTORY: leg swelling with PE TECHNIQUE: Grayscale, color, and doppler imaging of the deep venous system of both lower extremities was performed. COMPARISON: CT scan 05/15/2025 FINDINGS: This is a positive-abnormal study. There is no evidence of DVT in the left lower extremity. However, there is extensive DVT in the right lower extremity. There is intraluminal occlusive thrombus in the right femoral vein starting at the mid thigh level and extending caudally in continuous fashion through the popliteal vein and into the calf involving both posterior tibial veins. Clot length is 39 cm. IMPRESSION: 1. There is extensive DVT in the right lower extremity from the mid thigh level down continuously through the calf involving the mid-distal femoral vein, popliteal vein, and posterior tibial veins. 2. No evidence of DVT in the left lower extremity. DATA REPOSITORY:
--- NOTE | 2025-05-16 09:04 | PDOC.CMIN ---
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 She was initially guarded in her responses but after a bit of conversation, she became more talkative and engaged. Echo was admitted with bilateral PEs. She has chronic afib and was taking Xarelto. She ran out of her medication a while ago and has not been anticoagulated for a few weeks. Echo obtains her Xarelto from a Pharmacy in [facility] but inadvertently allowed her insurance to lapse. She shared that it is all straightened out now and that the medication has been ordered from [place]. Unfortunately the Xarelto will take 4 weeks to arrive after shipping. Echo was concerned about the cost but her partner has agreed to pay for the one time full interiano prescription which is a bit over $500. Echo's oxygen saturation has been in the mid 90s on room air. She appears comfortable and has not required any pain medication. Echo lives in an apartment in [facility] with her partner Manuel. 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 She has one daughter who still lives in [place]. Echo is mostly independent with ADLs. Her partner helps her with the tasks she is unable to perform independently. Echo believes she has [facility] moderate needs. She has a community rn case management though [facility], Jayshree Davila, and she has homemaker services for 2 hours every other week. She informed that she is approved for twice that amount of time but that [facility] does not have the staff to support it. NANCY reached out to Jayshree to discuss but had to leave a message. Jayshree returned the call and confirmed that [facility] does not have the resources currently to increase services but that they are starting to work with [facility] and may be able to do more in the future. NANCY also learned that there are different sources of funding for [facility] however one of them is on hold. Jayshree agreed to look into the other funding when available again. NANCY relayed the above information to Echo who was pleased with the efforts made on her behalf by the provider and CM. 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: N 03/06/19, 14:24 Date Asked 05/15/25 05/15/25, 16:10 AD Date Reviewed COLST On File at [facility] COLST Date Scanned Code Status Resuscitation Status Full Code Portal Pt does not currently have a portal and education provided: Yes Insurance Coverage/Financial Issues Insurance: Medicare Care Team Visit Care Team Role Provider Type Yun Avery NP Primary Care Provider NURSE PRACTITIONER Sofie Zuelta RDN, [facility] Other Providers FREELANCE PHOTOGRAPHER Olvin La RDN Other Providers FREELANCE PHOTOGRAPHER YAZAN Ríos Emergency Provider PHYSICIANS MARKETING DESIGNER Randy Clayton Admit Provider NON-[facility] STAFF PHYSICIAN Attending Provider Discharge Potential Discharge Needs: PCP F/U Appt Anticipated Barriers to Discharge: None Identified Patient/Family Education Needs: Review discharge instructions, discuss Ask Me Three Transportation: Private vehicle Plan: Anticipate Echo will be discharged home with no new services when medically stable. She will follow up with her PCP and plan of care and transport with family. CM will follow and continue to support discharge planning efforts. Social Determinants of Health Screening Social Determinants of health last assessed in clinic: 05/16/25 Will the Patient Participate in the Screening?: Yes Do you worry about having a steady place to live?: no Problems where you live: no known problems In the past 12 months, have you had to go without electric, gas, oil or water in your home?: no 1. Within the past 12 months, we worried whether our food would run out before we got money to buy more.: Never true 2. Within the past 12 months, the food we bought just didn't last and we didn't have money to get more.: Never true Has lack of transportation kept you from medical appointments or from doing things needed for daily living?: no Has anyone in your life made you feel unsafe or unsupported?: no How hard is it for you to pay for the very basics like food, housing, medical care, and heating? Would you say it is:: Not hard at all Do you want help finding or keeping work or a job?: I do not need or want help If for any reason you need help with day-to-day activities such as bathing, preparing meals, shopping, managing finances, etc., do you get the help you need?: I don’t need any help How often do you feel lonely or isolated from those around you?: Never Do you speak a language other than Azeri at home?: No Does the patient want assistance with any of the above?: No PFSH All Active Problems (Updated 05/15/25 @ 20:17 by Randy Clayton) Pulmonary embolism, bilateral (Acute) Pulmonary emboli (Chronic) Balance problem (Acute) Macular degeneration (Acute) Atrial fibrillation (Chronic 10/13/12) Rapid a fib. Under anticoagulated.Shortness of [id number]. On Digoxin-progressively worse over the last year. Echo 2010 EF 35-40%, 2+ MR. 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 Nolen- [facility] 2 x year Anxiety (Chronic) Non-ischemic cardiomyopathy (Chronic) Prediabetes (Acute) Numbness and tingling of both feet (Acute) Breast mass in female (Acute) 07/24: right breast, sub areolar - referred to [facility] bx 3/2- AT LEAST atypical ductal hyperplasia- see report Low back pain (Acute) Muscle spasm of back (Acute) Nail dystrophy (Acute) Exostosis (Acute) Fatigue (Acute) Myalgia (Acute) Medication monitoring encounter (Acute) ICD (implantable cardioverter-defibrillator) in place (Chronic) 12/01/22 Per [facility]. -hb CHF (congestive heart failure) (Chronic) 12/01/22 Per [facility]. -hb Idiopathic neuropathy (Acute) *Dx qualifies pt for at-risk foot care services with Podiatry. Onychomycosis (Acute) Medical History Skin cancer of face per [facility] 2016 Incisional hernia of anterior abdominal wall without obstruction or gangrene Depressive disorder 2020- has not needed meds x 4 years; used to take Depression Anxiety History of surgery Hysterectomy for DUB. Cholecystectomy. Colonoscopy, 1 5 years. She is uncertain if she had a polyp in the past or not. Surgical History Hx of atrioventricular node ablation (09/22/17) Myomectomy (~1986) Implantation of automatic cardioverter/defibrillator, total system (AICD) 12/18/14- [facility]; SERIAL NUMBER [id number]. 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 Daughter No problems noted. Maternal Cousin Breast cancer Social History Smoking/Tobacco Use Status: Former Tobacco Use tobacco type: cigarettes Quit Date: 07/03/76 Tobacco: How many years used: 2 Second Hand Exposure: Yes Smoking risk assessment performed?: Yes Alcohol Intake: current Alcohol Intake frequency: holidays/special occasions only Alcohol type: hard liquor Drug use: Never Substance use type: does not use Adopted: No Caregiver/Support person: Yes Household members: significant other Housing: apartment Number of Children: 1 Communication Needs: Hard of Hearing Education Level: other Details: MD Do you need help understanding health information?: Rarely current occupation: retired Pets and animals: Yes Pets and animals: cat(s) Sexually active: Yes Do you think of yourself as: straight/heterosexual Current gender identity: female What is your relationship status?: living with partner How often do you talk on the phone with friends or family?: three or more times per week How often do you get together with friends or relatives?: three or more times per week Do you belong to any clubs or organized social groups?: no Panel score (0-1 are the most socially isolated patients): 2 What type of physical activity do you participate in: walking Duration: < 15 minutes/day Frequency: 3-4 times per week Ofelia/Quaker: None Special ofelia needs: No Agree to transfusion: Yes Seatbelt use: always Helmet use: Yes Helmet use: always Drive intox or ride w/intox combine driver: No Working smoke detector in home: Yes Carbon monox detector in home: Yes Firearms in home: No Do you feel safe at home: Yes Do you feel safe in your relationship?: Yes Victim of physical abuse: No Victim of emotional abuse: Yes Victim of sexual abuse: No Would you like helpful sources: No
--- NOTE | 2025-05-16 09:30 | DI.US_ITS ---
APPROVED REPORT EXAM: Comprehensive 2D, Doppler, and color-flow Echocardiogram Patient Location: In-Patient Log Sorter: Edwardo Rosario RDCS (AE) Indications: Bilateral PE Other Information Study Quality: Fair Conclusion Normal left ventricular wall thickness and chamber size. Ejection fraction 55 to 60%. There is no segmental wall motion abnormality noted Normal right ventricular size and function Both atria are enlarged Device lead noted in the right heart Aortic valve is mildly sclerotic and trileaflet with trace regurgitation Normal mitral valve with mild regurgitation Trace to mild tricuspid regurgitation. Estimated right ventricular systolic pressure is 40 mmHg Wall motion Left Ventricle The left ventricle is normal size. The left ventricular systolic function is normal. The left ventricular ejection fraction is within the normal range. Mild concentric left ventricular hypertrophy. There is normal LV segmental wall motion. There is no ventricular septal defect visualized. LVEF is 55-60%. Right Ventricle Right ventricle is moderately dilated. Right ventricle is mildly hypokinetic. Atria Left atrium is severely dilated. Right atrium is severely dilated. The interatrial septum is intact with no evidence for an atrial septal defect. Aortic Valve The aortic valve is mildly sclerotic. There is no aortic valvular stenosis. Trace aortic regurgitation. Mitral Valve The mitral valve is normal in structure. No evidence of mitral valve stenosis. Mild mitral regurgitation. Tricuspid Valve The tricuspid valve is normal in structure. There is no tricuspid valve stenosis. Trace to mild tricuspid regurgitation. The RVSP is 40 mmHg. Pulmonic Valve The pulmonary valve is normal in structure. There is no pulmonic valvular stenosis. Trace to mild pulmonic regurgitation. Great Vessels The aortic root is normal in size. The ascending aorta is normal in size. IVC is normal in size and collapses >50% with inspiration. Pericardium There is no pericardial effusion. 2D Dimensions IVSD d PLAX 1.08 cm F: 0.6-1.0 Ao Root d 3.23 cm F: 2.7 - 3.3 LVPW d PLAX 1.06 cm F: 0.6 - 1.0 Ao Asc Diam d 3.61 cm F: 2.3 - 3.1 LVID d PLAX 4.64 cm F: 3.8 - 5.2 LVDs 3.31 cm F: 2.2 - 3.5 LV EF Teichholz 55.1 % FS 28.55 % LV EDV (Teich) 99.1 mL LV ESV (Teich) 44.5 mL Stroke Vol Index (Teich) 25.39 M-Mode TAPSE 1.42 cm (M/F) >1.7 Auto EF LV EDV A4C 128.8 mL LV EDV A2C 133.0 mL LV EDV BP 130.4 mL LV ESV A4C 54.6 mL LV ESV A2C 52.6 mL LV ESV BP 54.7 mL LVEF(%) A4C 57.6 % LVEF(%) A2C 60.4 % LVEF(%) BP 58.1 % LV SV A4C 74.2 ml LV SV A2C 80.3 ml LV SV BP 75.8 ml LV CO A4C 4.4 L/min LV CO A2C 4.8 L/min LV CO BP 4.6 L/min HR A4C 59.90 BPM HR A2C 60.00 BPM LV EDV Index (BP) LA Volume LA Length A4C 6.2 cm LA Length A2C 6.1 cm LA Area A4C s 25.58 cm2 LA Area A2C s 17.55 cm2 LA Vol A4C A-L 88.87 mL LA Vol A2C A-L 42.88 mL LA Vol Biplane A-L 62.5 mL LA Vol/BSA A4C A-L LA Vol/BSA A2C A-L LA Vol/BSA BP A-L 29.1 mL/m2 LA Vol A4C MOD 81.0 mL LA Vol A2C MOD 43.0 mL LA Vol BP MOD 57.9 mL RA Volume RA Area A4C 20.8 cm2 RA ESV A4C (A-L) 63.7mL RA Vol/BSA A4C A-L RA Length A4C 5.8 cm RA ESV A4C (MOD) 59.9mL LV Diastology MV E' medial 0.086 (>0.07 m/s) MV E Vmax 1.02 (0.4-1.3 m/s) MV E/E' MED 11.93 (<14) MV E' lateral 0.100 (>0.1 m/s) MV E/E' LAT 10.23 (<14) MV E' Average 0.093 m/s MV E/E'(average) 11.01 Aortic Valve AoV Vmax 1.28 m/s LVOT Vmax 0.81 m/s AoV Peak Grad 6.6 mmHg LVOT Peak Grad 2.6 mmHg AoV Area (Vmax) 2.29 cm2 LVOT VTI 0.146 m AoV VTI 0.258 m LVOT Mean Grad 1.2 mmHg AoV Mean Levy. 0.82 m/s LVOT SV 52.89 mL AoV Mean Grad 3.2 mmHg LVOT Diam s 2.10 cm AoV Area (VTI) 2.05 cm2 AV Regurg Peak Gr. 6.59 mmHg Velocity Ratio 0.63 Mitral Valve MV DT 157 (160-240 msec) Pulmonary Valve PV Vmax 1.27 (0.5-1.5 m/s) RVOT Vmax 0.59 m/s PV Peak Grad 6.5 mmHg RVOT Peak Gr. 1.4 mmHg PV Mean Levy 0.76 m/s RVOT VTI 0.120 m PV Mean Grad 2.6 mmHg RVOT Mean Gr. 0.6 mmHg Tricuspid Valve RA Pressure 3.00 mmHg TR Vmax 3.03 m/s TR Peak Grad 36.7 mmHg RVSP (TR) 39.8 mmHg
[2025-05-16] MEDS: Furosemide 40 MG TAB 80 MG PO (10:05)
[2025-05-16 10:58] LABS: Magnesium 1.8 mg/dL (1.6-2.6)
[2025-05-16 11:00] LABS: ALT 21 U/L (10-49); AST 22 U/L (<34); Albumin 3.8 g/dL (3.4-5.0); Alkaline Phosphatase 77 U/L (46-116); Anion Gap 7.6 mmol/L (3-11); BUN 18 mg/dL (9-23); Bilirubin, Total 0.70 mg/dL (0.2-1.2); CO2 25.4 mmol/L (20.0-31.0); Calcium 8.7 mg/dL (8.3-10.6); Chloride 104 mmol/L (98-107); Glucose 229 mg/dL (74-106); Potassium 3.8 mmol/L (3.5-5.1); Sodium 137 mmol/L (136-145); Total Protein 7.2 g/dL (5.7-8.2)
[2025-05-16] MEDS: Heparin in 0.45% NaCl 25,000 UNIT/250 ML BAG 11.5 UNIT IVINF (11:11)
[2025-05-16 11:23] LABS: HCT 38.8 % (36.0-46.0); HGB 13.1 g/dL (11.2-15.7); MCH 29.6 pg (27.0-33.0); MCHC 33.8 % (32.0-36.0); MCV 88 fL (80-95); MPV 10.0 fL (8.0-11.0); Platelet Count 254 10^3/uL (130-400); RBC 4.42 10^6/uL (3.93-5.22); RDW 12.7 % (11.7-14.6); RDW-SD 40.4 fL; WBC 9.76 10^3/uL (4.4-10.8)
[2025-05-16 11:24] LABS: PTT Activated 32.0 sec (20.6-30.2)
[2025-05-16] MEDS: Insulin Aspart 300 UNITS/3 ML PEN SC ×3 (12:22→21:16)
[2025-05-16] MEDS: Enoxaparin 100 MG/ML SYR SC (15:24)
--- NOTE | 2025-05-16 17:03 | PGE_ITS ---
Date of Service Date of service: 05/16/25 Time of Service: 17:03 Assessment and Plan Assessment and plan (1) Pulmonary embolism, bilateral: Status: Acute Assessment and plan: She was found to have bilateral PEs She has been off Xarelto for 3 weeks which she takes as prevention for embolic phenomena with atrial fibrillation. Update echocardiogram - Normal left ventricular wall thickness and chamber size. Ejection fraction 55 to 60%. There is no segmental wall motion abnormality noted Venous Doppler studies of both lower extremities - There is extensive DVT in the right lower extremity from the mid thigh level down continuously through the calf involving the mid-distal femoral vein, popliteal vein, and posterior tibial veins. No evidence of DVT in the left lower extremity. Case management may help related with her insurance issues Enoxaparin 100 mg sq BID Patient has her prescriptions sent to [facility] in [place]. I called them; they advised it takes 6 weeks to have Rx filled there; they received Rx 05/05 and it was filled today; not yet shipped. Expect 2-3 weeks after ship date for patient to arrive. Patient should call 6 weeks in advance for refill. I called [facility] and pt deductible not met - Xarelto $541.73 for one month supply. I did send Rx to [facility]. dumbwaiter operator to speak with patient regarding ability to pay/picker and sorter load and unload. (2) CHF (congestive heart failure): Status: Chronic Assessment and plan: Elevated BNP but not severely so compared to previous measurements. Continue home diuretics furosemide and spironolactone (3) Non-ischemic cardiomyopathy: Status: Chronic Assessment and plan: Continue digoxin along with beta-nabila and OH inhibitor with continued diuresis using furosemide and spironolactone. (4) ICD (implantable cardioverter-defibrillator) in place: Status: Chronic Assessment and plan: Telemetry (5) Dvt femoral (deep venous thrombosis): Status: Acute Assessment and plan: There is extensive DVT in the right lower extremity from the mid thigh level down continuously through the calf involving the mid-distal femoral vein, popliteal vein, and posterior tibial veins. Transitioned to Enoxaparin 100 mg BID Subjective Subjective Patient reports: no new complaints, tolerating liquids well, tolerating a regular diet, voiding w/o difficulty, bowel movement and afebrile; denies diarrhea, nausea, vomiting or shortness of breath Interval history since last seen: Awake, alert, no O2 requirement. Denies chest pain. Exam Narrative Exam Narrative: General: Well-nourished, awake and alert, atraumatic, appears toxic, in moderate acute distress. Skin: Warm, pale, dry, intact; no rashes or lesions. Head: Normocephalic, atraumatic. Eyes: Conjunctiva normal; no lid or lash exudates. ENT: Nares patent; no facial swelling or circumoral cyanosis. Oral mucosa dry. Right tonsil erythematous and swollen without exudate. Neck: Supple, trachea midline; full, painless cervical ROM. Lungs: CTA bilaterally; symmetric chest expansion. AICD in right chest. Cardiovascular: Irregular rhythm, rate controlled at 60. No clear murmur (limited by body habitus). 1+ edema in right lower extremity. No JVD. Abdomen: Soft, nondistended; no tenderness or guarding. Musculoskeletal: Full ROM; no deformities or swelling. Moves all extremities without weakness. No cyanosis; spine midline, nontender. Neurological: Alert and oriented ×4. No facial droop. Strength 5/5 throughout; sensation intact. Gait not tested. Psychiatric: Cooperative, pleasant; appropriate speech. Objective Last Vital Signs Temp 36.2 C L 05/16/25 12:02 Pulse 63 05/16/25 12:02 Resp 16 05/16/25 12:02 BP 129/56 L 05/16/25 12:02 Pulse Ox 96 05/16/25 12:02 Laboratory Results - last 24 hr 05/15/25 05/15/25 05/15/25 17:12 18:51 19:48 WBC 10.03 RBC 4.42 Hgb 13.2 Hct 38.2 MCV 86 MCH 29.9 MCHC 34.6 RDW 12.6 Plt Count MPV Immature Gran % 0.4 Neutrophils % 73.6 Lymphocytes % 14.1 Monocytes % 8.9 Eosinophils % 2.7 Basophils % 0.3 Nucleated RBC % 0.0 Absolute Neutrophils 7.39 H Absolute Lymphocytes 1.41 Absolute Monocytes 0.89 H Absolute Eosinophils 0.27 Absolute Basophils 0.03 RBC Morphology Normal APTT 23.7 VBG Lactate 1.2 Sodium 138 Potassium 4.0 Chloride 103 Carbon Dioxide 24.3 Anion Gap 10.7 BUN 17 Creatinine 0.9 Est GFR (CKD-EPI 2020) 58.27 Glucose 190 H Calcium 8.5 Magnesium 1.7 Total Bilirubin 0.80 AST 21 ALT 16 Alkaline Phosphatase 79 Troponin I 4 5 NT-Pro-B Natriuret Pep 960 H Total Protein 7.3 Albumin 3.9 TSH COVID-19 Source Nasopharynx SARS-CoV-2 (PCR) Negative Influenza Type A (PCR) Negative Influenza Type B (PCR) Negative RSV (PCR) Negative 05/16/25 05/16/25 05/16/25 00:16 00:16 06:20 WBC RBC Hgb Hct MCV MCH MCHC RDW Plt Count MPV Immature Gran % Neutrophils % Lymphocytes % Monocytes % Eosinophils % Basophils % Nucleated RBC % Absolute Neutrophils Absolute Lymphocytes Absolute Monocytes Absolute Eosinophils Absolute Basophils RBC Morphology APTT 28.3 Cancelled VBG Lactate Sodium Potassium Chloride Carbon Dioxide Anion Gap BUN Creatinine Est GFR (CKD-EPI 2020) Glucose Calcium Magnesium Total Bilirubin AST ALT Alkaline Phosphatase Troponin I NT-Pro-B Natriuret Pep Total Protein Albumin TSH Cancelled 1.65 COVID-19 Source SARS-CoV-2 (PCR) Influenza Type A (PCR) Influenza Type B (PCR) RSV (PCR) 05/16/25 10:30 WBC 9.76 RBC 4.42 Hgb 13.1 Hct 38.8 MCV 88 MCH 29.6 MCHC 33.8 RDW 12.7 Plt Count 254 MPV 10.0 Immature Gran % Neutrophils % Lymphocytes % Monocytes % Eosinophils % Basophils % Nucleated RBC % Absolute Neutrophils Absolute Lymphocytes Absolute Monocytes Absolute Eosinophils Absolute Basophils RBC Morphology APTT 32.0 H VBG Lactate Sodium 137 Potassium 3.8 Chloride 104 Carbon Dioxide 25.4 Anion Gap 7.6 BUN 18 Creatinine 0.9 Est GFR (CKD-EPI 2020) 64.65 Glucose 229 H Calcium 8.7 Magnesium 1.8 Total Bilirubin 0.70 AST 22 ALT 21 Alkaline Phosphatase 77 Troponin I NT-Pro-B Natriuret Pep Total Protein 7.2 Albumin 3.8 TSH COVID-19 Source SARS-CoV-2 (PCR) Influenza Type A (PCR) Influenza Type B (PCR) RSV (PCR) Time Spent with Patient Time Spent with Patient: 25-34 minutes Time was spent: preparing to see the patient(eg.review tests), ordering medications,tests, procedures, referring, communicating with other health student career development specialist, indepentently interpreting results, counseling the patient and care coordination
[2025-05-16] MEDS: Normal Saline Flush 10 ML SYR IVP (21:08)
[2025-05-16] MEDS: Digoxin 0.125 MG TAB PO (21:08)
[2025-05-16] MEDS: Lisinopril 5 MG TAB PO (21:09)
[2025-05-16] MEDS: Melatonin 3 MG TAB 9 MG PO (21:09)
[2025-05-16] MEDS: Metoprolol CR 100 MG TABCR 200 MG PO (21:09)
[2025-05-16] MEDS: Spironolactone 25 MG TAB 12.5 MG PO (21:10)
[2025-05-17] MEDS: Enoxaparin 100 MG/ML SYR SC (02:11)
[2025-05-17 04:04] VITALS: BP 126/70; PULSE 68; RESP 16; TEMP 36.3; O2SAT 99
[2025-05-17 07:23] LABS: Magnesium 1.9 mg/dL (1.6-2.6)
[2025-05-17 07:25] LABS: ALT 18 U/L (10-49); AST 16 U/L (<34); Albumin 3.6 g/dL (3.4-5.0); Alkaline Phosphatase 77 U/L (46-116); Anion Gap 7.2 mmol/L (3-11); BUN 21 mg/dL (9-23); Bilirubin, Total 0.50 mg/dL (0.2-1.2); CO2 24.8 mmol/L (20.0-31.0); Calcium 8.7 mg/dL (8.3-10.6); Chloride 106 mmol/L (98-107); Glucose 159 mg/dL (74-106); Potassium 3.6 mmol/L (3.5-5.1); Sodium 138 mmol/L (136-145); Total Protein 6.8 g/dL (5.7-8.2)
[2025-05-17 07:31] VITALS: BP 110/68; PULSE 60; RESP 18; TEMP 36.1; O2SAT 93
[2025-05-17 07:38] LABS: HCT 36.3 % (36.0-46.0); HGB 12.1 g/dL (11.2-15.7); MCH 28.7 pg (27.0-33.0); MCHC 33.3 % (32.0-36.0); MCV 86 fL (80-95); MPV 10.1 fL (8.0-11.0); Platelet Count 249 10^3/uL (130-400); RBC 4.21 10^6/uL (3.93-5.22); RDW 12.8 % (11.7-14.6); RDW-SD 39.7 fL; WBC 8.18 10^3/uL (4.4-10.8)
[2025-05-17] MEDS: Insulin Aspart 300 UNITS/3 ML PEN SC ×2 (08:18→12:32)
[2025-05-17] MEDS: Furosemide 40 MG TAB 80 MG PO (08:20)
[2025-05-17] MEDS: Normal Saline Flush 10 ML SYR IVP (08:21)
[2025-05-17 11:43] VITALS: BP 110/57; PULSE 57; RESP 18; TEMP 36.1; O2SAT 94
--- NOTE | 2025-05-17 11:59 | DSE_ITS ---
Date of service: 05/17/25 Time of Service: 12:00 DS: Diagnosis Discharge Diagnosis (1) Pulmonary embolism, bilateral: Status: Acute (2) CHF (congestive heart failure): Status: Chronic (3) Non-ischemic cardiomyopathy: Status: Chronic (4) ICD (implantable cardioverter-defibrillator) in place: Status: Chronic (5) Dvt femoral (deep venous thrombosis): Status: Acute Discharge Plan Disposition Patient Disposition: Home Condition: Improving Discharge Details Reason For Visit: Bilateral PE Admit Date/Time: 05/15/25 20:28 Admit Provider: Randy Clayton Attending Provider: Randy Clayton Primary Care Provider: [facility] Hospital Course: This s a 80-year-old female with atrial fibrillation (paced), non-ischemic cardiomyopathy, and chronic systolic CHF who presented with sudden-onset sore throat and several weeks of progressive weakness, exertional dyspnea, and right- sided leg swelling after being off Xarelto for 3 weeks due to cost. CTA chest showed large bilateral pulmonary emboli, including nearly occlusive thrombus in the right lower lobe and significant clot burden in the left lower lobe branches. No right heart strain was noted. BNP was elevated at 960 but consistent with her chronic cardiomyopathy. Troponins remained negative. She was started on IV heparin in the emergency department. Lower-extremity venous Doppler and an updated echocardiogram were ordered for evaluation of clot source and cardiac function. Hemodynamics remained stable and she never required supplemental oxygen. Her CHF remained at baseline; outpatient diuretic regimen (furosemide and spironolactone) was continued. She remained rate-controlled on digoxin and metoprolol. No arrhythmias or ICD discharges were noted on telemetry. Once clinically stable, she was transitioned from heparin to enoxaparin then to xarelto for outpatient anticoagulation treatment of PE. Condition at Discharge Stable, improved, hemodynamically normal. Ambulating safely, oxygenating well on room air. No chest pain or worsening dyspnea. Discharge Medications START / RESUME * Rivaroxaban (Xarelto) 20 mg PO daily with food — for treatment of pulmonary embolism. * ERNESTINA iggybrando while awake CONTINUE * Metoprolol succinate 200 mg PO daily * Lisinopril 5 mg PO daily * Digoxin 0.125 mg PO daily * Furosemide 80 mg PO daily * Spironolactone 25 mg PO daily * Tamoxifen 20 mg PO daily * Lorazepam 1 mg PO HS PRN anxiety * Ondansetron 4 mg PO q8h PRN nausea * Albuterol inhaler PRN * Docusate sodium 100 mg PO BID PRN * Other home topical and PRN medications as prior * Follow up PCP (Yun Avery NP) within 1 week * Case management may assist with medication cost or insurance barriers. * Continue daily weights and report any rapid weight gain, swelling, or worsening shortness of breath. Discharge Disposition Home with partner Stable condition I spoke with her pharmacy that she uses in [place] and they advised they received her Rx on 05/05. I was told it should go out for delivery Monday or Monday and it would take 2-4 weeks to arrive at the patients home. They said the patient should ask for refills 6 weeks ahead of when she needs it in order to get it on time. A prescription was sent to [facility] and her partner said he would pay for it. I did speak with [facility] pharmacist and he said that after this time it would be covered as her deductible would be met, however it also will be a new year in July with a new deductible. Home Meds and New Rx's Prescriptions: Continued ondansetron HCl 4 mg tablet 4 mg PO Q8H PRN (Reason: nausea and vomiting) Qty: 60 1RF docusate sodium [Colace] 100 mg capsule 100 mg PO BID PRN tamoxifen 20 mg tablet 20 mg PO DAILY albuterol sulfate 90 mcg/actuation HFA aerosol inhaler 2 inh inhalation Q6H PRN (Reason: shortness of breath or wheezing) Qty: 18 4RF clotrimazole-betamethasone 1-0.05 % cream 1 applic Topical BID PRN (Reason: rash) Qty: 30 3RF Rx Instructions: Apply to inguinal area diphenhydramine HCl 25 MG tablet 1 - 2 tab PO HS PRNQty: 30 metoprolol succinate 200 mg tablet extended release 24 hr 200 mg PO DAILY Rx Instructions: 03/02/2023 per [facility] lisinopril 5 mg tablet 5 mg PO DAILY Qty: 90 3RF spironolactone 25 mg tablet See Rx Instructions .ROUTE .COMPLEX Qty: 45 1RF Dose Instruction: TAKE ONE-HALF TABLET BY MOUTH EVERY DAY Rx Instructions: TAKE ONE-HALF TABLET BY MOUTH EVERY DAY furosemide 40 mg tablet 80 mg PO DAILY Qty: 180 3RF digoxin 125 mcg (0.125 mg) tablet 0.125 mg PO DAILY Qty: 90 1RF lorazepam 1 mg tablet 1 mg PO HS PRN (Reason: anxiety) Qty: 30 1RF Xarelto 20 mg tablet 20 mg PO DAILY Qty: 30 3RF Discharge Instructions Instructions: Pulmonary Embolism (Blood Clot in the Lungs) (DC), Deep vein thrombosis - Discharge instructions Additional Instructions: What is a pulmonary embolism? A pulmonary embolism is a blood clot in the lungs. This clot blocks blood flow and makes it harder for your lungs and heart to work normally. How Xarelto Helps Xarelto does NOT dissolve the clot. Instead, it helps your body heal safely by: * Preventing the clot from getting bigger * Stopping new clots from forming * Allowing your body’s natural system to slowly break down the clot over time Xarelto works by blocking a clotting protein called Factor Xa, which your body uses to form blood clots. By calming down the clotting process, your body gets a chance to heal. How Long the Clot Takes to Heal Healing from a PE takes time. Everyone is different, but this is the general timeline: 1–2 weeks * You may start breathing easier. * Pain, shortness of breath, and fatigue often begin improving. 4–6 weeks * Most people feel much better. * The clot has usually started shrinking. 2–3 months * A good portion of the clot is gone. * Many patients feel close to normal. 3–6 months * Most clots are fully or almost fully healed. * Some people may have a small amount of scar tissue, but it usually doesn’t cause problems. When to Call Your Doctor Contact your provider if you have: * Worsening shortness of breath * Chest pain * Fainting or racing heartbeat * Leg swelling or pain * Coughing up blood * Bleeding that won’t stop (nose, gums, urine, stool) Important Medication Tips * Take Xarelto exactly as prescribed. * Do not skip doses. * Take with food if instructed. * Let your doctor know before any surgery or dental work. * Avoid NSAIDs like ibuprofen unless your doctor approves. * T.E.D. Hose (Compression Stockings) – * Purpose: Help prevent blood clots from getting bigger, improve circulation, reduce swelling, and lower risk of long-term leg problems. * How to use: * Put on in the morning before getting out of bed. * Wear all day, remove at night. * Keep stockings smooth and unrolled. * Replacement: Every 3–6 months or if stretched/damaged. * Call your doctor if: * Leg swelling, redness, or pain worsens * Shortness of breath or chest pain * Bleeding or unusual bruising Stand Alone Forms: Portal Information Referrals: Yun Avery NP [Primary Care Provider, Medicine] Referral Note: Your pcp will call to schedule an appointment, if you haven't heard from them please call them Activity:: Activity as Tolerated Equipment/Supplies:: No Equipment Needed Diet:: As Tolerated Discharge Orders Discharge Orders: Discharge Order (Routine); Ordered 05/17/25 Ordered By: Kia Thibodeaux DS: Summary Time Spent with Patient providing and/or coordinating discharge services: Greater than 30 minutes Status at Discharge Functional status at discharge: independent ambulation Overall status at discharge: patient is back to baseline Mental Status: mental status grossly normal Speech and Movement: speech and movement normal Mood: congruent mood Affect: normal affect Quality:SDOH Health Related Social Needs: Health related social needs house/[facility] circumstance da [facility] activities Exam Narrative Exam Narrative: General: Well-nourished, awake and alert, atraumatic, appears toxic, in moderate acute distress. Skin: Warm, pale, dry, intact; no rashes or lesions. Head: Normocephalic, atraumatic. Eyes: Conjunctiva normal; no lid or lash exudates. ENT: Nares patent; no facial swelling or circumoral cyanosis. Oral mucosa dry. Right tonsil erythematous and swollen without exudate. Neck: Supple, trachea midline; full, painless cervical ROM. Lungs: CTA bilaterally; symmetric chest expansion. AICD in right chest. Cardiovascular: Irregular rhythm, rate controlled at 60. No clear murmur (limited by body habitus). 1+ edema in right lower extremity. No JVD. Abdomen: Soft, nondistended; no tenderness or guarding. Musculoskeletal: Full ROM; no deformities or swelling. Moves all extremities without weakness. No cyanosis; spine midline, nontender. Neurological: Alert and oriented ×4. No facial droop. Strength 5/5 throughout; sensation intact. Gait not tested. Psychiatric: Cooperative, pleasant; appropriate speech. Psych Mental Status: mental status grossly normal Speech and Movement: speech and movement normal Mood: congruent mood Affect: normal affect DS: Data Vitals/I&O Vitals and I&O: Vital Signs Temperature 36.1 C L 05/17/25 11:43 Temperature Source Temporal Artery Scan 05/17/25 11:43 Pulse 57 L 05/17/25 11:43 Pulse Rhythm Irregular 05/15/25 21:55 Pulse 61 05/15/25 21:17 Respiratory Rate 18 05/17/25 11:43 Respiratory Effort Normal 05/15/25 21:55 Respiratory Depth Normal 05/15/25 21:55 Respiratory Pattern Normal 05/15/25 21:55 Blood Pressure 110/57 L 05/17/25 11:43 Blood Pressure Mean 74 05/17/25 11:43 Blood Pressure Position Sitting 05/15/25 16:13 Pulse Oximetry 94 05/17/25 11:43 Oxygen Delivery Method Room Air 05/17/25 11:43 Oxygen Flow Rate 0 05/17/25 11:43 Pain Level 0 05/17/25 08:20 Comment takes benadryl at night. did not take any for current symptoms. 05/15/25 16:13 Intake & Output 05/16/25 05/16/25 05/17/25 11:59 23:59 11:59 Intake Total 278.700 / 878.700 600 / 878.700 500 / 500 Balance 278.700 / 878.700 600 / 878.700 500 / 500 Weight 102 kg 102 kg Intake: IV 154.700 / 154.700 Oral 124 / 724 600 / 724 500 / 500 Other: Urine Color Yellow Pale Yellow Urine Appearance Clear Clear Urine Odor Normal Normal Comment pt voided in the [place] Data Completed and Pending Pending Labs at Discharge: 05/15/25 05/15/25 05/15/25 17:12 18:51 19:48 WBC 10.03 RBC 4.42 Hgb 13.2 Hct 38.2 MCV 86 MCH 29.9 MCHC 34.6 RDW 12.6 Plt Count MPV Immature Gran % 0.4 Neutrophils % 73.6 Lymphocytes % 14.1 Monocytes % 8.9 Eosinophils % 2.7 Basophils % 0.3 Nucleated RBC % 0.0 Absolute Neutrophils 7.39 H Absolute Lymphocytes 1.41 Absolute Monocytes 0.89 H Absolute Eosinophils 0.27 Absolute Basophils 0.03 RBC Morphology Normal APTT 23.7 VBG Lactate 1.2 Sodium 138 Potassium 4.0 Chloride 103 Carbon Dioxide 24.3 Anion Gap 10.7 BUN 17 Creatinine 0.9 Est GFR (CKD-EPI 2020) 58.27 Glucose 190 H Calcium 8.5 Magnesium 1.7 Total Bilirubin 0.80 AST 21 ALT 16 Alkaline Phosphatase 79 Troponin I 4 5 NT-Pro-B Natriuret Pep 960 H Total Protein 7.3 Albumin 3.9 TSH COVID-19 Source Nasopharynx SARS-CoV-2 (PCR) Negative Influenza Type A (PCR) Negative Influenza Type B (PCR) Negative RSV (PCR) Negative 05/16/25 05/16/25 05/16/25 00:16 00:16 06:20 WBC RBC Hgb Hct MCV MCH MCHC RDW Plt Count MPV Immature Gran % Neutrophils % Lymphocytes % Monocytes % Eosinophils % Basophils % Nucleated RBC % Absolute Neutrophils Absolute Lymphocytes Absolute Monocytes Absolute Eosinophils Absolute Basophils RBC Morphology APTT 28.3 Cancelled VBG Lactate Sodium Potassium Chloride Carbon Dioxide Anion Gap BUN Creatinine Est GFR (CKD-EPI 2020) Glucose Calcium Magnesium Total Bilirubin AST ALT Alkaline Phosphatase Troponin I NT-Pro-B Natriuret Pep Total Protein Albumin TSH Cancelled 1.65 COVID-19 Source SARS-CoV-2 (PCR) Influenza Type A (PCR) Influenza Type B (PCR) RSV (PCR) 05/16/25 05/17/25 10:30 06:27 WBC 9.76 8.18 RBC 4.42 4.21 Hgb 13.1 12.1 Hct 38.8 36.3 MCV 88 86 MCH 29.6 28.7 MCHC 33.8 33.3 RDW 12.7 12.8 Plt Count 254 249 MPV 10.0 10.1 Immature Gran % Neutrophils % Lymphocytes % Monocytes % Eosinophils % Basophils % Nucleated RBC % Absolute Neutrophils Absolute Lymphocytes Absolute Monocytes Absolute Eosinophils Absolute Basophils RBC Morphology APTT 32.0 H VBG Lactate Sodium 137 138 Potassium 3.8 3.6 Chloride 104 106 Carbon Dioxide 25.4 24.8 Anion Gap 7.6 7.2 BUN 18 21 Creatinine 0.9 0.9 Est GFR (CKD-EPI 2020) 64.65 60.52 Glucose 229 H 159 H Calcium 8.7 8.7 Magnesium 1.8 1.9 Total Bilirubin 0.70 0.50 AST 22 16 ALT 21 18 Alkaline Phosphatase 77 77 Troponin I NT-Pro-B Natriuret Pep Total Protein 7.2 6.8 Albumin 3.8 3.6 TSH COVID-19 Source SARS-CoV-2 (PCR) Influenza Type A (PCR) Influenza Type B (PCR) RSV (PCR) PFSH All Active Problems (Updated 05/16/25 @ 18:51 by Kia Thibodeaux NP) Dvt femoral (deep venous thrombosis) (Acute) Pulmonary embolism, bilateral (Acute) Pulmonary emboli (Chronic) Balance problem (Acute) Macular degeneration (Acute) Atrial fibrillation (Chronic 10/13/12) Rapid a fib. Under anticoagulated.Shortness of [id number]. On Digoxin-progressively worse over the last year. Echo 2010 EF 35-40%, 2+ MR. 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 Nolen- [facility] 2 x year Anxiety (Chronic) Non-ischemic cardiomyopathy (Chronic) Prediabetes (Acute) Numbness and tingling of both feet (Acute) Breast mass in female (Acute) 07/24: right breast, sub areolar - referred to [facility] bx 3/2- AT LEAST atypical ductal hyperplasia- see report Low back pain (Acute) Muscle spasm of back (Acute) Nail dystrophy (Acute) Exostosis (Acute) Fatigue (Acute) Myalgia (Acute) Medication monitoring encounter (Acute) ICD (implantable cardioverter-defibrillator) in place (Chronic) 12/01/22 Per [facility]. -hb CHF (congestive heart failure) (Chronic) 12/01/22 Per [facility]. -hb Idiopathic neuropathy (Acute) *Dx qualifies pt for at-risk foot care services with Podiatry. Onychomycosis (Acute) Medical History Skin cancer of face per [facility] 2016 Incisional hernia of anterior abdominal wall without obstruction or gangrene Depressive disorder 2020- has not needed meds x 4 years; used to take Depression Anxiety History of surgery Hysterectomy for DUB. Cholecystectomy. Colonoscopy, 1 5 years. She is uncertain if she had a polyp in the past or not. Surgical History Hx of atrioventricular node ablation (09/22/17) Myomectomy (~1986) Implantation of automatic cardioverter/defibrillator, total system (AICD) 12/18/14- [facility]; SERIAL NUMBER [id number]. [employer] FINAL-D DF4 Abdominal hysterectomy Cholecystectomy Family History Mother , 85 Anxiety A-fib Depression Heart disease Afib COPD (chronic obstructive pulmonary disease) Father , 71 A-fib Colon cancer Brother , 61 Substance abuse CANNABIS A-fib MS (multiple sclerosis) Pancreatic cancer Maternal Aunt Breast cancer Ductal Maternal Grandfather , 80 Stroke Depression Maternal Aunt Breast cancer Maternal Cousin Breast cancer Paternal Grandfather , 40 ESRD (end stage renal disease) Maternal Grandmother , 85 A-fib Heart disease Macular degeneration Paternal Grandmother No problems noted. Daughter No problems noted. Maternal Cousin Breast cancer Social History Smoking/Tobacco Use Status: Former Tobacco Use tobacco type: cigarettes Quit Date: 07/03/76 Tobacco: How many years used: 2 Second Hand Exposure: Yes Smoking risk assessment performed?: Yes Alcohol Intake: current Alcohol Intake frequency: holidays/special occasions only Alcohol type: hard liquor Drug use: Never Substance use type: does not use Adopted: No Caregiver/Support person: Yes Household members: significant other Housing: apartment Number of Children: 1 Communication Needs: Hard of Hearing Education Level: other Details: MD Do you need help understanding health information?: Rarely current occupation: retired Pets and animals: Yes Pets and animals: cat(s) Sexually active: Yes Do you think of yourself as: straight/heterosexual Current gender identity: female What is your relationship status?: living with partner How often do you talk on the phone with friends or family?: three or more times per week How often do you get together with friends or relatives?: three or more times per week Do you belong to any clubs or organized social groups?: no Panel score (0-1 are the most socially isolated patients): 2 What type of physical activity do you participate in: walking Duration: < 15 minutes/day Frequency: 3-4 times per week Ofelia/Hinduism: None Special ofelia needs: No Agree to transfusion: Yes Seatbelt use: always Helmet use: Yes Helmet use: always Drive intox or ride w/intox funeral driver: No Working smoke detector in home: Yes Carbon monox detector in home: Yes Firearms in home: No Do you feel safe at home: Yes Do you feel safe in your relationship?: Yes Victim of physical abuse: No Victim of emotional abuse: Yes Victim of sexual abuse: No Would you like helpful sources: No Time Spent with Patient Time Spent with Patient: 45-69 minutes Time was spent: preparing to see the patient(eg.review tests), ordering medications,tests, procedures, referring, communicating with other health daycare provider, indepentently interpreting results, counseling the patient and care coordination
[2025-05-17 13:17] LABS: Lab Add On Test DONE
[2025-05-17 13:51] LABS: Hemoglobin A1C 7.4 % (<5.7)
[2025-05-17] MEDS: Rivaroxaban 10 MG TABLET 20 MG PO (15:08)
[2025-05-17 15:45] VITALS: BP 118/61; PULSE 60; RESP 19; TEMP 36.7; O2SAT 93
--- NOTE | 2025-05-17 15:50 | CMDISCH_ITS ---
Date of service: 05/17/25 Time of Service: 15:50 LACE Index Scoring Tool Questions: Length of Stay (in days): 2 Was the patient admitted via the E.D.?: Yes Comorbidities: Diabetes w/o Complication and Congestive Heart Failure E.D. Visits: 0 Answers: Total Score: 8 Risk of Readmission: Low Risk Care Management Discharge Plan Reason for Hospitalization: bilateral PE Discharge Plan: Tania returned home today with no new services. She was driven home via private vehicle by family. She will follow up with her PCP and discharge plan of care. Patient/Family Education Needs: Review discharge instructions and limitations, discussion of self care needs including ask me three. SDOH Health Related Social Needs: Health related social needs house/econ circumstance da arlen activities
== END 2025-05-17 17:31 | disposition home or self-care (01) | DRG 176 ==
LOC: ER 20:14 → MS 21:20
PROVIDERS: Emergency Medicine; Admitting Provider Family Medicine; Emergency Provider Physician Assistant; PCP Nurse Practitioner Family; Responsible Provider Nurse Practitioner Family; Visit Provider Family Medicine
DX: I26.99 Other pulmonary embolism without acute cor pulmonale (principal); I42.8 Other cardiomyopathies; Z95.810 Presence of automatic (implantable) cardiac defibrillator; I82.411 Acute embolism and thrombosis of right femoral vein; I82.431 Acute embolism and thrombosis of right popliteal vein; I82.441 Acute embolism and thrombosis of right tibial vein; I50.22 Chronic systolic (congestive) heart failure; R53.1 Weakness; G47.00 Insomnia, unspecified; E66.9 Obesity, unspecified; I44.7 Left bundle-branch block, unspecified; F41.9 Anxiety disorder, unspecified; R73.03 Prediabetes; M54.50 Low back pain, unspecified; B35.1 Tinea unguium; G60.9 Hereditary and idiopathic neuropathy, unspecified; Z59.89 Other problems related to housing and economic circumstances; Z68.34 Body mass index [BMI] 34.0-34.9, adult
CPT/HCPCS: 00123; 36415; 71275; 80053; 85027; 87637; 87880; 93005; 93306; 96365; 96366; 99285; 83036; 83605; 83735; 83880; 84443; 84484; 85025; 85730; 87081; 93010; 93970; 99222; 99232; 99239; J1644; J1650; J1815; J3490